=== PATIENT | male | born 1955 | race Caucasian/White ===

== ENCOUNTER → 2018-03-12 15:52 | Outpatient (CLI) | payer OTHER, SELFPAY ==
[2018-03-12 16:07] LABS: Basophils % 0.3 % (0.1-2.0); Eosinophils # 0.3 K/mm3 (0.0-0.4); Eosinophils % 3.1 % (0.1-12.0); Hematocrit 45.9 % (42.0-52.0); Hemoglobin 14.9 g/dL (14.1-18.0); Lymphocytes # 2.1 K/mm3 (0.7-4.5); Lymphocytes % 21.6 K/mm3 (10-50); Mean Corpuscular HGB Conc 32.6 g/dL (31.8-35.4); Mean Corpuscular Hemoglobin 31.1 pg (27.0-31.2); Mean Corpuscular Volume 95.5 fl (80-94); Mean Platelet Volume 7.9 fl (7.4-10.4); Monocytes # 0.5 K/mm3 (0.1-1.0); Monocytes % 5.2 % (1.7-9.3); Neutrophils # 6.6 K/mm3 (1.8-7.8); Neutrophils % 69.7 % (37.0-80.0); Platelet Count 201 K/mm3 (142-424); Red Cell Distribution Width 13.6 % (11.5-17.5); White Blood Count 9.5 K/mm3 (4.8-10.8)
[2018-03-14 19:04] LABS: Folate 5.9 ng/mL (>3.0)
== END ==
PROVIDERS: Visit Provider Psychiatry & Neurology Sleep Medicine
DX: R41.3 Other amnesia (principal)
CPT/HCPCS: 36415; 82746; 85025

== ENCOUNTER → 2018-03-20 14:07 | Outpatient (CLI) | payer OTHER, SELFPAY ==
--- NOTE | 2018-03-20 14:12 | CT_ITS ---
CT head/brain wo con COMPARISON: None HISTORY: Memory loss TECHNIQUE: Multiple axial scans obtained from base skull to the vertex and were performed without IV contrast. FINDINGS: The base of skull is normal, mastoids are clear. The ventricular system is normal. There is no ischemic infarct or bleed and there are no extra-axial fluid collections. The sylvian fissures and cortical sulci are mildly prominent. The bony calvarium appears intact. IMPRESSION: Findings of mild age-appropriate cortical atrophy, no acute intracranial pathology noted
== END ==
PROVIDERS: Family Provider Family Medicine Geriatric Medicine; PCP Family Medicine Geriatric Medicine; Visit Provider Psychiatry & Neurology Sleep Medicine
DX: R41.3 Other amnesia (principal)
CPT/HCPCS: 70450

== ENCOUNTER → 2018-03-31 14:23 | Outpatient (CLI) | payer OTHER, SELFPAY ==
[2018-03-31 14:55] LABS: Ammonia 16 umol/L (19-54)
[2018-03-31 16:15] LABS: Alanine Aminotransferase 20 U/L (12-78); Albumin Level 3.6 gm/dL (3.4-5.0); Albumin/Globulin Ratio 1.3 (1.1-1.8); Alkaline Phosphatase 93 U/L (46-116); Anion Gap 10.4 mEq/L (5-15); Aspartate Amino Transferase 17 U/L (15-37); Bilirubin,Total 0.2 mg/dL (0.2-1.0); Blood Urea Nitrogen 7 mg/dL (7-18); Carbon Dioxide 31 mmol/L (21.0-32.0); Chloride 105 mmol/L (98-107); Creatinine,Serum 0.91 mg/dL (0.70-1.30); Estimated Glomerular Filt Rate 84 ml/min (>60); GFR (African American) 102 ML/MIN (>60); Globulin 2.8 gm/dl (1.3-3.2); Glucose 95 mg/dL (74-106); Potassium 4.4 mmoL/L (3.5-5.1); Sodium 142 mmol/L (136-145); Thyroid Stimulating Hormone 1.28 uIU/ml (0.358-3.740); Total Protein,Serum 6.4 gm/dL (6.4-8.2)
[2018-04-02 08:26] LABS: Vitamin B12 352 pg/mL (232-1245)
[2018-04-02 14:48] LABS: Rapid Plasma Reagin Ab Titer Non Reactive (NonRea<1:1)
== END ==
PROVIDERS: Visit Provider Psychiatry & Neurology Sleep Medicine
DX: R41.3 Other amnesia (principal)
CPT/HCPCS: 36415; 80053; 82140; 82607; 84443; 86592

== ENCOUNTER → 2018-07-08 13:23 | Outpatient (CLI) | payer OTHER, SELFPAY ==
--- NOTE | 2018-07-08 13:26 | US_ITS ---
US scrotum HISTORY: ITS.REASON: SCROTAL PAIN ORDERING PHYSICIAN: Renetta Gutierrez PATIENT AGE: 63 years Comparison: None FINDINGS: Right testicle measures 4.8 x 2.3 x 3.8 cm. There is homogeneous echogenicity. Blood flow is present. A small septated cystic area is present in the lower pole the right testicle measuring 7 x 3 mm. The left testicle is 5 x 2.8 x 3.2 cm. There is homogeneous echogenicity. A 5 mm cystic area is present in the lower pole the left testicle. Flow is present. Left hydrocele is noted. There are several cystic areas in the left epididymal head largest at 2.4 cm consistent with spermatocele' s. IMPRESSION: 1. Bilateral cystic lesions of the testicles. The right testicular cystic area is septated and slightly larger at 7 x 3 mm. These are of questionable clinical significance. The cyst on the left has a benign simple cystic appearance. The cyst on the right however is septated and slightly larger. This could also represent a simple testicular cyst however included in the differential diagnosis would be a testicular epidermoid cyst or even a cystic testicular teratoma. Follow-up is recommended to confirm stability. 2. Left-sided spermatoceles/epididymal cysts measuring up to 2.4 cm in the epididymal head with left-sided hydrocele
== END ==
PROVIDERS: Family Provider Family Medicine Geriatric Medicine; PCP Family Medicine Geriatric Medicine; Visit Provider Urology
DX: N50.82 Scrotal pain (principal)
CPT/HCPCS: 76870

== ENCOUNTER → 2018-07-16 13:58 | Outpatient (CLI) | payer OTHER, SELFPAY ==
--- NOTE | 2018-07-16 14:03 | XR_ITS ---
EXAM: XR lumbar spine min 4V HISTORY: ITS.REASON: LBP WITH SCIATICA ORDERING PHYSICIAN: Jared Emmanuel PATIENT AGE: 63 years COMPARISON: 08/13/2016 FINDINGS: Prior fusion with interpedicular screws and disc spacer device at L4-L5. There is degenerative disc disease at L5-S1 which has progressed compared to the previous study.. There is minimal levo scoliosis of the lower lumbar spine. Mild facet arthritic changes are present at L5-S1. Incidental pars defect noted bilaterally at L3. There is minimal anterolisthesis of L4 on L5 of 3 mm. IMPRESSION: 1. Prior fusion at L4-L5. 2. Increasing degenerative disc disease at L5-S1 with facet arthritic changes at that level. 3. Pars defect at L3 unchanged
--- NOTE | 2018-07-16 14:03 | XR_ITS ---
XR chest 2V HISTORY: ITS.REASON: COPD ORDERING PHYSICIAN: Jared Emmanuel PATIENT AGE: 63 years COMPARISON: 04/25/2015 FINDINGS: The cardiomediastinal silhouette and pulmonary vascularity are within normal limits. The lungs are clear without infiltrates, suspicious nodules, or pleural effusions. Is hyperinflation with attenuation of the peripheral pulmonary vessels consistent with COPD. There are minimal fibrotic changes in the left lower lobe man No acute bony abnormalities. IMPRESSION: COPD, no change finding
== END ==
PROVIDERS: PCP Family Medicine; Visit Provider Family Medicine
DX: J44.9 Chronic obstructive pulmonary disease, unspecified (principal); M54.5 Low back pain; M54.30 Sciatica, unspecified side
CPT/HCPCS: 71046; 72110

== ENCOUNTER → 2019-01-08 10:08 | Outpatient (CLI) | payer OTHER, SELFPAY ==
[2019-01-08 10:49] LABS: Blood Urea Nitrogen 11 mg/dL (7-18); Creatinine,Serum 0.98 mg/dL (0.70-1.30); Estimated Glomerular Filt Rate 77 ml/min (>60); GFR (African American) 93 ML/MIN (>60)
--- NOTE | 2019-01-08 11:06 | CT_ITS ---
CT chest w con HISTORY: Hemoptysis, smoker ITS.REASON: HEMOPTYSIS ORDERING PHYSICIAN: Jared Emmanuel PATIENT AGE: 63 years COMPARISON: None TECHNIQUE: Axial images obtained following the administration of 75 mL of Optiray 350. Sagittal, and coronal reformatted images are also generated and reviewed. All CT scans at the facility use one or more dose reduction, viz: automated exposure control, ma/kV adjustment per patient size (including targeted exams where dose is matched to indication, i.e. head), or iterative reconstruction technique. FINDINGS: No mediastinal or hilar mass or adenopathy. There are fairly prominent coronary artery calcifications most extensive in the LAD. Normal heart size. No pericardial effusion. There are centrilobular emphysematous changes. Mild diffuse bronchial thickening is also noted. There is a calcified granuloma in the left upper lobe. No suspicious pulmonary nodules are evident. No central obstructing lesions. There is a patchy area of increased density left lung base posteriorly. This may be due to an area of scarring. Previously there was parenchymal opacity in this region which was more prominent than on today's exam. There are minimal atelectatic changes in the costophrenic sulci No effusions or other significant anomalies. Upper abdominal images demonstrates an 18 mm isodensity of the medial aspect of the spleen and may be due to a cyst measuring near water density. No acute bony findings IMPRESSION: 1. No suspicious pulmonary nodules evident. 2. Centrilobular emphysema with hyperinflation and bronchial thickening consistent with obstructive chronic bronchitis. 3. Parenchymal opacity in the left lower lobe felt to represent fibrotic change somewhat less apparent than when compared to the previous exam 4. 18 mm isodensity of the spleen. This was not readily apparent on 06/07/2018 CT abdomen exam. This appears to represent a simple cyst by CT criteria but has developed since the previous exam. Therefore, would recommend short-term follow-up. Differential diagnosis would include a congenital cyst, pseudocyst, or hydatid cyst.
== END ==
PROVIDERS: Visit Provider Family Medicine
DX: R04.2 Hemoptysis (principal)
CPT/HCPCS: 36415; 71260; 82565; 84520

== ENCOUNTER → 2019-02-25 14:10 | Outpatient (CLI) | payer OTHER, SELFPAY ==
--- NOTE | 2019-02-25 14:14 | XR_ITS ---
XR elbow RT min 3V HISTORY: ITS.REASON: Right elbow pain ORDERING PHYSICIAN: ADAM Johnson PATIENT AGE: 63 years COMPARISON: 12/05/2009 FINDINGS: There is a well-circumscribed calcific density along the lateral epicondylar region measuring 12 x 3 mm. There are mild osteoarthritic changes of the elbow joint with osteophyte formation at the humeral head and the proximal ulna as well as the distal and anterior aspect of the humerus. No acute fracture or dislocation. No lytic or blastic change. 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 Well-circumscribed calcific density has developed at the lateral epicondyle and could be due to sequela from old injury.
--- NOTE | 2019-02-25 14:14 | XR_ITS ---
XR shoulder LT min 2V HISTORY: ITS.REASON: Left shoulder pain ORDERING PHYSICIAN: ADAM Johnson PATIENT AGE: 63 years Comparison: None FINDINGS: No fracture or dislocation. No lytic or blastic change. There is normal mineralization. The joint spaces are well-preserved. No significant degenerative/arthritic changes. No erosive changes evident. IMPRESSION: Negative, no acute finding
== END ==
PROVIDERS: PCP Physician Assistant; Visit Provider Physician Assistant
DX: M25.512 Pain in left shoulder (principal); M25.521 Pain in right elbow
CPT/HCPCS: 73030; 73080

== ENCOUNTER 2019-03-17 13:41 | Outpatient (RCR) | payer OTHER, SELFPAY ==
--- NOTE | 2019-03-17 14:55 | HMH.OTOPEV ---
OT Inpatient Evaluation Rehab OT Outpatient Eval Start: 03/17/19 14:41 Freq: Status: Active Protocol: Document 03/17/19 14:41 RMARSHALL (Rec: 03/17/19 14:54 [id number] Electronically Signed By Parker Tierney OT 03/17/19 14:41 Outpatient Therapy Subjective History Subjective History Pt is a 63 year old male who reports to therapy for initial evaluation to left shoulder. Pt reports his shoulder has been painful for a few years . However, recently it has become more painful and has limited range of motion. Pt is unable to recall a specific injury that would cause complications with the left shoulder. Pt does demonstrate with decreased AROM and strength at shoulder. Pt will continue to be seen in order to address all deficits. Chief Complaint Pain Stiff Weakness Symptom Type Ache Throb Sharp Dull Stabbing Burning Shooting Symptoms Relieved By Nothing Symptoms Aggravated By Physical Activity Lifting Prior Functional Limitations None Current Functional Limitations Reaching Lifting Housework Dressing Driving Sleeping Recreation Activity Symptom Description Constant and Continuous Level of pain today (0-10) 6 Pain scale - at its best (0-10) 6 Pain scale - at its worst (0-10) 9 Shoulder/Elbow Eval Shoulder Objective Measurements Shoulder ROM Left Shoulder Abduction Active Range of 65 degrees Motion (degrees) Shoulder Flexion Active Range of Motion 70 degrees (degrees) Query Text: Shoulder External Rotation Active Range 25 degrees of Motion (degrees) Shoulder Internal Rotation Active Range 26 degrees of Motion (degrees) pain with active ROM shoulder exam left standard pain with passive ROM shoulder exam left standard
== END 2019-03-17 13:45 | disposition home or self-care (01) ==
LOC: OT 13:41
PROVIDERS: Visit Provider Physician Assistant
DX: M25.512 Pain in left shoulder (principal)
CPT/HCPCS: 97165

== ENCOUNTER → 2019-04-05 17:07 | Outpatient (CLI) | payer OTHER, SELFPAY ==
[2019-04-05 17:35] LABS: Basophils % 0.4 % (0.1-2.0); Eosinophils # 0.1 K/mm3 (0.0-0.4); Eosinophils % 1.3 % (0.1-12.0); Hematocrit 47.8 % (42.0-52.0); Hemoglobin 15.8 g/dL (14.1-18.0); Lymphocytes # 2.7 K/mm3 (0.7-4.5); Lymphocytes % 32.7 % (10-50); Mean Corpuscular Hemoglobin 30.2 pg (27.0-31.2); Mean Corpuscular Volume 91.6 fl (80-94); Monocytes # 0.6 K/mm3 (0.1-1.0); Neutrophils # 4.9 K/mm3 (1.8-7.8); Neutrophils % 58.7 % (37.0-80.0); Platelet Count 268 K/mm3 (142-424); Red Blood Count 5.22 M/mm3 (4.60-6.20); Red Cell Distribution Width 14.4 % (11.5-17.5); White Blood Count 8.3 K/mm3 (4.8-10.8)
[2019-04-05 19:55] LABS: Alanine Aminotransferase 24 U/L (12-78); Albumin Level 3.8 gm/dL (3.4-5.0); Albumin/Globulin Ratio 1.1 (1.1-1.8); Alkaline Phosphatase 95 U/L (46-116); Anion Gap 14.2 mEq/L (5-15); Aspartate Amino Transferase 13 U/L (15-37); Bilirubin,Total 0.3 mg/dL (0.2-1.0); Blood Urea Nitrogen 8 mg/dL (7-18); Calcium 8.8 mg/dL (8.5-10.1); Carbon Dioxide 27 mmol/L (21.0-32.0); Chloride 105 mmol/L (98-107); Chol/HDL Ratio 5.3 (1-3.5); Cholesterol 268 mg/dL (140-200); Creatinine,Serum 0.95 mg/dL (0.70-1.30); Estimated Glomerular Filt Rate 80 ml/min (>60); GFR (African American) 97 ML/MIN (>60); Globulin 3.4 gm/dl (1.3-3.2); Glucose 60 mg/dL (74-106); HDL Cholesterol 51 mg/dL (27-67); LDL Cholesterol 160 mg/dL (0-130); Potassium 4.2 mmoL/L (3.5-5.1); Sodium 142 mmol/L (136-145); T4 (Thyroxine) 5.5 ug/dl (4.7-13.3); Total Protein,Serum 7.2 gm/dL (6.4-8.2); Triglycerides 285 mg/dL (30-200); VLDL Cholesterol 57 mg/dL (0-40)
[2019-04-07 13:56] LABS: PSA, Free 0.52 ng/mL; Vitamin D 25 Hydroxy 31.2 ng/mL (30.0-100.0)
[2019-04-09 11:46] LABS: Testosterone, Total, LC/MS 960.8 ng/dL (264.0-916.0)
== END ==
PROVIDERS: Visit Provider Physician Assistant
DX: R53.83 Other fatigue (principal); L98.9 Disorder of the skin and subcutaneous tissue, unspecified; F32.9 Major depressive disorder, single episode, unspecified; G89.4 Chronic pain syndrome
CPT/HCPCS: 80053; 80061; 82652; 84153; 84154; 84403; 84436; 84443; 85025

== ENCOUNTER → 2019-04-07 14:22 | Outpatient (CLI) | payer OTHER, SELFPAY ==
--- NOTE | 2019-04-07 14:24 | NVE_ITS ---
Venous Exam Indications: 729.81 Swelling of limb. IMPRESSIONS No evidence of deep or superficial vein thrombosis involving the veins of the left upper extremity History: Risk factors: Current tobacco use. Left upper extremity venous duplex. Doppler flow study including spectral analysis, color and sánchez scale imaging. Location: Vascular laboratory. Patient status: Outpatient. Tables: Venous flow and imaging: + + + Location Flow properties + + + Left internal jugular Normal phasicity; spontaneous; compressible + + + Left subclavian Normal phasicity; spontaneous; normal augmentation; compressible + + + Left axillary Normal phasicity; spontaneous; normal augmentation; compressible + + + Left brachial Normal phasicity; spontaneous; normal augmentation; compressible + + + Left cephalic Normal phasicity; spontaneous; normal augmentation; compressible + + + Left basilic Normal phasicity; spontaneous ; normal augmentation; compressible + + + Left radial Compressible + + + Left ulnar Compressible + + + Right subclavian Normal phasicity; spontaneous; normal augmentation; compressible + + + (Report amended ) Electronically signed by: Tony Chaudhary [id number]
== END ==
PROVIDERS: PCP Physician Assistant; Visit Provider Physician Assistant
DX: M79.602 Pain in left arm (principal); M79.89 Other specified soft tissue disorders
CPT/HCPCS: 93971

== ENCOUNTER → 2019-10-19 12:53 | Outpatient (CLI) | payer OTHER, SELFPAY ==
--- NOTE | 2019-10-19 12:57 | XR_ITS ---
PROCEDURE: XR LUMBAR SPINE MIN 4V CLINICAL INDICATION: Lower ack Pain Low back pain COMPARISON: [id number] XR lumbar spine min 4V from 07/16/2018 FINDINGS: There is minimal thoracolumbar curvature convex right. There are postsurgical changes with posterior fusion at L4 and L5 with a disc spacer at that level. There is degenerative disc disease at L1-S1 most severe at L5-S1. There is minimal anterolisthesis of L5 5 mm. No acute fracture or dislocation. There is generalized vascular calcification. IMPRESSION: Degenerative and postsurgical changes, no acute finding Dictated by: Tony Chaudhary MD 10/19/2019 14:53 Electronically signed by Tony Chaudhary MD in [place] 10/19/2019 14:53
== END ==
PROVIDERS: PCP Physician Assistant; Visit Provider Nurse Practitioner Family
DX: M54.9 Dorsalgia, unspecified (principal)
CPT/HCPCS: 72110

== ENCOUNTER → 2020-01-10 09:41 | Outpatient (POV) | payer OTHER, SELFPAY ==
[2020-01-10 11:05] VITALS: BP 129/83; PULSE 77; RESP 18; O2SAT 98; BMI 19.4
--- NOTE | 2020-01-10 13:19 | HMH.PMCON ---
Assessment and Plan (1) Sacroiliitis Current visit: Yes Status: Chronic Category: Medical Code(s): M46.1 - Sacroiliitis, not elsewhere classified (2) Postlaminectomy syndrome Current visit: Yes Status: Chronic Category: Medical Code(s): M96.1 - Postlaminectomy syndrome, not elsewhere classified - Assessment and plan all Dx Assessment and Plan for all problems:: We will set the patient up for right SI joint injection. We will get some imaging of his right SI joint. Patient's been instructed to call the office if he has any issues prior to his next appointment. Dr. Bone has reviewed this note and agrees with this plan of care. This note was dictated using voice recognition software and may contain errors or omissions HPI - Data of Consult Consult date: 01/10/20 Requesting Physician: Indira Reyes APRN Primary Care Provider: ADAM Elise - Consult Narrative Reason for consult: Back pain, right groin pain History of present illness: Mr. Arias is a 64 year old male presents today for consultation in regards to his low right-sided back pain and radiation into his groin. Patient has a rating of 7 out of 10 for his pain today. Patient had L4-L5 fusion by Dr. Aminta corey in 2013 his pain in the right side began in 2016. Patient has a positive Aubrey test positive SI joint compression test and Jamar's test on the right side. Patient has pain radiating into his groin. Patient states all activity makes his pain worse well nothing decreases his pain he has numbness and tingling in his hands occasionally CC: Indira Reyes APRN [facility] History I have reviewed the patient's past medical history: Yes Medical History: Reports:: Anxiety, Depression, Hyperlipidemia, Lung Disease Denies:: Diabetes Mellitus Type 1, Diabetes Mellitus Type 2, Internal Pacemaker, Seizures *Have you ever received a pneumonia vaccine?: Yes *Have you received a flu vaccine this season?: Yes Laterality Cases: Bilateral: Tonsillectomy Other Surgeries: Yes: Appendectomy, Hernia Repair. No: Pacemaker Amputation: Yes (FINGER) - *Social History Smoking Status: Current every day smoker Tobacco Type: cigarettes # Packs/Day (cigarettes): 1 Alcohol Intake: never Alcohol Intake Frequency:: 3 or more drinks per day Substance Use Type: marijuana *Occupational Status:: other Housing: house Household Members: other *Travel in the last 8 weeks: None - Psychiatric History Pschychiatric History:: Reports:: Anxiety, Depression Family Hx:: Unable to obtain Review of Systems - Review of Systems ROS General: no recent weight change, no fever, no sleep disturbances Respiratory: no cough, no shortness of air, no recurring pulmonary infections Cardiovascular/Peripheral Vascular: No chest pain, No palpitations, no edema, no shortness of breath. Gastrointestinal: no new onset incontinence, normal bowel movements reported Genitourinary: no new onset incontinence Musculoskeletal: SI joint pain Psychiatric: normal mood/ affect, Neurological: [denies new onset weakness in extremities], [denies new onset balance issues] Meds Home Medications Medication Instructions Recorded Confirmed Type mirtazapine 15 mg tablet 15 mg PO QHS #30 tab 04/05/19 01/05/20 History tamsulosin 0.4 mg capsule 0.4 mg PO DAILY #30 cap 12/31/19 01/05/20 Rx escitalopram oxalate 10 mg tablet 10 mg PO DAILY #30 tab 01/05/20 01/05/20 Rx hydroxyzine HCl 25 mg tablet 25 mg PO TID PRN #90 tab 01/05/20 01/05/20 Rx ipratropium 20 mcg-albuterol 100 INHALATION 01/05/20 01/05/20 History mcg/actuation mist for inhalation Allergies Allergy/AdvReac Type Severity Reaction Status Date / Time codeine [CODEINE] Allergy Unknown I-HIVES Verified 01/05/20 14:59 Objective Vital signs: Pulse Resp BP Pulse Ox 77 18 129/83 98 01/10/20 11:05 01/10/20 11:05 01/10/20 11:05 01/10/20 11:05 Narrative: Physical Exam General: Al
== END ==
PROVIDERS: PCP Physician Assistant; Visit Provider Clinical Nurse Specialist Family Health
DX: M46.1 Sacroiliitis, not elsewhere classified (principal); M96.1 Postlaminectomy syndrome, not elsewhere classified; Z79.899 Other long term (current) drug therapy; Z88.6 Allergy status to analgesic agent
CPT/HCPCS: 99202

== ENCOUNTER → 2020-01-25 13:47 | Outpatient (CLI) | payer OTHER, SELFPAY ==
--- NOTE | 2020-01-25 13:52 | XR_ITS ---
PROCEDURE: XR SACROILIAC JOINT BI MIN 3V CLINICAL INDICATION: RT SIJ PAIN Right SI joint pain COMPARISON: [id number] LUMBAR SPINE-2 TO 3 VIEWS from 08/13/2016 FINDINGS: The SI joints have an unremarkable appearance. No evidence sclerosis/fusion or lytic change. No significant arthritic change. There are postsurgical changes at L4-5. There is generalized vascular calcification and there are sutures noted in the right lower quadrant IMPRESSION: Negative SI joints Dictated by: Tony Chaudhary MD 01/25/2020 14:46 Electronically signed by Tony Chaudhary MD in [place] 01/25/2020 14:46
== END ==
PROVIDERS: PCP Physician Assistant; Visit Provider Clinical Nurse Specialist Family Health
DX: M53.3 Sacrococcygeal disorders, not elsewhere classified (principal)
CPT/HCPCS: 72202

== ENCOUNTER → 2020-02-21 14:33 | Outpatient (POV) | payer OTHER, SELFPAY ==
[2020-02-21 14:59] VITALS: BP 146/86; PULSE 74; RESP 18; O2SAT 98; BMI 22.8
--- NOTE | 2020-02-22 11:14 | P.CONS_ITS ---
[facility] Pain Management SOAP Note Subjective:: Patient is a pleasant 64-year-old white male who presents today for follow-up after a SI joint injection. Patient got a little bit of relief but not a whole lot. Most of his pain is in his right side. He does have a positive Kemps test. His MRI shows facet arthropathy. Patient and I discussed a medial branch block on the right side we discussed its diagnostic nature and potential for neurotomy. He is interested in moving forward with this. He is not on any anticoagulation therapy. He rates his pain a 7 out of 10 today. ROS General: no recent weight change, no fever, no sleep disturbances Respiratory: no cough, no shortness of air, no recurring pulmonary infections Cardiovascular/Peripheral Vascular: No chest pain, No palpitations, no edema, no shortness of breath. Gastrointestinal: no new onset incontinence, normal bowel movements reported Genitourinary: no new onset incontinence Musculoskeletal: Back pain Psychiatric: normal mood/ affect Neurological: [denies new onset weakness in extremities], [denies new onset balance issues] Objective:: Physical Exam General: Alert and oriented x3, no acute distress, pleasant and cooperative, [on room air] Lungs: Resps E/U, Symmetrical chest expansion, Eyes: PERRL Musculoskeletal: Flexion and extension of lumbar spine somewhat guarded secondary to pain, deep tendon reflexes normal, strength in upper and lower extremities [5/5], [abnormal gait noted] Neurological: speech clear, administrative assistant office manager equal, no gross sensory deficits Assessment:: Facet arthropathy, lumbar postlaminectomy syndrome Plan:: We will set up a 3 level medial branch block on the right side. L3-L4 L4-L5 L5- S1 on the right side. Patient understands that this is diagnostic in nature we discussed this in great detail. Patient is not on any anticoagulation therapy. I will follow-up with him after his injection reassess his symptoms at that time. Patient may be a neurotomy candidate. Dr. Bone has reviewed this note and agrees with this plan of care. This note was dictated using voice recognition software and may contain errors or omissions [facility] History I have reviewed the patient's past medical history: Yes Medical History: Reports:: Anxiety, Depression, Hyperlipidemia, Lung Disease Denies:: Cancer, Diabetes Mellitus Type 1, Diabetes Mellitus Type 2, Internal Pacemaker, MRSA, Seizures *Have you ever received a pneumonia vaccine?: Yes *Have you received a flu vaccine this season?: Yes Laterality Cases: Bilateral: Tonsillectomy Other Surgeries: Yes: Appendectomy, Hernia Repair. No: Pacemaker Amputation: Yes (FINGER) Fractures: No - *Social History Smoking Status: Current every day smoker Tobacco Type: cigarettes # Packs/Day (cigarettes): 1 Alcohol Intake: never Alcohol Intake Frequency:: 3 or more drinks per day Substance Use Type: marijuana *Occupational Status:: other Housing: house Household Members: other *Travel in the last 8 weeks: None - Psychiatric History Pschychiatric History:: Reports:: Anxiety, Depression Family Hx:: Unable to obtain
== END ==
PROVIDERS: PCP Physician Assistant; Visit Provider Clinical Nurse Specialist Family Health
DX: M54.06 Panniculitis affecting regions of neck and back, lumbar region (principal); M96.1 Postlaminectomy syndrome, not elsewhere classified
CPT/HCPCS: 99212

== ENCOUNTER 2020-03-24 08:49 | Day surgery (SDC) | payer MEDICARE, OTHER, SELFPAY ==
[2020-03-24 09:18] VITALS: BP 144/79; PULSE 67; RESP 18; TEMP 37.1; O2SAT 94; BMI 22.3
[2020-03-24 09:49] VITALS: BP 132/85; PULSE 85; RESP 18; O2SAT 99
--- NOTE | 2020-03-24 09:55 | HMH.PMPROC ---
- Procedure Date: 03/24/20 Time: 09:55 Anesthesiologist:: Sawyer Bone MD Complications:: None Pre-procedure Diagnosis:: Degenerative disc disease of lumbar spine with lumbar spondylosis and facet arthropathy of lumbar spine Post-procedure Diagnosis:: Same Indications for Procedure:: This patient is a pleasant 64-year-old white male who we have been treating for low back pain with lumbar radicular symptoms and sacroiliitis. He still has significant pain on his right side. He has had previous surgery with fusion of L4-L5 and L5-S1. He has increased facet mediated pain on the right side. Increased pain with extension. He is tender over the facet joints of L4-5 and L5-S1 and L3-L4. We will do right-sided facet joint injection/medial branch blocks of L3-L4, 4 5 and L5-S1 today. He has increasing back pain which is affecting his function and activities of daily living. We will do these injections today to keep him out of the emergency room and off oral opioids. Procedure Details:: Lumbar medial branch block Informed consent was obtained and the risks and benefits of the procedure was explained to the patient. The back was prepped using ChloraPrep. The skin and subcutaneous tissues were anesthetized using lidocaine. I placed 22-gauge spinal needles into the facet joint/medial branches of L3-L4, L4-L5 and L5-S1 on the right side. Needle placement was confirmed with dye. After this we injected 3 mL bupivacaine 0.25% and Depo-Medrol 13 mg into each facet joint/medial branch of L3-L4, L4-L5 and L5-S1 the right side. We used a total of 40 mg Depo-Medrol for all 3 levels on the right side. The patient tolerated the procedure well with no complications. Plan and Disposition:: We will follow-up with him in 2 weeks. Will reevaluate his symptoms at that time. If these are successful we will plan on radiofrequency ablation to the same levels of L3-L4, L4-5 and L5-S1.
[2020-03-24 10:02] VITALS: BP 151/85; PULSE 57; RESP 20; O2SAT 94
== END 2020-03-24 10:03 | disposition home or self-care (01) ==
LOC: SC.PAINP 08:50
PROVIDERS: PCP Physician Assistant; Visit Provider Anesthesiology
DX: M51.36 Other intervertebral disc degeneration, lumbar region (principal); M47.816 Spondylosis without myelopathy or radiculopathy, lumbar region; M54.06 Panniculitis affecting regions of neck and back, lumbar region
CPT/HCPCS: 64493; 64494; 64495; J1040; Q9966

== ENCOUNTER → 2020-04-10 14:56 | Outpatient (POV) | payer MEDICARE, SELFPAY ==
[2020-04-10 15:27] VITALS: BP 155/92; PULSE 91; RESP 18; TEMP 36.6; O2SAT 98; BMI 22.3
--- NOTE | 2020-04-11 07:57 | P.CONS_ITS ---
[facility] Pain Management SOAP Note Subjective:: 65-year-old white male who presents today for follow-up after lumbar medial branch block. Patient states he had no relief from his injection. He rates his pain 8 out of 10 he states he wants no more injections. Patient has a long history of alcohol and drug abuse along with depression. Patient is currently suicidal stating that he has recently purchased a 12-gauge shotgun. His mental health provider is here at the office today and also discussing things with him. At this point I discussed the difficulty in regards to moving forward with any treatment with his mental status. I do believe an implantable device may be beneficial for him but he states that he does not want this nor does he want any other surgeries. The only thing that he states he is gotten relief from his Suboxone however he has been dismissed from the Suboxone clinic. At this point we do not have much that we can offer him. I discussed this with him. ROS General: no recent weight change, no fever, no sleep disturbances Respiratory: no cough, no shortness of air, no recurring pulmonary infections Cardiovascular/Peripheral Vascular: No chest pain, No palpitations, no edema, no shortness of breath. Gastrointestinal: no new onset incontinence, normal bowel movements reported Genitourinary: no new onset incontinence Musculoskeletal: Back pain Psychiatric: Depressed, anxious Neurological: [denies new onset weakness in extremities], [denies new onset balance issues] Objective:: Physical Exam General: Alert and oriented x3, no acute distress, pleasant and cooperative, [on room air] Lungs: Resps E/U, Symmetrical chest expansion, Eyes: PERRL Musculoskeletal: Flexion and extension of lumbar spine somewhat guarded secondary to pain, deep tendon reflexes normal, strength in upper and lower extremities [5/5], [abnormal gait noted] Neurological: speech clear, demographer equal, no gross sensory deficits Assessment:: Degenerative disc disease lumbar spine with lumbar spondylosis and postlaminectomy syndrome Plan:: At this point there is nothing else we can offer him. He is been to be escorted by his son to [facility] for psychiatric evaluation. Patient is welcome to call our office and return if he is believes any kind of injective therapy or therapies that are implantable will benefit him. Dr. Bone has reviewed this note and agrees with this plan of care. This note was dictated using voice recogniti on software and may contain errors or omissions [facility] History I have reviewed the patient's past medical history: Yes Medical History: Reports:: Anxiety, Depression, Hyperlipidemia, Lung Disease Denies:: Cancer, Diabetes Mellitus Type 1, Diabetes Mellitus Type 2, Internal Pacemaker, MRSA, Seizures *Have you ever received a pneumonia vaccine?: Yes *Have you received a flu vaccine this season?: Yes Laterality Cases: Bilateral: Tonsillectomy Other Surgeries: Yes: Appendectomy, Hernia Repair. No: Pacemaker Amputation: Yes (FINGER) Fractures: No - *Social History Smoking Status: Current every day smoker Tobacco Type: cigarettes # Packs/Day (cigarettes): 1 Alcohol Intake: never Alcohol Intake Frequency:: holidays/special occasions only Substance Use Type: denies use *Occupational Status:: other Housing: house Household Members: other *Travel in the last 8 weeks: None - Psychiatric History Pschychiatric History:: Reports:: Anxiety, Depression Family Hx:: Unable to obtain
== END ==
PROVIDERS: PCP Physician Assistant; Visit Provider Clinical Nurse Specialist Family Health
DX: M51.36 Other intervertebral disc degeneration, lumbar region (principal); M47.816 Spondylosis without myelopathy or radiculopathy, lumbar region; M96.1 Postlaminectomy syndrome, not elsewhere classified
CPT/HCPCS: 99212

== ENCOUNTER → 2020-06-22 09:30 | Outpatient (CLI) | payer MEDICARE, OTHER, SELFPAY ==
--- NOTE | 2020-06-22 09:31 | US_ITS ---
PROCEDURE: US THYROID CLINICAL INDICATION: thyroglossal dust cyst COMPARISON: No exams were available for comparison FINDINGS: Right lobe: 1.5cm x 4.3cm x 1.8cm Left lobe: 1.7cm x 4.2cm x 1.2cm Homogeneous echogenicity. No nodule or cyst apparent of the thyroid gland. IMPRESSION: Negative thyroid ultrasound. Suggest ultrasound of the neck for thyroglossal duct cyst evaluation Dictated by: Tony Chaudhary MD 06/23/2020 10:33 Electronically signed by Tony Chaudhary MD in [place] 06/23/2020 10:33
--- NOTE | 2020-06-22 09:39 | FL_ITS ---
PROCEDURE: FL BARIUM SWALLOW CLINICAL INDICATION: dysphagia COMPARISON: US THYROID from 06/22/2020 TECHNIQUE: In the upright position the patient was observed to swallow barium in both the AP and lateral view. The cervical esophagus was examined under fluoroscopy with images obtained. The patient was then placed prone in the right anterior oblique position and was observed to swallow barium with Valsalva technique . FLUOROSCOPY TIME: 37 seconds FINDINGS: There was no evidence of aspiration. There was normal peristalsis. No filling defects or mucosal abnormalities. No masses or strictures. There is a small hiatal hernia.. No evidence esophageal deviation IMPRESSION: Small hiatal hernia otherwise negative barium swallow Dictated by: Tony Chaudhary MD 06/22/2020 16:23 Electronically signed by Tony Chaudhary MD in [place] 06/22/2020 16:23
== END ==
PROVIDERS: PCP Physician Assistant; Visit Provider Otolaryngology
DX: E04.1 Nontoxic single thyroid nodule (principal); R13.10 Dysphagia, unspecified
CPT/HCPCS: 74220; 76536

== ENCOUNTER → 2020-07-17 12:54 | Outpatient (CLI) | payer MEDICARE, OTHER, SELFPAY | PROVIDERS: Visit Provider Otolaryngology | DX: E04.1 Nontoxic single thyroid nodule (principal) | CPT/HCPCS: 36415; 80053; 84439; 84443; 85007; 85014; 85018; 85048; 85049 ==

== ENCOUNTER → 2020-07-17 13:11 | Outpatient (CLI) | payer MEDICARE, OTHER, SELFPAY ==
[2020-07-17 12:56] LABS: MANUAL DIFFERENTIAL MANUAL DIFFERENTIAL (MANUAL DIFF)
--- NOTE | 2020-07-17 13:12 | CT_ITS ---
PROCEDURE: CT SOFT TISSUE NECK WO/W CON CLINICAL HISTORY: HYOIDAL LUMP COMPARISON: No exams were available for comparison TECHNIQUE: Oral Contrast: None IV Contrast: None Axial images obtained with sagittal and coronal reformats. All CT scans at the facility use one or more dose reduction, viz: automated exposure control, ma/kV adjustment per patient size (including targeted exams where dose is matched to indication, i.e. head), or iterative reconstruction technique. FINDINGS: There is a well-defined oval lesion just inferior to the hyoid bone and just to the right of midline and between the hyoid bone and thyroid cartilage. It shows a slightly hypodense center and slightly hyperdense rim measuring 1.8 x 1.9 cm on the axial image by 1.4 cm superior inferior dimension. The appearance and location is typical of a thyroglossal duct cyst. Otherwise the hyoid bone and thyroid cartilage appear normal. The thyroid gland appears grossly normal. The parotid glands and submandibular are normal and symmetrical bilaterally. There is no abnormal cervical lymphadenopathy noted. The vocal cords appear normal. There is straightening of the normal curvature cervical spine with mild degenerative changes with disc space narrowing at the C3-4, C5-6 and C6-7 levels. The prevertebral soft tissues are normal. 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 Yassine Chow MD 07/18/2020 09:53 Dr. Yassine Chow MD in [place] 07/18/2020 09:53
[2020-07-17 13:35] LABS: Basophils % 0.6 % (0.1-2.0); Eosinophils # 0.3 K/mm3 (0.0-0.4); Eosinophils % 3.6 % (0.1-12.0); Hematocrit 41.1 % (42.0-52.0); Hemoglobin 13.6 g/dL (14.1-18.0); Lymphocytes # 1.8 K/mm3 (0.7-4.5); Lymphocytes % 26.2 % (10-50); Mean Corpuscular HGB Conc 33.1 g/dL (31.8-35.4); Mean Corpuscular Hemoglobin 31.4 pg (27.0-31.2); Mean Corpuscular Volume 94.9 fl (80-94); Mean Platelet Volume 7.7 fl (7.4-10.4); Monocytes # 0.4 K/mm3 (0.1-1.0); Monocytes % 6.3 % (1.7-9.3); Neutrophils # 4.3 K/mm3 (1.8-7.8); Neutrophils % 63.2 % (37.0-80.0); Platelet Count 228 K/mm3 (142-424); Red Blood Count 4.33 M/mm3 (4.60-6.20); Red Cell Distribution Width 14.3 % (11.5-17.5); White Blood Count 6.7 K/mm3 (4.8-10.8)
[2020-07-17 13:48] LABS: Chloride 105 mmol/L (98-107); Sodium 139 mmol/L (136-145)
[2020-07-17 13:51] LABS: Alanine Aminotransferase 17 U/L (12-78); Alkaline Phosphatase 89 U/L (38-126); Aspartate Amino Transferase 21 U/L (17-59); Bilirubin,Total 0.4 mg/dl (0.2-1.3); Blood Urea Nitrogen 10 mg/dl (9-20); Estimated Glomerular Filt Rate 97 ml/min (>60); GFR (African American) 117 ML/MIN (>60)
[2020-07-17 13:52] LABS: Albumin Level 3.7 g/dl (3.5-5.0); Albumin/Globulin Ratio 1.5 (1.1-1.8); Calcium 9.2 mg/dl (8.4-10.2); Carbon Dioxide 30 mmol/L (22.0-30.0); Globulin 2.5 g/dL (1.3-3.2); Glucose 98 mg/dl (74-100); Total Protein,Serum 6.2 g/dl (6.3-8.2)
[2020-07-17 14:22] LABS: Free T4 (Free Thyroxine) 1.08 ng/dl (0.78-2.19); Thyroid Stimulating Hormone 0.61 uIU/mL (0.465-4.68)
[2020-07-17 15:19] LABS: Eosinophils % 2 % (0-3); Lymphocytes % 24 % (10-50); Monocytes % 1 % (2-9); Neutrophils % 73 % (42-76); Total Cells Counted 100
[2020-07-17 15:20] LABS: Giant Platelets 1+; Platelet Estimate Normal; RBC Morphology Normal
== END ==
PROVIDERS: PCP Physician Assistant; Visit Provider Otolaryngology
DX: R22.1 Localized swelling, mass and lump, neck (principal); E04.1 Nontoxic single thyroid nodule
CPT/HCPCS: 36415; 70492; 80053; 84439; 84443; 85007; 85014; 85018; 85048; 85049; Q9967

== ENCOUNTER 2020-07-19 16:35 | Emergency (ER) | payer MEDICARE, OTHER, SELFPAY ==
--- NOTE | 2020-07-19 16:29 | ECG_ITS ---
APPROVED REPORT Exam: Resting ECG HR:54 bpm ECG Measurements Heart Rate 54 AXES MI P -9 QRSd 74 QRS 12 QT 426 T 2 QTc 403 <Conclusion> Undetermined rhythm Otherwise normal ECG Electronically signed by : Kip Keller, 07/21/2020 07:14:29
[2020-07-19 16:35] VITALS: BP 126/76; PULSE 58; RESP 17; TEMP 36.6; O2SAT 95; BMI 23.8
--- NOTE | 2020-07-19 16:38 | XR_ITS ---
PROCEDURE: XR CHEST 2V CLINICAL HISTORY: chest pain COMPARISON: CR CXR CHEST(2 VIEWS-NOT PORTABLE) from 11/09/2013 CR CXR CHEST(2 VIEWS-NOT PORTABLE) from 04/25/2015 CR CXR2V XR chest 2V from 07/16/[address] chest w con from 01/08/2019 FINDINGS: The cardiomediastinal silhouette and pulmonary vascularity are within normal limits. The lungs are clear without infiltrates, suspicious nodules, or pleural effusions. No acute bony abnormalities. IMPRESSION: No acute findings. Dictated by: Tony Chaudhary MD 07/19/2020 17:08 Tony Chaudhary MD in [place] 07/19/2020 17:08
[2020-07-19 16:50] LABS: Basophils % 0.7 % (0.1-2.0); Eosinophils # 0.3 K/mm3 (0.0-0.4); Eosinophils % 5.2 % (0.1-12.0); Hematocrit 39.5 % (42.0-52.0); Lymphocytes # 2.1 K/mm3 (0.7-4.5); Lymphocytes % 34.3 % (10-50); Mean Corpuscular HGB Conc 32.9 g/dL (31.8-35.4); Mean Corpuscular Volume 94.1 fl (80-94); Mean Platelet Volume 8.5 fl (7.4-10.4); Monocytes # 0.4 K/mm3 (0.1-1.0); Monocytes % 7.2 % (1.7-9.3); Neutrophils # 3.2 K/mm3 (1.8-7.8); Neutrophils % 52.6 % (37.0-80.0); Platelet Count 218 K/mm3 (142-424); Red Cell Distribution Width 14.3 % (11.5-17.5); White Blood Count 6.1 K/mm3 (4.8-10.8)
[2020-07-19 16:54] LABS: Potassium 4.3 mmoL/L (3.5-5.1); Sodium 139 mmol/L (136-145)
[2020-07-19 16:55] LABS: Chloride 107 mmol/L (98-107)
[2020-07-19 16:56] LABS: Alanine Aminotransferase 18 U/L (12-78); Blood Urea Nitrogen 8 mg/dl (9-20); Creatinine Clearance Estimated 74 mL/min (50-200); Estimated Glomerular Filt Rate 97 ml/min (>60); GFR (African American) 117 ML/MIN (>60)
[2020-07-19 16:57] LABS: Albumin Level 3.5 g/dl (3.5-5.0); Albumin/Globulin Ratio 1.3 (1.1-1.8); Alkaline Phosphatase 78 U/L (38-126); Anion Gap 8.3 mEq/L (5-15); Aspartate Amino Transferase 23 U/L (17-59); Bilirubin,Total 0.3 mg/dl (0.2-1.3); Calcium 9.3 mg/dl (8.4-10.2); Carbon Dioxide 28 mmol/L (22.0-30.0); Globulin 2.8 g/dL (1.3-3.2); Glucose 94 mg/dl (74-100); Total Protein,Serum 6.3 g/dl (6.3-8.2)
--- NOTE | 2020-07-19 17:02 | ECG_ITS ---
APPROVED REPORT Exam: Resting ECG HR:51 bpm ECG Measurements Heart Rate 51 AXES DE 128 P 84 QRSd 74 QRS 10 QT 458 T -4 QTc 422 <Conclusion> Sinus bradycardia with sinus arrhythmia Otherwise normal ECG Electronically signed by : Kip Keller, 07/21/2020 07:14:09
[2020-07-19 17:17] LABS: Troponin I < 0.01 ng/ml (0.00-0.034)
--- NOTE | 2020-07-19 17:17 | HMH.EDSOB ---
ED Disposition Clinical Impression: COPD exacerbation Disposition: Home, Self-Care Condition on Discharge: Fair Instructions: DI for Chronic Obstructive Pulmonary Disease Additional Instructions: Evaluated your labs and chest x-ray and the results are as follows chest x-ray shows no acute findings CBC shows no acute findings CMP shows no acute findings 2 sets of troponin are negative. You have been given a shot of Solu-Medrol and DuoNeb. it appears that this is COPD exacerbation rather than cardiac will send you home on Medrol Dosepak Prescriptions: methylPREDNISolone [Medrol 4mg tab] 4 mg PO DIRECTED #21 tab Transmission Status: Pending to [facility] Mail Delivery Referrals: Bernadette Kimble PA [Primary Care Provider] - Time of Disposition: 19:25 - Critical Care Critical Care Time: No Attestation: On 07/19/20, the high probability of a clinically significant, sudden or life threatening deterioration of the following system(s) required my full and direct attention, intervention and personal management. The time I documented below is in addition to time spent performing reported procedures but includes the following listed in this critical care notation. Medical Decision Making - Medical Records Medical records reviewed: Yes: I reviewed the patient's medical records. MR Comment: pt presents to ed with c/o shortness of breath x 3 days and chest discomfort. He is a smoker, states he has no other medical problems. Evaluated patient's labs and chest x-ray and the results are as follows chest x-ray shows no acute findings CBC shows no acute findings CMP shows no acute findings 2 sets of troponins are negative patient has been given a shot of Solu-Medrol and DuoNeb and he is feeling better it appears that this is COPD exacerbation rather than cardiac will send him home on Medrol Dosepak - Jose Inquiry Pt receiving controlled substance: No Vital Signs: 07/19/20 16:35 07/19/20 17:26 07/19/20 18:32 Temperature 97.9 F Temperature Source Oral Pulse Rate 56 L Pulse Rate [Right Radial] 58 L 54 L Respiratory Rate 17 Blood Pressure [Right Arm] 126/76 148/87 H Blood Pressure Mean [Right Arm] 92 107 Blood Pressure Source [Right Arm] Automatic Cuff Blood Pressure Position [Right Arm] Supine 02 Sat by Pulse Oximetry 95 95 Oxygen Delivery Method Room Air Room Air - Lab Data Lab results reviewed: Yes: I reviewed the patient's lab results. Lab Results 07/19/20 16:45: WBC 6.1, RBC 4.20 L, Hgb 13.0 L, Hct 39.5 L, MCV 94.1 H, MCH 31.0, MCHC 32.9, RDW 14.3, Plt Count 218, MPV 8.5, Neut % (Auto) 52.6, Lymph % (Auto) 34.3, Benton % (Auto) 7.2, Eos % (Auto) 5.2, Baso % (Auto) 0.7, Neut # (Auto) 3.2, Lymph # (Auto) 2.1, Benton # (Auto) 0.4, Eos # (Auto) 0.3, Baso # (Auto) 0.0 07/19/20 16:45: Sodium 139, Potassium 4.3, Chloride 107, Carbon Dioxide 28, Anion Gap 8.3, BUN 8 L, Creatinine 0.80, Estimated Creat Clear 74, Estimated GFR 97, Est GFR ( Amer) 117, Glucose 94, Calcium 9.3, Total Bilirubin 0.3, AST 23, ALT 18, Alkaline Phosphatase 78, Troponin I < 0.01, Total Protein 6.3, Albumin 3.5, Globulin 2.8, Albumin/Globulin Ratio 1.3 07/19/20 16:45: NT-Pro-B Natriuret Pep 315 H Result diagrams: 07/19/20 16:45 07/19/20 16:45 Orders (Tests/Meds): ED MEDICATIONS Generic Name Dose Route Start Last Admin Trade Name Freq PRN Reason Stop Dose Admin Sodium Chloride 1,000 mls @ 999 mls/hr 07/19/20 17:15 07/19/20 17:15 Sod Chlor 0.9% 1000ml Bag IV 07/19/20 18:15 999 mls/hr .Q1H1M COLLEEN Administration Sodium Chloride 10 ml 07/19/20 17:07 Saline Flush 10ml Syringe IV 07/20/20 05:07 NEEDED PRN Maintain IV Site Discontinued Medications Generic Name Dose Route Start Last Admin Trade Name Freq PRN Reason Stop Dose Admin Albuterol/Ipratropium 3 ml 07/19/20 17:05 07/19/20 17:25 Duoneb 3ml Neb IH 07/19/20 17:06 3 ml ONCE ONE Administration Aspirin 325 mg
[2020-07-19 17:26] VITALS: PULSE 52; PULSE 56
[2020-07-19 17:26] LABS: NT Pro Brain Natriuretic Pep. 315 pg/mL (0-125)
[2020-07-19 18:32] VITALS: BP 148/87; PULSE 54; O2SAT 95
[2020-07-19 19:24] VITALS: BP 147/87; PULSE 56; RESP 20; O2SAT 97
[2020-07-19 19:25] LABS: Troponin I < 0.01 ng/ml (0.00-0.034)
[2020-07-19 20:17] VITALS: BP 163/95; PULSE 61; RESP 16; TEMP 36.6; O2SAT 94
== END 2020-07-19 20:19 | disposition home or self-care (01) ==
PROVIDERS: Emergency Provider Emergency Medicine; PCP Physician Assistant
DX: J44.1 Chronic obstructive pulmonary disease with (acute) exacerbation (principal); F41.8 Other specified anxiety disorders; E78.5 Hyperlipidemia, unspecified; Z90.09 Acquired absence of other part of head and neck; Z90.49 Acquired absence of other specified parts of digestive tract; Z79.899 Other long term (current) drug therapy
CPT/HCPCS: 71046; 80053; 83880; 84484; 85025; 93005; 96365; 99284

== ENCOUNTER 2020-08-03 08:07 | Day surgery (SDC) | payer MEDICARE, OTHER, SELFPAY ==
[2020-08-03] VITALS (9 sets, daily range): BP systolic 111–149; BP diastolic 63–88; PULSE 57–70; RESP 12–18; TEMP 36.2–36.6; O2SAT 94–100
[2020-08-03 08:36] LABS: Chloride 104 mmol/L (98-107); Sodium 140 mmol/L (136-145)
[2020-08-03 08:37] LABS: Potassium 4.1 mmoL/L (3.5-5.1)
[2020-08-03 08:39] LABS: Basophils % 0.4 % (0.1-2.0); Blood Urea Nitrogen 14 mg/dl (9-20); Creatinine Clearance Estimated 74 mL/min (50-200); Eosinophils # 0.4 K/mm3 (0.0-0.4); Estimated Glomerular Filt Rate 97 ml/min (>60); GFR (African American) 117 ML/MIN (>60); Hematocrit 48.9 % (42.0-52.0); Hemoglobin 16.1 g/dL (14.1-18.0); Lymphocytes # 3.2 K/mm3 (0.7-4.5); Lymphocytes % 32.1 % (10-50); Mean Corpuscular HGB Conc 32.9 g/dL (31.8-35.4); Mean Corpuscular Hemoglobin 30.9 pg (27.0-31.2); Mean Corpuscular Volume 93.9 fl (80-94); Monocytes # 0.6 K/mm3 (0.1-1.0); Monocytes % 5.5 % (1.7-9.3); Neutrophils # 5.8 K/mm3 (1.8-7.8); Platelet Count 300 K/mm3 (142-424); Red Blood Count 5.21 M/mm3 (4.60-6.20); Red Cell Distribution Width 14.5 % (11.5-17.5); White Blood Count 9.9 K/mm3 (4.8-10.8)
[2020-08-03 08:40] LABS: Anion Gap 12.1 mEq/L (5-15); Calcium 9.6 mg/dl (8.4-10.2); Carbon Dioxide 28 mmol/L (22.0-30.0); Glucose 98 mg/dl (74-100)
--- NOTE | 2020-08-03 08:40 | ECG_ITS ---
APPROVED REPORT Exam: Resting ECG HR:63 bpm ECG Measurements Heart Rate 63 AXES MA 126 P 28 QRSd 70 QRS 12 QT 420 T 5 QTc 429 <Conclusion> Normal sinus rhythm Nonspecific T wave abnormality Abnormal ECG Electronically signed by : Kip Keller, 08/04/2020 06:34:13
[2020-08-03 08:58] LABS: Coronavirus 19 IgG Antibody Negative (Negative); Coronavirus 19 IgM Antibody Negative (Negative)
--- NOTE | 2020-08-03 09:09 | P.PN_ITS ---
[facility] Anesthesia Checklist - Patient Identification Patient Identification: Arm Band - Structural Data Admitted From: Home Planned Operative Procedure/s: excision of thyroglossal duct cyst Consent for Planned Operative Procedure(s) Verified: Yes Verified Documents: Surgical Consent, History and Physical - NPO Status Verified Time NPO: 00:00 - Additional verifications Anesthesia Reactions: No Hx Blood Transfusions: No - Airway Assessment C-Spine Mobility Assessed: Yes (mp2) TMJ Mobility Assessed: Yes Dentition: Edentulous - Neurological Assessment Level of Consciousness: Awake, Alert - Anesthesia Plan Anesthesia Risk discussed: Yes Anesthesia Plan: Verified ASA Class: III Anesthesia Type: General [facility] History I have reviewed the patient's past medical history: Yes Medical History: Reports:: Anxiety, Chronic Obstructive Pulmonary Disease (COPD), Depression, Hyperlipidemia, Hypertension Denies:: Cancer, Diabetes Mellitus Type 1, Diabetes Mellitus Type 2, Internal Pacemaker, MRSA, Seizures *Have you ever received a pneumonia vaccine?: No *Have you received a flu vaccine this season?: No Anesthesia experience/problems:: nac Laterality Cases: Bilateral: Tonsillectomy Other Surgeries: Yes: Appendectomy, Colonoscopy, Hernia Repair, Other. No: Pacemaker Amputation: Yes (FINGER) Fractures: No - *Social History Smoking Status: Current some day smoker Tobacco Type: cigarettes # Packs/Day (cigarettes): 1 Alcohol Intake: never Alcohol Intake Frequency:: holidays/special occasions only Substance Use Type: denies use *Occupational Status:: retired Housing: house Household Members: other *Travel in the last 8 weeks: None - Psychiatric History Pschychiatric History:: Reports:: Anxiety, Depression Family Hx:: Unable to obtain
--- NOTE | 2020-08-03 11:35 | P.OP_ITS ---
Date of procedure: 08/03/20 Pre-op Diagnosis:: Thyroglossal duct cyst Post-op Diagnosis:: 1. Pre-hyoid cystic lesion 4 cm in diameter Procedure performed:: Excision of pre-hyoid cystic lesion 4 cm with simple repair Surgeon:: José Miguel Nunez MD LOGISTICAL ENGINEER:: Isaias Vallejo Anesthesia: GETA Estimated blood loss (mL): 5 Operative findings:: same as above Operative note:: With the patient under general anesthetic having been given 1 g of Ancef and 12 mg of Decadron, the neck was prepped with Betadine and draped. There was a pre-hyoid lesion which was mobilized in entirety and removed. Bleeding was stopped with bipolar cautery. Surgicel snow was placed in the defect and a simple repair was done with interrupted 3-0 nylon sutures. A dermabond was applied and the patient was sent to recovery in good general condition. Condition: stable Disposition: PACU Complications:: none
--- NOTE | 2020-08-03 11:41 | HMH.ANESI ---
[facility] Anesthesia Record Part I Intake, IV Amount: 1,000 Estimated blood loss (mL): 0 Urine output (mL): 0 Blood Pressure: 133/77 SaO2: 96 Pulse Rate: 57 Respiratory Rate: 12 Temperature: 97.4 F Patient is:: Drowsy, Oral/Nasal airway, Stable Stable to PACU at:: 11:40
--- NOTE | 2020-08-03 11:54 | PC.NURSE ---
1143-LMA removed at this time, o2 sats stable on room air, loose, non-productive cough noted
--- NOTE | 2020-08-03 12:13 | PC.NURSE ---
1207-detailed report called to TIMMY Brown 1210-pt transported to post op via stretcher w/kilo rails up and left in care of TIMMY Brown with bed locked in lowest position, vss, pt stable
--- NOTE | 2020-08-03 22:57 | P.PN_ITS ---
[facility] Anesthesia Record Part II Discharge Time: 12:10 Destination: Surgical Day Care (OP Surgery) PACU nurse assessment reviewed?: Yes Patient Condition:: Good Anesthesia Complications:: None Swallowing reflex intact?: Yes Cyanosis?: No Blood Pressure: 130/88 Pulse Rate: 62 Temperature: 97.2 F Mental Status: Alert & Oriented Pain level:: 0 Nausea and/or vomitting:: None Intake, IV Amount: 0 (Normovolemic)
== END 2020-08-03 12:40 | disposition home or self-care (01) ==
LOC: OR 08:08
PROVIDERS: PCP Physician Assistant; Visit Provider Otolaryngology
PROC: (CPT 60280; principal; 2020-08-03 09:30)
DX: E04.1 Nontoxic single thyroid nodule (principal); I10 Essential (primary) hypertension; E78.5 Hyperlipidemia, unspecified; J44.9 Chronic obstructive pulmonary disease, unspecified; F32.9 Major depressive disorder, single episode, unspecified; Z72.0 Tobacco use; F41.9 Anxiety disorder, unspecified; Z90.89 Acquired absence of other organs; Z88.6 Allergy status to analgesic agent; Z79.899 Other long term (current) drug therapy
CPT/HCPCS: 60280; 80048; 85025; 86328; 88304; 93005; 96374; 96375; J2405

== ENCOUNTER → 2020-08-24 15:45 | Outpatient (CLI) | payer MEDICARE, OTHER, SELFPAY ==
[2020-08-24 16:10] LABS: Basophils # 0.1 K/mm3 (0-0.2); Eosinophils # 0.5 K/mm3 (0.0-0.4); Eosinophils % 9.7 % (0.1-12.0); Hematocrit 44.5 % (42.0-52.0); Lymphocytes # 1.9 K/mm3 (0.7-4.5); Lymphocytes % 37.4 % (10-50); Mean Corpuscular HGB Conc 31.5 g/dL (31.8-35.4); Mean Corpuscular Hemoglobin 29.7 pg (27.0-31.2); Mean Corpuscular Volume 94.1 fl (80-94); Mean Platelet Volume 8.4 fl (7.4-10.4); Monocytes # 0.4 K/mm3 (0.1-1.0); Monocytes % 7.9 % (1.7-9.3); Neutrophils # 2.2 K/mm3 (1.8-7.8); Neutrophils % 43.9 % (37.0-80.0); Platelet Count 291 K/mm3 (142-424); Red Blood Count 4.73 M/mm3 (4.60-6.20); Red Cell Distribution Width 13.9 % (11.5-17.5); White Blood Count 5.1 K/mm3 (4.8-10.8)
[2020-08-24 16:50] LABS: Chloride 103 mmol/L (98-107); Potassium 4.4 mmoL/L (3.5-5.1); Sodium 140 mmol/L (136-145)
[2020-08-24 16:53] LABS: Alanine Aminotransferase 23 U/L (12-78); Albumin/Globulin Ratio 1.5 (1.1-1.8); Alkaline Phosphatase 100 U/L (38-126); Anion Gap 12.4 mEq/L (5-15); Aspartate Amino Transferase 25 U/L (17-59); Bilirubin,Total 0.4 mg/dl (0.2-1.3); Blood Urea Nitrogen 14 mg/dl (9-20); Calcium 9.7 mg/dl (8.4-10.2); Carbon Dioxide 29 mmol/L (22.0-30.0); Estimated Glomerular Filt Rate 85 ml/min (>60); GFR (African American) 102 ML/MIN (>60); Globulin 2.7 g/dL (1.3-3.2); Glucose 116 mg/dl (74-100); Total Protein,Serum 6.7 g/dl (6.3-8.2); Triglycerides 178 mg/dl (30-150); VLDL Cholesterol 36 mg/dL (0-40)
[2020-08-24 17:09] LABS: Direct LDL Cholesterol 120.78 mg/dL (100-129)
[2020-08-24 17:18] LABS: Thyroid Stimulating Hormone 1.32 uIU/mL (0.465-4.68)
[2020-08-24 18:03] LABS: Prostate Specific Ag Screen 1.1 ng/ml (0.0-4.0)
[2020-08-24 19:34] LABS: Cholesterol 192 mg/dl (140-200); HDL Cholesterol 48 mg/dl (40-60)
== END ==
PROVIDERS: Visit Provider Physician Assistant
DX: R07.9 Chest pain, unspecified (principal); R10.11 Right upper quadrant pain; E78.5 Hyperlipidemia, unspecified; Z12.5 Encounter for screening for malignant neoplasm of prostate
CPT/HCPCS: 80053; 80061; 84443; 85025; G0103

== ENCOUNTER → 2020-08-31 08:06 | Outpatient (CLI) | payer MEDICARE, OTHER, SELFPAY ==
--- NOTE | 2020-08-31 08:06 | US_ITS ---
PROCEDURE: US ABDOMEN COMPLETE Referring Doctor: Bernadette Kimble Patient Age:65Y CLINICAL INDICATION: RUQ pain Trace sludge COMPARISON: CT ABDPELWO CT abdomen pelvis wo con from 06/07/2018 FINDINGS: PANCREAS: U only fair visualization of the pancreas. Body pancreas best visualized. Images reveal no obvious mass or abnormal fluid collection. No ductal dilatation LIVER: No focal liver lesions demonstrated. Homogeneous echogenicity. No intrahepatic biliary ductal dilatation evident Cortex well maintained at kidneys bilaterally. RIGHT KIDNEY: Unremarkable. Normal size and echogenicity. No hydronephrosis . Right kidney 9.5 cm, length x 4.7cm x 5.7 cm LEFT KIDNEY: Unremarkable. Normal size and echogenicity. No hydronephrosis Left kidney 10.3 cm x5.1 cm x 7.3 cm GALLBLADDER: Trace sludge. No gallstones, gallbladder wall thickening, pericholecystic fluid, or biliary dilatation. AORTA: No aneurysmal dilatation.. Aorta measures up to 2.3 cm AP maximally. Echogenic atherosclerotic calcification about wall aorta most evident anteriorly SPLEEN: Unremarkable. Normal size and echogenicity No ASCITES.. IMPRESSION: Trace sludge gallbladder otherwise unremarkable complete ultrasound abdomen Dictated by: Telly Li MD 08/31/2020 16:06 Telly Li MD in [place] 08/31/2020 16:06
== END ==
PROVIDERS: PCP Physician Assistant; Visit Provider Physician Assistant
DX: R10.11 Right upper quadrant pain (principal)
CPT/HCPCS: 76700

== ENCOUNTER → 2020-09-13 08:24 | Outpatient (CLI) | payer MEDICARE, OTHER, SELFPAY ==
--- NOTE | 2020-09-13 08:29 | CT_ITS ---
PROCEDURE: CT CHEST WO CON CLINICAL INDICATION: right sided anterior chest pain COMPARISON: CT CHESTW CT chest w con from 01/08/2019 TECHNIQUE: Axial images obtained with sagittal and coronal reformats. All CT scans at the facility use one or more dose reduction, viz: automated exposure control, ma/kV adjustment per patient size (including targeted exams where dose is matched to indication, i.e. head), or iterative reconstruction technique. FINDINGS: HEART AND MEDIASTINAL STRUCTURES: There are coronary artery calcifications. No dominant adenopathy apparent. No mediastinal or hilar mass. There is mild nonspecific thickening of the distal esophagus. LUNGS AND PLEURAL SPACES: COPD with centrilobular emphysema and scattered areas of scarring parenchymal opacity is present in the right lung base posterior medially consistent with an area of atelectasis or infiltrate. There is mild diffuse bronchial thickening. No central obstructing lesion is evident. There is a calcified granuloma in the left upper lobe. There is prominent transverse dimension of the trachea measuring 3 cm. Transverse dimension of the right mainstem bronchus is 2.1 cm and of the left mainstem bronchus 1.9 cm. BONY STRUCTURES: No acute bony abnormalities apparent. UPPER ABDOMEN: Previously noted low-density lesion of the spleen is not demonstrated on today's study there is a 9 mm hypodensity in the left hepatic lobe near the falciform ligament and may represent a small hepatic cyst ADDITIONAL FINDINGS: No other significant abnormalities. IMPRESSION: 1. Centrilobular emphysema with COPD. Hyperinflation and bronchial thickening. 2. Transverse dilatation of the trachea and bronchi suggesting tracheal bronchomalacia 3. Parenchymal opacity in the right lung base medially which may be due to an area of atelectasis or infiltrate. 4. Other nonacute findings as described above Dictated by: Tony Chaudhary MD 09/14/2020 10:15 Tony Chaudhary MD in [place] 09/14/2020 10:15
== END ==
PROVIDERS: PCP Physician Assistant; Visit Provider Physician Assistant
DX: R07.9 Chest pain, unspecified (principal)
CPT/HCPCS: 71250

== ENCOUNTER 2020-12-05 05:14 | Emergency (ER) | payer MEDICARE, OTHER, SELFPAY ==
[2020-12-05] VITALS (8 sets, daily range): BP systolic 107–146; BP diastolic 60–90; PULSE 59–73; RESP 15–21; TEMP 36.8; O2SAT 92–98; BMI 26.6
--- NOTE | 2020-12-05 05:06 | ECG_ITS ---
APPROVED REPORT Exam: Resting ECG HR:65 bpm ECG Measurements Heart Rate 65 AXES ME 130 P 19 QRSd 76 QRS 7 QT 436 T -8 QTc 453 Conclusion Normal sinus rhythm Nonspecific ST abnormality Abnormal ECG Electronically signed by : Kip Keller, 12/05/2020 19:57:30
--- NOTE | 2020-12-05 05:15 | XR_ITS ---
PROCEDURE: XR CHEST PORTABLE CLINICAL HISTORY: soa Shortness of air COMPARISON: CR CXR CHEST(2 VIEWS-NOT PORTABLE) from 04/25/2015 CR CXR2V XR chest 2V from 07/16/2018 CR XR CHEST 2V from 07/19/[address] CHEST WO CON from 09/13/2020 FINDINGS: The cardiomediastinal silhouette and pulmonary vascularity are within normal limits. COPD changes with coarsening of the bronchovascular markings. No lobar consolidation or collapse. No acute bony abnormalities. IMPRESSION: COPD. No acute finding. Dictated by: Tony Chaudhary MD 12/05/2020 05:28 Tony Chaudhary MD in [place] 12/05/2020 05:28
--- NOTE | 2020-12-05 05:38 | HMH.EDGENADL ---
ED Disposition Clinical Impression: Acute exacerbation of chronic obstructive airways disease Disposition: Still a Patient Condition on Discharge: Good Referrals: PCP,No [Primary Care Provider] - - Critical Care Critical Care Time: No Attestation: On 12/05/20, the high probability of a clinically significant, sudden or life threatening deterioration of the following system(s) required my full and direct attention, intervention and personal management. The time I documented below is in addition to time spent performing reported procedures but includes the following listed in this critical care notation. Medical Decision Making - Medical Records Medical records reviewed: Yes: I reviewed the patient's medical records. - Jose Inquiry Pt receiving controlled substance: No Vital Signs: 12/05/20 05:08 12/05/20 05:31 12/05/20 06:05 Temperature 98.2 F 98.2 F Temperature Source Oral Oral Pulse Rate [Right Brachial] 66 73 67 Respiratory Rate 21 15 17 Blood Pressure [Right Arm] 146/90 H 121/74 126/82 Blood Pressure Mean [Right Arm] 108 89 96 Blood Pressure Source [Right Arm] Automatic Cuff Automatic Cuff Automatic Cuff Blood Pressure Position [Right Arm] Sitting Sitting Sitting 02 Sat by Pulse Oximetry 92 L 98 93 L Oxygen Delivery Method Nasal Cannula Nasal Cannula Nasal Cannula Oxygen Flow Rate (LPM) 2 2 2 12/05/20 06:19 Temperature Temperature Source Pulse Rate [Right Brachial] 65 Respiratory Rate 17 Blood Pressure [Right Arm] 123/82 Blood Pressure Mean [Right Arm] 95 Blood Pressure Source [Right Arm] Automatic Cuff Blood Pressure Position [Right Arm] Sitting 02 Sat by Pulse Oximetry 98 Oxygen Delivery Method Oxygen Flow Rate (LPM) - Lab Data Lab Results 12/05/20 05:28: Sodium 141, Potassium 4.0, Chloride 104, Carbon Dioxide 30, Anion Gap 11.0, BUN 13, Creatinine 0.80, Estimated Creat Clear 83, Estimated GFR 97, Est GFR ( Amer) 117, Glucose 112 H, Calcium 9.5, Troponin I < 0.01, NT-Pro-B Natriuret Pep 54.3 12/05/20 05:28: Lactate 0.9 Result diagrams: 12/05/20 05:28 Orders (Tests/Meds): ED MEDICATIONS Discontinued Medications Generic Name Dose Route Start Last Admin Trade Name Freq PRN Reason Stop Dose Admin Albuterol/Ipratropium 2 puff 12/05/20 05:15 12/05/20 05:30 Combivent 20mcg/100mcg Respimat Inhaler IH 12/05/20 05:16 2 puff ONCE ONE Administration Methylprednisolone Sodium Succinate 125 mg 12/05/20 05:15 12/05/20 05:38 Methylprednisolone Sod Succ 125mg Vial IV 12/05/20 05:16 125 mg ONCE ONE Administration Miscellaneous 1 unit 12/05/20 05:15 12/05/20 05:30 Aerochamber/Optihaler MC 12/05/20 05:16 1 unit ONCE ONE Administration ORDERS Category Date Time Status Complete Blood Count Auto Diff Stat Lab 12/05/20 05:28 Received Covid-19 IgG/IgM ([facility]) Stat Lab 12/05/20 05:28 Received Troponin I Q3H Lab 12/05/20 08:30 Ordered Troponin I Q3H Lab 12/05/20 11:30 Ordered Blood Culture Stat Micro 12/05/20 05:28 Received Medical Decision Narrative: The patient is a 65 year old male who presents to the ED with shortness of breath. On arrival he is awake, alert, stable. In no distress. No chest pain. He is satting 94% on 4L NC. He does not wear oxygen at home. Lungs with prolonged expiratory phase and very mild end expiratory wheezes bilaterally. Labs including CBC, BMP, troponin were obtained as well as CXR. He was given 125 mg solumedrol IV and combivent inhaler. Initial troponin was negative and labs were unremarkable. Patient was able to be weaned down to 2L NC. Patient care assumed by Dr. Thrasher at 0700 pending delta trop and clinical improvement. General Adult HPI - General Chief complaint: Shortness of Breath/Dyspnea Stated complaint: shortness of breath Time Seen by Provider: 12/05/20 05:20 Mode of Arrival: EMS Limitations: No Limitations Description of Symptoms (Recalled from ER Triage Doc. by RN): patient presents afte
[2020-12-05 06:03] LABS: Basophils # 0.1 K/mm3 (0-0.2); Basophils % 0.7 % (0.1-2.0); Eosinophils # 0.4 K/mm3 (0.0-0.4); Eosinophils % 5.1 % (0.1-12.0); Hematocrit 42.7 % (42.0-52.0); Hemoglobin 14.2 g/dL (14.1-18.0); Lymphocytes # 2.5 K/mm3 (0.7-4.5); Lymphocytes % 37.3 % (10-50); Mean Corpuscular HGB Conc 33.4 g/dL (31.8-35.4); Mean Corpuscular Hemoglobin 29.2 pg (27.0-31.2); Mean Corpuscular Volume 87.5 fl (80-94); Mean Platelet Volume 7.8 fl (7.4-10.4); Monocytes # 0.6 K/mm3 (0.1-1.0); Monocytes % 8.2 % (1.7-9.3); Neutrophils # 3.3 K/mm3 (1.8-7.8); Neutrophils % 48.7 % (37.0-80.0); Platelet Count 225 K/mm3 (142-424); Red Blood Count 4.88 M/mm3 (4.60-6.20); White Blood Count 6.8 K/mm3 (4.8-10.8)
[2020-12-05 06:08] LABS: Blood Urea Nitrogen 13 mg/dl (9-20); Calcium 9.5 mg/dl (8.4-10.2); Carbon Dioxide 30 mmol/L (22.0-30.0); Chloride 104 mmol/L (98-107); Creatinine Clearance Estimated 83 mL/min (50-200); Estimated Glomerular Filt Rate 97 ml/min (>60); GFR (African American) 117 ML/MIN (>60); Glucose 112 mg/dl (74-100); Lactic Acid 0.9 mmol/L (0.7-2.1); Sodium 141 mmol/L (136-145)
[2020-12-05 06:21] LABS: NT Pro Brain Natriuretic Pep. 54.3 pg/mL (0-125)
[2020-12-05 06:29] LABS: Troponin I < 0.01 ng/ml (0.00-0.034)
[2020-12-05 06:38] LABS: Coronavirus 19 IgG Antibody Negative (Negative); Coronavirus 19 IgM Antibody Negative (Negative)
--- NOTE | 2020-12-05 06:42 | ECG_ITS ---
APPROVED REPORT Exam: Resting ECG HR:67 bpm ECG Measurements Heart Rate 67 AXES TN 144 P 11 QRSd 82 QRS 27 QT 414 T -38 QTc 437 Conclusion Normal sinus rhythm Nonspecific T wave abnormality Abnormal ECG Electronically signed by : Kip Keller, 12/05/2020 19:57:21
--- NOTE | 2020-12-05 08:08 | PC.NURSE ---
Pt resting on room air. Tolerating well, denies any issues at this time
--- NOTE | 2020-12-05 08:08 | PC.NURSE ---
second troponin yuan and sent to lab
--- NOTE | 2020-12-05 08:20 | HMH.EDGENADL ---
ED Disposition Clinical Impression: Acute exacerbation of chronic obstructive airways disease Disposition: Home, Self-Care Condition on Discharge: Fair Instructions: DI for Chronic Obstructive Pulmonary Disease Additional Instructions: You have been evaluated for shortness of breath, diagnosed with a COPD exacerbation. Please take steroids as prescribed. Use your home inhalers. Follow-up with your primary care physician in 1 to 2 days for symptom recheck. Return to the emergency department for any new or worsening symptoms. Prescriptions: predniSONE [Prednisone 20mg Tab] 40 mg PO DAILY #10 tab Transmission Status: Received by [facility] #[id number] Referrals: PCP,No [Primary Care Provider] - Time of Disposition: 08:22 - Critical Care Critical Care Time: No Attestation: On 12/05/20, the high probability of a clinically significant, sudden or life threatening deterioration of the following system(s) required my full and direct attention, intervention and personal management. The time I documented below is in addition to time spent performing reported procedures but includes the following listed in this critical care notation. Medical Decision Making - Medical Records Medical records reviewed: Yes: I reviewed the patient's medical records. - Jose Inquiry Pt receiving controlled substance: No Vital Signs: 12/05/20 05:08 12/05/20 05:31 12/05/20 06:05 Temperature 98.2 F 98.2 F Temperature Source Oral Oral Pulse Rate Pulse Rate [Right Brachial] 66 73 67 Respiratory Rate 21 15 17 Blood Pressure Blood Pressure [Right Arm] 146/90 H 121/74 126/82 Blood Pressure Mean [Right Arm] 108 89 96 Blood Pressure Source Blood Pressure Source [Right Arm] Automatic Cuff Automatic Cuff Automatic Cuff Blood Pressure Position Blood Pressure Position [Right Arm] Sitting Sitting Sitting 02 Sat by Pulse Oximetry 92 L 98 93 L Oxygen Delivery Method Nasal Cannula Nasal Cannula Nasal Cannula Oxygen Flow Rate (LPM) 2 2 2 12/05/20 06:19 12/05/20 07:50 12/05/20 08:34 Temperature Temperature Source Pulse Rate Pulse Rate [Right Brachial] 65 63 59 L Respiratory Rate 17 Blood Pressure Blood Pressure [Right Arm] 123/82 121/72 116/70 Blood Pressure Mean [Right Arm] 95 88 85 Blood Pressure Source Blood Pressure Source [Right Arm] Automatic Cuff Automatic Cuff Automatic Cuff Blood Pressure Position Blood Pressure Position [Right Arm] Sitting Sitting Sitting 02 Sat by Pulse Oximetry 98 93 L 93 L Oxygen Delivery Method Room Air Room Air Oxygen Flow Rate (LPM) 12/05/20 09:04 12/05/20 09:40 Temperature 98.2 F Temperature Source Oral Pulse Rate 66 Pulse Rate [Right Brachial] 59 L Respiratory Rate 19 Blood Pressure 107/60 L Blood Pressure [Right Arm] 107/60 L Blood Pressure Mean [Right Arm] 75 Blood Pressure Source Automatic Cuff Blood Pressure Source [Right Arm] Automatic Cuff Blood Pressure Position Sitting Blood Pressure Position [Right Arm] Sitting 02 Sat by Pulse Oximetry 94 L Oxygen Delivery Method Room Air Room Air Oxygen Flow Rate (LPM) - Lab Data Lab Results 12/05/20 05:28: WBC 6.8, RBC 4.88, Hgb 14.2, Hct 42.7, MCV 87.5, MCH 29.2, MCHC 33.4, RDW 15.0, Plt Count 225, MPV 7.8, Neut % (Auto) 48.7, Lymph % (Auto) 37.3, [place] % (Auto) 8.2, Eos % (Auto) 5.1, Baso % (Auto) 0.7, Neut # (Auto) 3.3, Lymph # (Auto) 2.5, [place] # (Auto) 0.6, Eos # (Auto) 0.4, Baso # (Auto) 0.1 12/05/20 05:28: Sodium 141, Potassium 4.0, Chloride 104, Carbon Dioxide 30, Anion Gap 11.0, BUN 13, Creatinine 0.80, Estimated Creat Clear 83, Estimated GFR 97, Est GFR ( Amer) 117, Glucose 112 H, Calcium 9.5, Troponin I < 0.01, NT-Pro-B Natriuret Pep 54.3 12/05/20 05:28: SARS-CoV-2 IgG Ab (Rapid) Negative, SARS-CoV-2 IgM Ab (Rapid) Negative 12/05/20 05:28: Lactate 0.9 12/05/20 08:00: Troponin I < 0.01 Result diagrams: 12/05/20 05:28 12/05/20 05:28 Orders (Tests/Meds): ED MEDICA
[2020-12-05 08:31] LABS: Troponin I < 0.01 ng/ml (0.00-0.034)
--- NOTE | 2020-12-05 09:13 | PC.NURSE ---
Pt's son will be to get pt in approx 20 mins.
--- NOTE | 2020-12-05 09:13 | PC.NURSE ---
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
== END 2020-12-05 09:42 | disposition home or self-care (01) ==
PROVIDERS: Emergency Provider Emergency Medicine
DX: J44.1 Chronic obstructive pulmonary disease with (acute) exacerbation (principal); Z01.84 Encounter for antibody response examination; F41.8 Other specified anxiety disorders; I10 Essential (primary) hypertension; E78.5 Hyperlipidemia, unspecified; F17.210 Nicotine dependence, cigarettes, uncomplicated; Z79.899 Other long term (current) drug therapy
CPT/HCPCS: 71045; 80048; 83605; 83880; 84484; 85025; 86328; 87040; 93005; 96374; 99284

== ENCOUNTER 2021-02-19 13:37 | Observation (INO) | payer MEDICARE, OTHER, SELFPAY ==
[2021-02-19] VITALS (9 sets, daily range): BP systolic 127–157; BP diastolic 79–100; PULSE 60–102; RESP 19–30; TEMP 36.4–36.9; O2SAT 91–99; BMI 24.3; BMI 23.3
--- NOTE | 2021-02-19 13:28 | ECG_ITS ---
APPROVED REPORT Exam: Resting ECG HR:77 bpm ECG Measurements Heart Rate 77 AXES ND 90 P 63 QRSd 78 QRS 49 QT 398 T -51 QTc 450 Conclusion Sinus rhythm with short ND Septal infarct, age undetermined Abnormal ECG Electronically signed by : Kip Keller, 02/19/2021 17:20:04
--- NOTE | 2021-02-19 13:41 | XR_ITS ---
PROCEDURE: XR CHEST PORTABLE CLINICAL HISTORY: cough Smoker, cough, chest pain COMPARISON: CR CXR2V XR chest 2V from 07/16/2018 CR XR CHEST 2V from 07/19/[address] CHEST WO CON from 09/13/2020 CR XR CHEST PORTABLE from 12/05/2020 FINDINGS: The cardiomediastinal silhouette and pulmonary vascularity are within normal limits. COPD. No lobar consolidation or collapse. No acute bony abnormalities. IMPRESSION: No acute findings. Dictated by: Tony Chaudhary MD 02/19/2021 14:18 Tony Chaudhary MD in [place] 02/19/2021 14:18
--- NOTE | 2021-02-19 14:00 | PC.NURSE ---
FAMILY AT BEDSIDE, PT UPDATED ON PLAN OF CARE
[2021-02-19 14:10] LABS: ABG Base Excess 4.1 mmol/L (-2.4-2.3); ABG HCO3 28.8 mmhg (22.0-26.0); ABG Oxygen Saturation 97 % (90-100); ABG PH 7.41 mmol/L (7.35-7.45); ABG PO2 86.1 mmhg (80-100); ABG TCO2 30.2 mmhg (23-27)
[2021-02-19 14:11] LABS: Allen's Test Acceptable; Oxygen 2 LPM %; Source Right Radial
[2021-02-19 14:40] LABS: Chloride 105 mmol/L (98-107); Potassium 3.9 mmoL/L (3.5-5.1); Sodium 142 mmol/L (136-145)
[2021-02-19 14:43] LABS: Alanine Aminotransferase 21 U/L (12-78); Albumin Level 4.3 g/dl (3.5-5.0); Albumin/Globulin Ratio 1.3 (1.1-1.8); Alkaline Phosphatase 116 U/L (38-126); Anion Gap 11.9 mEq/L (5-15); Aspartate Amino Transferase 29 U/L (17-59); Bilirubin,Total 1.1 mg/dl (0.2-1.3); Blood Urea Nitrogen 15 mg/dl (9-20); Calcium 9.6 mg/dl (8.4-10.2); Carbon Dioxide 29 mmol/L (22.0-30.0); Creatinine Clearance Estimated 76 mL/min (50-200); Estimated Glomerular Filt Rate 135 ml/min (>60); GFR (African American) 164 ML/MIN (>60); Globulin 3.2 g/dL (1.3-3.2); Glucose 119 mg/dl (74-100); Total Protein,Serum 7.5 g/dl (6.3-8.2)
[2021-02-19 14:46] LABS: Adenovirus,PCR Not Detected (NotDetected); Bordetella Pertussis Not Detected (NotDetected); Chlamydophila Pneumoniae, PCR Not Detected (NotDetected); Coronavirus 19, PCR Not Detected (NotDetected); Coronavirus 229E Not Detected (NotDetected); Coronavirus NL63 Not Detected (NotDetected); Coronavirus OC43 Not Detected (NotDetected); Coronovirus HKU1,PCR Not Detected (NotDetected); Human Metapneumovirus Not Detected (NotDetected); Influenza A, PCR Not Detected (NotDetected); Influenza AH1, 2009 Not Detected (NotDetected); Influenza AH1, PCR Not Detected (NotDetected); Influenza AH3,PCR Not Detected (NotDetected); Influenza B, PCR Not Detected (NotDetected); Mycoplasma Pneumoniae, PCR Not Detected (NotDetected); Parainfluenza 1, PCR Not Detected (NotDetected); Parainfluenza 2, PCR Not Detected (NotDetected); Parainfluenza 3, PCR Not Detected (NotDetected); Parainfluenza 4, PCR Not Detected (NotDetected); Respiratory Syncytial Virus Not Detected (NotDetected); Rhinovirus/Enterovirus Not Detected (NotDetected)
[2021-02-19 14:46] LABS: Basophils % 0.4 % (0.1-2.0); Eosinophils % 0.3 % (0.1-12.0); Hematocrit 41.3 % (42.0-52.0); Hemoglobin 13.4 g/dL (14.1-18.0); Lymphocytes % 22.4 % (10-50); Mean Corpuscular HGB Conc 32.5 g/dL (31.8-35.4); Mean Corpuscular Hemoglobin 29.2 pg (27.0-31.2); Mean Corpuscular Volume 90.1 fl (80-94); Mean Platelet Volume 7.6 fl (7.4-10.4); Monocytes # 1.2 K/mm3 (0.1-1.0); Monocytes % 13.1 % (1.7-9.3); Neutrophils # 5.7 K/mm3 (1.8-7.8); Neutrophils % 63.8 % (37.0-80.0); Platelet Count 258 K/mm3 (142-424); Red Blood Count 4.58 M/mm3 (4.60-6.20); Red Cell Distribution Width 14.2 % (11.5-17.5); White Blood Count 8.9 K/mm3 (4.8-10.8)
[2021-02-19 14:52] LABS: NT Pro Brain Natriuretic Pep. 717 pg/mL (0-125)
--- NOTE | 2021-02-19 15:07 | HMH.EDGENADL ---
ED Disposition Clinical Impression: Acute exacerbation of chronic obstructive airways disease, Acute and chronic respiratory failure with hypercapnia Disposition: Admitted As Inpatient Condition on Discharge: Fair - Critical Care Critical Care Time: No Attestation: On 02/19/21, the high probability of a clinically significant, sudden or life threatening deterioration of the following system(s) required my full and direct attention, intervention and personal management. The time I documented below is in addition to time spent performing reported procedures but includes the following listed in this critical care notation. Medical Decision Making - Medical Records Medical records reviewed: Yes: I reviewed the patient's medical records. - Jose Inquiry Pt receiving controlled substance: No Vital Signs: 02/19/21 13:42 02/19/21 14:30 02/19/21 15:00 Temperature 98.4 F Temperature Source Oral Pulse Rate 75 74 Pulse Rate [Radial] 79 Respiratory Rate 30 H 24 25 H Blood Pressure 127/92 H 145/92 H Blood Pressure [Right Arm] 136/92 H Blood Pressure Mean 106 Blood Pressure Mean [Right Arm] 106 Blood Pressure Position [Right Arm] Sitting 02 Sat by Pulse Oximetry 91 L 94 L 94 L Oxygen Delivery Method Room Air Nasal Cannula Nasal Cannula Oxygen Flow Rate (LPM) 2 2 - Lab Data Lab Results 02/19/21 13:42: Specimen Source Right radial, O2 % 2 lpm, ABG pH 7.41, ABG pCO2 47.0 H, ABG pO2 86.1, ABG HCO3 28.8 H, ABG Total CO2 30.2 H, ABG O2 Saturation 97, ABG Base Excess 4.1 H, Tony Test Acceptable 02/19/21 14:23: WBC 8.9, RBC 4.58 L, Hgb 13.4 L, Hct 41.3 L, MCV 90.1, MCH 29.2, MCHC 32.5, RDW 14.2, Plt Count 258, MPV 7.6, Neut % (Auto) 63.8, Lymph % (Auto) 22.4, [place] % (Auto) 13.1 H, Eos % (Auto) 0.3, Baso % (Auto) 0.4, Neut # (Auto) 5.7, Lymph # (Auto) 2.0, [place] # (Auto) 1.2 H, Eos # (Auto) 0.0, Baso # (Auto) 0.0 02/19/21 14:23: PT 12.2, INR 1.04, APTT 29.0 02/19/21 14:23: Sodium 142, Potassium 3.9, Chloride 105, Carbon Dioxide 29, Anion Gap 11.9, BUN 15, Creatinine 0.60 L, Estimated Creat Clear 76, Estimated GFR 135, Est GFR ( Amer) 164, Glucose 119 H, Calcium 9.6, Total Bilirubin 1.1, AST 29, ALT 21, Alkaline Phosphatase 116, Troponin I 0.04 H, NT-Pro-B Natriuret Pep 717 H, Total Protein 7.5, Albumin 4.3, Globulin 3.2, Albumin/Globulin Ratio 1.3 Result diagrams: 02/19/21 14:23 02/19/21 14:23 Orders (Tests/Meds): ED MEDICATIONS Generic Name Dose Route Start Last Admin Trade Name Freq PRN Reason Stop Dose Admin Doxycycline Hyclate 100 mg/ 250 mls @ 166.667 mls/hr 02/19/21 15:15 02/19/21 15:32 Sodium Chloride IV 03/05/21 15:14 166.667 mls/hr Q12H COLLEEN Administration Protocol Discontinued Medications Generic Name Dose Route Start Last Admin Trade Name Freq PRN Reason Stop Dose Admin Albuterol/Ipratropium 3 ml 02/19/21 13:42 02/19/21 14:08 Albuterol/Ipratropium 3 Ml Neb 02/19/21 13:43 Not Given ONCE ONE Albuterol/Ipratropium 2 puff 02/19/21 14:06 02/19/21 14:07 Combivent 20mcg/100mcg Respimat Inhaler 02/19/21 14:07 1 puff ONCE ONE Administration Albuterol/Ipratropium 3 ml 02/19/21 14:47 Albuterol/Ipratropium 3 Ml Neb 02/19/21 14:48 ONCE ONE Dexamethasone Sodium Phosphate 8 mg 02/19/21 13:42 02/19/21 14:08 Dexamethasone 4mg/Ml 1ml Vial IV 02/19/21 13:43 Not Given ONCE ONE Methylprednisolone Sodium Succinate 125 mg 02/19/21 14:05 02/19/21 14:07 Methylprednisolone Sod Succ 125mg Vial IV 02/19/21 14:06 125 mg ONCE ONE Administration Miscellaneous 1 unit 02/19/21 14:06 02/19/21 14:07 Aerochamber/Optihaler MC 02/19/21 14:07 1 unit ONCE ONE Administration ORDERS Category Date Time Status Full Resp Panel w/COVID ([facility]) Routine Lab 02/19/21 14:30 Received Troponin I Q3H Lab 02/19/21 16:45 Ordered Troponin I Q3H Lab 02/19/21 19:45 Ordered - ECG Data Tracing #1 Normal ventricular rate
[2021-02-19 15:08] LABS: INR 1.04 (0.9-1.1); Prothrombin Time 12.2 seconds (10.1-12.5)
--- NOTE | 2021-02-19 15:30 | PC.NURSE ---
PT AND FAMILY UPDATED ON PLAN OF CARE
[2021-02-19 15:39] LABS: Troponin I 0.04 ng/ml (0.00-0.034)
--- NOTE | 2021-02-19 16:29 | PC.NURSE ---
REPORT CALLED TO FLOOR
[2021-02-19 17:06] LABS: Troponin I 0.03 ng/ml (0.00-0.034)
--- NOTE | 2021-02-19 18:05 | PC.ADMIT ---
Admission Note: Pt admitted to floor from ED for SOA/weakness x3 days. No known covid exposure. Pt is a current 2 PPD smoker and does admit to smoking marijuana daily. Upon assessment pt is neurologically intact. Currently on 2 L O2 per nasal cannula, pt does not have home O2. Lungs noted to have scattered exp wheezes. Productive cough, sputum is thick and yellow. Specimen sent to lab for culture this shift. Resp rate ranging 24-28/min. HR regular. No edema present. Skin intact. Abdomen soft, non-tender,w/ active BS in all quads. Voiding w/o difficulty. Pt does state a hx of prostate problems. He reports living at home alone, performs ADL's independently. Pt ambulates well w/ no safety concerns, is able to turn and reposition himself in the bed w/o issue. Wishes to be a full code. Son is to bring his home meds to hospital. Is currently sitting up in bed eating supper. No complaints voiced @ this time. Call aracely w/in reach. Was given written information regarding hospital policies, unit procedures and contact persons. Vital Signs - 8 hr 02/19/21 13:42 02/19/21 14:30 02/19/21 15:00 Temperature 98.4 F Pulse Rate 75 74 Pulse Rate [Radial] 79 Respiratory Rate 30 H 24 25 H Blood Pressure 127/92 H 145/92 H Blood Pressure [Right Arm] 136/92 H 02 Sat by Pulse Oximetry 91 L 94 L 94 L 02/19/21 16:39 02/19/21 16:48 02/19/21 17:20 Temperature 98 F 98.4 F Pulse Rate 102 H Pulse Rate [Radial] 64 Respiratory Rate 26 H 20 28 H Blood Pressure 152/100 H Blood Pressure [Right Arm] 139/79 02 Sat by Pulse Oximetry 99
--- NOTE | 2021-02-19 18:20 | HMH.HP ---
*Admission Date: 02/19/21 *Chief complaint: copd *History of present illness: Patient is a 65-year-old white male, followed by our office presented to the emergency room earlier with a course of worsening dyspnea over the last week or so. He has been using his inhalers with greater frequency, and has had a cough productive of Sputum. He does report a longstanding history of COPD, has had several hospitalizations, has been mechanically ventilated in the past. He is a heavy smoker. Patient also relays some episodic chest pain. This is substernal. There is no active chest pain at the time of exam, no radiation to the jaw, no nausea diaphoresis or emesis. His lungs are diffusely congested, diminished air movement, expiratory wheezes and scattered rhonchi. He is awake, lucid, clear. [facility] History Medical History: Reports:: Anxiety, Chronic Obstructive Pulmonary Disease (COPD), Depression, Hyperlipidemia, Hypertension, Lung Disease Denies:: Cancer, Diabetes Mellitus Type 1, Diabetes Mellitus Type 2, Internal Pacemaker, MRSA, Seizures *Have you ever received a pneumonia vaccine?: No *Have you received a flu vaccine this season?: No Laterality Cases: Bilateral: Cataract, Tonsillectomy Other Surgeries: Yes: Appendectomy, Colonoscopy, Hernia Repair, Other. No: Pacemaker Amputation: Yes (r index finger) Fractures: No - *Social History Last grade of school completed: 9th or 10th Smoking Status: Current every day smoker Tobacco Type: cigarettes # Packs/Day (cigarettes): 2 Alcohol Intake: former Alcohol Intake Frequency:: holidays/special occasions only Substance Use Type: marijuana Last Used Substance: hours (ago), days (ago) *Occupational Status:: disabled Housing: house Household Members: other *Travel in the last 8 weeks: None - Psychiatric History Pschychiatric History:: Reports:: Anxiety, Depression Family Hx:: Unable to obtain Review of Systems - Constitutional Reports fatigue, Reports lack of energy - Eyes Denies change in vision - ENT Reports nasal congestion, Denies abnormal hearing - *Cardiovascular Reports chest pain, Reports chest pain at rest, Reports shortness of breath, Reports shortness of breath with activity, Reports shortness of breath when lying down, Reports shortness of breath causing sudden awakening, Denies radiating jaw, neck or arm pain - *Respiratory Reports change in phlegm color, Reports chest congestion, Reports cough, Reports shortness of breath, Reports excessive phlegm production, Reports wheezing - *Gastrointestinal Denies abdominal pain, Denies coffee ground vomit - *Genitourinary Denies difficulty urinating - *Musculoskeletal Reports muscle weakness - Integumentary/Breasts Denies yellowing of the skin - *Neurologic Reports weakness, Denies abnormal hearing, Denies abnormal speech, Denies headache(s) - Psychiatric Denies lack of enjoyment, Denies confusion - Endocrine Denies cold intolerance, Denies rapid, pounding, or irregular heartbeat - Hematologic/Lymphatic Denies easy bleeding - Allergic/Immunologic Denies hives Meds Home Medications Medication Instructions Recorded Confirmed Type cyproheptadine 4 mg tablet 4 mg PO DAILY 05/02/20 02/19/21 History diclofenac sodium 75 mg 75 mg PO DAILY 05/02/20 02/19/21 History tablet,delayed release pantoprazole 40 mg tablet,delayed 40 mg PO DAILY 05/02/20 02/19/21 History release albuterol sulfate 90 mcg/actuation 2 puff INHALATION Q4-6H PRN #8.5 g 11/03/20 02/19/21 Rx aerosol inhaler escitalopram oxalate 20 mg tablet 20 mg PO DAILY #90 tab 02/02/21 02/19/21 Rx Quetiapine Fumarate 100 mg PO QHS 02/19/21 02/19/21 History Tamsulosin HCl See Rx Instructions .ROUTE .COMPLEX 02/19/21 02/19/21 History Venlafaxine HCl [Effexor XR 150mg] 150 mg PO DAILY 02/19/21 02/19/21 History Allergies Allergy/AdvReac Type Severity Reaction Status Date / Time codeine [CODEINE] Allergy Unknown I-HIVES Verified 11/03/20 13:32
--- NOTE | 2021-02-19 19:37 | PC.NURSE ---
RA STATS 94% RETURNED ON 2L
[2021-02-19 20:20] LABS: Troponin I 0.02 ng/ml (0.00-0.034)
[2021-02-20] VITALS (23 sets, daily range): BP systolic 126–171; BP diastolic 45–98; PULSE 54–94; RESP 16–22; TEMP 36.4–36.7; O2SAT 92–100; BMI 23.2
--- NOTE | 2021-02-20 | IR_ITS ---
APPROVED REPORT Patient Location: Inpatient [place]: LATRICIA Ray RT (R) PROCEDURES Left heart catheterization Left ventriculogram Selective coronary angiogram Drug-eluting stent deployment to the ostial proximal LAD Intravascular ultrasound to the LAD INDICATION Elevated troponin with acute coronary syndrome, Coronary artery disease Informed consent was obtained prior to the procedure. COMPLICATIONS None Estimated Blood Loss: Less than 10 mls TECHNIQUE One percent lidocaine used to anesthetize the right anterior aspect of the wrist. The right radial artery was accessed via the Seldinger technique. A 6 [place] sheath was placed in the right radial artery. 2.5 mg of verapamil, 800 mcg of nitroglycerin, 1mg Lidocaine and 5000 U Heparin were given through the arterial sheath. The trap catheter was also used to perform left heart catheterization, left ventriculogram and selective coronary angiogram. At the end of the diagnostic angiogram therapeutic heparin was administered giving a therapeutic ACT. And I Deborah left guide catheter was used to intubate the left main artery and a Choice PT extra-support wire was placed distally. A 3.5 x 12 mm resolute [place] stent was placed in the proximal LAD and deployed at 20 delmy. The stent was under deployed in the proximal segment due to extensive calcification. A 3.5 x 8 mm noncompliant balloon was then deployed at 24 delmy in the proximal portion of the LAD to post dilate. This still had unsatisfactory results therefore 3.75 x 8 mm noncompliant balloon was also deployed at 24 delmy. A 4 mm x 8 mm balloon was deployed at 24 delmy also with unsatisfactory results. A 4.5 x 8 mm noncompliant balloon was then deployed at 20 delmy in the proximal segment. Intravascular ultrasound probe was then advanced and interrogated. The stent strut in the proximal segment appeared to have a crack therefore felt as though an additional stent was required. A 4 mm x 8 mm resolute [place] stent was then deployed in the proximal LAD at 24 delmy further reducing the stenosis. Angiographic results were excellent. RAMON-3 flow was present before and after the procedure. At the end of the procedure the apparatus was removed the sheath was removed good hemostasis was achieved using TR banding patient was transferred to the postop holding area in stable condition ANGIOGRAPHIC RESULTS The left main artery Normal The left anterior descending artery Has a proximal complex calcified 80% stenosis with remaining vessel normal The circumflex artery Nondominant yet still large and normal The right coronary artery Dominant vessel with proximal 30 to 40% hazy stenosis The RAYA ventriculogram reveals Normal 65% The left ventricular end-diastolic pressure 15 mmHg IMPRESSION Severe proximal LAD disease as described above Successful stent to the proximal LAD severe disease reduced to 10% with 2 drug-eluting stents as described above Normal ejection fraction Mildly elevated LVEDP Moderate disease in the proximal dominant right coronary PLAN 1. Brilinta 90 twice daily plus aspirin 81 mg daily 2. LDL less than 55 to be achieved with high intensity statin 3. Cardiac rehabilitation 4. Avoidance of tobacco products 5. Risk factor modification Electronically signed by : Clinton Esquivel, 02/20/2021 13:33:28
--- NOTE | 2021-02-20 05:16 | PC.NURSE ---
Patient O2 sats maintained at 94-96% throughout shift on 2L NC. C/O SOA x 1 - relieved after breathing treatment given. Denies pain and show no s/s of acute distress noted at this time. Call light within reach; bed at lowest level for safety. Will continue to monitor.
--- NOTE | 2021-02-20 06:00 | XR_ITS ---
PROCEDURE: XR CHEST 2V CLINICAL HISTORY: copd COMPARISON: CR XR CHEST 2V from 07/19/[address] CHEST WO CON from 09/13/2020 CR XR CHEST PORTABLE from 12/05/2020 CR XR CHEST PORTABLE from 02/19/2021 FINDINGS: The cardiomediastinal silhouette and pulmonary vascularity are within normal limits. COPD changes. There is coarsening the bronchovascular markings consistent with smoking related lung disease. Increased markings are present in the right lower lobe and may be related to an area of infiltrate. No acute bony abnormalities. IMPRESSION: COPD with possible infiltrate in the right middle lobe Dictated by: Tony Chaudhary MD 02/20/2021 06:30 Tony Chaudhary MD in [facility] 02/20/2021 06:30
[2021-02-20 07:24] LABS: Basophils % 0.1 % (0.1-2.0); Hematocrit 40.9 % (42.0-52.0); Lymphocytes # 0.7 K/mm3 (0.7-4.5); Lymphocytes % 11.1 % (10-50); Mean Corpuscular HGB Conc 31.8 g/dL (31.8-35.4); Mean Corpuscular Hemoglobin 29.3 pg (27.0-31.2); Mean Corpuscular Volume 92.1 fl (80-94); Mean Platelet Volume 7.9 fl (7.4-10.4); Monocytes # 0.3 K/mm3 (0.1-1.0); Monocytes % 4.5 % (1.7-9.3); Neutrophils # 5.2 K/mm3 (1.8-7.8); Neutrophils % 84.2 % (37.0-80.0); Platelet Count 272 K/mm3 (142-424); Red Blood Count 4.44 M/mm3 (4.60-6.20); Red Cell Distribution Width 14.3 % (11.5-17.5); White Blood Count 6.1 K/mm3 (4.8-10.8)
[2021-02-20 07:32] LABS: Alanine Aminotransferase 28 U/L (12-78); Albumin Level 4.1 g/dl (3.5-5.0); Albumin/Globulin Ratio 1.3 (1.1-1.8); Alkaline Phosphatase 107 U/L (38-126); Anion Gap 14.8 mEq/L (5-15); Aspartate Amino Transferase 27 U/L (17-59); Bilirubin,Total 0.6 mg/dl (0.2-1.3); Blood Urea Nitrogen 16 mg/dl (9-20); Calcium 9.6 mg/dl (8.4-10.2); Carbon Dioxide 27 mmol/L (22.0-30.0); Chloride 105 mmol/L (98-107); Creatinine Clearance Estimated 72 mL/min (50-200); Estimated Glomerular Filt Rate 135 ml/min (>60); GFR (African American) 164 ML/MIN (>60); Globulin 3.2 g/dL (1.3-3.2); Glucose 173 mg/dl (74-100); Potassium 3.8 mmoL/L (3.5-5.1); Sodium 143 mmol/L (136-145); Total Protein,Serum 7.3 g/dl (6.3-8.2)
--- NOTE | 2021-02-20 07:58 | CA_ITS ---
APPROVED REPORT EXAM: Comprehensive 2D, Doppler, and color-flow Echocardiogram Physicist Astrophysics: Krista Bello RVT Ht: 5 ft 8 in Wt: 158lbs BSA: 1.85 BP: 139/79 mmHg Indications: COPD,DYSPENA,CP.ELEVATED TROP,SMOKER TDS-COPD 2D Dimensions LVOT 2.32 cm (M/F) 1.5-2.5 LA Volume 26.70 mL LA Volume Index 14.43 mL/m2 (M/F) 16-34 M-Mode Dimensions RVDd 3.32 cm (0.9-2.6) LA Diam 2.87 cm (1.9-4.0) LVDd 4.59 cm (3.5-5.7) Ao Diam 3.67 cm (2.0-3.7) LVDs 3.23 cm (3.5-5.7) IVSd 0.68 cm (0.6-1.1) PWd 0.68 cm (0.6-1.1) EF (Teich) 56.70% FS 29.60% EDV (Teich) 96.80 mL ESV (Teich) 41.90 mL LV Diastology E Decel Time 153.00 (160-240 msec) E/A Ratio 2.3 MED E' 11.30 (< 7 cm/sec) E'/MED E' Ratio 6.34 (>14) LAT E' 12.50 (<10 cm/sec) E/LAT E' Ratio 5.73 (>14) Mitral Valve MV E Max Los. 72.00 (40-130 cm/s) MV A Velocity 31.00 (40-130 cm/s) E/A Ratio 2.34 MV Decel. Time 153.00 (160-240 ms) MV PHT 45.00 ms Pulmonary Valve PV Peak Velocity 76.00 (50-150 cm/s) Left Ventricle Technically difficult study because of the patient fact in poor acoustic windows, repeat study with Definity contrast is recommended. Left atrium is mildly enlarged, left ventricle is normal size, mild concentric left ventricular hypertrophy, visually estimated ejection fraction 50% with no obvious regional wall motion abnormality, endocardial surfaces are very poorly visualized, diastolic parameters are inconclusive. Right Ventricle Right atrium and right ventricle are mildly enlarged with normal contractility. Aortic Valve Aortic valve is minimally thickened and fibrosed, there is no aortic stenosis or aortic insufficiency. Mitral Valve Mitral valve is grossly normal, there is mild mitral regurgitation. Tricuspid Valve Tricuspid valve grossly normal, there is mild tricuspid regurgitation, tricuspid regurgitation jet velocity is inadequate for calculation of the right ventricular systolic pressure. Pulmonic Valve Pulmonic valve is poorly visualized. Great Vessels Aortic root is normal size. Pericardium No significant pericardial effusion noted. Conclusion 1. Technically difficult study because of the patient's factors and poor acoustic windows, a repeat study with Definity contrast is recommended. Mild biatrial enlargement, normal left ventricular size, mild concentric left ventricular hypertrophy, visually estimated ejection fraction 50% with no regional wall motion abnormality, diastolic parameters are inconclusive. 2. Mildly enlarged right ventricle with normal contractility. 3. Mild mitral and tricuspid regurgitation. 4. No significant pericardial effusion noted. Electronically signed by : Ravi Lozoya, 02/20/2021 20:17:40
--- NOTE | 2021-02-20 08:04 | HMH.CNCARD ---
History of Present Illness Consult date: 02/20/21 Requesting physician: Pratik Xiao Consult reason: chest pain, shortness of breath Chief complaint: Shortness of beath and chest pain History of present illness: 65-year-old male presented to [facility] with worsening shortness of breath. Pt admitted to [facility] with acute exacerbation of COPD. Patient stated worsening shortness of breath for the past few weeks. Patient stated he developed a productive cough in the past few days producing yellow sputum. Patient denies fever. Patient stated for the last few months he has been having some midsternal chest pain nonradiating. Patient is very vague on his description of chest pain. Patient states mostly chest pain appears when he becomes short of breath. Patient states after taking his inhaler the chest pain usually will go away. Patient stated he has had no cardiac work-up in the past. Patient denied chest pain, tightness or pressure during this assessment. Patient does complain of shortness of breath. Patient is requiring 2 L of oxygen via nasal cannula. Pulse ox 93%. Patient has in the past been on mechanical ventilator. No swelling of the lower extremities. Patient denies dizziness or palpitations. Patient does have history of chronic obstructive pulmonary disease. Patient has no known coronary artery disease. Patient does have history of hypertension and hyperlipidemia. Patient stated that the only medications he takes at home is for his breathing (COPD). Chest x-ray revealed COPD with possible infiltrate of the right lower lobe. Patient was started on antibiotics and steroids by PCP. Serial troponins were performed which revealed 0.04 (slightly elevated). arborist reveals sinus bradycardia with a heart rate of 55 bpm. Blood pressure is stable. Patient states he is a tobacco user. States he has been a heavy smoker (2-3ppd) for the past 30 years. Discussed plan of care with Dr. Esquivel and PCP. Recommended left heart catheterization today due to atypical chest pain, heavy tobacco use and dypnea. Patient is noncompliant with medications and treatment therapies. Offered stress testing to patient. Patient declined due to not wanting to stop his caffeine. Obtain echocardiogram to assess LV function and valve status. Pending on the results of the echocardiogram and heart catheterization, changes in medications and treatment therapies may be recommended. Discussed the risk and benefits of undergoing a left heart catheterization with right wrist access with patient. Patient verbalized understanding and is agreeable to procedure. Thank you for allowing cardiology to participate in the care of this patient. [facility] History I have reviewed the patient's past medical history: Yes Medical History: Reports:: Anxiety, Chronic Obstructive Pulmonary Disease (COPD), Depression, Hyperlipidemia, Hypertension, Lung Disease Denies:: Cancer, Diabetes Mellitus Type 1, Diabetes Mellitus Type 2, Internal Pacemaker, MRSA, Seizures *Have you ever received a pneumonia vaccine?: No *Have you received a flu vaccine this season?: No Laterality Cases: Bilateral: Cataract, Tonsillectomy Other Surgeries: Yes: Appendectomy, Colonoscopy, Hernia Repair, Other. No: Pacemaker Amputation: Yes (r index finger) Fractures: No - *Social History Last grade of school completed: 9th or 10th Smoking Status: Current every day smoker Tobacco Type: cigarettes # Packs/Day (cigarettes): 2 Alcohol Intake: former Alcohol Intake Frequency:: holidays/special occasions only Substance Use Type: marijuana Last Used Substance: hours (ago), days (ago) *Occupational Status:: disabled Housing: house Household Members: other *Travel in the last 8 weeks: None - Psychiatric History Pschychiatric History:: Reports:: Anxiety, Depression Family Hx:: Unable to obtain Meds Home Medications Medication Instructions Recorded Confirmed Type cyproheptadine 4 mg ta
--- NOTE | 2021-02-20 08:14 | HMH.PHAVTE ---
[facility] Pharmacy VTE Monitoring - Patient Demographics Admission date: 02/19/21 Report Date: 02/20/21 Time: 08:14 Allergies/Adverse Reactions: Patient Allergies codeine [CODEINE] Allergy (Unknown, Verified 11/03/20 13:32) IELIF Height: 1.73 m Weight: 69.57 kg Patient Problems: Current Active Problems COPD exacerbation (Acute) Acute exacerbation of chronic obstructive airways disease (Acute) Acute and chronic respiratory failure with hypercapnia (Acute) Chest pain (Chronic) Anxiety and depression (Chronic) Depression (Chronic) - VTE Risk Labs: VTE Related Lab Results Hgb 13.0 g/dL (14.1-18.0) L 02/20/21 06:35 Hct 40.9 % (42.0-52.0) L 02/20/21 06:35 Plt Count 272 K/mm3 (142-424) 02/20/21 06:35 PT 12.2 seconds (10.1-12.5) 02/19/21 14:23 INR 1.04 (0.9-1.1) 02/19/21 14:23 APTT 29.0 seconds (22.8-30.6) 02/19/21 14:23 BUN 16 mg/dl (9-20) 02/20/21 06:35 Creatinine 0.60 mg/dl (0.66-1.25) L 02/20/21 06:35 Estimated Creat Clear 72 mL/min (50-200) 02/20/21 06:35 Was VTE Risk Assessment Performed: Yes VTE Score: 4 VTE Risk Level: Low Risk - Prophylaxis VTE Prophylaxis Ordered?: Yes Types of VTE Prophylaxis: TEDS Knee High, Pharmacological Location of Applied Device: Bilateral Lower Extremeties Pharmacologic Type: Enoxaparin
--- NOTE | 2021-02-20 09:10 | HMH.ACPN2 ---
Internal Medicine - PN: Subj *Date: 02/20/21 *Time: 12:04 Interval history: 65 YOM sitting up in bed, he denies during night and still SOA. Oxygenatin 92 % on 2L per N/C. Discussed importance of smoking cessation and Card Cath today. Exam Vital signs and Labs for Last 24 Hours: Temp Pulse Resp BP Pulse Ox 97.9 F 63 19 134/70 93 L 02/20/21 07:30 02/20/21 07:30 02/20/21 07:30 02/20/21 07:30 02/20/21 07:30 Laboratory Results - last 24 hr 02/19/21 13:42: Specimen Source Right radial, O2 % 2 lpm, ABG pH 7.41, ABG pCO2 47.0 H, ABG pO2 86.1, ABG HCO3 28.8 H, ABG Total CO2 30.2 H, ABG O2 Saturation 97, ABG Base Excess 4.1 H, Tony Test Acceptable 02/19/21 14:23: WBC 8.9, RBC 4.58 L, Hgb 13.4 L, Hct 41.3 L, MCV 90.1, MCH 29.2, MCHC 32.5, RDW 14.2, Plt Count 258, MPV 7.6, Neut % (Auto) 63.8, Lymph % (Auto) 22.4, [place] % (Auto) 13.1 H, Eos % (Auto) 0.3, Baso % (Auto) 0.4, Neut # (Auto) 5.7, Lymph # (Auto) 2.0, [place] # (Auto) 1.2 H, Eos # (Auto) 0.0, Baso # (Auto) 0.0 02/19/21 14:23: PT 12.2, INR 1.04, APTT 29.0 02/19/21 14:23: Sodium 142, Potassium 3.9, Chloride 105, Carbon Dioxide 29, Anion Gap 11.9, BUN 15, Creatinine 0.60 L, Estimated Creat Clear 76, Estimated GFR 135, Est GFR ( Amer) 164, Glucose 119 H, Calcium 9.6, Total Bilirubin 1.1, AST 29, ALT 21, Alkaline Phosphatase 116, Troponin I 0.04 H, NT-Pro-B Natriuret Pep 717 H, Total Protein 7.5, Albumin 4.3, Globulin 3.2, Albumin/Globulin Ratio 1.3 02/19/21 14:30: Chlamy pneumoniae PCR Not detected, Adenovirus (PCR) Not detected, B. pertussis DNA (PCR) Not detected, Coronavirus OC43 (PCR) Not detected, Coronavirus HKU1 (PCR) Not detected, Coronavirus 229E (PCR) Not detected, SARS-CoV-2 (PCR) Not detected, Coronavirus NL63 (PCR) Not detected, Human Metapneumovir PCR Not detected, Influenza A (H1) PCR Not detected, Influ A (H1N1/09) PCR Not detected, Influenza A (H3) PCR Not detected, Influenza Type A (PCR) Not detected, Influenza Type B (PCR) Not detected, M. pneumoniae (PCR) Not detected, Parainfluenza 1 (PCR) Not detected, Parainfluenza 2 (PCR) Not detected, Parainfluenza 3 (PCR) Not detected, Parainfluenza 4 (PCR) Not detected, RSV (PCR) Not detected, Entero/Rhino (PCR) Not detected 02/19/21 16:35: Troponin I 0.03 02/19/21 19:48: Troponin I 0.02 02/20/21 06:35: WBC 6.1 D, RBC 4.44 L, Hgb 13.0 L, Hct 40.9 L, MCV 92.1, MCH 29.3, MCHC 31.8, RDW 14.3, Plt Count 272, MPV 7.9, Neut % (Auto) 84.2 H, Lymph % (Auto) 11.1, [place] % (Auto) 4.5, Eos % (Auto) 0.0 L, Baso % (Auto) 0.1, Neut # (Auto) 5.2, Lymph # (Auto) 0.7, [place] # (Auto) 0.3, Eos # (Auto) 0.0, Baso # (Auto) 0.0 02/20/21 06:35: Sodium 143, Potassium 3.8, Chloride 105, Carbon Dioxide 27, Anion Gap 14.8, BUN 16, Creatinine 0.60 L, Estimated Creat Clear 72, Estimated GFR 135, Est GFR ( Amer) 164, Glucose 173 H D, Calcium 9.6, Total Bilirubin 0.6, AST 27, ALT 28 D, Alkaline Phosphatase 107, Total Protein 7.3, Albumin 4.1, Globulin 3.2, Albumin/Globulin Ratio 1.3 I & O for Last 24 hours: Intake & Output 02/17/21 02/18/21 02/19/21 02/20/21 23:59 23:59 23:59 23:59 Intake Total 668 / 668 Output Total 200 / 200 Balance 468 / 468 Weight 153 lb 6 oz 153 lb 6.009 oz Microbiology Reports for the Last 24 Hours: Microbiology 02/19/21 17:30 Sputum - Expectorated Sputum Gram Stain - Final - Constitutional no acute distress - *Routine HEENT Exam Head: Present: normocephalic Eye: Present: EOMI ENT: Present: mucous membranes moist - *Routine Neck Exam Present: supple, trachea midline. Absent: tracheal deviation - *Routine Respiratory Exam Present: rhonchi, wheezes. Absent: accessory muscle use - *Routine Cardiovascular Exam Present: RRR - *Routine Abdominal Exam Present: soft, normoactive bowel sounds. Absent: tenderness, guarding - *Routine Extremities Exam Present: full ROM, pulses intact. Absent: cyanosis, edema, calf tenderness - *Routine Skin Exam Present: intact, dry, warm.
--- NOTE | 2021-02-20 10:04 | HMH.PULMCON ---
*Admission Date: 02/19/21 *Reason for consult:: COPD exacerbation *History of present illness: Mr. Arias is 65-year-old male significant smoking history smoking 2 to 3 packs a day since he was 15 years old, recently decreased to 1 pack a day presented to hospital complaining of worsening respiratory failure along with cough and productive phlegm which is yellowish in color. Patient denies any pleuritic chest pain or hemoptysis. Denies any fever chills or weight loss or loss of appetite. [facility] History Medical History: Reports:: Anxiety, Chronic Obstructive Pulmonary Disease (COPD), Depression, Hyperlipidemia, Hypertension, Lung Disease Denies:: Cancer, Diabetes Mellitus Type 1, Diabetes Mellitus Type 2, Internal Pacemaker, MRSA, Seizures *Have you ever received a pneumonia vaccine?: No *Have you received a flu vaccine this season?: No Laterality Cases: Bilateral: Cataract, Tonsillectomy Other Surgeries: Yes: Appendectomy, Colonoscopy, Hernia Repair, Other. No: Pacemaker Amputation: Yes (r index finger) Fractures: No - *Social History Last grade of school completed: 9th or 10th Smoking Status: Current every day smoker Tobacco Type: cigarettes # Packs/Day (cigarettes): 2 Alcohol Intake: former Alcohol Intake Frequency:: holidays/special occasions only Substance Use Type: marijuana Last Used Substance: hours (ago), days (ago) *Occupational Status:: disabled Housing: house Household Members: other *Travel in the last 8 weeks: None - Psychiatric History Pschychiatric History:: Reports:: Anxiety, Depression Family Hx:: Unable to obtain ROS - Cons Denies body ache(s), Denies chills - Card Reports shortness of breath with activity - Resp Respiratory: Reports chest congestion, Reports cough, Reports dyspnea on exertion, Reports excessive phlegm production, Reports cough with sputum production, Denies pain with breathing, Denies wheezing - GI Gastrointestingal: Reports: system reviewed and no additional complaints, except as docu Meds Home Medications Medication Instructions Recorded Confirmed Type cyproheptadine 4 mg tablet 4 mg PO DAILY 05/02/20 02/19/21 History diclofenac sodium 75 mg 75 mg PO DAILY 05/02/20 02/19/21 History tablet,delayed release pantoprazole 40 mg tablet,delayed 40 mg PO DAILY 05/02/20 02/19/21 History release albuterol sulfate 90 mcg/actuation 2 puff INHALATION Q4-6H PRN #8.5 g 11/03/20 02/19/21 Rx aerosol inhaler Quetiapine Fumarate 100 mg PO HS 02/19/21 02/20/21 History Tamsulosin HCl 0.4 mg PO HS 02/19/21 02/20/21 History Venlafaxine HCl [Effexor XR 150mg] 150 mg PO DAILY 02/19/21 02/19/21 History Atorvastatin Calcium [Lipitor 10mg 10 mg PO HS 02/20/21 02/20/21 History Tab] Escitalopram Oxalate 20 mg PO DAILY 02/20/21 02/19/21 History Fluticasone/Vilanterol [Breo 1 puff IH DAILY 02/20/21 02/20/21 History Ellipta 100-25 Mcg INH] Allergies Allergy/AdvReac Type Severity Reaction Status Date / Time codeine [CODEINE] Allergy Unknown I-HIVES Verified 11/03/20 13:32 Exam - Constitutional Constitutional:: Present: no acute distress - HENMT Exam HENMT: Present: normocephalic, atraumatic - Eye Exam Eyes:: Present: eyelids normal - Neck Exam Neck:: Present: thyroid normal - Respiratory Exam Respiratory:: Present: able to speak in complete sentences, no respiratory distress, decreased breath sounds, wheezing - Cardiovascular Exam Cardiac:: Present: S1, S2 - GI Exam GI:: Present: soft - Skin Exam Skin: Present: warm, no rash - Neurological Exam Neurological: Present: alert, awake, normal cognition - Extremities Exam Extremities: Present: no cyanosis, no clubbing, no edema Internal Medicine - CN: Reslt - Labs CBC & Chem 7: 02/20/21 06:35 02/20/21 06:35 Labs: Short CBC 02/19/21 02/20/21 Range/Units 14:23 06:35 WBC 8.9 6.1 D (4.8-10.8) K/mm3 Hgb 13.4 L 13.0 L (14.1-18.0) g/dL Hct 41.3 L 40.9 L (42.0-52.0) % Plt Count
--- NOTE | 2021-02-20 10:28 | PC.NURSE ---
off floor for procedure
--- NOTE | 2021-02-20 10:58 | HMH.PHAINT ---
HOME MEDICATION LIST VERIFIED USING LIST FROM HOME PHARMACY, DR GARSIA'S OFFICE AND PT INTERVIEW.
[2021-02-20 14:12] LABS: CATHL Activated Clotting Time 300 SEC (74-125)
[2021-02-20 14:13] LABS: CATHL Activated Clotting Time 257 SEC (74-125)
--- NOTE | 2021-02-20 15:26 | HMH.PHAINT ---
CLARIFIED HOME MED LIST WITH OUTPATIENT PHARMACY AND PATIENT INTERVIEW
--- NOTE | 2021-02-20 20:03 | PC.NURSE ---
PATIENT IS A&O X4 , LUNGS ARE DIMINISHED, PULSES EQUAL. PATIENT ARRIVED ON FLOOR FROM [facility]. THIS RN PERFOMED AN ASSESSMENT. DURING ASSESSMENT PATIENT HAD MILD AMNESIA, CONTINUED TO ASK THIS RN WHAT WAS GOING ON, WHERE WAS HE AND WHAT WAS THIS THING ON HIS ARM. THIS RN CONTINUED TO RE ORIENT PATIENT. AT 1445 THIS RN REMOVED 2ML OF AIR. 1505 ELAYNE WILBURN RN INFORMED THIS RN THAT PATIENT SITE HAD BEGAN BLEEDING AND AIR WAS INSERTED. AT 1825, THIS RN REMOVED 2ML OF AIR. AT 1925 DURING SHIFT CHANGE THIS RN REMOVED 2ML OF AIR, NO DRAINAGE NOTED.
--- NOTE | 2021-02-20 22:42 | PC.NURSE ---
Pt c/o of excessive coughing, SpO2 taken = 97%, JR 78. Patient observed to have laborious breathing. Patient coughing up thick sputum, light brown. Lung sounds Anterior Bilateral audible expiratory wheezes and Right Lower Lobe audible rales.Called MD (Dr. Xiao) and relayed this information and he stated to change breathing treatment to every 4 hours and PRN Q 2. Will continue to monitor for any acute changes.
[2021-02-21] VITALS (14 sets, daily range): BP systolic 115–146; BP diastolic 73–92; PULSE 60–85; RESP 16–20; TEMP 36.5–36.9; O2SAT 91–98; BMI 23.2
--- NOTE | 2021-02-21 04:46 | PC.NURSE ---
Pt alert and oriented. Patient had change in condition of lungs sounds, MD notified (see previous note). Patient IV infiltrated and was removed, another placed (20 Left Wrist) which patient removed in error. Another IV inserted 22 in Left Hand, patent. TR Band removed at 0443 without incidence or bleeding, no hematoma noted. Covered with 2-2X2 and Large Tegaderm. Will continue to monitor for any acute changes.
[2021-02-21 06:51] LABS: Basophils % 0.2 % (0.1-2.0); Hemoglobin 12.4 g/dL (14.1-18.0); Lymphocytes # 1.4 K/mm3 (0.7-4.5); Lymphocytes % 14.6 % (10-50); Mean Corpuscular HGB Conc 33.4 g/dL (31.8-35.4); Mean Corpuscular Hemoglobin 29.4 pg (27.0-31.2); Mean Corpuscular Volume 88.1 fl (80-94); Mean Platelet Volume 8.3 fl (7.4-10.4); Monocytes # 0.9 K/mm3 (0.1-1.0); Monocytes % 9.4 % (1.7-9.3); Neutrophils # 7.2 K/mm3 (1.8-7.8); Neutrophils % 75.7 % (37.0-80.0); Platelet Count 291 K/mm3 (142-424); Red Cell Distribution Width 14.3 % (11.5-17.5); White Blood Count 9.5 K/mm3 (4.8-10.8)
[2021-02-21 07:01] LABS: Anion Gap 11.2 mEq/L (5-15); Blood Urea Nitrogen 20 mg/dl (9-20); Calcium 9.2 mg/dl (8.4-10.2); Carbon Dioxide 31 mmol/L (22.0-30.0); Chloride 103 mmol/L (98-107); Creatinine Clearance Estimated 72 mL/min (50-200); Estimated Glomerular Filt Rate 97 ml/min (>60); GFR (African American) 117 ML/MIN (>60); Glucose 121 mg/dl (74-100); Potassium 3.2 mmoL/L (3.5-5.1); Sodium 142 mmol/L (136-145)
--- NOTE | 2021-02-21 08:50 | HMH.ACPN2 ---
Internal Medicine - PN: Subj *Date: 02/21/21 *Time: 12:17 Interval history: 65-year-old male patient sitting up in bed, he reports he still has a little chest pain and has had shortness of breath off and on throughout the night. Currently oxygen saturations 92% on 2 L per nasal cannula. Patient did receive 2 stents to his LAD yesterday, pulmonary is following and levofloxacin IV ordered. Exam Vital signs and Labs for Last 24 Hours: Temp Pulse Resp BP Pulse Ox 98.1 F 62 20 135/73 95 02/21/21 04:00 02/21/21 06:07 02/21/21 04:00 02/21/21 04:00 02/21/21 06:07 Laboratory Results - last 24 hr 02/20/21 13:05: Activated Clotting Time 257 H* 02/20/21 13:20: Activated Clotting Time 300 H* 02/21/21 06:13: WBC 9.5 D, RBC 4.20 L, Hgb 12.4 L, Hct 37.0 L, MCV 88.1, MCH 29.4, MCHC 33.4, RDW 14.3, Plt Count 291, MPV 8.3, Neut % (Auto) 75.7, Lymph % (Auto) 14.6, [place] % (Auto) 9.4 H, Eos % (Auto) 0.0 L, Baso % (Auto) 0.2, Neut # (Auto) 7.2, Lymph # (Auto) 1.4, [place] # (Auto) 0.9, Eos # (Auto) 0.0, Baso # (Auto) 0.0 02/21/21 06:13: Sodium 142, Potassium 3.2 L, Chloride 103, Carbon Dioxide 31 H, Anion Gap 11.2, BUN 20, Creatinine 0.80 D, Estimated Creat Clear 72, Estimated GFR 97, Est GFR ( Amer) 117 D, Glucose 121 H D, Calcium 9.2 I & O for Last 24 hours: Intake & Output 02/18/21 02/19/21 02/20/21 02/21/21 23:59 23:59 23:59 23:59 Intake Total 1628 / 2100 472 / 472 Output Total 200 / 650 450 / 450 Balance 1428 / 1450 Weight 153 lb 6 oz 153 lb 6.009 oz 153 lb 4 oz Microbiology Reports for the Last 24 Hours: Microbiology 02/19/21 17:30 Sputum - Expectorated Sputum Gram Stain - Final 02/19/21 17:30 Sputum - Expectorated Sputum Sputum Culture - Preliminary - Constitutional no acute distress - *Routine HEENT Exam Head: Present: normocephalic Eye: Present: EOMI ENT: Present: mucous membranes moist - *Routine Neck Exam Present: trachea midline. Absent: tracheal deviation - *Routine Respiratory Exam Present: wheezes. Absent: accessory muscle use - *Routine Cardiovascular Exam Present: RRR - *Routine Abdominal Exam Present: soft, normoactive bowel sounds. Absent: tenderness, rigid - *Routine Extremities Exam Present: full ROM, pulses intact. Absent: cyanosis, clubbing, calf tenderness - *Routine Skin Exam Present: intact, dry, warm. Absent: cyanosis, erythema - *Routine Neurological Exam Present: alert, oriented X3. Absent: motor deficit, pronator drift - Routine Psychiatric Exam Present: normal affect, normal thought process. Absent: auditory hallucinations, visual hallucinations Assessment and Plan (1) Chest pain Status: Chronic Category: Medical Code(s): R07.9 - Chest pain, unspecified (2) Acute exacerbation of chronic obstructive airways disease Status: Acute Category: Medical Code(s): J44.1 - Chronic obstructive pulmonary disease with (acute) exacerbation (3) COPD exacerbation Status: Acute Category: Medical Code(s): J44.1 - Chronic obstructive pulmonary disease with (acute) exacerbation (4) Anxiety and depression Status: Chronic Category: Medical Code(s): F41.9 - Anxiety disorder, unspecified; F32.9 - Major depressive disorder, single episode, unspecified (5) Depression Status: Chronic Qualifiers: Depression Type: major depressive disorder Major depression recurrence: single episode Active/Remission status: currently active Major depression episode severity: moderate Qualified Code(s): F32.1 - Major depressive disorder, single episode, moderate Category: Medical Code(s): F32.9 - Major depressive disorder, single episode, unspecified - Assessment and plan all Dx Assessment and Plan for all problems:: Rounded with Dr. Canchola, all orders per Dr. Canchola: 1. Awaiting pulmonary recommendations 2. Stressed importance of tobacco cessation 3. Awaiting sputum culture
--- NOTE | 2021-02-21 09:46 | HMH.PULMPN ---
Internal Medicine - PN: Subj *Date: 02/21/21 *Time: 09:46 Interval history: Patient has an acute episode of desaturation overnight with worsening hypoxia to 83% bilateral wheeze improved with oxygenation and nebulizer treatment Exam - Constitutional Constitutional:: Present: no acute distress, comfortable - HENMT Exam HENMT: Present: atraumatic - Eye Exam Eyes:: Present: eyelids normal - Neck Exam Neck:: Present: thyroid normal - Respiratory Exam Respiratory:: Present: able to speak in complete sentences, no respiratory distress, wheezing - Cardiovascular Exam Cardiac:: Present: S1, S2 - GI Exam GI:: Present: soft - Skin Exam Skin: Present: warm, no rash - Neurological Exam Neurological: Present: alert, awake, normal cognition - Extremities Exam Extremities: Present: no cyanosis, no clubbing, no edema Assessment and Plan (1) Chest pain Status: Chronic Category: Medical Code(s): R07.9 - Chest pain, unspecified (2) Acute exacerbation of chronic obstructive airways disease Status: Acute Category: Medical Code(s): J44.1 - Chronic obstructive pulmonary disease with (acute) exacerbation (3) COPD exacerbation Status: Acute Category: Medical Code(s): J44.1 - Chronic obstructive pulmonary disease with (acute) exacerbation (4) Anxiety and depression Status: Chronic Category: Medical Code(s): F41.9 - Anxiety disorder, unspecified; F32.9 - Major depressive disorder, single episode, unspecified (5) Depression Status: Chronic Qualifiers: Depression Type: major depressive disorder Major depression recurrence: single episode Active/Remission status: currently active Major depression episode severity: moderate Qualified Code(s): F32.1 - Major depressive disorder, single episode, moderate Category: Medical Code(s): F32.9 - Major depressive disorder, single episode, unspecified - Assessment and plan all Dx Assessment and Plan for all problems:: #COPD exacerbation: 65-year-old significant smoking smoking 2 to 3 packs a day since he was 15 years old recently placed 1 pack a day presents with worsening respiratory failure with increasing productive phlegm which is yellowish in color, not associated with any fevers, chills, pleuritic chest pain and hemoptysis. Patient in an outpatient basis on an albuterol inhaler however ran out of it and not using it for the last 2 months. Denies any prior exacerbations. No evidence of leukocytosis. Afebrile. Chest x-ray showed questionable right middle lobe pulmonary infiltrate along with evidence of vascular congestion. BNP elevated at 717, troponin elevated on admission 0.04, patient scheduled for left heart cath today. Respiratory viral PCR negative. Sputum for sample however showing gram-positive diplococci Patient on admission also found to be having diffuse bilateral wheezing, needing 2 L nasal cannula oxygen supplementation. Auscultation significantly improved today. We will continue to wean his oxygen saturations. (Patient oxygen requirements improved to room air however he had an episode overnight with hypoxia and wheezing during which he was placed back on 2 L nasal cannula, saturations improved promptly and this morning was saturating 94 to 95% on 2 L -wean him to room air as tolerated) Plan: - Wean oxygen requirements to room air as tolerated with O2 saturation goal of 88% to 92% - Continue levofloxacin to complete total of 5-day course - Prednisone 40 mg for total of 5 days - DuoNebs every 6 hours scheduled, consider discharging the patient on LABA LAMA combination therapy along with albuterol every 6 as needed #Thank you for involving pulmonary in this patient care. We will follow the patient in pulmonary clinic in 4 weeks with full PFTs and 6-minute walk testing.
--- NOTE | 2021-02-21 10:44 | HMH.PNCARD ---
Subjective Date: 02/21/21 Time: 10:00 Principal diagnosis: Chest pain Interval history: 65-year-old male admitted to [facility] due to worsening shortness of breath and chest heaviness. Patient underwent left heart catheterization yesterday. Successful proximal LAD stenting with 2 drug-eluting stents were noted. Normal EF noted. Patient does continue to have moderate disease of the proximal dominant right coronary artery. Patient was started on Brilinta 90 mg twice daily +81 mg of aspirin daily due to ischemic coronary artery disease. Patient does continue to have worsening shortness of breath, this may be due to his COPD. This is being managed by PCP and pulmonology. Patient denies chest pain, tightness or pressure. No swelling noted of the lower extremity noted. Lung sounds are noted as wheezing throughout. Due to the wheezing we are unable to start a beta-ivana at this time. Will start lisinopril 40 mg for better BP control and ischemic coronary artery disease. Patient is currently on a statin for his LDL goal of 55. Recommend cardiac rehabilitation due to increase stamina. Advised tobacco cessation. Right wrist cath site noted with no swelling or drainage. If patient's shortness of breath becomes worse we may need to switch Brilinta to Plavix 75 mg daily. LHC:ANGIOGRAPHIC RESULTS The left main artery Normal The left anterior descending artery Has a proximal complex calcified 80% stenosis with remaining vessel normal The circumflex artery Nondominant yet still large and normal The right coronary artery Dominant vessel with proximal 30 to 40% hazy stenosis The RAYA ventriculogram reveals Normal 65% The left ventricular end-diastolic pressure 15 mmHg IMPRESSION Severe proximal LAD disease as described above Successful stent to the proximal LAD severe disease reduced to 10% with 2 drug-eluting stents as described above Normal ejection fraction Mildly elevated LVEDP Moderate disease in the proximal dominant right coronary PLAN 1. Brilinta 90 twice daily plus aspirin 81 mg daily 2. LDL less than 55 to be achieved with high intensity statin 3. Cardiac rehabilitation 4. Avoidance of tobacco products 5. Risk factor modification Echo:Conclusion 1. Technically difficult study because of the patient's factors and poor acoustic windows, a repeat study with Definity contrast is recommended. Mild biatrial enlargement, normal left ventricular size, mild concentric left ventricular hypertrophy, visually estimated ejection fraction 50% with no regional wall motion abnormality, diastolic parameters are inconclusive. 2. Mildly enlarged right ventricle with normal contractility. 3. Mild mitral and tricuspid regurgitation. 4. No significant pericardial effusion noted. Thank you for allowing cardiology to participate in the care of this patient. Exam Vital signs and Labs for Last 24 Hours: Temp Pulse Resp BP Pulse Ox 98.2 F 69 18 135/80 93 L 02/21/21 08:00 02/21/21 10:39 02/21/21 08:00 02/21/21 08:00 02/21/21 10:39 Laboratory Results - last 24 hr 02/20/21 13:05: Activated Clotting Time 257 H* 02/20/21 13:20: Activated Clotting Time 300 H* 02/21/21 06:13: WBC 9.5 D, RBC 4.20 L, Hgb 12.4 L, Hct 37.0 L, MCV 88.1, MCH 29.4, MCHC 33.4, RDW 14.3, Plt Count 291, MPV 8.3, Neut % (Auto) 75.7, Lymph % (Auto) 14.6, [place] % (Auto) 9.4 H, Eos % (Auto) 0.0 L, Baso % (Auto) 0.2, Neut # (Auto) 7.2, Lymph # (Auto) 1.4, [place] # (Auto) 0.9, Eos # (Auto) 0.0, Baso # (Auto) 0.0 02/21/21 06:13: Sodium 142, Potassium 3.2 L, Chloride 103, Carbon Dioxide 31 H, Anion Gap 11.2, BUN 20, Creatinine 0.80 D, Estimated Creat Clear 72, Estimated GFR 97, Est GFR ( Amer) 117 D, Glucose 121 H D, Calcium 9.2 I & O for Last 24 hours: Intake & Output 02/18/21 02/19/21 02/20/21 02/21/21 23:59 23:59 23:59 23:59 Intake Total 1628 / 2100 712 / 712 Output Total 200 / 650 450 / 450 Balance 1428 / 1450 262 / 262 Weight
--- NOTE | 2021-02-21 12:38 | PC.NURSE ---
Pt is alert and oriented x4. Lungs with expiratory wheezes. He is currently on 1L NC w/O2 sat at 92%. I will continue to wean O2 as appropriate. Pt is noticeably more lethargic today. He has been resting with his eyes closed all shift thus far. He will awaken to verbal or tactile stimuli easily but he falls back to sleep quickly. He says he is tired and that he doesn't feel good. Some chest pain and sob reported. Right radial dressing is clean, dry and intact. No hematoma noted. Will continue to monitor.
--- NOTE | 2021-02-21 18:42 | PC.NURSE ---
RA SATS 93%
[2021-02-22] VITALS: PULSE 70
[2021-02-22 03:28] VITALS: BP 162/81; PULSE 57; RESP 18; TEMP 36.9; O2SAT 93
[2021-02-22 04:00] VITALS: PULSE 60
--- NOTE | 2021-02-22 04:25 | PC.NURSE ---
Pt cough and SOA improved this shift. Patient compliant with medication administration and resting comfortably in bed. Will continue to monitor for any acute changes.
[2021-02-22 05:00] VITALS: BMI 23.2
[2021-02-22 06:44] VITALS: PULSE 72; O2SAT 91
[2021-02-22 08:00] VITALS: BP 159/98; PULSE 60; PULSE 80; RESP 20; TEMP 36.8; O2SAT 94
[2021-02-22 09:07] LABS: Chloride 108 mmol/L (98-107)
[2021-02-22 09:08] LABS: Potassium 3.9 mmoL/L (3.5-5.1); Sodium 142 mmol/L (136-145)
[2021-02-22 09:10] LABS: Blood Urea Nitrogen 16 mg/dl (9-20); Creatinine Clearance Estimated 72 mL/min (50-200); Estimated Glomerular Filt Rate 113 ml/min (>60); GFR (African American) 137 ML/MIN (>60)
[2021-02-22 09:11] LABS: Anion Gap 9.9 mEq/L (5-15); Calcium 9.2 mg/dl (8.4-10.2); Carbon Dioxide 28 mmol/L (22.0-30.0); Glucose 107 mg/dl (74-100)
[2021-02-22 09:16] LABS: Basophils % 0.3 % (0.1-2.0); Eosinophils % 0.3 % (0.1-12.0); Hematocrit 41.2 % (42.0-52.0); Hemoglobin 13.2 g/dL (14.1-18.0); Lymphocytes # 2.2 K/mm3 (0.7-4.5); Lymphocytes % 22.8 % (10-50); Mean Corpuscular HGB Conc 31.9 g/dL (31.8-35.4); Mean Corpuscular Hemoglobin 28.4 pg (27.0-31.2); Mean Corpuscular Volume 88.9 fl (80-94); Monocytes # 0.8 K/mm3 (0.1-1.0); Monocytes % 7.9 % (1.7-9.3); Neutrophils # 6.7 K/mm3 (1.8-7.8); Neutrophils % 68.8 % (37.0-80.0); Platelet Count 307 K/mm3 (142-424); Red Blood Count 4.64 M/mm3 (4.60-6.20); Red Cell Distribution Width 14.1 % (11.5-17.5); White Blood Count 9.7 K/mm3 (4.8-10.8)
--- NOTE | 2021-02-22 09:46 | HMH.PULMPN ---
Internal Medicine - PN: Subj *Date: 02/22/21 *Time: 09:46 Interval history: No acute respiratory events overnight, patient respiratory status continued to improve, this morning on room air Exam - Constitutional Constitutional:: Present: no acute distress - HENMT Exam HENMT: Present: normocephalic, atraumatic - Eye Exam Eyes:: Present: eyelids normal - Neck Exam Neck:: Present: thyroid normal - Respiratory Exam Respiratory:: Present: able to speak in complete sentences, lungs clear, normal breath sounds, no respiratory distress - Cardiovascular Exam Cardiac:: Present: S1, S2 - GI Exam GI:: Present: soft - Skin Exam Skin: Present: warm, no rash, dry - Neurological Exam Neurological: Present: alert, awake, normal cognition - Extremities Exam Extremities: Present: no cyanosis, no clubbing, no edema Assessment and Plan (1) Chest pain Status: Chronic Category: Medical Code(s): R07.9 - Chest pain, unspecified (2) Acute exacerbation of chronic obstructive airways disease Status: Acute Category: Medical Code(s): J44.1 - Chronic obstructive pulmonary disease with (acute) exacerbation (3) COPD exacerbation Status: Acute Category: Medical Code(s): J44.1 - Chronic obstructive pulmonary disease with (acute) exacerbation (4) Anxiety and depression Status: Chronic Category: Medical Code(s): F41.9 - Anxiety disorder, unspecified; F32.9 - Major depressive disorder, single episode, unspecified (5) Depression Status: Chronic Qualifiers: Depression Type: major depressive disorder Major depression recurrence: single episode Active/Remission status: currently active Major depression episode severity: moderate Qualified Code(s): F32.1 - Major depressive disorder, single episode, moderate Category: Medical Code(s): F32.9 - Major depressive disorder, single episode, unspecified - Assessment and plan all Dx Assessment and Plan for all problems:: #COPD exacerbation: 65-year-old significant smoking smoking 2 to 3 packs a day since he was 15 years old recently placed 1 pack a day presents with worsening respiratory failure with increasing productive phlegm which is yellowish in color, not associated with any fevers, chills, pleuritic chest pain and hemoptysis. Patient in an outpatient basis on an albuterol inhaler however ran out of it and not using it for the last 2 months. Denies any prior exacerbations. No evidence of leukocytosis. Afebrile. Chest x-ray showed questionable right middle lobe pulmonary infiltrate along with evidence of vascular congestion. BNP elevated at 717, troponin elevated on admission 0.04, patient scheduled for left heart cath today. Respiratory viral PCR negative. Sputum for sample however showing gram-positive diplococci Patient respiratory status continued to recover this morning on room air. Auscultation reveals clear breath sounds with significant improvement in his prior wheezing. Patient appears comfortable. Plan: - Continue levofloxacin to complete total of 5-day course - Prednisone 40 mg for total of 5 days - DuoNebs every 6 hours scheduled, consider discharging the patient on LABA LAMA combination therapy along with albuterol every 6 as needed #Thank you for involving pulmonary in this patient care. We will follow the patient in pulmonary clinic in 4 weeks with full PFTs and 6-minute walk testing.
--- NOTE | 2021-02-22 10:34 | HMH.PNCARD ---
Subjective Date: 02/22/21 Time: 10:30 Principal diagnosis: Chest pain Interval history: This is a 65-year-old white gentleman who was admitted to the hospital with chest heaviness and shortness of breath. He underwent left cardiac catheterization and had 2 stents placed to the LAD. He has persistent moderate disease to the dominant right coronary artery. He is tolerating his Brilinta and aspirin well. He denies any chest pain pressure, shortness of breath or edema. He denies any fever, chills, nausea, vomiting, diarrhea, PND orthopnea. The patient states that he is very eager to get home today. Exam Vital signs and Labs for Last 24 Hours: Temp Pulse Resp BP Pulse Ox 98.3 F 80 20 159/98 H 94 L 02/22/21 08:00 02/22/21 08:00 02/22/21 08:00 02/22/21 08:00 02/22/21 08:00 Laboratory Results - last 24 hr 02/22/21 08:51: WBC 9.7, RBC 4.64, Hgb 13.2 L, Hct 41.2 L, MCV 88.9, MCH 28.4, MCHC 31.9, RDW 14.1, Plt Count 307, MPV 8.0, Neut % (Auto) 68.8, Lymph % (Auto) 22.8, [place] % (Auto) 7.9, Eos % (Auto) 0.3, Baso % (Auto) 0.3, Neut # (Auto) 6.7, Lymph # (Auto) 2.2, [place] # (Auto) 0.8, Eos # (Auto) 0.0, Baso # (Auto) 0.0 02/22/21 08:51: Sodium 142, Potassium 3.9 D, Chloride 108 H, Carbon Dioxide 28, Anion Gap 9.9, BUN 16, Creatinine 0.70, Estimated Creat Clear 72, Estimated GFR 113, Est GFR ( Amer) 137, Glucose 107 H, Calcium 9.2 I & O for Last 24 hours: Intake & Output 02/19/21 02/20/21 02/21/21 02/22/21 23:59 23:59 23:59 23:59 Intake Total 1628 / 2100 1589 / 1589 1640 / 1640 Output Total 200 / 650 1100 / 1100 Balance 1428 / 1450 489 / 489 1640 / 1640 Weight 153 lb 6 oz 153 lb 6.009 oz 153 lb 4 oz 153 lb 4 oz Microbiology Reports for the Last 24 Hours: Microbiology 02/19/21 17:30 Sputum - Expectorated Sputum Gram Stain - Final 02/19/21 17:30 Sputum - Expectorated Sputum Sputum Culture - Preliminary - Constitutional no acute distress, average body habitus - *Routine HEENT Exam Head: Present: normocephalic, atraumatic Eye: Present: EOMI, PERRL ENT: Present: mucous membranes moist - *Routine Neck Exam Present: supple, full ROM, normal carotid upstroke. Absent: JVD, carotid bruit, lymphadenopathy - *Routine Respiratory Exam Present: CTA bilaterally - *Routine Cardiovascular Exam Present: RRR, Normal S1, Normal S2. Absent: murmur - *Routine Abdominal Exam Present: soft, normoactive bowel sounds. Absent: tenderness, distended - *Routine Extremities Exam Present: full ROM, pulses intact, normal capillary refill. Absent: cyanosis, clubbing, edema - *Routine Skin Exam Present: intact, warm. Absent: erythema, rash - *Routine Neurological Exam Present: alert, oriented X3, CN II-XII intact. Absent: sensory deficit, motor deficit Progress Note: A&P (1) CAD (coronary artery disease) Status: Chronic (2) Acute exacerbation of chronic obstructive airways disease Status: Acute (3) COPD exacerbation Status: Acute (4) Anxiety and depression Status: Chronic (5) Depression Status: Chronic (6) Stented coronary artery Status: Chronic (7) HTN (hypertension) Status: Chronic (8) HLD (hyperlipidemia) Status: Chronic Assessment and Plan for All Diagnoses:: plan: 1. The patient was admitted to the hospital and underwent left cardiac catheterization. He had 2 stents placed to his LAD. He will remain on Brilinta and aspirin for dual antiplatelet therapy. He is tolerating these well and no bleeding. 2. Coronary artery disease is stable. 3. Blood pressure is slightly elevated this morning but has been under pretty good control. 4. His LDL goal is less than 55. On a statin. 5. Tobacco cessation is highly advised and counseled. The patient states that he will not be smoking anymore after what just happened to him and needing stents. 6. COPD is present. This is being managed by his primary care provider. 7. The patient is stable for discharge home to
--- NOTE | 2021-02-22 10:49 | SW/DCPLANNER ---
SPOKE WITH PATIENT THIS MORNING AND ATTEMPTING TO GET HIM READY FOR DISCHARGE: PATIENT REQUESTED A [facility] HOME HEALTH WAS ORDERED BY DR GIANG FOR PHYSICAL THERAPY... PATIENT CHOSE [facility].. HE IS DISCHARGING HOME TODAY AND WILL BE SEEN IN THE AM... FAMILY WILL COME AND GET PATIENT...
[2021-02-22 11:22] LABS: Chol/HDL Ratio 4.8 (1-3.5); Cholesterol 158 mg/dl (140-200); HDL Cholesterol 33 mg/dl (40-60); Triglycerides 163 mg/dl (30-150); VLDL Cholesterol 33 mg/dL (0-40)
[2021-02-22 11:33] LABS: Direct LDL Cholesterol 94.74 mg/dL (100-129)
--- NOTE | 2021-02-22 13:30 | HMH.DCSUM ---
General - General Admission date:: 02/19/21 Discharge date: 02/22/21 HPI HPI: Patient is a 65-year-old white male, followed by our office presented to the emergency room earlier with a course of worsening dyspnea over the last week or so. He has been using his inhalers with greater frequency, and has had a cough productive of Sputum. He does report a longstanding history of COPD, has had several hospitalizations, has been mechanically ventilated in the past. He is a heavy smoker. Patient also relays some episodic chest pain. This is substernal. There is no active chest pain at the time of exam, no radiation to the jaw, no nausea diaphoresis or emesis. His lungs are diffusely congested, diminished air movement, expiratory wheezes and scattered rhonchi. He is awake, lucid, clear. Hospital Course Hospital Course: Laboratory Tests 02/19/21 02/19/21 02/19/21 13:42 14:23 14:23 WBC 8.9 RBC 4.58 L Hgb 13.4 L Hct 41.3 L MCV 90.1 MCH 29.2 MCHC 32.5 RDW 14.2 Plt Count 258 MPV 7.6 Neut % (Auto) 63.8 Lymph % (Auto) 22.4 [place] % (Auto) 13.1 H Eos % (Auto) 0.3 Baso % (Auto) 0.4 Neut # (Auto) 5.7 Lymph # (Auto) 2.0 [place] # (Auto) 1.2 H Eos # (Auto) 0.0 Baso # (Auto) 0.0 PT 12.2 INR 1.04 APTT 29.0 Activated Clotting Time Specimen Source Right radial O2 % 2 lpm ABG pH 7.41 ABG pCO2 47.0 H ABG pO2 86.1 ABG HCO3 28.8 H ABG Total CO2 30.2 H ABG O2 Saturation 97 ABG Base Excess 4.1 H Tony Test Acceptable Sodium Potassium Chloride Carbon Dioxide Anion Gap BUN Creatinine Estimated Creat Clear Estimated GFR Est GFR ( Amer) Glucose Calcium Total Bilirubin AST ALT Alkaline Phosphatase Troponin I NT-Pro-B Natriuret Pep Total Protein Albumin Globulin Albumin/Globulin Ratio Triglycerides Cholesterol LDL Cholesterol Direct VLDL Cholesterol HDL Cholesterol Cholesterol/HDL Ratio Chlamy pneumoniae PCR Adenovirus (PCR) B. pertussis DNA (PCR) Coronavirus OC43 (PCR) Coronavirus HKU1 (PCR) Coronavirus 229E (PCR) SARS-CoV-2 (PCR) Coronavirus NL63 (PCR) Human Metapneumovir PCR Influenza A (H1) PCR Influ A (H1N1/09) PCR Influenza A (H3) PCR Influenza Type A (PCR) Influenza Type B (PCR) M. pneumoniae (PCR) Parainfluenza 1 (PCR) Parainfluenza 2 (PCR) Parainfluenza 3 (PCR) Parainfluenza 4 (PCR) RSV (PCR) Entero/Rhino (PCR) 02/19/21 02/19/21 02/19/21 14:23 14:30 16:35 WBC RBC Hgb Hct MCV MCH MCHC RDW Plt Count MPV Neut % (Auto) Lymph % (Auto) [place] % (Auto) Eos % (Auto) Baso % (Auto) Neut # (Auto) Lymph # (Auto) [place] # (Auto) Eos # (Auto) Baso # (Auto) PT INR APTT Activated Clotting Time Specimen Source O2 % ABG pH ABG pCO2 ABG pO2 ABG HCO3 ABG Total CO2 ABG O2 Saturation ABG Base Excess Tony Test Sodium 142 Potassium 3.9 Chloride 105 Carbon Dioxide 29 Anion Gap 11.9 BUN 15 Creatinine 0.60 L Estimated Creat Clear 76 Estimated GFR 135 Est GFR ( Amer) 164 Glucose 119 H Calcium 9.6 Total Bilirubin 1.1 AST 29 ALT 21 Alkaline Phosphatase 116 Troponin I 0.04 H 0.03 NT-Pro-B Natriuret Pep 717 H Total Protein 7.5 Albumin 4.3 Globulin 3.2 Albumin/Globulin Ratio 1.3 Triglycerides Cholesterol LDL Cholesterol Direct VLDL Cholesterol HDL Cholesterol Cholesterol/HDL Ratio Chlamy pneumoniae PCR Not detected Adenovirus (PCR) Not detected B. pertussis DNA (PCR) Not detected Coronavirus OC43 (PCR) Not detected Coronavirus HKU1 (PCR) Not detected Coronavirus 229E (PCR) Not detected SARS-CoV-2 (PCR) Not detected Sue
--- NOTE | 2021-02-22 15:25 | HMH.PHACLD ---
Shalom Arias has received discharge medication counseling on the following medications: BRILINTA, ASPIRIN, LISINOPRIL, LIPITOR (DOSE INCREASE). PER CARDIOLOGY NOTE ON 02/21, HOLDING BETA JUVE DUE TO WHEEZING. ALL NEW PRESCRIPTIONS WERE SENT TO [facility]. PATIENT VERBALIZED UNDERSTANDING AND HAD NO QUESTIONS AT THIS TIME. -STEPHANIA DAMIAN, TAMD
--- NOTE | 2021-02-22 15:59 | PC.NURSE ---
PT HAS BEEN AMBULATING IN THE ROOM. PT IS VERY ANXIOUS TO GO HOME SO HE CAN SEE HIS DOGS. PT'S RIDE ARRIVED AT NOON. NOTIFIED NELDA BENITEZ. PT WILL HAVE A FOLLOW UP WITH PCP, CARDIOLOGY AND PULMONOLOGY. PT HAS ALSO BEEN SCHEDULED FOR A PULMONARY FUNCTION TEST. ALL DISCHARGE INSTRUCTIONS WERE WENT OVER AND PT STATED HE UNDERSTOOD. PT ALSO RECEIVED PHARMACY EDUCATION ON HOME MEDICATIONS.
== END 2021-02-22 15:50 | disposition home or self-care (01) ==
LOC: ER 13:45 → 2ND 15:48
PROVIDERS: Internal Medicine; Nurse Practitioner Family; Admitting Provider Emergency Medicine; Emergency Provider Emergency Medicine; Visit Provider Emergency Medicine
DX: J44.1 Chronic obstructive pulmonary disease with (acute) exacerbation (principal); I25.10 Atherosclerotic heart disease of native coronary artery without angina pectoris; I10 Essential (primary) hypertension; E78.5 Hyperlipidemia, unspecified; Z79.51 Long term (current) use of inhaled steroids; Z79.899 Other long term (current) drug therapy; R06.9 Unspecified abnormalities of breathing; R06.02 Shortness of breath
CPT/HCPCS: 36415; 71045; 71046; 80048; 80053; 80061; 82803; 83880; 84484; 85025; 85347; 85610; 85730; 87070; 87205; 87581; 87633; 87798; 92928; 92978; 93005; 93306; 93458; 94640; 94760; 94761; 96365; 99152; 99153; 99284; C1725; C1769; C1876; C9600; G0378; J1644; J1956; Q9967

== ENCOUNTER → 2021-04-11 07:18 | Outpatient (CLI) | payer MEDICARE, OTHER, SELFPAY ==
--- NOTE | 2021-04-11 | CA_ITS ---
APPROVED REPORT EXAM: Comprehensive 2D, Doppler, and color-flow Echocardiogram [employer] Sales Representative: Zuly Merritt RT(R) Ht: 5 ft 8 in Wt: 149lbs BSA: 1.80 BP: 104/54 mmHg Indications: COPD, smoker, JONES, SOA, repeat echo (01/2021) with definity contrast. Echo Enhancing Agent Indication: Endocardial border delineation Agent(s) / Amount(s) Used: Definity 2 cc Conclusion 1. Limited study with Definity contrast was performed, visually estimated ejection fraction 50% with no obvious regional wall motion abnormality, there is no left ventricular thrombus seen. 2. No significant pericardial effusion noted. Electronically signed by : Ravi Lozoya, 04/12/2021 14:53:58
--- NOTE | 2021-04-11 07:19 | CT_ITS ---
PROCEDURE: CT LUNG SCREENING CLINICAL INDICATION: lung cancer screening COMPARISON: CT CT CHEST WO CON from 09/13/2020 TECHNIQUE: The exam was performed on a GE Light Speed [address] scanner using 2.90 mGy CTDI. A low dose helical CT CHEST was performed on a multi-detector scanner. All CT scans at the facility use one or more dose reduction, viz: automated exposure control, ma/kV adjustment per patient size (including targeted exams where dose is matched to indication, i.e. head), or iterative reconstruction technique. The LDCT was performed in a facility that meets the criteria for the screening program. Data regarding this exam was submitted to ACR which is an approved registry. The order for this exam indicates that it came as a result of a lung cancer screening counseling shard decision-making visit that included all the elements required of such a visit including smoking cessation. The radiologist interpreting this exam meets the CMS criteria for the LDCT lung cancer screening program. The exam is reported using the Lung-RADS classification scale and reported to the ACR registry. NOTE: This study was performed for the specific purposes of lung cancer screening and is not an alternative to diagnostic chest CT. RADIATION DOSE: CTDI vol(CT dose Index-volume) = 2.90mG DLP (Dose Length Product) = mGcm FINDINGS: Nodule in the left upper lobe measuring 4 millimeters. Nodule in the right upper lobe measuring 4 millimeters. Calcified granuloma in the left upper lobe. Minor tree-in-bud appearance noted in the left lower lobe. No other suspicious lung nodules. No focal consolidation, pleural effusions or pneumothorax. Centrilobular emphysematous changes are noted bilaterally. Central tracheobronchial tree is patent. Minor peribronchial thickening of the bilateral lower lobe bronchials, may represent [id number] airway disease. The heart size is normal. No pericardial effusions. Atherosclerotic vascular calcification of the thoracic aorta and the coronary arteries. Few calcified mediastinal and hilar lymph nodes are noted. No significant mediastinal or hilar adenopathy. Small hiatus hernia is noted. The thyroid gland is normal. Visualized upper abdominal solid organs are unremarkable. The thoracic spine is within normal limits. IMPRESSION: Lung-RADS Category 2 Benign Appearance or Behavior Follow-up: Continued screening in 12 months is recommended. Minor tree-in-bud appearance in the left lower lobe, may represent minor infection/inflammation. Dictated by: Yolanda Donnelly 04/11/2021 08:20 Yolanda Donnelly in 04/11/2021 08:20
== END ==
PROVIDERS: PCP Physician Assistant; Visit Provider Physician Assistant
DX: Z87.891 Personal history of nicotine dependence (principal); Z12.2 Encounter for screening for malignant neoplasm of respiratory organs; R06.02 Shortness of breath
CPT/HCPCS: 71271; 93308; Q9957

== ENCOUNTER 2021-04-12 13:21 | Observation (INO) | payer MEDICARE, OTHER, SELFPAY ==
[2021-04-12] VITALS (18 sets, daily range): BP systolic 100–156; BP diastolic 46–87; PULSE 69–90; RESP 18–20; TEMP 36.6–37.6; O2SAT 93–98; BMI 22.3; BMI 22.5
--- NOTE | 2021-04-12 13:52 | HMH.EDGENADL ---
ED Disposition Clinical Impression: Perianal abscess Disposition: Admitted as Observation Condition on Discharge: Fair Instructions: DI for Skin Abscess Referrals: Bernadette Kimble PA [Primary Care Provider] - - Critical Care Critical Care Time: No Attestation: On 04/12/21, the high probability of a clinically significant, sudden or life threatening deterioration of the following system(s) required my full and direct attention, intervention and personal management. The time I documented below is in addition to time spent performing reported procedures but includes the following listed in this critical care notation. Medical Decision Making - Medical Records Medical records reviewed: Yes: I reviewed the patient's medical records. MR Comment: Cardiac stent placed on 02/20/[address] Alvin Garcia Inquiry Pt receiving controlled substance: Yes Jose was queried for this patient: Yes Risks and benefits of using a controlled substance: were not discussed with pt by me Vital Signs: 04/12/21 13:23 04/12/21 14:24 Temperature 97.9 F Temperature Source Oral Pulse Rate 82 Pulse Rate [Left Radial] 90 Respiratory Rate 18 20 Blood Pressure 102/64 L Blood Pressure [Right Arm] 123/76 Blood Pressure Mean 73 Blood Pressure Mean [Right Arm] 91 Blood Pressure Source [Right Arm] Automatic Cuff Blood Pressure Position [Right Arm] Sitting 02 Sat by Pulse Oximetry 98 98 Oxygen Delivery Method Room Air - Lab Data Lab Results 04/12/21 11:58: Urine Color Dk yellow, Urine Appearance Sl cloudy, Urine pH 5.5, Ur Specific Portal 1.025, Urine Protein Negative, Urine Glucose (UA) Negative, Urine Ketones Negative, Urine Blood Negative, Urine Nitrate Negative, Urine Bilirubin Negative, Urine Urobilinogen 0.2, Ur Leukocyte Esterase Negative, Urine WBC 3-5, Ur Squamous Epith Cells Occasional, Urine Bacteria Trace, Urine Mucus 3+ 04/12/21 14:11: Lactate 0.9 04/12/21 14:11: WBC 11.7 H, RBC 4.36 L, Hgb 12.7 L, Hct 38.8 L, MCV 89.1, MCH 29.1, MCHC 32.7, RDW 14.7, Plt Count 241, MPV 7.7, Neut % (Auto) 77.3, Lymph % (Auto) 15.7, [place] % (Auto) 5.5, Eos % (Auto) 1.3, Baso % (Auto) 0.3, Neut # (Auto) 9.0 H, Lymph # (Auto) 1.8, [place] # (Auto) 0.6, Eos # (Auto) 0.2, Baso # (Auto) 0.0 04/12/21 14:11: Sodium 136, Potassium 4.1, Chloride 103, Carbon Dioxide 27, Anion Gap 10.1, BUN 11, Creatinine 0.80, Estimated Creat Clear 69, Estimated GFR 97, Est GFR ( Amer) 117, Glucose 109 H, Calcium 9.3 Result diagrams: 04/12/21 14:11 04/12/21 14:11 Orders (Tests/Meds): ED MEDICATIONS Generic Name Dose Route Start Last Admin Trade Name Freq PRN Reason Stop Dose Admin Sodium Chloride 1,000 mls @ 100 mls/hr 04/12/21 16:15 Sod Chlor 0.9% 1000ml Bag IV 05/12/21 16:14 .Q10H COLLEEN Piperacillin Sod/Tazobactam 100 mls @ 200 mls/hr 04/12/21 16:15 04/12/21 16:19 Sod 4.5 gm/ Sodium Chloride IV 04/26/21 16:14 200 mls/hr Q8H COLLEEN Administration Protocol Discontinued Medications Generic Name Dose Route Start Last Admin Trade Name Freq PRN Reason Stop Dose Admin Iopamidol 75 ml 04/12/21 15:14 04/12/21 15:15 Iopamidol-370 (76%);100ml Bottle IV 04/12/21 15:15 75 ml ONCE ONE Administration Morphine Sulfate 4 mg 04/12/21 14:05 04/12/21 14:20 Morphine 4mg/Ml Syringe IV 04/12/21 14:06 4 mg ONCE ONE Administration Ondansetron HCl 4 mg 04/12/21 14:05 04/12/21 14:20 Ondansetron 4mg/2ml Vial IV 04/12/21 14:06 4 mg ONCE ONE Administration Sodium Chloride 10 ml 04/12/21 15:14 04/12/21 15:15 Sodium Chloride 0.9% 10ml Syr (Rad Only) IV 04/12/21 15:15 10 ml ONCE ONE Administration ORDERS Category Date Time Status Full Resp Panel w/COVID ([facility]) Routine Lab 04/12/21 16:51 Ordered Blood Culture Stat Micro 04/12/21 14:11 Received - Physician Consults Physician Consulted: Dr. Singh Time: 16:13 Reason -: Surgical Eval/Care Comment/Response: Zosyn. Chapa patient n.p.o.
--- NOTE | 2021-04-12 14:04 | CT_ITS ---
PROCEDURE: CT PELVIS W CON CLINICAL INDICATION: perineal swelling and pain COMPARISON: No exams were available for comparison TECHNIQUE: Axial images obtained with sagittal and coronal reformats. All CT scans at the facility use one or more dose reduction, viz: automated exposure control, ma/kV adjustment per patient size (including targeted exams where dose is matched to indication, i.e. head), or iterative reconstruction technique. FINDINGS: Bony pelvis: Unremarkable. No acute fracture or dislocation. Focal sclerotic density is noted in the left iliac bone, likely represents a bone island. Postsurgical changes of the lumbar spine is partially visualized with posterior spinal fixation rods and interpedicular screws. Hips:Minor degenerative changes of the bilateral hips joints with subchondral cystic changes. No acute fractures or dislocations Sacrum/coccyx: Unremarkable. Soft tissues:There is a focal rim enhancing collection noted in the soft tissue of the perineum adjacent to the anal canal measuring approximately 3.6 x 5.2 x 2.2 centimeters, extends into the posterior gluteal fold. No significant soft tissue stranding is noted in the adjacent ischiorectal fossa. Few foci of air noted within the collection. The soft tissue stranding extends up to the base of the scrotum with minor skin thickening. Small left-sided hydrocele is noted. IMPRESSION: Findings are consistent with perianal abscess measuring 3.6 x 5.2 cm. Soft tissue edema and skin thickening extends into the base of the scrotum. Dictated by: Yolanda Donnelly 04/12/2021 15:52 Yolanda Donnelly in OV 04/12/2021 15:52
[2021-04-12 14:38] LABS: Basophils % 0.3 % (0.1-2.0); Eosinophils # 0.2 K/mm3 (0.0-0.4); Eosinophils % 1.3 % (0.1-12.0); Hematocrit 38.8 % (42.0-52.0); Hemoglobin 12.7 g/dL (14.1-18.0); Lymphocytes # 1.8 K/mm3 (0.7-4.5); Lymphocytes % 15.7 % (10-50); Mean Corpuscular HGB Conc 32.7 g/dL (31.8-35.4); Mean Corpuscular Hemoglobin 29.1 pg (27.0-31.2); Mean Corpuscular Volume 89.1 fl (80-94); Mean Platelet Volume 7.7 fl (7.4-10.4); Monocytes # 0.6 K/mm3 (0.1-1.0); Monocytes % 5.5 % (1.7-9.3); Neutrophils % 77.3 % (37.0-80.0); Platelet Count 241 K/mm3 (142-424); Red Blood Count 4.36 M/mm3 (4.60-6.20); Red Cell Distribution Width 14.7 % (11.5-17.5); White Blood Count 11.7 K/mm3 (4.8-10.8)
[2021-04-12 14:39] LABS: Chloride 103 mmol/L (98-107); Potassium 4.1 mmoL/L (3.5-5.1); Sodium 136 mmol/L (136-145)
[2021-04-12 14:42] LABS: Anion Gap 10.1 mEq/L (5-15); Blood Urea Nitrogen 11 mg/dl (9-20); Calcium 9.3 mg/dl (8.4-10.2); Carbon Dioxide 27 mmol/L (22.0-30.0); Creatinine Clearance Estimated 69 mL/min (50-200); Estimated Glomerular Filt Rate 97 ml/min (>60); GFR (African American) 117 ML/MIN (>60); Glucose 109 mg/dl (74-100); Lactic Acid 0.9 mmol/L (0.7-2.1)
--- NOTE | 2021-04-12 14:58 | PC.NURSE ---
Pt to radiology
--- NOTE | 2021-04-12 16:05 | PC.NURSE ---
Dr Wiley is speaking to Dr Singh
[2021-04-12 16:07] LABS: Microscopic, Urine URINE MICROSCOPIC (MICROSCOPIC)
[2021-04-12 16:09] LABS: Appearance,Urine SL CLOUDY (Clear); Bilirubin,Urine Negative (Negative); Blood, Urine Negative (Negative); Color,Urine DK YELLOW (Yellow); Glucose,Urine (UA) Negative (Negative); Ketones,Urine Negative (Negative); Leukocyte Esterase,Urine Negative (Negative); Nitrate,Urine Negative (Negative); PH,Urine 5.5 (5.0-8.5); Protein,Urine Negative (Negative); Specific Gravity, Urine 1.025 (1.005-1.030); Urobilinogen,Urine 0.2 EU/dl (0.2)
[2021-04-12 16:21] LABS: Bacteria,Urine Trace /lpf; Mucus,Urine 3+ /lpf; Squamous Epithelial Cell,Urine Occasional #/hpf (0-5)
--- NOTE | 2021-04-12 16:21 | PC.NURSE ---
PATIENT STATED, ALL MY MEDICATIONS ARE THE SAME FROM THE LAST TIME I WAS ADMITTED. I WAS ADMITTED IN THE LAST 30 DAYS.
--- NOTE | 2021-04-12 16:49 | PC.NURSE ---
Dr Wiley speaking with Dr Xiao.
--- NOTE | 2021-04-12 16:57 | PC.NURSE ---
Dr Wiley speaking with Dr Esquivel.
[2021-04-12 17:01] LABS: Adenovirus,PCR Not Detected (NotDetected); Bordetella Pertussis Not Detected (NotDetected); Chlamydophila Pneumoniae, PCR Not Detected (NotDetected); Coronavirus 19, PCR Not Detected (NotDetected); Coronavirus 229E Not Detected (NotDetected); Coronavirus NL63 Not Detected (NotDetected); Coronavirus OC43 Not Detected (NotDetected); Coronovirus HKU1,PCR Not Detected (NotDetected); Human Metapneumovirus Not Detected (NotDetected); Influenza A, PCR Not Detected (NotDetected); Influenza AH1, 2009 Not Detected (NotDetected); Influenza AH1, PCR Not Detected (NotDetected); Influenza AH3,PCR Not Detected (NotDetected); Influenza B, PCR Not Detected (NotDetected); Mycoplasma Pneumoniae, PCR Not Detected (NotDetected); Parainfluenza 1, PCR Not Detected (NotDetected); Parainfluenza 2, PCR Not Detected (NotDetected); Parainfluenza 3, PCR Not Detected (NotDetected); Parainfluenza 4, PCR Not Detected (NotDetected); Respiratory Syncytial Virus Not Detected (NotDetected); Rhinovirus/Enterovirus Not Detected (NotDetected)
--- NOTE | 2021-04-12 20:18 | PC.NURSE ---
Dr Singh called and wants pt NPO after Midnight and he will see him first in AM for Surgery
--- NOTE | 2021-04-12 22:11 | PC.NURSE ---
REPORT CALLED TO MARIE WARNER ON 2ND FLOOR
--- NOTE | 2021-04-12 22:25 | PC.NURSE ---
pt arrived via stretcher
[2021-04-13] VITALS (22 sets, daily range): BP systolic 87–126; BP diastolic 46–76; PULSE 61–90; RESP 16–32; TEMP 36.2–37.7; O2SAT 91–95; BMI 22.7
--- NOTE | 2021-04-13 02:11 | PC.WOUNDNOTE ---
Julia anal abcess swelling and redness and warmth scrotal area and below.
--- NOTE | 2021-04-13 03:03 | PC.NURSE ---
Patient oriented times 4. Pt admitted to the floor with a Perianal abcess visible under scrotum, pictures in chart. Patient administered 1 Abx Linizolid per order. Fluids running at 100 ml/hr. Patient has Cardiology (Alvin) and General Sx (Francisco) Consultation, patient has been NPO since 2025. Pt received 1 dose of Pain Rx which was effective AEB patient resting comfortably with eyes closed. Will continue to monitor for any acute changes.
--- NOTE | 2021-04-13 03:17 | PC.NURSE ---
Correction to previous note: Zosyn 4.5 GRMS administered, not Linizolid.
--- NOTE | 2021-04-13 06:21 | HMH.GSCON ---
*Admission Date: 04/12/21 *Reason for consult:: Perianal/perineal abscess *History of present illness: This is a 66-year-old gentleman who presented yesterday evening to the emergency department with increasing pain/swelling in the perianal region. Evaluation revealed an abscess on the surgical service was consulted. Please see HPI from emergency department evaluation forwarded below. Forwarded from emergency department evaluation: General Adult HPI - General Chief complaint: Skin/Abscess/Foreign Body Stated complaint: pain in groin Time Seen by Provider: 04/12/21 13:52 Mode of Arrival: Ambulatory Limitations: No Limitations Description of Symptoms (Recalled from ER Triage Doc. by RN): c/o a spot on his gential area that is painful and having drainage for a few days - History of Present Illness HPI narrative: Complains of swelling the size been a larger grapefruit with drainage in his perineum for 3 to 4 days. Denies fever. He says his urine is dark and has a strong smell, but no difficulty with urinary stream. Says that he has a urologist in [place], [place], Dr. Mclean. Review of Systems - Constitutional Denies chills - Eyes Denies change in vision - ENT Denies difficulty swallowing - *Cardiovascular Denies chest pain - *Respiratory Denies cough - *Gastrointestinal Denies abdominal pain - *Genitourinary Denies blood in urine - *Musculoskeletal Denies numbness - Integumentary/Breasts Reports new lesions - *Neurologic Denies confusion - Psychiatric Denies anxiety - Endocrine Denies cold intolerance - Hematologic/Lymphatic Denies enlarged lymph nodes - Allergic/Immunologic Denies GI upset with certain foods [facility] History Medical History: Reports:: Anxiety, Chronic Obstructive Pulmonary Disease (COPD), Depression, Hyperlipidemia, Hypertension, Lung Disease Denies:: Cancer, Diabetes Mellitus Type 1, Diabetes Mellitus Type 2, Internal Pacemaker, MRSA, Seizures *Have you ever received a pneumonia vaccine?: No *Have you received a flu vaccine this season?: No Laterality Cases: Bilateral: Tonsillectomy Other Surgeries: Yes: Appendectomy, Colonoscopy, Hernia Repair, Other. No: Pacemaker Amputation: Yes (r index finger) Fractures: No - *Social History Smoking Status: Current every day smoker Tobacco Type: cigarettes # Packs/Day (cigarettes): 1 Alcohol Intake: never Alcohol Intake Frequency:: holidays/special occasions only Substance Use Type: marijuana *Occupational Status:: retired Housing: house Household Members: other *Travel in the last 8 weeks: None - Psychiatric History Pschychiatric History:: Reports:: Anxiety, Depression Family Hx:: No significant family history Meds Home Medications Medication Instructions Recorded Confirmed Type Quetiapine Fumarate 100 mg PO HS 02/19/21 04/12/21 History Nicotine [Nicoderm 21mg/24hr 21 mg TD DAILYP PRN 30 Days #30 02/22/21 04/12/21 Rx patch] patch.[id number] escitalopram oxalate 20 mg tablet 20 mg PO DAILY #30 tab 03/06/21 04/12/21 Rx albuterol sulfate 90 mcg/actuation 2 puff INHALATION Q4-6H PRN #8.5 g 03/29/21 04/12/21 Rx aerosol inhaler ipratropium 0.5 mg-albuterol 3 mg 3 ml INHALATION Q6H PRN #180 ml 03/29/21 04/12/21 Rx (2.5 mg base)/3 mL nebulization soln ARIPiprazole [Aripiprazole] 5 mg PO HS 04/12/21 04/12/21 History Albuterol Sulfate [Albuterol 2.5 mg INHALATION Q6H 04/12/21 04/12/21 History 0.083% 2.5mg/3mL neb] Aspirin [Aspirin 81mg EC Tab] 81 mg PO DAILY 04/12/21 04/12/21 History Atorvastatin Calcium [Lipitor 40mg 40 mg PO HS 04/12/21 04/12/21 History Tab] Tamsulosin HCl 0.4 mg PO DAILY 04/12/21 04/12/21 History Ticagrelor [Brilinta 90mg 90 mg PO BID 04/12/21 04/12/21 History Tablet] Venlafaxine HCl [Effexor Xr] 75 mg PO DAILY 04/12/21 04/12/21 History guaiFENesin [Mucinex] 1,200 mg PO BID 04/12/21 04/12/21 History lisinopriL [Zestril 20mg tab] 40 mg PO DAILY 04/12/21 04/12/21 Hist
--- NOTE | 2021-04-13 06:40 | PC.NURSE ---
Pt left for Sx at 0625 with Robert WARNER. Patient in No acute distress
--- NOTE | 2021-04-13 06:47 | HMH.ANESCL ---
[facility] Anesthesia Checklist - Structural Data Admitted From: Inpatient Planned Operative Procedure/s: perirectal abcess Consent for Planned Operative Procedure(s) Verified: Yes - Additional verifications Anesthesia Reactions: No Hx Blood Transfusions: No - Airway Assessment C-Spine Mobility Assessed: Yes TMJ Mobility Assessed: Yes Dentition: Edentulous - Neurological Assessment Level of Consciousness: Awake, Alert, Appropriate - Anesthesia Plan Anesthesia Risk discussed: Yes Anesthesia Plan: Verified ASA Class: III Anesthesia Type: General [facility] History I have reviewed the patient's past medical history: Yes Medical History: Reports:: Anxiety, Chronic Obstructive Pulmonary Disease (COPD), Depression, Hyperlipidemia, Hypertension, Lung Disease Denies:: Cancer, Diabetes Mellitus Type 1, Diabetes Mellitus Type 2, Internal Pacemaker, MRSA, Seizures *Have you ever received a pneumonia vaccine?: No *Have you received a flu vaccine this season?: No Anesthesia experience/problems:: none Laterality Cases: Bilateral: Tonsillectomy Other Surgeries: Yes: Appendectomy, Colonoscopy, Hernia Repair, Other. No: Pacemaker Amputation: Yes (r index finger) Fractures: No - *Social History Smoking Status: Current every day smoker Tobacco Type: cigarettes # Packs/Day (cigarettes): 1 Alcohol Intake: never Alcohol Intake Frequency:: holidays/special occasions only Substance Use Type: marijuana *Occupational Status:: retired Housing: house Household Members: other *Travel in the last 8 weeks: None - Psychiatric History Pschychiatric History:: Reports:: Anxiety, Depression Family Hx:: No significant family history
--- NOTE | 2021-04-13 07:23 | HMH.OPNOTE ---
Date of procedure: 04/13/21 Pre-op Diagnosis:: Perianal/perineal abscess Post-op Diagnosis:: Same Procedure performed:: Incision and drainage of perianal/perineal abscess Surgeon:: Ulises Singh MD Anesthesia: LMA Estimated blood loss (mL): 5 Operative findings:: Perianal/perineal abscess with surrounding induration projecting along the scrotal margin Operative note:: After informed consent was obtained the patient was taken to the operating room and placed in the supine position. General anesthesia with laryngeal mask airway was achieved. His perianal/perineal region was prepped and draped. The central area of fluctuance along the perineum was opened with electrocautery. A pocket of purulence was encountered. Fluid was obtained for Gram stain/culture. The abscess pocket was thoroughly evacuated. Evaluation revealed soft tissue thickening along the scrotal margin. The wound was packed with moistened Kerlix. The entire region was infiltrated with 1% lidocaine. Dressings were applied and the patient was transferred to recovery in stable condition after removal of his laryngeal mask airway. Condition: stable Disposition: PACU Specimens:: Fluid for Gram stain/culture Complications:: No immediate
--- NOTE | 2021-04-13 07:27 | P.CONPHA_ITS ---
[facility] Pharmacy VTE Monitoring - Patient Demographics Admission date: 04/12/21 Report Date: 04/13/21 Time: 07:27 Allergies/Adverse Reactions: Patient Allergies codeine [CODEINE] Allergy (Unknown, Verified 03/29/21 10:28) I-HIVES Height: 1.73 m Weight: 68.039 kg Patient Problems: Current Active Problems Perianal abscess (Acute) - VTE Risk Labs: VTE Related Lab Results Hgb 12.7 g/dL (14.1-18.0) L 04/12/21 14:11 Hct 38.8 % (42.0-52.0) L 04/12/21 14:11 Plt Count 241 K/mm3 (142-424) 04/12/21 14:11 BUN 11 mg/dl (9-20) 04/12/21 14:11 Creatinine 0.80 mg/dl (0.66-1.25) 04/12/21 14:11 Estimated Creat Clear 69 mL/min (50-200) 04/12/21 14:11 Was VTE Risk Assessment Performed: Yes VTE Score: 2 VTE Risk Level: Very Low Risk - Prophylaxis VTE Prophylaxis Ordered?: Yes Types of VTE Prophylaxis: TEDS Knee High Location of Applied Device: Bilateral Lower Extremeties
--- NOTE | 2021-04-13 07:30 | HMH.ANESI ---
[facility] Anesthesia Record Part I Intake, IV Amount: 500 Estimated blood loss (mL): 0 Urine output (mL): 0 Blood Pressure: 87/46 SaO2: 95 Pulse Rate: 73 Respiratory Rate: 32 Temperature: 97.2 F Patient is:: Drowsy Stable to PACU at:: 07:28
--- NOTE | 2021-04-13 07:54 | HMH.PHAINT ---
MEDICATION RECONCILIATION COMPLETED ON PATIENT USING EXTERNAL FILL HISTORY FROM PHARMACY AND LIST FROM PULMONOLOGY OFFICE. -TAM JACKD
--- NOTE | 2021-04-13 09:47 | P.PN_ITS ---
[facility] Anesthesia Record Part II Discharge Time: 08:09 Destination: Medical Surgical Department PACU nurse assessment reviewed?: Yes Patient Condition:: Good Anesthesia Complications:: None Swallowing reflex intact?: Yes Cyanosis?: No Blood Pressure: 105/65 Pulse Rate: 80 Temperature: 99.7 F Mental Status: Alert & Oriented Pain level:: 0 Nausea and/or vomitting:: None Intake, IV Amount: 0
--- NOTE | 2021-04-13 12:47 | HMH.CNCARD ---
History of Present Illness Consult date: 04/13/21 Requesting physician: Pratik Xiao Chief complaint: perioperative anticoagulation Additional Medical History:: 1. HTN A. Echo, 01/2021, 1. Technically difficult study because of the patient's factors and poor acoustic windows, a repeat study with Definity contrast is recommended. Mild biatrial enlargement, normal left ventricular size, mild concentric left ventricular hypertrophy, visually estimated ejection fraction 50% with no regional wall motion abnormality, diastolic parameters are inconclusive. 2. Mildly enlarged right ventricle with normal contractility. 3. Mild mitral and tricuspid regurgitation. 4. No significant pericardial effusion noted. Electronically signed by : Ravi Lozoya, 02/20/2021 20:17:40 2. CAD A. [facility], 01/2021 ANGIOGRAPHIC RESULTS The left main artery Normal The left anterior descending artery Has a proximal complex calcified 80% stenosis with remaining vessel normal The circumflex artery Nondominant yet still large and normal The right coronary artery Dominant vessel with proximal 30 to 40% hazy stenosis The RAYA ventriculogram reveals Normal 65% The left ventricular end-diastolic pressure 15 mmHg IMPRESSION Severe proximal LAD disease as described above Successful stent to the proximal LAD severe disease reduced to 10% with 2 drug-eluting stents as described above Normal ejection fraction Mildly elevated LVEDP Moderate disease in the proximal dominant right coronary PLAN 1. Brilinta 90 twice daily plus aspirin 81 mg daily 2. LDL less than 55 to be achieved with high intensity statin 3. Cardiac rehabilitation 4. Avoidance of tobacco products 5. Risk factor modification Electronically signed by : Clinton Esquivel, 02/20/2021 13:33:28 3. Tobacco use A. COPD History of present illness: 66-year-old white male admitted through the ER for perineal drainage for which she has already undergone surgical treatment. Due to recent coronary stenting cardiology was consulted to comment on patient's perioperative anticoagulation. Dr. Esquivel did advise that the patient could stop his Brilinta but continue aspirin therapy perioperatively. [facility] History Medical History: Reports:: Anxiety, Chronic Obstructive Pulmonary Disease (COPD), Depression, Hyperlipidemia, Hypertension, Lung Disease Denies:: Cancer, Diabetes Mellitus Type 1, Diabetes Mellitus Type 2, Internal Pacemaker, MRSA, Seizures *Have you ever received a pneumonia vaccine?: No *Have you received a flu vaccine this season?: No Anesthesia experience/problems:: none Laterality Cases: Bilateral: Tonsillectomy Other Surgeries: Yes: Appendectomy, Colonoscopy, Hernia Repair, Other. No: Pacemaker Amputation: Yes (r index finger) Fractures: No - *Social History Smoking Status: Current every day smoker Tobacco Type: cigarettes # Packs/Day (cigarettes): 1 Alcohol Intake: never Alcohol Intake Frequency:: holidays/special occasions only Substance Use Type: marijuana *Occupational Status:: retired Housing: house Household Members: other *Travel in the last 8 weeks: None - Psychiatric History Pschychiatric History:: Reports:: Anxiety, Depression Family Hx:: No significant family history Meds Home Medications Medication Instructions Recorded Confirmed Type Quetiapine Fumarate 100 mg PO HS 02/19/21 04/12/21 History Nicotine [Nicoderm 21mg/24hr 21 mg TD DAILYP PRN 30 Days #30 02/22/21 04/12/21 Rx patch] patch.[id number] escitalopram oxalate 20 mg tablet 20 mg PO DAILY #30 tab 03/06/21 04/12/21 Rx albuterol sulfate 90 mcg/actuation 2 puff INHALATION Q4-6H PRN #8.5 g 03/29/21 04/12/21 Rx aerosol inhaler ipratropium 0.5 mg-albuterol 3 mg 3 ml INHALATION Q6H PRN #180 ml 03/29/21 04/12/21 Rx (2.5 mg base)/3 mL nebulization soln ARIPiprazole [Aripiprazole] 5 mg PO HS 04/12/21 04/12/21 History Aspirin [Aspirin 81mg EC Tab] 81 mg PO DAILY 04/12/21 04/12/21
--- NOTE | 2021-04-13 13:11 | SW/DCPLANNER ---
This patient will require daily dressing changes at time of discharge. I have spoke with this patient regarding dressing changes and ways to receive care: home with home health and assistance from family vs returning to [facility] daily for outpatient dressing changes. Patient stated that he would be more comfortable returning to [facility] daily for dressing changes. Patient did confirm that he would have transportation. Dr Singh has stated that patient will need wet to dry gauze dressing changes daily . I have informed patients nurse (Janeth Rodríguez) and ask that she write the order for dressing changes per Dr Singh. I will follow up with this patient for any needs/new orders.
--- NOTE | 2021-04-13 16:37 | HMH.HP ---
*Admission Date: 04/12/21 *Chief complaint: abscess *History of present illness: 66 yr old male presented to ed with c/o of a abscess in perineum for 3-4 days and becoming worse. Denies fever. He says his urine is dark and has a strong smell, but no difficulty with urinary stream. Says that he has a urologist in [place], [place], Dr. Mclean. surgery was consulted and surgery this am. Pt admitted for surgery eval and treatment. [facility] History I have reviewed the patient's past medical history: Yes Medical History: Reports:: Anxiety, Chronic Obstructive Pulmonary Disease (COPD), Depression, Hyperlipidemia, Hypertension, Lung Disease Denies:: Cancer, Diabetes Mellitus Type 1, Diabetes Mellitus Type 2, Internal Pacemaker, MRSA, Seizures *Have you ever received a pneumonia vaccine?: No *Have you received a flu vaccine this season?: No Anesthesia experience/problems:: none Laterality Cases: Bilateral: Tonsillectomy Other Surgeries: Yes: Appendectomy, Colonoscopy, Hernia Repair, Other. No: Pacemaker Amputation: Yes (r index finger) Fractures: No - *Social History Smoking Status: Current every day smoker Tobacco Type: cigarettes # Packs/Day (cigarettes): 1 Alcohol Intake: never Alcohol Intake Frequency:: holidays/special occasions only Substance Use Type: marijuana *Occupational Status:: retired Housing: house Household Members: other *Travel in the last 8 weeks: None - Psychiatric History Pschychiatric History:: Reports:: Anxiety, Depression Family Hx:: No significant family history Review of Systems - Review of Systems Review of systems:: pertinent systems reviewed and negative unless documented below - Constitutional Denies body ache(s), Denies fatigue, Denies fever(s) - Eyes Denies change in vision - ENT Denies change in voice - *Cardiovascular Denies chest pain with activity - *Respiratory Denies cough - *Gastrointestinal Denies nausea, Denies vomiting - *Genitourinary Reports painful urination, Denies urinary frequency - *Musculoskeletal Denies joint pain - Integumentary/Breasts Denies rash - *Neurologic Denies confusion, Denies numbness - Psychiatric Denies anxiety - Endocrine Denies flushing - Hematologic/Lymphatic Denies enlarged lymph nodes - Allergic/Immunologic Denies lip swelling Meds Home Medications Medication Instructions Recorded Confirmed Type Quetiapine Fumarate 100 mg PO HS 02/19/21 04/12/21 History Nicotine [Nicoderm 21mg/24hr 21 mg TD DAILYP PRN 30 Days #30 02/22/21 04/12/21 Rx patch] patch.td24 escitalopram oxalate 20 mg tablet 20 mg PO DAILY #30 tab 03/06/21 04/12/21 Rx albuterol sulfate 90 mcg/actuation 2 puff INHALATION Q4-6H PRN #8.5 g 03/29/21 04/12/21 Rx aerosol inhaler ipratropium 0.5 mg-albuterol 3 mg 3 ml INHALATION Q6H PRN #180 ml 03/29/21 04/12/21 Rx (2.5 mg base)/3 mL nebulization soln ARIPiprazole [Aripiprazole] 5 mg PO HS 04/12/21 04/12/21 History Aspirin [Aspirin 81mg EC Tab] 81 mg PO DAILY 04/12/21 04/12/21 History Atorvastatin Calcium [Lipitor 40mg 40 mg PO HS 04/12/21 04/12/21 History Tab] Tamsulosin HCl 0.4 mg PO DAILY 04/12/21 04/12/21 History Ticagrelor [Brilinta 90mg 90 mg PO BID 04/12/21 04/12/21 History Tablet] Venlafaxine HCl [Effexor Xr] 75 mg PO DAILY 04/12/21 04/12/21 History guaiFENesin [Mucinex] 1,200 mg PO BID 04/12/21 04/12/21 History lisinopriL [Zestril 20mg tab] 40 mg PO DAILY 04/12/21 04/12/21 History Tiotropium Br/Olodaterol HCl 2 puffs IH DAILY 04/13/21 04/13/21 History [Stiolto Respimat Inhal [place]] Allergies Allergy/AdvReac Type Severity Reaction Status Date / Time codeine [CODEINE] Allergy Unknown I-HIVES Verified 03/29/21 10:28 Exam Vital signs and Labs for Last 24 Hours: Temp Pulse Resp BP Pulse Ox 97.9 F 61 16 92/60 L 95 04/13/21 15:27 04/13/21 15:27 04/13/21 15:27 04/13/21 15:27 04/13/21 15:27 Laboratory Results - last 24 hr 04/12/21 16:52:
--- NOTE | 2021-04-13 17:34 | PC.NURSE ---
Pt has been pleasant and cooperative this shift. Pt is post-operative from an I&D. A&O X4. Pt has complained of pain X2 thus far and has received [place] + Morphine per MAR with favorable results. Pt is on room air with sats. >90%. Lungs CTA. No edema noted. Scrotal surgical dressing is C/D/I. Pt ambulates with stand-by assistance to/from the bathroom and uses the toilet to void clear, yellow urine without issue. 1 large soft, brown BM noted today. 20 G peripheral IV in the LT forearm is patent and infusing NS @ 100 ML/HR. 20 G peripheral IV in the RT AC is patent and SL. B/P has been slightly low this shift. Other VSS. Call light within reach. Will continue to monitor.
--- NOTE | 2021-04-14 00:52 | PC.NURSE ---
Pts IV in Left FA infiltrated. Removed and elevated arm. Right A/C still available and patent. Will continue to monitor.
[2021-04-14 03:46] VITALS: BP 108/57; PULSE 68; RESP 18; TEMP 36.8; O2SAT 93
--- NOTE | 2021-04-14 04:18 | PC.NURSE ---
Patient s/p Perianal Sx I/D 1 24 hours. Patient c/o of pain throughout the shift and was administered Hydrocodone 5/325 X 2. Reassessment of pain both instances patient was asleep. However, when patient was awake he c/o of pain in the scrotal/rectal area. Will continue to monitor for any acute changes.
[2021-04-14 04:54] VITALS: BMI 22.6
[2021-04-14 07:21] LABS: Anion Gap 5.8 mEq/L (5-15); Blood Urea Nitrogen 7 mg/dl (9-20); Calcium 8.7 mg/dl (8.4-10.2); Carbon Dioxide 28 mmol/L (22.0-30.0); Chloride 110 mmol/L (98-107); Creatinine Clearance Estimated 69 mL/min (50-200); Estimated Glomerular Filt Rate 113 ml/min (>60); GFR (African American) 137 ML/MIN (>60); Glucose 79 mg/dl (74-100); Potassium 3.8 mmoL/L (3.5-5.1); Sodium 140 mmol/L (136-145)
[2021-04-14 07:26] LABS: Basophils % 0.5 % (0.1-2.0); Eosinophils # 0.3 K/mm3 (0.0-0.4); Eosinophils % 4.2 % (0.1-12.0); Hemoglobin 11.3 g/dL (14.1-18.0); Lymphocytes # 1.9 K/mm3 (0.7-4.5); Lymphocytes % 24.8 % (10-50); Mean Corpuscular HGB Conc 30.6 g/dL (31.8-35.4); Mean Corpuscular Hemoglobin 28.6 pg (27.0-31.2); Mean Corpuscular Volume 93.6 fl (80-94); Mean Platelet Volume 7.4 fl (7.4-10.4); Monocytes # 0.6 K/mm3 (0.1-1.0); Monocytes % 7.6 % (1.7-9.3); Neutrophils # 4.9 K/mm3 (1.8-7.8); Neutrophils % 62.9 % (37.0-80.0); Platelet Count 249 K/mm3 (142-424); Red Blood Count 3.95 M/mm3 (4.60-6.20); Red Cell Distribution Width 14.4 % (11.5-17.5); White Blood Count 7.7 K/mm3 (4.8-10.8)
[2021-04-14 07:30] VITALS: BP 120/64; PULSE 59; RESP 18; TEMP 36.9; O2SAT 92
[2021-04-14 08:00] VITALS: PULSE 59; RESP 18; O2SAT 92
--- NOTE | 2021-04-14 09:14 | HMH.ACPN2 ---
Internal Medicine - PN: Subj *Date: 04/15/21 *Time: 06:40 Interval history: doing better with no fever Exam Vital signs and Labs for Last 24 Hours: Temp Pulse Resp BP Pulse Ox 98.5 F 59 L 18 120/64 92 L 04/14/21 07:30 04/14/21 07:30 04/14/21 07:30 04/14/21 07:30 04/14/21 07:30 Laboratory Results - last 24 hr 04/14/21 06:40: WBC 7.7 D, RBC 3.95 L, Hgb 11.3 L, Hct 37.0 L, MCV 93.6, MCH 28.6, MCHC 30.6 L, RDW 14.4, Plt Count 249, MPV 7.4, Neut % (Auto) 62.9, Lymph % (Auto) 24.8, [place] % (Auto) 7.6, Eos % (Auto) 4.2, Baso % (Auto) 0.5, Neut # (Auto) 4.9, Lymph # (Auto) 1.9, [place] # (Auto) 0.6, Eos # (Auto) 0.3, Baso # (Auto) 0.0 04/14/21 06:40: Sodium 140, Potassium 3.8, Chloride 110 H, Carbon Dioxide 28, Anion Gap 5.8, BUN 7 L D, Creatinine 0.70, Estimated Creat Clear 69, Estimated GFR 113, Est GFR ( Amer) 137, Glucose 79, Calcium 8.7 I & O for Last 24 hours: Intake & Output 04/11/21 04/12/21 04/13/21 04/14/21 11:59 11:59 11:59 11:59 Intake Total 2016 3525 / 3525 Output Total 625 / 625 Balance 2016 2900 / 2900 Weight 150 lb 149 lb - Constitutional no acute distress, thin - *Routine HEENT Exam Head: Present: normocephalic Eye: Present: EOMI, PERRL ENT: Present: mucous membranes dry - *Routine Neck Exam Present: supple. Absent: JVD - *Routine Respiratory Exam Present: CTA bilaterally - *Routine Cardiovascular Exam Present: RRR, murmur - *Routine Abdominal Exam Present: soft - *Routine Extremities Exam Absent: calf tenderness - *Routine Skin Exam Present: intact - *Routine Neurological Exam Present: alert, CN II-XII intact - Routine Psychiatric Exam Present: normal affect Assessment and Plan (1) Perianal abscess Status: Acute Category: Medical Code(s): K61.0 - Anal abscess (2) CAD (coronary artery disease) Status: Chronic Category: Medical Code(s): I25.10 - Atherosclerotic heart disease of [place] coronary artery without angina pectoris (3) COPD (chronic obstructive pulmonary disease) Status: Chronic Qualifiers: COPD type: emphysema Emphysema type: centrilobular Qualified Code(s): J43.2 - Centrilobular emphysema Category: Medical Code(s): J44.9 - Chronic obstructive pulmonary disease, unspecified (4) Tobacco use Status: Acute Category: Social Hx Code(s): Z72.0 - Tobacco use (5) Elevated left ventricular end-diastolic pressure (LVEDP) Status: Acute Category: Medical Code(s): R94.30 - Abnormal result of cardiovascular function study, unspecified
--- NOTE | 2021-04-14 10:30 | P.PN_ITS ---
Subjective Patient reports: no new complaints, feels better Progress Note: A&P (1) Perianal abscess Status: Acute (2) CAD (coronary artery disease) Status: Chronic (3) COPD (chronic obstructive pulmonary disease) Status: Chronic (4) Perineal abscess Status: Acute Assessment and plan: Overall, doing well status post incision and drainage of perianal/perineal abscess with projection to the scrotum. Dressing changes Antibiotics as per primary service Exam Vital signs and Labs for Last 24 Hours: Temp Pulse Resp BP Pulse Ox 98.5 F 59 L 18 120/64 92 L 04/14/21 07:30 04/14/21 07:30 04/14/21 07:30 04/14/21 07:30 04/14/21 07:30 Laboratory Results - last 24 hr 04/14/21 06:40: WBC 7.7 D, RBC 3.95 L, Hgb 11.3 L, Hct 37.0 L, MCV 93.6, MCH 28.6, MCHC 30.6 L, RDW 14.4, Plt Count 249, MPV 7.4, Neut % (Auto) 62.9, Lymph % (Auto) 24.8, [place] % (Auto) 7.6, Eos % (Auto) 4.2, Baso % (Auto) 0.5, Neut # (Auto) 4.9, Lymph # (Auto) 1.9, [place] # (Auto) 0.6, Eos # (Auto) 0.3, Baso # (Auto) 0.0 04/14/21 06:40: Sodium 140, Potassium 3.8, Chloride 110 H, Carbon Dioxide 28, Anion Gap 5.8, BUN 7 L D, Creatinine 0.70, Estimated Creat Clear 69, Estimated GFR 113, Est GFR ( Amer) 137, Glucose 79, Calcium 8.7 I & O for Last 24 hours: Intake & Output 04/11/21 04/12/21 04/13/21 04/14/21 11:59 11:59 11:59 11:59 Intake Total 2016 3525 / 3525 Output Total 625 / 625 Balance 2016 2900 / 2900 Weight 150 lb 149 lb - Constitutional no acute distress - *Routine Respiratory Exam Absent: respiratory distress - *Routine Cardiovascular Exam Present: RRR - *Routine Skin Exam Comments: Perineal wound margin clean. No spreading cellulitis. Overall, the induration and erythematous changes projecting to the scrotum have improved.
[2021-04-14 11:23] VITALS: BP 127/77; PULSE 59; RESP 18; TEMP 36.7; O2SAT 100
[2021-04-14 14:58] VITALS: BP 153/73; PULSE 54; RESP 18; TEMP 36.8; O2SAT 96
--- NOTE | 2021-04-14 17:21 | PC.NURSE ---
Pt has been pleasant and cooperative this shift. A&O X4. Pt has complained of pain X2 thus far and has received [place] + Morphine per MAR with favorable results. Pt is on room air with sats. >90%. Lungs CTA. No edema noted. Scrotal dressing changed this AM. Packed with saline-soaked 4X4's and covered with a dry 4X4 + perforated tape. Pt ambulates with stand-by assistance to/from the bathroom and uses the toilet to void clear, yellow urine without issue. 1 large soft, brown BM noted today. 20 G peripheral IV in the RT upper arm is patent and infusing NS @ 100 ML/HR. VSS. Call light within reach. Will continue to monitor.
[2021-04-14 20:00] VITALS: BP 143/80; PULSE 78; RESP 16; TEMP 36.8; O2SAT 95
[2021-04-15] VITALS (7 sets, daily range): BP systolic 126–169; BP diastolic 69–85; PULSE 53–85; RESP 16–24; TEMP 36.7–37.4; O2SAT 95–98; BMI 22.0
--- NOTE | 2021-04-15 03:22 | PC.NURSE ---
Pt has not slept well this shift. He has c/o pain to perianal area. DSG changed due to soiling. Pt has been up to bathroom multiple times this shift. Has had frequent stools. VSS. Lungs noted to have wheezing t/o. BS x4. No other concerns. Will continue to monitor.
--- NOTE | 2021-04-15 09:24 | P.PN_ITS ---
Internal Medicine - PN: Subj *Date: 04/16/21 *Time: 07:27 Interval history: doing better today - less pain Exam Vital signs and Labs for Last 24 Hours: Temp Pulse Resp BP Pulse Ox 98.2 F 53 L 24 138/83 95 04/15/21 07:31 04/15/21 08:00 04/15/21 08:00 04/15/21 07:31 04/15/21 08:00 I & O for Last 24 hours: Intake & Output 04/12/21 04/13/21 04/14/21 04/15/21 11:59 11:59 11:59 11:59 Intake Total 2016 3525 / 3525 1454 / 1454 Output Total 625 / 625 Balance 2016 2900 / 2900 1454 / 1454 Weight 150 lb 149 lb 145 lb 4 oz Microbiology Reports for the Last 24 Hours: Microbiology 04/12/21 14:25 Blood Blood Culture - Preliminary NO GROWTH AFTER 48 HOURS 04/12/21 14:11 Blood Blood Culture - Preliminary NO GROWTH AFTER 48 HOURS - Constitutional no acute distress - *Routine HEENT Exam Head: Present: normocephalic Eye: Present: EOMI, PERRL ENT: Present: mucous membranes dry - *Routine Neck Exam Present: supple - *Routine Respiratory Exam Present: decreased breath sounds - *Routine Cardiovascular Exam Present: RRR - *Routine Abdominal Exam Present: soft - *Routine Extremities Exam Absent: calf tenderness - *Routine Skin Exam Present: intact - *Routine Neurological Exam Present: alert, CN II-XII intact - Routine Psychiatric Exam Present: normal affect Assessment and Plan (1) Perianal abscess Status: Acute Category: Medical Code(s): K61.0 - Anal abscess (2) CAD (coronary artery disease) Status: Chronic Category: Medical Code(s): I25.10 - Atherosclerotic heart disease of [place] coronary artery without angina pectoris (3) COPD (chronic obstructive pulmonary disease) Status: Chronic Qualifiers: COPD type: emphysema Emphysema type: centrilobular Qualified Code(s): J43.2 - Centrilobular emphysema Category: Medical Code(s): J44.9 - Chronic obstructive pulmonary disease, unspecified (4) Tobacco use Status: Acute Category: Social Hx Code(s): Z72.0 - Tobacco use (5) Elevated left ventricular end-diastolic pressure (LVEDP) Status: Acute Category: Medical Code(s): R94.30 - Abnormal result of cardiovascular function study, unspecified
--- NOTE | 2021-04-15 10:02 | HMH.GSPN ---
Subjective Patient reports: no new complaints Progress Note: A&P (1) Perianal abscess Status: Acute (2) CAD (coronary artery disease) Status: Chronic (3) COPD (chronic obstructive pulmonary disease) Status: Chronic (4) Tobacco use Status: Acute (5) Elevated left ventricular end-diastolic pressure (LVEDP) Status: Acute (6) Perineal abscess Status: Acute Assessment and plan: Overall, doing well status post incision and drainage. Follow-up pending cultures Continue antibiotics Continue dressing changes (dry dressing changes) Exam Vital signs and Labs for Last 24 Hours: Temp Pulse Resp BP Pulse Ox 98.2 F 53 L 24 138/83 95 04/15/21 07:31 04/15/21 08:00 04/15/21 08:00 04/15/21 07:31 04/15/21 08:00 I & O for Last 24 hours: Intake & Output 04/12/21 04/13/21 04/14/21 04/15/21 11:59 11:59 11:59 11:59 Intake Total 2016 3525 / 3525 1454 / 1454 Output Total 625 / 625 Balance 2016 2900 / 2900 1454 / 1454 Weight 150 lb 149 lb 145 lb 4 oz Microbiology Reports for the Last 24 Hours: Microbiology 04/12/21 14:25 Blood Blood Culture - Preliminary NO GROWTH AFTER 48 HOURS 04/12/21 14:11 Blood Blood Culture - Preliminary NO GROWTH AFTER 48 HOURS - Constitutional no acute distress - *Routine Respiratory Exam Absent: respiratory distress - *Routine Cardiovascular Exam Present: bradycardia - *Routine Skin Exam Comments: Wound margin clean. Packing in place. No spreading cellulitis.
--- NOTE | 2021-04-15 17:58 | PC.NURSE ---
Pt has been pleasant and cooperative this shift. A&O X3. Pt has complained of pain X4 thus far and has received [place] + Morphine per MAR with favorable results. Pt is on room air with sats. >90%. Lungs CTA. No edema noted. Scrotal dressing changed this AM. Packed with dry 4X4's and covered with a dry 4X4 + perforated tape. Pt ambulates with stand-by assistance to/from the bathroom and uses the toilet to void clear, yellow urine without issue. Pt also sat up in the recliner for several hours. 1 large soft, brown BM noted today. 20 G peripheral IV in the RT upper arm is patent and infusing NS @ 100 ML/HR. VSS. Call light within reach. Will continue to monitor.
[2021-04-16 03:38] VITALS: BP 141/75; PULSE 60; RESP 15; TEMP 37.2; O2SAT 94
[2021-04-16 05:00] VITALS: BMI 21.9
--- NOTE | 2021-04-16 06:18 | PC.NURSE ---
No acute changes. Pt has slept at intervals this shift. Has c/o discomfort to perianal area at times this shift. Medicated per jan. VSS. Pt remains on RA. C/O soa x1 this shift. Requested breathing TX. Lungs diminished t/o. Scattered wheezing noted. BS active. Pt has had 2 soft stools. No other concerns. Call light within reach. No other concerns. Will continue to monitor.
--- NOTE | 2021-04-16 06:31 | HMH.GSPN ---
Subjective Narrative: The patient is currently resting. Per nursing staff his dressing changes have been going fine . He continues to have fairly significant drainage. Progress Note: A&P (1) Perianal abscess Status: Acute (2) CAD (coronary artery disease) Status: Chronic (3) COPD (chronic obstructive pulmonary disease) Status: Chronic (4) Tobacco use Status: Acute (5) Elevated left ventricular end-diastolic pressure (LVEDP) Status: Acute (6) Perineal abscess Status: Acute Assessment and plan: Overall, doing well status post incision and drainage. Hopefully discharge soon on PO antibiotics Follow-up pending operative cultures Continue dressing changes Exam Vital signs and Labs for Last 24 Hours: Temp Pulse Resp BP Pulse Ox 99.0 F 60 15 141/75 H 94 L 04/16/21 03:38 04/16/21 03:38 04/16/21 03:38 04/16/21 03:38 04/16/21 03:38 I & O for Last 24 hours: Intake & Output 04/13/21 04/14/21 04/15/21 04/16/21 11:59 11:59 11:59 11:59 Intake Total 2016 3525 / 3525 1454 / 1454 1680 / 1680 Output Total 625 / 625 Balance 2016 2900 / 2900 1454 / 1454 1680 / 1680 Weight 150 lb 149 lb 145 lb 4 oz 145 lb - Constitutional no acute distress - *Routine Respiratory Exam Absent: respiratory distress - *Routine Cardiovascular Exam Present: RRR - *Routine Skin Exam Comments: Deferred this morning secondary to the patient resting. Will reevaluate later today.
[2021-04-16 08:00] VITALS: BP 149/64; PULSE 50; RESP 17; TEMP 36.8; O2SAT 92; O2SAT 97
--- NOTE | 2021-04-16 10:59 | P.PN_ITS ---
Internal Medicine - PN: Subj *Date: 04/16/21 *Time: 10:59 Exam Vital signs and Labs for Last 24 Hours: Temp Pulse Resp BP Pulse Ox 98.3 F 50 L 17 149/64 H 97 04/16/21 08:00 04/16/21 08:00 04/16/21 08:00 04/16/21 08:00 04/16/21 08:00 I & O for Last 24 hours: Intake & Output 04/13/21 04/14/21 04/15/21 04/16/21 23:59 23:59 23:59 23:59 Intake Total 3722 / 3722 3274 / 3274 1680 / 1680 240 / 240 Output Total 625 / 625 460 / 460 Balance 3722 / 3722 2649 / 2649 1680 / 1680 -220 / -220 Weight 68.039 kg 67.585 kg 65.884 kg 65.771 kg Assessment and Plan (1) Perianal abscess Status: Acute Category: Medical Code(s): K61.0 - Anal abscess (2) CAD (coronary artery disease) Status: Chronic Category: Medical Code(s): I25.10 - Atherosclerotic heart disease of [place] coronary artery without angina pectoris (3) COPD (chronic obstructive pulmonary disease) Status: Chronic Qualifiers: COPD type: emphysema Emphysema type: centrilobular Qualified Code(s): J43.2 - Centrilobular emphysema Category: Medical Code(s): J44.9 - Chronic obstructive pulmonary disease, unspecified (4) Tobacco use Status: Acute Category: Social Hx Code(s): Z72.0 - Tobacco use (5) Elevated left ventricular end-diastolic pressure (LVEDP) Status: Acute Category: Medical Code(s): R94.30 - Abnormal result of cardiovascular function study, unspecified The patient's infection will respond to the chosen ABx?: Yes Is the patient receiving the right drug, dose, and route?: Yes Could a more targeted ABx be ordered?: No (CONTINUE UNTIL DISCHARGE, THEN TRANSITION TO PO ABX)
--- NOTE | 2021-04-16 13:07 | P.PN_ITS ---
Internal Medicine - PN: Subj *Date: 04/17/21 *Time: 06:38 Interval history: doing better - surg note reviewed Exam Vital signs and Labs for Last 24 Hours: Temp Pulse Resp BP Pulse Ox 98.3 F 50 L 17 149/64 H 97 04/16/21 08:00 04/16/21 08:00 04/16/21 08:00 04/16/21 08:00 04/16/21 08:00 I & O for Last 24 hours: Intake & Output 04/14/21 04/15/21 04/16/21 04/17/21 11:59 11:59 11:59 11:59 Intake Total 3525 / 3525 1454 / 1454 1920 / 1920 Output Total 625 / 625 460 / 460 Balance 2900 / 2900 1454 / 1454 1460 / 1460 Weight 149 lb 145 lb 4 oz 145 lb - Constitutional no acute distress - *Routine HEENT Exam Head: Present: normocephalic Eye: Present: EOMI, PERRL ENT: Present: mucous membranes dry - *Routine Neck Exam Present: supple - *Routine Respiratory Exam Present: CTA bilaterally - *Routine Cardiovascular Exam Present: RRR - *Routine Abdominal Exam Present: soft - *Routine Extremities Exam Absent: calf tenderness - *Routine Skin Exam Present: intact - *Routine Neurological Exam Present: alert, CN II-XII intact - Routine Psychiatric Exam Present: normal affect Assessment and Plan (1) Perianal abscess Status: Acute Category: Medical Code(s): K61.0 - Anal abscess (2) CAD (coronary artery disease) Status: Chronic Category: Medical Code(s): I25.10 - Atherosclerotic heart disease of [place] coronary artery without angina pectoris (3) COPD (chronic obstructive pulmonary disease) Status: Chronic Qualifiers: COPD type: emphysema Emphysema type: centrilobular Qualified Code(s): J43.2 - Centrilobular emphysema Category: Medical Code(s): J44.9 - Chronic obstructive pulmonary disease, unspecified (4) Tobacco use Status: Acute Category: Social Hx Code(s): Z72.0 - Tobacco use (5) Elevated left ventricular end-diastolic pressure (LVEDP) Status: Acute Category: Medical Code(s): R94.30 - Abnormal result of cardiovascular function study, unspecified
[2021-04-16 15:21] VITALS: BP 149/77; PULSE 62; RESP 17; TEMP 36.6; O2SAT 96
--- NOTE | 2021-04-16 18:51 | PC.NURSE ---
Pt alert and oriented and able to make needs known. Meds given per mar. Remains on RA. VSS. Packed perianal sbscess scrotum this shift x 2. CB in reach. Pt has been ambulating in room and up to chair.
[2021-04-16 20:00] VITALS: BP 153/93; PULSE 64; RESP 16; TEMP 36.9; O2SAT 95
--- NOTE | 2021-04-17 03:14 | PC.NURSE ---
No acute changes overnight. pt has slept well this shift. Pt c/o pain x1, norco given per mar with desired results. Pt independently with ambulation. Lungs CTA, on room air. Bowel sounds x4, abd soft and nontender. Perineum drsg CDI. IV patent, NS @ 100. VSS, call light in reach, no concerns at this time.
[2021-04-17 03:39] VITALS: BP 171/87; PULSE 51; RESP 16; TEMP 37.1; O2SAT 94
[2021-04-17 05:00] VITALS: BMI 21.9
[2021-04-17 08:00] VITALS: BP 149/74; PULSE 56; RESP 20; TEMP 37
--- NOTE | 2021-04-17 11:36 | HMH.GSPN ---
Subjective Patient reports: no new complaints Progress Note: A&P (1) Perianal abscess Status: Acute (2) CAD (coronary artery disease) Status: Chronic (3) COPD (chronic obstructive pulmonary disease) Status: Chronic (4) Tobacco use Status: Acute (5) Elevated left ventricular end-diastolic pressure (LVEDP) Status: Acute Assessment and Plan for All Diagnoses:: Cultures pending. Possible discharge on oral antibiotics. Exam Vital signs and Labs for Last 24 Hours: Temp Pulse Resp BP Pulse Ox 98.6 F 56 L 20 149/74 H 94 L 04/17/21 08:00 04/17/21 08:00 04/17/21 08:00 04/17/21 08:00 04/17/21 03:39 I & O for Last 24 hours: Intake & Output 04/14/21 04/15/21 04/16/21 04/17/21 11:59 11:59 11:59 11:59 Intake Total 3525 / 3525 1454 / 1454 1920 / 1920 1580 / 1580 Output Total 625 / 625 460 / 460 200 / 200 Balance 2900 / 2900 1454 / 1454 1460 / 1460 1380 / 1380 Weight 149 lb 145 lb 4 oz 145 lb 145 lb 0.004 oz - *Routine Skin Exam Comments: Wound clean with mild induration
--- NOTE | 2021-04-17 14:30 | SW/DCPLANNER ---
PATIENT MAY DISCHARGE LATER TODAY, HE STATED HE WILL BE COMING BACK TO [facility] FOR HIS DSG CHANGES..
--- NOTE | 2021-04-17 14:50 | HMH.DCSUM ---
General - General Admission date:: 04/12/21 Discharge date: 04/17/21 HPI HPI: 66 yr old male presented to ed with c/o of a abscess in perineum for 3-4 days and becoming worse. Denies fever. He says his urine is dark and has a strong smell, but no difficulty with urinary stream. Says that he has a urologist in [place], [place], Dr. Mclean. surgery was consulted and surgery this am. Pt admitted for surgery eval and treatment. Hospital Course Hospital Course: 66 YOM in for abscess in perineum for 3-4 days and becoming worse. 04/12/[address]: FINDINGS: Bony pelvis: Unremarkable. No acute fracture or dislocation. Focal sclerotic density is noted in the left iliac bone, likely represents a bone island. Postsurgical changes of the lumbar spine is partially visualized with posterior spinal fixation rods and interpedicular screws. Hips:Minor degenerative changes of the bilateral hips joints with subchondral cystic changes. No acute fractures or dislocations Sacrum/coccyx: Unremarkable. Soft tissues:There is a focal rim enhancing collection noted in the soft tissue of the perineum adjacent to the anal canal measuring approximately 3.6 x 5.2 x 2.2 centimeters, extends into the posterior gluteal fold. No significant soft tissue stranding is noted in the adjacent ischiorectal fossa. Few foci of air noted within the collection. The soft tissue stranding extends up to the base of the scrotum with minor skin thickening. Small left-sided hydrocele is noted. IMPRESSION: Findings are consistent with perianal abscess measuring 3.6 x 5.2 cm. Soft tissue edema and skin thickening extends into the base of the scrotum. Dictated by: Yolanda Donnelly Gen Surg has seen and performed: Incision and drainage of perianal/perineal abscess Perianal/perineal abscess with surrounding induration projecting along the scrotal margin After informed consent was obtained the patient was taken to the operating room and placed in the supine position. General anesthesia with laryngeal mask airway was achieved. His perianal/perineal region was prepped and draped. The central area of fluctuance along the perineum was opened with electrocautery. A pocket of purulence was encountered. Fluid was obtained for Gram stain/culture. The abscess pocket was thoroughly evacuated. Evaluation revealed soft tissue thickening along the scrotal margin. The wound was packed with moistened Kerlix. The entire region was infiltrated with 1% lidocaine. Dressings were applied and the patient was transferred to recovery in stable condition after removal of his laryngeal mask airway. Cardiology is seen and recommends: 1. Perineum abscess status post surgical drainage per surgery 2. Coronary disease status post recent coronary artery stenting. Recommend that the patient resume dual antiplatelet therapy when okay per surgery. 3. Continued tobacco use with COPD. Cessation of tobacco recommended which patient states he is working on. Cardiology will be available if needed. Chemistries unremarkable White blood cell count 7.7, H/H 11.3/37 Awaiting final wound culture results, blood cultures no growth at 5 days. He has been receiving Zosyn IV during his stay in hospital 66-year-old patient sitting up in bed resting quietly he reports he is feeling better today denies any chest pain, shortness of breath, or wound pain. He states he will come back to the hospital daily for dressing changes, discussed discharge home patient is agreeable to this. PLAN: 1. We will discharge home today 2. Bactrim DS 1 pill twice daily x4 days 3. Will come to hospital to have wound change daily 4. Follow-up in primary care in 1 week 5. Follow-up with general surgery in 1 week Objective Vital signs: Temp Pulse Resp BP Pulse Ox 98.6 F 56 L 20 149/74 H 94 L 04/17/21 08:00 04/17/21 08:00 04/17/21 08:00 04/17/21 08:00 04/17
--- NOTE | 2021-04-17 17:05 | PC.NURSE ---
Sent pt with outpatient for daily packing and dsg changes.
== END 2021-04-17 15:49 | disposition home or self-care (01) ==
LOC: ER 16:13 → 2ND 18:23
PROVIDERS: Nurse Practitioner Family; Surgery; Admitting Provider Family Medicine; Emergency Provider Emergency Medicine; PCP Physician Assistant; Visit Provider Family Medicine
DX: K61.0 Anal abscess (principal); L02.215 Cutaneous abscess of perineum; I10 Essential (primary) hypertension; E78.5 Hyperlipidemia, unspecified; F41.9 Anxiety disorder, unspecified; F32.9 Major depressive disorder, single episode, unspecified; F17.210 Nicotine dependence, cigarettes, uncomplicated; Z20.822 Contact with and (suspected) exposure to COVID-19; Z71.6 Tobacco abuse counseling; I25.10 Atherosclerotic heart disease of native coronary artery without angina pectoris; J43.2 Centrilobular emphysema
CPT/HCPCS: 10060; 46050; 72193; 80048; 81001; 83605; 85025; 87040; 87075; 87205; 87581; 87633; 87798; 94640; 96365; 96366; 96375; 99284; G0378; J2405; J2543; Q9967

== ENCOUNTER 2021-04-18 16:06 | Outpatient (CLI) | payer MEDICARE, OTHER, SELFPAY | END 2021-04-18 16:20 | disposition home or self-care (01) | LOC: INF 16:10 | PROVIDERS: PCP Physician Assistant; Visit Provider Family Medicine | DX: L02.215 Cutaneous abscess of perineum (principal); K61.0 Anal abscess; Z48.01 Encounter for change or removal of surgical wound dressing | CPT/HCPCS: G0463 ==

== ENCOUNTER 2021-04-19 15:30 | Outpatient (CLI) | payer MEDICARE, OTHER, SELFPAY | END 2021-04-19 15:45 | disposition home or self-care (01) | LOC: INF 15:30 | PROVIDERS: Visit Provider Family Medicine | DX: K61.0 Anal abscess (principal); L02.215 Cutaneous abscess of perineum; Z48.01 Encounter for change or removal of surgical wound dressing | CPT/HCPCS: G0463 ==

== ENCOUNTER → 2021-04-20 15:41 | Outpatient (CLI) | payer MEDICARE, OTHER, SELFPAY | END | disposition home or self-care (01) | LOC: INF 15:41 | PROVIDERS: Visit Provider Emergency Medicine | DX: K61.0 Anal abscess (principal); Z48.01 Encounter for change or removal of surgical wound dressing | CPT/HCPCS: G0463 ==

== ENCOUNTER → 2021-04-21 15:42 | Outpatient (CLI) | payer MEDICARE, OTHER, SELFPAY ==
[2021-04-21 16:19] VITALS: BP 110/68; PULSE 65; RESP 16; TEMP 36.5; O2SAT 97
== END ==
PROVIDERS: PCP Physician Assistant; Visit Provider Family Medicine
DX: K61.0 Anal abscess (principal); L02.215 Cutaneous abscess of perineum; Z48.01 Encounter for change or removal of surgical wound dressing
CPT/HCPCS: G0463

== ENCOUNTER → 2021-04-22 15:33 | Outpatient (CLI) | payer MEDICARE, OTHER, SELFPAY ==
[2021-04-22 15:35] VITALS: BP 112/65; PULSE 100; RESP 20; TEMP 36.8; O2SAT 96
[2021-04-22 15:48] VITALS: BP 112/65; PULSE 100; RESP 20; TEMP 36.8; O2SAT 96
== END ==
PROVIDERS: PCP Family Medicine; Visit Provider Family Medicine
DX: K61.0 Anal abscess (principal); L02.215 Cutaneous abscess of perineum; Z48.01 Encounter for change or removal of surgical wound dressing
CPT/HCPCS: G0463

== ENCOUNTER → 2021-04-23 15:25 | Outpatient (CLI) | payer MEDICARE, OTHER, SELFPAY | END | disposition home or self-care (01) | LOC: INF 15:25 | PROVIDERS: Visit Provider Family Medicine | DX: K61.0 Anal abscess (principal); Z48.01 Encounter for change or removal of surgical wound dressing | CPT/HCPCS: G0463 ==

== ENCOUNTER 2021-04-25 18:46 | Outpatient (CLI) | payer MEDICARE, OTHER, SELFPAY ==
--- NOTE | 2021-04-25 19:52 | PC.NURSE ---
DRESSING CHANGE PER Terri BLANCHARD RN OLD DSG WAS ALREADY REMOVED PRIOR TO ARRIVAL PER PATIENT. WOUND IRRIGATED WITH NS. STERILE GAUZE MOISTENED AND PACKED IN WOUND. APPLIED DRY GAUZE AND TAPE. NO DRAINAGE NOTED. PATIENT TOLERATED DRESSING CHANGE WELL.
== END 2021-04-25 19:10 | disposition home or self-care (01) ==
LOC: INF 18:49
PROVIDERS: PCP Physician Assistant; Visit Provider Emergency Medicine
DX: K61.0 Anal abscess (principal); Z48.01 Encounter for change or removal of surgical wound dressing
CPT/HCPCS: G0463

== ENCOUNTER 2021-04-26 15:30 | Outpatient (CLI) | payer MEDICARE, OTHER, SELFPAY | END 2021-04-26 15:45 | disposition home or self-care (01) | LOC: INF 15:31 | PROVIDERS: Visit Provider Family Medicine | DX: K61.0 Anal abscess (principal); L02.215 Cutaneous abscess of perineum; Z48.01 Encounter for change or removal of surgical wound dressing | CPT/HCPCS: G0463 ==

== ENCOUNTER 2021-04-27 16:45 | Outpatient (CLI) | payer MEDICARE, OTHER, SELFPAY | END 2021-04-27 16:54 | disposition home or self-care (01) | LOC: INF 16:47 | PROVIDERS: Visit Provider Family Medicine | DX: L02.215 Cutaneous abscess of perineum (principal); K61.0 Anal abscess; Z48.01 Encounter for change or removal of surgical wound dressing | CPT/HCPCS: G0463 ==

== ENCOUNTER 2021-04-28 16:35 | Outpatient (CLI) | payer MEDICARE, OTHER, SELFPAY ==
[2021-04-28 16:47] VITALS: BP 119/68; PULSE 87; RESP 20; O2SAT 96
== END 2021-04-28 16:55 | disposition home or self-care (01) ==
LOC: INF 16:37
PROVIDERS: PCP Physician Assistant; Visit Provider Family Medicine
DX: K61.0 Anal abscess (principal); Z48.01 Encounter for change or removal of surgical wound dressing
CPT/HCPCS: G0463

== ENCOUNTER 2021-04-29 15:40 | Outpatient (CLI) | payer MEDICARE, OTHER, SELFPAY | END 2021-04-29 16:00 | disposition home or self-care (01) | LOC: INF 15:41 | PROVIDERS: PCP Physician Assistant; Visit Provider Family Medicine | DX: K61.0 Anal abscess (principal); Z48.01 Encounter for change or removal of surgical wound dressing | CPT/HCPCS: G0463 ==

== ENCOUNTER 2021-04-30 15:22 | Outpatient (CLI) | payer MEDICARE, OTHER, SELFPAY ==
--- NOTE | 2021-04-30 18:10 | PC.NURSE ---
1545: PT ARRIVED WITH OLD DRESSING REMOVED. CLEANSED SITE WITH NS. PACKED WOUND WITH SALINE SOAKED STERILE GAUZE. COVERED WITH 4X4 AND MEDIPORE TAPE. WOUND BED RED AND BEEFY, EDGES ARE APPROXIMATED. PATIENT TOLERATED DRESSING CHANGE WELL. DENIES ANY PAIN.
== END 2021-04-30 15:45 | disposition home or self-care (01) ==
LOC: INF 15:24
PROVIDERS: PCP Family Medicine; Visit Provider Family Medicine
DX: K61.0 Anal abscess (principal); L02.215 Cutaneous abscess of perineum; Z48.01 Encounter for change or removal of surgical wound dressing
CPT/HCPCS: G0463

== ENCOUNTER 2021-05-01 15:43 | Outpatient (CLI) | payer MEDICARE, OTHER, SELFPAY | END 2021-05-01 15:58 | disposition home or self-care (01) | LOC: INF 15:58 | PROVIDERS: Visit Provider Family Medicine | DX: K61.0 Anal abscess (principal); L02.215 Cutaneous abscess of perineum | CPT/HCPCS: G0463 ==

== ENCOUNTER 2021-05-02 15:06 | Outpatient (CLI) | payer MEDICARE, OTHER, SELFPAY | END 2021-05-02 15:29 | disposition home or self-care (01) | LOC: INF 15:06 | PROVIDERS: Visit Provider Family Medicine | DX: L02.215 Cutaneous abscess of perineum (principal); K61.0 Anal abscess; Z48.01 Encounter for change or removal of surgical wound dressing | CPT/HCPCS: G0463 ==

== ENCOUNTER 2021-05-03 16:41 | Outpatient (CLI) | payer MEDICARE, OTHER, SELFPAY ==
[2021-05-03 16:56] VITALS: BP 147/82; PULSE 69; RESP 17; O2SAT 96
== END 2021-05-03 17:02 | disposition home or self-care (01) ==
LOC: INF 16:41
PROVIDERS: PCP Family Medicine; Visit Provider Emergency Medicine
DX: L02.215 Cutaneous abscess of perineum (principal); K61.0 Anal abscess; Z48.00 Encounter for change or removal of nonsurgical wound dressing
CPT/HCPCS: G0463

== ENCOUNTER 2021-05-04 15:35 | Outpatient (CLI) | payer MEDICARE, OTHER, SELFPAY | END 2021-05-04 15:50 | disposition home or self-care (01) | LOC: INF 15:40 | PROVIDERS: Visit Provider Surgery | DX: L02.215 Cutaneous abscess of perineum (principal); K61.0 Anal abscess; Z48.00 Encounter for change or removal of nonsurgical wound dressing | CPT/HCPCS: G0463 ==

== ENCOUNTER 2021-05-06 14:31 | Outpatient (CLI) | payer MEDICARE, OTHER, SELFPAY ==
[2021-05-06 20:06] VITALS: BP 128/87; PULSE 81; RESP 18; TEMP 36.9; O2SAT 100
--- NOTE | 2021-05-07 09:02 | PC.NURSE ---
pt was present for dressing change at approx 1530
== END 2021-05-06 16:00 | disposition home or self-care (01) ==
PROVIDERS: PCP Family Medicine; Visit Provider Surgery
DX: L02.215 Cutaneous abscess of perineum (principal); K61.0 Anal abscess; Z48.01 Encounter for change or removal of surgical wound dressing
CPT/HCPCS: G0463

== ENCOUNTER 2021-05-07 15:09 | Outpatient (CLI) | payer MEDICARE, OTHER, SELFPAY | END 2021-05-07 15:20 | disposition home or self-care (01) | LOC: INF 15:09 | PROVIDERS: Visit Provider Surgery | DX: L02.215 Cutaneous abscess of perineum (principal); K61.0 Anal abscess; Z48.01 Encounter for change or removal of surgical wound dressing | CPT/HCPCS: G0463 ==

== ENCOUNTER → 2021-05-23 08:16 | Outpatient (CLI) | payer MEDICARE, OTHER, SELFPAY | PROVIDERS: PCP Physician Assistant; Visit Provider Internal Medicine Pulmonary Disease | DX: J44.1 Chronic obstructive pulmonary disease with (acute) exacerbation (principal); K61.0 Anal abscess; L02.215 Cutaneous abscess of perineum; Z48.01 Encounter for change or removal of surgical wound dressing | CPT/HCPCS: 94060; 94618; 94726; 94729 ==

== ENCOUNTER → 2021-10-24 17:47 | Outpatient (CLI) | payer MEDICARE, OTHER, SELFPAY | PROVIDERS: Visit Provider Nurse Practitioner Family | DX: G89.29 Other chronic pain (principal); M54.9 Dorsalgia, unspecified | CPT/HCPCS: 87086 ==

== ENCOUNTER → 2021-12-12 09:57 | Outpatient (CLI) | payer MEDICARE, OTHER, SELFPAY | PROVIDERS: PCP Physician Assistant; Visit Provider Internal Medicine Pulmonary Disease | DX: R06.00 Dyspnea, unspecified (principal) | CPT/HCPCS: 94060; 94618; 94726; 94729 ==

== ENCOUNTER → 2022-04-30 14:29 | Outpatient (CLI) | payer MEDICARE, OTHER, SELFPAY ==
--- NOTE | 2022-04-30 14:33 | CT_ITS ---
FINAL REPORT CLINICAL HISTORY: lung cancer screening smoker, 1ppd x 50 years copd COMPARISON: January 08, 2019; April 11, 2021 FINDINGS: Low-Dose Chest CT CTDI vol (mGy): 2.90 DLP (mGy-cm): 111.77 Axial images were obtained from the lung apex to the mid abdomen by computed tomography. Low-dose protocol was utilized. FINDINGS: CHEST: There is no axillary adenopathy. There is no hilar or mediastinal adenopathy. The heart is proper size. There is no pericardial or pleural effusion. Limited images of the upper abdomen demonstrate a stable, less than 1 cm, cyst in the lateral left hepatic lobe. Lung window images demonstrate mild changes of emphysema with mild scarring. There is a calcified granuloma in the left upper lobe. A cluster of small nodules in the left lower lobe measure up to 6 mm, stable from prior. There is improvement in the small right upper lobe nodule. A stable 4 mm nodule seen in the left upper lobe on image 19. There is a stable 2 mm lateral left upper lobe nodule on image 25. IMPRESSION: Lung RADS category 1. Recommend 12 month follow-up low-dose chest CT. Reviewed, Interpreted and Dictated by Gerardo Loaiza III, MD Transcribed by Jerome Garza Authenticated by Gerardo Loaiza III, MD on 04/30/2022 04:01:02 PM [facility]
== END ==
PROVIDERS: PCP Physician Assistant; Visit Provider Internal Medicine Pulmonary Disease
DX: Z87.891 Personal history of nicotine dependence (principal); Z12.2 Encounter for screening for malignant neoplasm of respiratory organs
CPT/HCPCS: 71271

== ENCOUNTER 2022-12-16 16:33 | Emergency (ER) | payer MEDICARE, MEDICAID, SELFPAY ==
--- NOTE | 2022-12-16 16:31 | ECG_ITS ---
APPROVED REPORT Exam: Resting ECG HR:96 bpm ECG Measurements Heart Rate 96 AXES TX 122 P 77 QRSd 83 QRS 69 QT 330 T 51 QTc 384 Conclusion SINUS RHYTHM WITH SINUS ARRHYTHMIA NONSPECIFIC ST & T-WAVE ABNORMALITY BORDERLINE ECG UNCONFIRMED REPORT Electronically signed by : Kip Keller MD 12/16/2022 21:37:58
[2022-12-16 16:33] VITALS: BP 139/86; PULSE 98; RESP 16; TEMP 37.2; O2SAT 93; BMI 22.5
[2022-12-16 16:37] VITALS: BMI 22.3
--- NOTE | 2022-12-16 16:38 | XR_ITS ---
PROCEDURE INFORMATION: Exam: XR Chest Exam date and time: 12/16/2022 5:01 PM Age: 67 years old Clinical indication: Pain; Angina pectoris; Additional info: Chest pain TECHNIQUE: Imaging protocol: Radiologic exam of the chest. Views: 1 view. COMPARISON: CT LUNG SCREENING 04/30/2022 2:35 PM FINDINGS: Lungs: Right lower lobe pneumonia. Pleural spaces: Unremarkable. No pleural effusion. No pneumothorax. Heart/Mediastinum: Unremarkable. No cardiomegaly. Bones/joints: Unremarkable. IMPRESSION: Right lower lobe pneumonia.
--- NOTE | 2022-12-16 16:49 | PC.NURSE ---
portable xray at bedside
[2022-12-16 16:52] VITALS: PULSE 98
[2022-12-16 16:59] LABS: Basophils # 0.1 K/mm3 (0-0.2); Basophils % 0.7 % (0.1-2.0); Eosinophils % 0.3 % (0.1-12.0); Hematocrit 43.4 % (42.0-52.0); Hemoglobin 14.7 g/dL (14.1-18.0); Lymphocytes % 7.8 % (10-50); Mean Corpuscular HGB Conc 33.8 g/dL (31.8-35.4); Mean Corpuscular Hemoglobin 29.7 pg (27.0-31.2); Mean Corpuscular Volume 87.8 fl (80-94); Monocytes # 0.7 K/mm3 (0.1-1.0); Monocytes % 5.6 % (1.7-9.3); Neutrophils # 11.1 K/mm3 (1.8-7.8); Neutrophils % 85.7 % (37.0-80.0); Platelet Count 303 K/mm3 (142-424); Red Blood Count 4.94 M/mm3 (4.60-6.20); Red Cell Distribution Width 14.3 % (11.5-17.5)
[2022-12-16 17:00] VITALS: BP 138/86; PULSE 91; RESP 16; O2SAT 92
[2022-12-16 17:01] LABS: MANUAL DIFFERENTIAL MANUAL DIFFERENTIAL (MANUAL DIFF)
[2022-12-16 17:08] LABS: Chloride 100 mmol/L (98-107); Sodium 137 mmol/L (136-145)
[2022-12-16 17:12] LABS: Blood Urea Nitrogen 14 mg/dl (9-20); Calcium 8.9 mg/dl (8.4-10.2); Carbon Dioxide 28 mmol/L (22.0-30.0); Creatinine Clearance Estimated 68 mL/min (50-200); Estimated Glomerular Filt Rate 84 ml/min (>60); GFR (African American) 102 ML/MIN (>60); Glucose 139 mg/dl (74-100)
[2022-12-16 17:25] LABS: Troponin I < 0.01 ng/ml (0.00-0.034)
[2022-12-16 17:30] VITALS: BP 126/82; PULSE 90; RESP 21; O2SAT 92
[2022-12-16 17:30] LABS: Lactic Acid 1.4 mmol/L (0.7-2.1)
[2022-12-16 17:33] LABS: Lymphocytes % 13 % (10-50); Monocytes % 7 % (2-9); Neutrophils % 80 % (42-76); Platelet Estimate Normal; RBC Morphology Normal; Total Cells Counted 100
[2022-12-16 18:00] VITALS: BP 135/86; PULSE 79; RESP 16; O2SAT 93
[2022-12-16 18:08] LABS: Coronavirus 19, PCR Not Detected (NotDetected); Influenza A, PCR Not Detected (NotDetected); Influenza B, PCR Not Detected (NotDetected)
--- NOTE | 2022-12-16 18:19 | HMH.EDCP ---
Discharge Plan Disposition Patient Disposition: Home, Self-Care Condition: Good Prescriptions Prescriptions: New benzonatate 100 mg Capsule 100 mg PO Q8H Qty: 20 0RF prednisone [prednisone] 20 mg tablet 20 mg PO BID Qty: 10 0RF levofloxacin 500 mg tablet 500 mg PO DAILY Qty: 7 0RF No Action Kali Aerosphere 160-9-4.8 mcg/actuation HFA aerosol inhaler 2 inh INHALATION BID 90 Days Qty: 10.7 3RF ipratropium-albuterol 0.5 mg-3 mg(2.5 mg base)/3 mL solution for nebulization 3 ml INHALATION Q6H PRN (Reason: shortness of breath or wheezing) Qty: 180 6RF oxazepam 10 mg capsule 10 mg PO .COMPLEX PRN (Reason: anxiety) Qty: 120 0RF Rx Instructions: 10 mg orally take in the am; around 2pm; and 2 capsules at bedtime PRN; aripiprazole [Abilify] 10 mg tablet 10 mg PO QHS Qty: 90 0RF doxepin 25 mg capsule 25 mg PO .COMPLEX Qty: 60 1RF Rx Instructions: take 1-2 capsules at bedtime venlafaxine [Effexor XR] 75 mg capsule,extended release 24hr 75 mg PO DAILY Qty: 30 1RF tamsulosin 0.4 mg capsule See Rx Instructions .ROUTE .COMPLEX Qty: 90 3RF Dose Instruction: TAKE ONE CAPSULE BY MOUTH DAILY FOR PROSTATE Rx Instructions: TAKE ONE CAPSULE BY MOUTH DAILY FOR PROSTATE Combivent Respimat 20-100 mcg/actuation mist 1 puff IH Q6H PRN (Reason: SOB and Wheezing) 90 Days Qty: 4 3RF atorvastatin 40 MG tablet 40 mg PO HS lisinopril 20 MG tablet 40 mg PO DAILY aspirin 81 MG tablet,delayed release (DR/EC) 81 mg PO DAILY guaifenesin 1,200 MG tablet extended release 12hr 1,200 mg PO BID ticagrelor 90 MG tablet 90 mg PO BID Referrals Follow up/Referrals: Tony Canchola MD [Primary Care Provider] - See instructions Clinical Impressions Clinical Impression: Pneumonia, COPD (chronic obstructive pulmonary disease), Tobacco use Instructions Patient Instructions: Pneumonia-Adult Discharge ED Provider: Tony Canchola Chest Pain HPI General Chief Complaint: Chest Pain Stated Complaint: CHEST PAIN Time Seen by Provider: 12/16/22 18:19 Mode of Arrival: Ambulatory Source of Information: Patient and Medical Record Limitations: No Limitations Description of Symptoms (Recalled from ER Triage Doc. by RN): pt reports chest pain that started last night, states it is in the center of his chest and he has been having spasms, explains it as a sharp pain, also reports shortness of breath for a week with a productive cough History of Present Illness HPI narrative: has not felt well over the last week - has hx copd and tob use - has prod cough - MD complaint: chest pain Onset (ago): day(s) Duration: intermittent Pain location: right chest Severity: moderate Quality: sharp Risk Factors for CAD: Hypertension, Family Hx of CAD and Smoking Treatments prior to or on arrival for Cardiac Chest Pain: none LOCO Score for Non-Stemi Age of Patient: 60-69 years old Heart Rate: 70-89 bpm Systolic Blood Pressure: 120-139 mmhg Serum Creatinine: 0.40-0.79 mg/dl CHF Killip Class: I-No CHF Other Risk Factors: None Non-Stemi Risk Score: 105 Risk Stratification: 1-108 = Low Risk Related Data Prior Cardiac Testing/Procedures: Cardiac Angiogram Home Medications Medication Instructions Recorded Confirmed aspirin 81 mg tablet,delayed 81 mg PO DAILY HEART HEALTH 04/12/21 12/05/22 release atorvastatin 40 mg tablet 40 mg PO HS Cholesterol 04/12/21 12/05/22 guaifenesin 1,200 mg tablet, 1,200 mg PO BID EXPECTORANT 04/12/21 12/05/22 extended release 12 hr lisinopril 20 mg tablet 40 mg PO DAILY Hypertension 04/12/21 12/05/22 ticagrelor 90 mg tablet 90 mg PO BID PLATELET INHIBITOR 04/12/21 12/05/22 Previous Rx's Medication Instructions Recorded tamsulosin 0.4 mg capsule See Rx Instructions .Route 06/05/21 .COMPLEX #90 caps budesonide 160 mcg-glycopyr 9 2 inh inhalation BID 90 days #10.7 06/21/22 mcg-formot 4.8 mcg/actuation HFA grams
[2022-12-16 18:28] VITALS: BP 134/81; PULSE 82; RESP 18; TEMP 37.1; O2SAT 92
== END 2022-12-16 18:31 | disposition home or self-care (01) ==
PROVIDERS: Emergency Provider Emergency Medicine; PCP Emergency Medicine
DX: J18.9 Pneumonia, unspecified organism (principal); J44.9 Chronic obstructive pulmonary disease, unspecified; F17.210 Nicotine dependence, cigarettes, uncomplicated; R07.89 Other chest pain; G89.29 Other chronic pain; F41.9 Anxiety disorder, unspecified; M54.16 Radiculopathy, lumbar region
CPT/HCPCS: 71045; 80048; 83605; 84484; 85007; 85025; 87040; 93005; 96374; 96375; 99285; C9803; J0696; U0003; U0005

== ENCOUNTER → 2023-04-30 14:21 | Outpatient (CLI) | payer MEDICARE, MEDICAID, SELFPAY ==
--- NOTE | 2023-04-30 14:21 | CT_ITS ---
FINAL REPORT TECHNIQUE: Axial CT images of the chest were obtained without contrast. Low-dose protocol was utilized. This study was performed with techniques to keep radiation doses as low as reasonably achievable (ALARA). Individualized dose reduction techniques using automated exposure control or adjustment of mA and/or kV according to the patient's size were employed. CLINICAL HISTORY: smoker 2 ppd x 50 years copd COMPARISON: 04/30/2022 FINDINGS: CT CHEST WITHOUT, LOW DOSE SCREENING CT Di Vol: 2.90 mGy DLP: 108.38 mGy*cm There is no axillary, mediastinal, or hilar adenopathy. The heart size is normal. There are dense coronary artery calcifications. There is no pleural or pericardial effusion. The lung windows show a stable cluster of small nodules in the left lower lobe well seen on image 57 of series 4. There is a stable small nodule in the left upper lobe measuring 4 mm seen on image 16 of series 4. There is a stable 2 mm nodule in the periphery of the left upper lobe best seen on image 26 of series 4. There are no new nodules identified. There are advanced changes of centrilobular emphysema. There is a calcified granuloma in the left upper lobe. Limited images of the upper abdomen demonstrate . IMPRESSION: Stable left lung nodules as above. LR Category 1: 12 month follow-up low-dose chest CT is recommended. Reviewed, Interpreted and Dictated by José Ashley MD Transcribed by Lorna Yoder Authenticated and [facility]
== END ==
PROVIDERS: PCP Nurse Practitioner Family; Visit Provider Internal Medicine Pulmonary Disease
DX: Z87.891 Personal history of nicotine dependence (principal); Z12.2 Encounter for screening for malignant neoplasm of respiratory organs
CPT/HCPCS: 71271

== ENCOUNTER → 2023-07-09 16:47 | Outpatient (CLI) | payer MEDICARE, MEDICAID, SELFPAY ==
[2023-07-09 18:25] LABS: Amphetamine/Metha Screen,Urine Negative ng/ml (<1000); Barbiturates Screen,Urine Negative ng/ml (<200); Benzodiazepines Screen,Urine Positive ng/ml (<200); Cannabinoid Screen,Urine Positive ng/ml (<50); Cocaine Screen,Urine Positive ng/ml (<300); Opiate Screen,Urine Negative ng/ml (<300); Phencyclidine Screen,Urine Negative ng/ml (<25)
[2023-07-09 18:29] LABS: Methadone Screen,Urine Negative ng/ml (<300)
== END ==
PROVIDERS: Visit Provider Nurse Practitioner Psychiatric/Mental Health
DX: Z51.81 Encounter for therapeutic drug level monitoring (principal)
CPT/HCPCS: 80305

== ENCOUNTER → 2023-08-11 14:08 | Outpatient (CLI) | payer MEDICARE, MEDICAID, SELFPAY ==
[2023-08-11 14:30] VITALS: PULSE 79; PULSE 82
== END ==
PROVIDERS: PCP Emergency Medicine; Visit Provider Internal Medicine Pulmonary Disease
DX: R06.02 Shortness of breath (principal)
CPT/HCPCS: 94060; 94640

== ENCOUNTER → 2023-09-17 14:59 | Outpatient (CLI) | payer MEDICARE, MEDICAID, SELFPAY ==
[2023-09-17 15:41] LABS: Basophils % 0.5 % (0.1-2.0); Eosinophils # 0.1 K/mm3 (0.0-0.4); Eosinophils % 1.9 % (0.1-12.0); Hemoglobin 15.9 g/dL (14.1-18.0); Lymphocytes # 2.2 K/mm3 (0.7-4.5); Mean Corpuscular HGB Conc 33.8 g/dL (31.8-35.4); Mean Corpuscular Hemoglobin 30.4 pg (27.0-31.2); Mean Corpuscular Volume 89.9 fl (80-94); Mean Platelet Volume 8.3 fl (7.4-10.4); Monocytes # 0.4 K/mm3 (0.1-1.0); Monocytes % 6.1 % (1.7-9.3); Neutrophils # 4.2 K/mm3 (1.8-7.8); Neutrophils % 60.5 % (37.0-80.0); Platelet Count 195 K/mm3 (142-424); Red Blood Count 5.23 M/mm3 (4.60-6.20); Red Cell Distribution Width 14.6 % (11.5-17.5); White Blood Count 6.9 K/mm3 (4.8-10.8)
[2023-09-17 18:12] LABS: Alanine Aminotransferase 21 U/L (12-78); Albumin Level 4.2 g/dl (3.5-5.0); Alkaline Phosphatase 93 U/L (38-126); Anion Gap 16.6 mEq/L (5-15); Aspartate Amino Transferase 29 U/L (17-59); Bilirubin,Direct 0.2 mg/dl (0.0-0.4); Bilirubin,Indirect 0.2 mg/dL (0.0-0.9); Bilirubin,Total 0.4 mg/dl (0.2-1.3); Bilirubin,Unconjugated 0.2 mg/dL (0.0-1.1); Blood Urea Nitrogen 14 mg/dl (9-20); Calcium 9.4 mg/dl (8.4-10.2); Carbon Dioxide 24 mmol/L (22.0-30.0); Chloride 104 mmol/L (98-107); Chol/HDL Ratio 6.3 (1-3.5); Cholesterol 269 mg/dl (140-200); Estimated Glomerular Filt Rate 74 ml/min (>60); GFR (African American) 90 ML/MIN (>60); Glucose 84 mg/dl (74-100); HDL Cholesterol 43 mg/dl (40-60); Potassium 4.6 mmoL/L (3.5-5.1); Sodium 140 mmol/L (136-145); Total Protein,Serum 7.1 g/dl (6.3-8.2); Triglycerides 144 mg/dl (30-150); VLDL Cholesterol 29 mg/dL (0-40)
[2023-09-17 18:23] LABS: Direct LDL Cholesterol 181.79 mg/dL (100-129)
== END ==
PROVIDERS: PCP Emergency Medicine; Visit Provider Nurse Practitioner
DX: E78.5 Hyperlipidemia, unspecified (principal); I10 Essential (primary) hypertension; I25.10 Atherosclerotic heart disease of native coronary artery without angina pectoris; N45.1 Epididymitis; R07.9 Chest pain, unspecified; Z72.0 Tobacco use
CPT/HCPCS: 36415; 80048; 80061; 80076; 85025

== ENCOUNTER → 2023-09-22 11:57 | Outpatient (CLI) | payer MEDICARE, MEDICAID, SELFPAY ==
--- NOTE | 2023-09-22 | CA_ITS ---
APPROVED REPORT Exam: Pharmacologic Technologist: Radha Benavidez, Ht: 5 ft 8 in Wt: 146 lbs BSA: 1.79 m2 HR: 62 bpm BP: 126/74 mmHg Rhythm: NSR Medical History Medications: Diazepam,,,,, Combivent,,,,, TAMSULOSIN,,,,, DOxepin,,,,, Nhutcspzva-[id number],,,,, Ipratropium-ALBUTEROL,,,,, Venlafaxine eR,,,,, Stress Test Details Test: LEXISCAN Reason for pharmacologic stress test: physical limitation. HR Resting HR: 62 bpm Max Heart Rate (APMHR): 152 bpm Max HR Achieved: 93 bpm Target HR (85% APMHR): 129 bpm % of APMHR: 61 Recovery HR: 69 bpm BP Resting BP: 126.0/74.0 mmHg Max BP: 136.0/79.0 mmHg Recovery BP: 121.0/80.0 mmHg ECG Resting ECG: Normal sinus rhythm, ST changes in inferior and lateral leads Stress ECG: No significant ST changes Arrhythmia: None Clinical Exercise duration: 04:00 min Highest Stage Achieved: Stress ECG Conclusion Symptoms: Dyspnea Arrhythmias/Ectopy: None ST-T Changes: No significant ST changes Conclusion: Nondiagnostic Lexiscan stress test due to baseline abnormalities. Myoview images are reported separately. Test Summary REST . . . . . . . Resting REST 00:50 . . 62 . 126/ 74 . . Stage 1 . . . . . . . Myoview Injected Stage 1 01:00 . . 81 . . . . Stage 2 01:00 . . 84 . 114/ 65 . . Stage 3 01:00 . . 75 . 128/ 75 . . Stage 4 01:00 . . 71 . 133/ 76 . Stop exercise at 04:00 RECOVERY 01:00 . . 68 . 136/ 79 . . RECOVERY 02:00 . . 70 . 136/ 77 . . RECOVERY 02:56 . . 76 . 121/ 80 . . Electronically signed by : Rhonda Moran MD 09/23/2023 10:52:53
--- NOTE | 2023-09-22 11:57 | NM_ITS ---
APPROVED REPORT Exam: Nuclear Stress Test Indication: TOB USE, FM HX, C.P., SOB, PALPITATIONS, FATIGUE Patient Location: Outpatient Stress Tech: Radha Granger MS Tech:Breann Dudley, ARRT RT (R)(N)(M) Ht: 5 ft 8 in Wt: 142 lbs HR: 62 bpm BP: 126/74 mmHg BSA: 1.77 m2 TID: 1.11 BMI: 21.5 History: TOB USE, FM HX, C.P., SOB, PALPITATIONS, FATIGUE Procedure: Patient received 0.4 mg of intravenous Lexiscan, resting heart rate 62 bpm, resting blood pressure 126/74 mmHg, with Lexiscan maximum heart rate achieved was 82 bpm which is % of the maximum predicted heart rate and blood pressure was 114/65 mmHg. With Lexiscan, patient denied any complaint of chest pain. Cardiac Stress and Resting SPECT Images: Cardiac Stress and Resting SPECT images were obtained using technetium 99m Myoview 31.8 mCi stress and 10.06 mCi at rest. Resting and stress imaging in supine and prone positions demonstrate a large sized, moderate, predominantly fixed perfusion defect in the inferior and inferoseptal LV tate. There is minimal regions of reversibility towards the distal inferior wall. Gated imaging demonstrates mild reduction in global LV systolic function. There is moderate hypokinesis of the basal to mid inferior LV wall. LVEF is calculated at 42%. Conclusion: arge sized, moderate, predominantly fixed perfusion defect in the inferior and inferoseptal LV tate. There is minimal regions of reversibility towards the distal inferior wall. Gated imaging demonstrates mild reduction in global LV systolic function. There is moderate hypokinesis of the basal to mid inferior LV wall. LVEF is calculated at 42%. Electronically signed by : Rhonda Moran MD 09/23/2023 10:55:35
== END ==
PROVIDERS: PCP Emergency Medicine; Visit Provider Nurse Practitioner
DX: R07.9 Chest pain, unspecified (principal)
CPT/HCPCS: 78452; 93017; A9502; J2785

== ENCOUNTER → 2023-10-02 10:21 | Outpatient (CLI) | payer MEDICARE, MEDICAID, SELFPAY ==
--- NOTE | 2023-10-02 10:21 | CA_ITS ---
APPROVED REPORT EXAM: Comprehensive 2D, Doppler, and color-flow Echocardiogram Engagement Lead: Kadi Dorsey CRT Ht: 5 ft 8 in Wt: 146lbs BSA: 1.79 BP: 132/76 mmHg Indications: Chest Pain, COPD, Shortness of Breath, Fatigue, Hyperlipidemia, Hypertension/HDD, CAD, STENTS 2D Dimensions Aortic Root 2.01 cm LA Volume 27.30 mL LA Volume Index 15.144908 mL/m2 (M/F) 16-34 M-Mode Dimensions RVDd 3.00 cm (0.9-2.6) LA Diam 2.69 cm (1.9-4.0) LVDd 5.00 cm (3.5-5.7) Ao Diam 3.49 cm (2.0-3.7) LVDs 3.32 cm (3.5-5.7) IVSd 0.93 cm (0.6-1.1) PWd 0.96 cm (0.6-1.1) EF (Teich) 62.10% FS 33.60% EDV (Teich) 118.20 mL TAPSE 2.40 (<1.7) ESV (Teich) 44.80 mL LV Diastology E Decel Time 213.00 (160-240 msec) E/A Ratio 0.78 MED E' 7.30 (< 7 cm/sec) MED A' 13.20 cm/s E'/MED E' Ratio 6.21 (>14) LAT E' 6.80 (<10 cm/sec) LAT A' 15.00 cm/s E/LAT E' Ratio 6.66 (>14) Aortic Valve AO Peak GR. 5.30 mmHg Mitral Valve MV E Max Los. 45.00 (40-130 cm/s) MV A Velocity 58.00 (40-130 cm/s) E/A Ratio 0.78 MV Decel. Time 213.00 (160-240 ms) MV PHT 62.00 ms Pulmonary Valve PV Peak Velocity 129.00 (50-150 cm/s) Tricuspid Valve TR P. Velocity 129.00 cm/s RAP Estimate 10.00 mmHg RVSP 16.70 mmHg Left Ventricle The left ventricle is normal size. The left ventricular systolic function is normal. The left ventricular ejection fraction is within the normal range. There is normal left ventricular wall thickness. There is normal LV segmental wall motion. The left ventricular diastolic function is normal. LVEF is 50-55%. Right Ventricle The right ventricle is mildly dilated. The right ventricular systolic function is normal. Atria The left atrium size is normal. The right atrium size is normal. There is no Doppler evidence of interatrial shunt. Aortic Valve The aortic valve is mildly thickened. There is no aortic valvular stenosis. No aortic regurgitation is present. Mitral Valve The mitral valve leaflets are mildly thickened. No evidence of mitral valve stenosis. Mild mitral regurgitation. Tricuspid Valve The tricuspid valve leaflets are thin and pliable. Trace tricuspid regurgitation. There is insufficient TR jet to estimate RVSP. Pulmonic Valve The pulmonary valve is normal in structure. Mild pulmonic regurgitation. Great Vessels The aortic root is normal in size. The ascending aorta is not well visualized. IVC is normal in size and collapses >50% with inspiration. Pericardium There is no pericardial effusion. Other Information Study Quality: Fair Conclusion Normal biventricular systolic function. Mild MR Electronically signed by : Rhonda Moran MD 10/04/2023 21:58:05
== END ==
PROVIDERS: PCP Emergency Medicine; Visit Provider Nurse Practitioner
DX: R06.09 Other forms of dyspnea (principal)
CPT/HCPCS: 93306

== ENCOUNTER 2023-11-06 08:03 | Day surgery (SDC) | payer MEDICARE, MEDICAID, SELFPAY ==
[2023-11-06] VITALS (14 sets, daily range): BP systolic 100–161; BP diastolic 74–90; PULSE 54–69; RESP 15–18; TEMP 36.9; O2SAT 89–100; BMI 22.3
--- NOTE | 2023-11-06 07:16 | IR_ITS ---
APPROVED REPORT Patient Location: Outpatient PROCEDURES Selective coronary angiogram Drug-eluting stent deployment to the proximal and mid dominant right coronary INDICATION Coronary artery disease, Inferior wall ischemia on abnormal Myoview, Informed consent was obtained prior to the procedure. COMPLICATIONS None Estimated Blood Loss: Less than 10 mls TECHNIQUE One percent lidocaine used to anesthetize the right anterior aspect of the wrist. The right radial artery was accessed via the Seldinger technique. A 6 Green[place]ic sheath was placed in the right radial artery. 2.5 mg of Verapamil, 800 mcg of nitroglycerin, 1mg Lidocaine and 5000 U Heparin were given through the arterial sheath. The papa catheter was also used to perform left heart catheterization, left ventriculogram and selective coronary angiogram. At the end of the procedure the sheath was removed good hemostasis was achieved using Traclet band, patient was transferred to the postop holding area in stable condition. ANGIOGRAPHIC RESULTS The left main artery Normal The left anterior descending artery Has proximal and mid vessel 30% calcified stenoses. A large first diagonal artery also has proximal 30% stenoses The circumflex artery Nondominant with mild 10% luminal irregularities The right coronary artery Large and dominant with proximal 20% stenosis followed by an additional proximal 50% stenosis The RAYA ventriculogram reveals Not performed The left ventricular end-diastolic pressure Not measured IMPRESSION Angiographically moderate disease in the proximal dominant right coronary artery associated with inferior ischemia on Myoview Successful stenting of the proximal right coronary artery hemodynamically severe disease reduced to 0% with 1 drug-eluting stent Mild to moderate proximal and mid vessel LAD disease as described above PLAN 1. Effient 10 mg daily plus aspirin 81 mg daily 2. LDL less than 55 to be achieved with high intensity statin 3. Avoidance of tobacco products 4. Risk factor modification 5. Cardiac rehabilitation Electronically signed by : Clinton Esquivel MD 11/06/2023 12:59:26
[2023-11-06 08:49] LABS: Basophils % 0.5 % (0.1-2.0); Eosinophils # 0.2 K/mm3 (0.0-0.4); Hematocrit 48.2 % (42.0-52.0); Lymphocytes # 1.8 K/mm3 (0.7-4.5); Lymphocytes % 30.1 % (10-50); Mean Corpuscular HGB Conc 33.2 g/dL (31.8-35.4); Mean Corpuscular Hemoglobin 29.9 pg (27.0-31.2); Mean Platelet Volume 7.3 fl (7.4-10.4); Monocytes # 0.4 K/mm3 (0.1-1.0); Monocytes % 7.2 % (1.7-9.3); Neutrophils # 3.4 K/mm3 (1.8-7.8); Neutrophils % 58.3 % (37.0-80.0); Platelet Count 213 K/mm3 (142-424); Red Blood Count 5.35 M/mm3 (4.60-6.20); Red Cell Distribution Width 14.6 % (11.5-17.5); White Blood Count 5.9 K/mm3 (4.8-10.8)
[2023-11-06 08:54] LABS: Chloride 104 mmol/L (98-107); Sodium 139 mmol/L (136-145)
[2023-11-06 08:55] LABS: Potassium 3.9 mmoL/L (3.5-5.1)
[2023-11-06 08:58] LABS: Anion Gap 9.9 mEq/L (5-15); Blood Urea Nitrogen 13 mg/dl (9-20); Calcium 8.7 mg/dl (8.4-10.2); Carbon Dioxide 29 mmol/L (22.0-30.0); Creatinine Clearance Estimated 61 mL/min (50-200); Estimated Glomerular Filt Rate 67 ml/min (>60); GFR (African American) 81 ML/MIN (>60); Glucose 51 mg/dl (74-100)
[2023-11-06 13:48] LABS: CATHL Activated Clotting Time 347 SEC (74-125)
== END 2023-11-06 15:34 | disposition home or self-care (01) ==
PROVIDERS: PCP Emergency Medicine; Visit Provider Internal Medicine
DX: E78.5 Hyperlipidemia, unspecified (principal); I10 Essential (primary) hypertension; I25.118 Atherosclerotic heart disease of native coronary artery with other forms of angina pectoris; R06.09 Other forms of dyspnea; R07.9 Chest pain, unspecified; R94.39 Abnormal result of other cardiovascular function study; F17.210 Nicotine dependence, cigarettes, uncomplicated; Z79.899 Other long term (current) drug therapy; J44.9 Chronic obstructive pulmonary disease, unspecified
CPT/HCPCS: 80048; 85025; 85347; 92928; 93454; 99152; C1725; C1769; C1876; C9600; J1644; Q9967

== ENCOUNTER 2024-01-02 10:03 | Outpatient (CLI) | payer MEDICARE, MEDICAID, SELFPAY ==
--- NOTE | 2024-01-02 10:03 | US_ITS ---
FINAL REPORT CLINICAL HISTORY: upper abdominal pain- aneurysm screening COMPARISON: None FINDINGS: ULTRASOUND ABDOMINAL AORTA Findings: Sagittal and transverse images with Doppler exam was performed of the aorta. There is no evidence of abdominal aortic aneurysm. Aorta measures up to 2.4 cm. Mild plaque disease is noted. Proximal iliac vessels are normal in caliber. Aorta is patent by Doppler exam without gross stenosis. IMPRESSION: No evidence of aortic aneurysm Reviewed, Interpreted and Dictated by Aliza Melo MD Transcribed by Marivel Garcia Authenticated and . [facility]
--- NOTE | 2024-01-02 10:03 | US_ITS ---
FINAL REPORT TECHNIQUE: Multiple transverse and longitudinal images CLINICAL HISTORY: Upper abdominal pain COMPARISON: None FINDINGS: The gallbladder shows no wall thickening, distention or stone disease. No biliary ductal dilatation is appreciated. No fluid collections are seen. There is a septated cyst in the left lobe of the liver, measuring up to 10 mm in size. Limited portions of the right kidney are unremarkable. IMPRESSION: No evidence of cholelithiasis or biliary obstruction. Septated cyst left lobe of the liver measuring up to 10 mm in size. Reviewed, Interpreted and Dictated by Aliza Melo MD Transcribed by Marivel Garcia Authenticated and [facility]
== END 2024-01-02 23:59 ==
LOC: RAD 10:03
PROVIDERS: PCP Nurse Practitioner Family; Visit Provider Physician Assistant
DX: R10.10 Upper abdominal pain, unspecified (principal); Z13.6 Encounter for screening for cardiovascular disorders
CPT/HCPCS: 76705

== ENCOUNTER 2024-04-26 12:37 | Emergency (ER) | payer MEDICARE, MEDICAID, SELFPAY ==
[2024-04-26 12:38] VITALS: BP 126/79; PULSE 65; RESP 16; TEMP 36.8; O2SAT 98; BMI 21.2
[2024-04-26 13:00] VITALS: BP 132/83; PULSE 51; RESP 20; O2SAT 96
[2024-04-26 13:30] VITALS: BP 137/87; PULSE 53; O2SAT 96
[2024-04-26 14:00] VITALS: BP 138/83; PULSE 75; O2SAT 98
--- NOTE | 2024-04-26 14:08 | HMH.EDGENADL ---
Discharge Plan Disposition Patient Disposition: Home, Self-Care Condition: Good Prescriptions Prescriptions: New cephalexin 500 mg capsule 500 mg PO BID 7 Days Qty: 14 0RF No Action tamsulosin 0.4 mg capsule See Rx Instructions .ROUTE .COMPLEX Qty: 90 3RF Dose Instruction: TAKE ONE CAPSULE BY MOUTH DAILY FOR PROSTATE Rx Instructions: TAKE ONE CAPSULE BY MOUTH DAILY FOR PROSTATE rosuvastatin 40 mg tablet PO Patient Comments: TAKE 1 TABLET BY MOUTH DAILY Breztri Aerosphere 160-9-4.8 mcg/actuation HFA aerosol inhaler 2 inh INHALATION BID 90 Days Qty: 10.7 3RF ipratropium-albuterol 0.5 mg-3 mg(2.5 mg base)/3 mL solution for nebulization 3 ml INHALATION Q6H PRN (Reason: shortness of breath or wheezing) Qty: 180 6RF Combivent Respimat 20-100 mcg/actuation mist 1 puff IH Q6H PRN (Reason: SOB and Wheezing) 90 Days Qty: 4 3RF metoprolol succinate 25 mg tablet extended release 24 hr 25 mg PO DAILY Qty: 90 3RF aspirin [Adult Low Dose Aspirin] 81 mg tablet,delayed release (DR/EC) 81 mg PO DAILY Qty: 90 3RF diazepam [Valium] 5 mg tablet 5 mg PO TID PRN (Reason: anxiety) Qty: 90 1RF doxepin 75 mg capsule 75 mg PO QHS Qty: 30 1RF venlafaxine [Effexor XR] 75 mg capsule,extended release 24hr 75 mg PO DAILY Qty: 30 1RF prasugrel [Effient] 10 mg tablet 10 mg PO DAILY 90 Days Qty: 90 3RF nitroglycerin 0.4 mg tablet, sublingual See Rx Instructions .ROUTE .COMPLEX Qty: 25 0RF Dose Instruction: PLACE 1 TABLET UNDER THE TONGUE EVERY 5 TO 15 MINUTES NEEDED FOR CHEST PAIN. DO NOT EXCEED 3 DOSES PER EPISODE Rx Instructions: PLACE 1 TABLET UNDER THE TONGUE EVERY 5 TO 15 MINUTES NEEDED FOR CHEST PAIN. DO NOT EXCEED 3 DOSES PER EPISODE Referrals Follow up/Referrals: Robert Suárez DO [Primary Care Provider] - See instructions Activity Restrictions/Add. Instructions Additional Instructions/Restrictions: Please take all medication until its gone. Follow-up with your PCP for any worsening signs or symptoms or return to the ER as needed Clinical Impressions Clinical Impression: Superficial bacterial infection of skin Instructions Patient Instructions: DI for Skin Abscess Discharge ED Provider: Mary Gomez General Adult HPI General Chief complaint: Skin/Abscess/Foreign Body Stated complaint: spider bite left leg Time Seen by Provider: 04/26/24 14:08 Mode of Arrival: Ambulatory Source of Information: Patient Limitations: No Limitations Description of Symptoms (Recalled from ER Triage Doc. by RN): Patient reports a possible spider bite to his left lateral knee. States it has been there for over a week. History of Present Illness HPI narrative: Patient presents for evaluation of a superficial skin infection. Patient reports that he is had a spider bite for over a week. Says it makes his knee hurt but has no fever chills hemoptysis hematochezia melena nausea vomit diarrhea Related Data Home Medications Medication Instructions Recorded Confirmed rosuvastatin 40 mg tablet mg PO 04/08/24 04/08/24 Previous Rx's Medication Instructions Recorded budesonide 160 mcg-glycopyr 9 2 inh inhalation BID 90 days #10.7 01/10/23 mcg-formot 4.8 mcg/actuation HFA grams inhaler (Breztri Aerosphere) ipratropium 0.5 mg-albuterol 3 mg 3 ml inhalation Q6H PRN shortness 01/10/23 (2.5 mg base)/3 mL nebulization of breath or wheezing #180 mL soln ipratropium 20 mcg-albuterol 100 1 puff inhalation Q6H PRN SOB and 01/10/23 mcg/actuation mist for inhalation Wheezing 90 days #4 grams (Combivent Respimat) tamsulosin 0.4 mg capsule See Rx Instructions .Route 02/14/23 .COMPLEX #90 caps aspirin 81 mg tablet,delayed 81 mg PO DAILY #90 tabs 10/21/23 release (Adult Low Dose Aspirin) metoprolol succinate 25 mg 25 mg PO DAILY #90 tabs 10/21/23 tablet,extended release 24 hr prasugrel 10 mg tablet (Effient) 10 mg PO DAILY 90 days #90 tabs 11/07/23 diazepam 5 mg tablet (Valium) 5 mg PO TID PRN anxiety #90 tabs 01/29/24 doxepin 75 mg capsule 75 mg PO QHS #30 caps 01/29/24 venlafaxine 75 mg capsule,extended 75 mg PO DAILY #30 caps 01/29/24 release 24 hr (Effexor XR) nitroglycerin 0.4 mg sublingual See Rx Instructions .Route 03/08/24 tablet .COMPLEX #25 tabs cephalexin 500 mg capsule 500 mg PO BID 7 days #14 caps 04/26/24 Allergies Allergy/AdvReac Type Severity Reaction Status Date / Time codeine [CODEINE] Allergy Unknown I-HIVES Verified 03/23/24 14:23 [facility] Disclaimer: The information contained in this section may have been updated after the patient was seen, as this information can be updated by other users. Medical History (Updated 04/26/24 @ 14:22 by ADAM Mack) Screening for abdominal aortic aneurysm Diarrhea Bloating Upper abdominal pain Abnormal cardiovascular stress test Angina pectoris Abnormal stress test CAD (coronary artery disease) Screening for lung cancer COPD (chronic obstructive pulmonary disease) Tobacco abuse counseling Tobacco abuse Tracheobronchomalacia Smoking greater than 30 pack years COPD mixed type Dyspnea on exertion Insomnia Generalized anxiety disorder Perianal abscess COPD (chronic obstructive pulmonary disease) Lumbar radiculopathy, chronic Lumbar disc herniation with radiculopathy Chronic pain Anxiety and depression Depression Surgical History History of back surgery History of heart artery stent Family History Other COPD (chronic obstructive pulmonary disease) Hypertension Social History Smoking Status: Current every day smoker tobacco type: cigarettes packs per day: 1 second hand exposure: Yes alcohol intake: never substance use type: marijuana current occupational status: retired Travel in the last 8 weeks: None household members: other housing: house number of children: 3 current occupational exposures/hazards: No caffeine: No ROS Obtained: Yes Systems reviewed as appropriate & no additional complaints except as documented Physical Exam General General appearance: alert Respiratory Respiratory exam: Present normal lung sounds bilaterally Cardiovascular Cardiovascular exam: Present regular rate and normal rhythm Extremities Exam Extremities exam: Present normal inspection and full ROM Neurological Exam Neurological exam: Present alert and oriented X3 Skin Skin exam: Present warm, dry and other (Patient has a quarter sized area left lateral knee that is erythematous with a central area of scab. There is no fluctuance noted. Borders have been marked by myself with an ink pen. There is no erythema distally.) Medical Decision Making Jose Inquiry Pt receiving controlled substance: No Vital Signs: 04/26/24 12:38 04/26/24 13:00 04/26/24 13:30 Temperature 98.2 F Temperature Source Oral Pulse Rate 51 L 53 L Pulse Rate [Radial] 65 Respiratory Rate 16 20 Blood Pressure 132/83 137/87 Blood Pressure [Right Arm] 126/79 Blood Pressure Mean 94 Blood Pressure Mean [Right Arm] 94 Blood Pressure Source [Right Arm] Automatic Cuff Blood Pressure Position [Right Arm] Sitting 02 Sat by Pulse Oximetry 98 96 96 Oxygen Delivery Method Room Air Room Air Room Air Orders (Tests/Meds): ED MEDICATIONS Discontinued Medications Generic Name Dose Route Start Last Admin Trade Name Freq PRN Reason Stop Dose Admin Cephalexin HCl 500 mg 04/26/24 14:19 Cephalexin 500mg Capsule PO 04/26/24 14:20 ONCE ONE Medical Decision Narrative: In summary patient is a 69-year-old male who presents to the emergency department for evaluation of a superficial skin infection. Patient is hemodynamically stable upon arrival, afebrile. Physical exam is remarkable for a quarter sized area at the left lateral knee joint that shows a very small central area of scab some sloughing of the superficial skin but no evidence of cellulitis erythema distally or fluctuance. Differential diagnosis includes superficial skin infection versus excoriation and irritation. Given the patient is afebrile and there is no evidence of deeper infection initial workup of laboratory or incision and drainage is not indicated currently. Given this patient is appropriate for discharge with a prescription for Keflex with first dose given here. Critical Care Critical Care Time Critical Care Time: No
--- NOTE | 2024-04-26 14:11 | PC.NURSE ---
rounded on pt, pt stated no needs other than a warm blanket.
[2024-04-26] MEDS: cephALEXin 500MG CAPSULE 500 MG PO (14:29)
[2024-04-26 14:30] VITALS: BP 117/85; PULSE 98; O2SAT 98
[2024-04-26 14:31] VITALS: BP 146/78; PULSE 80; RESP 18; TEMP 36.6; O2SAT 97
== END 2024-04-26 14:33 | disposition home or self-care (01) ==
PROVIDERS: Emergency Provider Nurse Practitioner; PCP Internal Medicine
DX: L08.9 Local infection of the skin and subcutaneous tissue, unspecified (principal)
CPT/HCPCS: 99283

== ENCOUNTER 2024-05-13 08:19 | Outpatient (CLI) | payer MEDICARE, MEDICAID, SELFPAY ==
--- NOTE | 2024-05-13 | CA_ITS ---
APPROVED REPORT Exam: Pharmacologic Technologist: Barbra Carrington, Ht: 5 ft 8 in Wt: 135 lbs BSA: 1.73 m2 HR: 64 bpm BP: 110/67 mmHg Rhythm: NSR, PVCs, lateral T wave abns Medical History Medications: Aspirin,,,,, Metoprolol Succinate,,,,, Combivent,,,,, Cephalaxin,,,,, TAMSULOSIN,,,,, DOxepin,,,,, Valium,,,,, Prasugrel,,,,, NitrogGLYCERIN,,,,, BREztri,,,,, Effexor ER,,,,, Cardiac Risk Factors: Smoking Stress Test Details Test: LEXISCAN HR Resting HR: 65 bpm Max Heart Rate (APMHR): 151 bpm Max HR Achieved: 86 bpm Target HR (85% APMHR): 128 bpm % of APMHR: 57 Recovery HR: 70 bpm BP Resting BP: 110/67 mmHg Max BP: 111/69 mmHg Recovery BP: 97.0/70.0 mmHg ECG Resting ECG: NSR, PVCs, lateral T wave abn Stress ECG: No significant ST changes Arrhythmia: PVCs Clinical Exercise duration: 04:00 min Highest Stage Achieved: Stress ECG Conclusion During lexiscan pt experinced SOA, no CP noted. Occasional unifcoal isolated PVCs. No significant ST changes. Conclusion: Unremarkable lexiscan stress. Myoview images reported separately Test Summary REST . . . . . . . Sitting REST . . . . . . . Sitting REST 03:39 . . 65 . 110/ 67 . . Stage 1 01:00 . . 78 . . . . Stage 2 01:00 . . 71 . 111/ 69 . . Stage 3 01:00 . . 73 . 107/ 70 . . Stage 4 01:00 . . 68 . 100/ 70 . Stop exercise at 04:00 RECOVERY 01:00 . . 73 . . . . RECOVERY 02:00 . . 65 . . . . RECOVERY 03:00 . . 70 . . . . RECOVERY 04:00 . . 69 . 97/ 70 . . RECOVERY 04:35 . . 66 . 106/ 70 . . Electronically signed by : Rhonda Moran MD 05/17/2024 11:47:10
--- NOTE | 2024-05-13 08:24 | NM_ITS ---
APPROVED REPORT Exam: Nuclear Stress Test Indication: chest pain..soa Patient Location: Outpatient Stress Tech: Barbra NICOLE Tech:LATRICIA Longoria RT(R)(N) Ht: 5 ft 8 in Wt: 137 lbs HR: 65 bpm BP: 110/67 mmHg BSA: 1.74 m2 Rhythm: NSR TID: 1.41 BMI: 20.8 History: chest pain..soa Procedure: Patient received 0.4 mg of intravenous Lexiscan, resting heart rate 65 bpm, resting blood pressure 110/67 mmHg, with Lexiscan maximum heart rate achieved was 86 bpm which is 85 % of the maximum predicted heart rate and blood pressure was 111/69 mmHg. With Lexiscan, patient denied any complaint of chest pain. Cardiac Stress and Resting SPECT Images: Cardiac Stress and Resting SPECT images were obtained using technetium 99m Myoview 32.9 mCi stress and 9.94 mCi at rest. Resting and stress imaging in supine and prone positions demonstrate a large sized, moderate, predominantly reversible perfusion defect in the inferior LV wall. There is also increase in transient ischemic dilatation ratio (TID 1.41), suggestive of possible multivessel disease or balanced ischemia. Gated imaging demonstrates moderate to severe reduction in global LV systolic function. There is severe hypokinesis of the inferior LV wall. LVEF is calculated at 30%. Conclusion: Large sized, moderate, predominantly reversible perfusion defect in the inferior LV wall. Findings are suggestive of reversible ischemia. There is also increase in transient ischemic dilatation ratio (TID 1.41), suggestive of possible multivessel disease or balanced ischemia. Gated imaging demonstrates moderate to severe reduction in global LV systolic function. There is severe hypokinesis of the inferior LV wall. LVEF is calculated at 30%. Electronically signed by : Rhonda Moran MD 05/17/2024 11:56:38
[2024-05-13] MEDS: REGADENOSON 0.4MG/5ML SYRINGE 0.4 MG IV (10:59)
[2024-05-13] MEDS: ISOTOPE MYOVIEW (PER STUDY) 1 DOSE IV (10:59)
[2024-05-13] MEDS: SODIUM CHLORIDE 0.9% 10ML SYR (RAD ONLY) 10 ML IV ×2 (10:59)
== END 2024-05-13 23:59 | disposition home or self-care (01) ==
LOC: RAD 08:20
PROVIDERS: PCP Nurse Practitioner Family; Visit Provider Physician Assistant
DX: I25.118 Atherosclerotic heart disease of native coronary artery with other forms of angina pectoris (principal); R06.09 Other forms of dyspnea; F17.210 Nicotine dependence, cigarettes, uncomplicated
CPT/HCPCS: 78452; 93017; 93018; A9502; J2785

== ENCOUNTER 2024-06-08 08:33 | Day surgery (SDC) | payer MEDICARE, MEDICAID, SELFPAY ==
--- NOTE | 2024-06-07 13:25 | SUR.PREOP ---
called and spoke with patient regarding procedure scheduled for tomorrow. 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 pt instructed to arrive at 0800.
[2024-06-08] VITALS (13 sets, daily range): BP systolic 95–143; BP diastolic 60–89; PULSE 55–85; RESP 18–19; TEMP 36.9; O2SAT 94–99; BMI 20.2
--- NOTE | 2024-06-08 07:20 | IR_ITS ---
APPROVED REPORT Patient Location: Outpatient PROCEDURES Left heart catheterization Left ventriculogram Selective coronary angiogram INDICATION Abnormal Myoview, Known coronary artery disease, Angina pectoris Informed consent was obtained prior to the procedure. COMPLICATIONS NONE Estimated Blood Loss: LESS THAN 10 ML TECHNIQUE One percent lidocaine used to anesthetize the right anterior aspect of the wrist. The right radial artery was accessed via the Seldinger technique. A 6 [place] sheath was placed in the right radial artery. 2.5 mg of Verapamil, 800 mcg of nitroglycerin, 1mg Lidocaine and 5000 U Heparin were given through the arterial sheath. The papa catheter was also used to perform left heart catheterization, left ventriculogram and selective coronary angiogram. At the end of the procedure the sheath was removed good hemostasis was achieved using Traclet band, patient was transferred to the postop holding area in stable condition. ANGIOGRAPHIC RESULTS The left main artery Normal The left anterior descending artery Has a stent in the ostial proximal segment which is widely patent free of in-stent restenosis with excellent distal transitioning. The remaining vessel is widely patent with minimal 10% luminal irregularities The circumflex artery Nondominant with an ostial 40 to 50% stenosis The right coronary artery Large dominant with a stent in the proximal segment is widely patent free of in-stent restenosis with excellent proximal distal transitioning The RAYA ventriculogram reveals Mild left ventricular dilatation ejection fraction 45 to 50% The left ventricular end-diastolic pressure 10 to 15 mmHg IMPRESSION Widely patent coronary arteries as described above Some degree of left ventricular dysfunction however does not appear to be 30% based on echocardiogram. Clinical correlation is advised PLAN 1. Continue medical management with risk factor modification Electronically signed by : Clinton Esquivel MD 06/08/2024 14:41:57
[2024-06-08 09:00] LABS: Basophils # 0.1 K/mm3 (0-0.2); Eosinophils # 0.2 K/mm3 (0.0-0.4); Eosinophils % 3.5 % (0.1-12.0); Hematocrit 44.5 % (42.0-52.0); Hemoglobin 14.3 g/dL (14.1-18.0); Lymphocytes # 2.6 K/mm3 (0.7-4.5); Lymphocytes % 46.1 % (10-50); Mean Corpuscular HGB Conc 32.2 g/dL (31.8-35.4); Mean Corpuscular Hemoglobin 30.6 pg (27.0-31.2); Monocytes # 0.4 K/mm3 (0.1-1.0); Monocytes % 6.8 % (1.7-9.3); Neutrophils # 2.4 K/mm3 (1.8-7.8); Neutrophils % 42.6 % (37.0-80.0); Platelet Count 190 K/mm3 (142-424); Red Blood Count 4.68 M/mm3 (4.60-6.20); Red Cell Distribution Width 14.6 % (11.5-17.5); White Blood Count 5.5 K/mm3 (4.8-10.8)
[2024-06-08 09:05] LABS: Chloride 111 mmol/L (98-107); Sodium 143 mmol/L (136-145)
[2024-06-08 09:06] LABS: Potassium 3.7 mmoL/L (3.5-5.1)
[2024-06-08 09:09] LABS: Anion Gap 4.7 mEq/L (5-15); Blood Urea Nitrogen 12 mg/dl (9-20); Calcium 8.9 mg/dl (8.4-10.2); Carbon Dioxide 31 mmol/L (22.0-30.0); Creatinine Clearance Estimated 59 mL/min (50-200); Estimated Glomerular Filt Rate 84 ml/min (>60); GFR (African American) 101 ML/MIN (>60); Glucose 93 mg/dl (74-100)
[2024-06-08] MEDS: 0.9 % SODIUM CHLORIDE 500 ML 25 ML IV (10:56)
[2024-06-08] MEDS: HEPARIN 1,000 UNITS/500ML NS (CATH LAB) 3000 UNIT IV (10:56)
[2024-06-08] MEDS: diphenhydrAMINE 50MG/ML VIAL 50 MG IV (10:57)
[2024-06-08] MEDS: VERAPAMIL 2.5MG/ML 2ML VIAL 2.5 MG IV (10:57)
[2024-06-08] MEDS: LIDOCAINE 1% 10ML MDV 20 ML IJ (10:57)
[2024-06-08] MEDS: NITROGLYCERIN 800MCG/8ML SYR (CATH LAB) 800 MCG IA (10:57)
[2024-06-08] MEDS: FENTANYL 100MCG/2ML VIAL 50 MCG IV (11:06)
[2024-06-08] MEDS: MIDAZOLAM HCL 1MG/1ML 5ML VIAL 1 MG IV (11:06)
[2024-06-08] MEDS: IOPAMIDOL-370 (76%);100ML BOTTLE 50 ML IV (14:43)
== END 2024-06-08 14:29 | disposition home or self-care (01) ==
PROVIDERS: Visit Provider Internal Medicine
DX: I25.118 Atherosclerotic heart disease of native coronary artery with other forms of angina pectoris (principal); R94.39 Abnormal result of other cardiovascular function study; Z79.899 Other long term (current) drug therapy; F17.210 Nicotine dependence, cigarettes, uncomplicated; J44.9 Chronic obstructive pulmonary disease, unspecified
CPT/HCPCS: 80048; 85025; 93458; 99152; C1725; C1769; J1644; J2250; J3010; Q9967

== ENCOUNTER 2024-06-23 08:45 | Outpatient (CLI) | payer MEDICARE, MEDICAID, SELFPAY ==
--- NOTE | 2024-06-23 08:46 | XR_ITS ---
FINAL REPORT TECHNIQUE: Bone densitometry calculations of the lumbar spine and left hip were obtained. CLINICAL HISTORY: osteoporosis COMPARISON: None FINDINGS: Using the right forearm, the bone mineral density of the right forearm is 0.363 g/cm2, corresponding to T-score of -8.6. Using the left hip, the bone mineral density of the femoral neck is 0.614 g/cm2, corresponding to a T-score of -2.8. NOTE: T-score: Standard deviation compared with peak bone mass of young adult mean. *Following the recommendations of the International Society of Bone densitometry, classification of hip BMD is based on the lower of two T-scores; total hip or femoral neck. IMPRESSION: Diminished bone mineral density of the right forearm and left hip consistent with osteoporosis. Reviewed, Interpreted and Dictated by Aliza Melo MD Transcribed by Marivel Garcia Authenticated and [facility]
== END 2024-06-23 23:59 | disposition home or self-care (01) ==
LOC: RAD 08:46
PROVIDERS: PCP Nurse Practitioner Family; Visit Provider Nurse Practitioner Family
DX: M81.0 Age-related osteoporosis without current pathological fracture (principal)
CPT/HCPCS: 77080

== ENCOUNTER 2024-07-06 08:34 | Outpatient (CLI) | payer MEDICARE, MEDICAID, SELFPAY ==
--- NOTE | 2024-07-06 08:37 | CT_ITS ---
FINAL REPORT TECHNIQUE: Thin section axial images were obtained from the lung apices to the upper abdomen by computed tomography. Reformatted images were obtained and reviewed. This study was performed with techniques to keep radiation doses al low as reasonably achievable (ALARA). Individualized dose reduction techniques using automated exposure control or adjustment of mA and/or kV according to the patient's size were employed. CLINICAL HISTORY: lung cancer screening 02/01 ppd x 58 years COMPARISON: 04/30/2023 FINDINGS: CHEST CT LOW DOSE 69-year-old male, current smoker, 43.5-pack-year history. CTDI vol (mGy): 2.9 DLP (mGy-cm): 105.77 There is no axillary adenopathy. There is no mediastinal or hilar mass or adenopathy. The heart is normal in size. There is no pericardial or pleural effusion. There are severe changes of emphysema and mild pulmonary scarring. A calcified granuloma is present in the lingula. Lung window images demonstrate multiple small bilateral lower lobe nodules, all less than 5 mm in size, stable since the prior LDCT of 2021. Limited images of the upper abdomen are unremarkable. IMPRESSION: Lung-RADS category 1. Recommend 12 month follow up low dose chest CT. Reviewed, Interpreted and Dictated by Gerardo Loaiza III, MD Transcribed by Marivel Garcia Authenticated and [facility]
== END 2024-07-06 23:59 | disposition home or self-care (01) ==
PROVIDERS: PCP Nurse Practitioner Family; Visit Provider Internal Medicine Pulmonary Disease
DX: F17.210 Nicotine dependence, cigarettes, uncomplicated (principal); Z12.2 Encounter for screening for malignant neoplasm of respiratory organs
CPT/HCPCS: 71271

== ENCOUNTER 2024-09-10 09:40 | Outpatient (CLI) | payer MEDICARE, MEDICAID, SELFPAY ==
--- NOTE | 2024-09-10 09:47 | MR_ITS ---
FINAL REPORT CLINICAL HISTORY: Low Back Pain. history lumbar surgery. left leg pain, numbness and tingling COMPARISON: None FINDINGS: Multiplanar MR imaging of the lumbar spine was performed without contrast. On the sagittal T2-weighted images, disc degeneration is seen throughout. There is mild retrolisthesis of L2 on L3. Moderate endplate changes are noted at L2-3. There are postoperative changes from fusion of L4-5. There is no evidence of fracture. No bony mass is identified. The conus has an unremarkable appearance. T12-L1: There is no significant canal stenosis or neuroforaminal narrowing. L1-2: An annular bulge is present. Posterior midline annular tear. There is no significant canal stenosis or neural foraminal narrowing. L2-3: Annular disc bulge, facet arthropathy, and osteophytes. Left foraminal inferiorly extruded disc. Left L3 nerve root impingement. Mild right and severe left neuroforaminal narrowing. L3-4: Annular disc bulge, facet arthropathy, and osteophytes. Severe right and moderate left neuroforaminal narrowing L4-5: Fusion. Moderate bilateral neuroforaminal narrowing L5-S1: Annular disc bulge, facet arthropathy, and osteophytes. Small central disc protrusion. Severe bilateral neuroforaminal narrowing IMPRESSION: Multilevel degenerative disc disease and spondylosis as described. L2-3 extruded disc with nerve root impingement. Small central disc protrusion at L5-S1 with severe bilateral neuroforaminal narrowing. Reviewed, Interpreted and Dictated by Gerardo Loaiza III, MD Transcribed by Lorna Yoder Authenticated and [facility]
== END 2024-09-10 23:59 | disposition home or self-care (01) ==
LOC: RAD 09:41
PROVIDERS: PCP Nurse Practitioner Family; Visit Provider Nurse Practitioner Family
DX: M54.50 Low back pain, unspecified (principal); M54.9 Dorsalgia, unspecified; Z98.890 Other specified postprocedural states
CPT/HCPCS: 72148

== ENCOUNTER 2024-11-30 13:00 | Outpatient (RCR) | payer MEDICARE, MEDICAID, SELFPAY | END 2024-11-30 23:59 | disposition home or self-care (01) | LOC: PT 13:00 | PROVIDERS: PCP Nurse Practitioner Family; Visit Provider Neurological Surgery | DX: M54.16 Radiculopathy, lumbar region (principal) | CPT/HCPCS: 97110; 97163; 97530 ==

== ENCOUNTER 2024-12-07 14:04 | Outpatient (RCR) | payer MEDICARE, MEDICAID, SELFPAY | END 2024-12-07 23:59 | disposition home or self-care (01) | LOC: PT 14:04 | PROVIDERS: PCP Nurse Practitioner Family; Visit Provider Neurological Surgery | DX: M54.16 Radiculopathy, lumbar region (principal) | CPT/HCPCS: 97110 ==

== ENCOUNTER 2025-03-31 10:01 | Outpatient (CLI) | payer MEDICARE, MEDICAID, SELFPAY ==
--- NOTE | 2025-03-31 10:00 | US_ITS ---
FINAL REPORT TECHNIQUE: Ultrasound images of the testicles were obtained bilaterally. Color Doppler images were obtained. CLINICAL HISTORY: .bpf--lt test larger COMPARISON: None FINDINGS: On the right, there is a cluster of small cystic structures in the inferior testicle. In aggregate, this cystic structure measures up to 9 mm in greatest dimension. The testicle is otherwise unremarkable. Flow is seen. The epididymis is unremarkable. On the left, there is a cluster of cystic structures measuring up to 1.5 cm in diameter. In addition, there are multiple cystic structures in the inferior left testicle measuring up to 0.9 x 0.7 cm. Flow was seen. There is a large left hydrocele. IMPRESSION: Cluster of small cysts in both testicles. 1.5 cm left epididymal cyst probably due to spermatocele. Large left varicocele. Proper flow to both testes. Reviewed, Interpreted and Dictated by José Ashley MD Transcribed by Margarita Wilcox Authenticated and [facility]
[2025-03-31 10:13] LABS: Microscopic, Urine URINE MICROSCOPIC (MICROSCOPIC)
--- NOTE | 2025-03-31 10:30 | US_ITS ---
FINAL REPORT TECHNIQUE: Ultrasound images of the kidneys were obtained. CLINICAL HISTORY: BPH COMPARISON: None FINDINGS: RENAL ULTRASOUND The right kidney measures 9.9 cm in length. It is normal echogenicity. There is no hydronephrosis. The left kidney measures 9.8 cm in length. It is normal echogenicity. There is no hydronephrosis. There is a 1.1 cm anechoic focus in the spleen consistent with a splenic cyst. IMPRESSION: Normal renal ultrasound. Splenic cyst measuring 1.1 cm. Reviewed, Interpreted and Dictated by José Ashley MD Transcribed by Margarita Wilcox Authenticated and [facility]
[2025-03-31 10:43] LABS: Appearance,Urine CLEAR (Clear); Bilirubin,Urine Negative (Negative); Blood, Urine Negative (Negative); Color,Urine YELLOW (Yellow); Glucose,Urine (UA) Negative (Negative); Ketones,Urine Negative (Negative); Leukocyte Esterase,Urine Negative (Negative); Nitrate,Urine Negative (Negative); PH,Urine 6.5 (5.0-8.5); Protein,Urine Negative (Negative); Specific Gravity, Urine 1.025 (1.005-1.030); Urobilinogen,Urine >=8.0 EU/dl (0.2)
[2025-03-31 10:52] LABS: Bacteria,Urine Trace /lpf; Squamous Epithelial Cell,Urine Occasional #/hpf (0-5); WBC,Urine Occasional #/hpf (0-3)
--- NOTE | 2025-03-31 11:00 | US_ITS ---
FINAL REPORT CLINICAL HISTORY: BPH, slow urination COMPARISON: None FINDINGS: ULTRASOUND BLADDER WITH POST VOID RESIDUAL Bladder volumes were estimated based on 3 dimensional measurements, pre- and postvoid. Prevoid bladder volume: 189 mls Postvoid bladder volume: 97 mls Bilateral jets are visualized. IMPRESSION: Estimated bladder volumes as above with moderate postvoid residual . Reviewed, Interpreted and Dictated by José Ashley MD Transcribed by Lorna Yoder Authenticated and [facility]
[2025-03-31 11:03] LABS: Blood Urea Nitrogen 14 mg/dl (9-20); Estimated Glomerular Filt Rate 74 ml/min (>60); GFR (African American) 89 ML/MIN (>60)
[2025-04-01 12:12] LABS: PSA, Free 0.51 ng/mL; Prostate Specific Ag 3.3 ng/mL (0.0-4.0)
== END 2025-03-31 23:59 | disposition home or self-care (01) ==
PROVIDERS: PCP Nurse Practitioner Family; Visit Provider Urology
DX: Z12.5 Encounter for screening for malignant neoplasm of prostate (principal); N40.1 Benign prostatic hyperplasia with lower urinary tract symptoms; N43.3 Hydrocele, unspecified
CPT/HCPCS: 36415; 76770; 76857; 76870; 81001; 82565; 84153; 84154; 84520

== ENCOUNTER → 2025-05-20 08:25 | Day surgery (SDC) | payer MEDICARE, MEDICAID, SELFPAY ==
[2025-05-18 09:38] VITALS: BMI 17.0
[2025-05-20 08:31] VITALS: BP 116/61; PULSE 79; RESP 18; TEMP 36.2; O2SAT 95
--- NOTE | 2025-05-20 08:50 | HMH.PROCNOTE ---
[facility] Procedure Note Date: 05/20/25 Time: 08:51 Procedure Note:: Chart review: The patient comes for cystoscopy. He has been having significant urinary hesitation even though he is on Flomax and Proscar. He is here to evaluate for possible need of prostate surgery. His PSA is 3.3 on 04/24. His renal ultrasound was negative on 02/22. His scrotal ultrasound shows a left varicocele and a spermatocele. He has a cystic area and I am going to follow that with a follow-up scrotal ultrasound on 08/25. His postvoid residual on 04/24 was 97 cc. The patient says over the past week however he has been voiding better on prescribed medications. Pre-Op diagnosis: Bladder outlet obstruction Postop diagnosis: Bladder outlet obstruction Operative note: Patient was brought to the cystoscopy suite he was prepped and draped in the usual fashion. He underwent anesthesia with 2% Xylocaine jelly. The anterior urethra is unremarkable. From the level of the verumontanum patient has by lobar grade 2 prostate obstruction. His posterior urethra is short about a centimeter to a centimeter and a half. The bladder itself is fairly smooth throughout. There is no evidence of bladder stone tumor hemorrhage or infection. The ureteral orifice ease are normal bilaterally with clear E flux of urine. If the patient's voiding dysfunction continues to be refractory to oral medication he would be a candidate for UroLift or laser prostate surgery.
[2025-05-20] MEDS: 0.9 % SODIUM CHLORIDE 500 ML 25 ML IV (08:55)
[2025-05-20] MEDS: LIDOCAINE 2% UROJET 10ML 10 ML (08:55)
[2025-05-20 09:05] VITALS: BP 112/69; PULSE 70; RESP 16; TEMP 36.5; O2SAT 94
== END | disposition home or self-care (01) ==
PROVIDERS: PCP Nurse Practitioner Family; Visit Provider Urology
PROC: 0TJB8ZZ Inspection of Bladder, Via Natural or Artificial Opening Endoscopic (ICD-10-PCS; CPT 52000; principal; 2025-05-20 09:00)
DX: N32.0 Bladder-neck obstruction (principal); I25.119 Atherosclerotic heart disease of native coronary artery with unspecified angina pectoris; J44.9 Chronic obstructive pulmonary disease, unspecified; R91.8 Other nonspecific abnormal finding of lung field; Z95.5 Presence of coronary angioplasty implant and graft; F17.210 Nicotine dependence, cigarettes, uncomplicated; Z88.5 Allergy status to narcotic agent; Z79.82 Long term (current) use of aspirin; Z79.51 Long term (current) use of inhaled steroids; Z79.899 Other long term (current) drug therapy
CPT/HCPCS: 52000; J7040

== ENCOUNTER 2025-06-20 08:22 | Emergency (ER) | payer MEDICARE, MEDICAID, SELFPAY ==
[2025-06-20] VITALS (7 sets, daily range): BP systolic 119–153; BP diastolic 66–83; PULSE 62–82; RESP 16–26; TEMP 36.5–36.7; O2SAT 92–98; BMI 17.0
--- NOTE | 2025-06-20 08:24 | XR_ITS ---
FINAL REPORT TECHNIQUE: Single view chest CLINICAL HISTORY: SOB COMPARISON: 07/19/2020 FINDINGS: A single view of the chest was obtained. The heart and mediastinum are within normal limits. The lungs are clear. There is no pneumothorax. IMPRESSION: No acute cardiopulmonary process. Reviewed, Interpreted and Dictated by Aliza Melo MD Transcribed by Mela Tavares Authenticated and . [facility]
--- NOTE | 2025-06-20 08:25 | HMH.EDGENADL ---
Discharge Plan Disposition Patient Disposition: Home, Self-Care Prescriptions Prescriptions: New azithromycin 250 mg tablet 250 mg PO DAILY 4 Days Qty: 4 0RF Rx Instructions: start on day 2 of therapy No Action rosuvastatin 40 mg tablet 40 mg PO DAILY Patient Comments: TAKE 1 TABLET BY MOUTH DAILY doxepin 150 mg capsule 150 mg PO HS Qty: 30 1RF Vraylar 1.5 mg capsule 1.5 mg PO DAILY Qty: 30 1RF tamsulosin [Flomax] 0.4 mg capsule 0.4 mg PO DAILY 90 Days Qty: 90 1RF Rx Instructions: Take 1/2-hour after same meal daily finasteride [Proscar] 5 mg tablet 5 mg PO DAILY 90 Days Qty: 90 1RF ipratropium-albuterol 0.5 mg-3 mg(2.5 mg base)/3 mL solution for nebulization 3 ml INHALATION Q6H PRN (Reason: shortness of breath or wheezing) Qty: 180 6RF Breztri Aerosphere 160-9-4.8 mcg/actuation HFA aerosol inhaler 2 inh INHALATION BID 90 Days Qty: 10.7 3RF prednisone 20 mg tablet 20 mg PO BID 5 Days Qty: 10 0RF naproxen 500 mg tablet 500 mg PO BID Qty: 30 0RF Combivent Respimat 20-100 mcg/actuation mist 1 puff IH Q6H PRN (Reason: SOB and Wheezing) 90 Days Qty: 4 3RF Referrals Follow up/Referrals: Provider,Referral, MD [Referring, Medical] - See instructions Activity Restrictions/Add. Instructions Additional Instructions/Restrictions: Use your inhaler at home if you feel that your breathing is worsening. Return to the emergency department if you get concerned for your health for any reason. You are being prescribed a course of antibiotics, azithromycin for your COPD exacerbation. Take this for 4 days as prescribed. Follow-up with your primary care physician this week for follow-up. Clinical Impressions Clinical Impression: COPD exacerbation Print Language Print Language: Finnish Discharge ED Provider: Chava Torres Adult HPI General Chief complaint: Shortness of Breath/Dyspnea Stated complaint: SOA Time Seen by Provider: 06/20/25 08:22 Mode of Arrival: EMS Source of Information: Patient and EMS Limitations: No Limitations History of Present Illness HPI narrative: Shalom Arias is a 70M with a history of COPD, coronary artery disease, tobacco use who presents to the emergency department via EMS for shortness of breath with concern for COPD exacerbation. Patient states that he woke up this morning significantly short of breath with a productive cough of yellow sputum. When EMS arrived, they state that he was having difficulty breathing with oxygen saturation at 93% SpO2. He was put on nonrebreather at 8 L/min and given 2 DuoNeb treatments and 125 mg of IV Solu-Medrol and route. Patient reports some improvement but does feel that he is having difficulty breathing still. He denies any chest pain. He does report a productive cough of yellow sputum since this morning. Patient states that he is continue to use tobacco. He denies any recent illnesses or fevers. Related Data Home Medications ?Medication ?Instructions ?Recorded ?Confirmed rosuvastatin 40 mg tablet 40 mg PO DAILY 04/28/24 05/20/25 Previous Rx's ?Medication ?Instructions ?Recorded ipratropium 0.5 mg-albuterol 3 mg 3 ml inhalation Q6H PRN shortness 01/10/23 (2.5 mg base)/3 mL nebulization of breath or wheezing #180 mL soln budesonide 160 mcg-glycopyr 9 2 inh inhalation BID 90 days #10.7 05/06/24 mcg-formot 4.8 mcg/actuation HFA grams inhaler (Breztri Aerosphere) cariprazine 1.5 mg capsule 1.5 mg PO DAILY #30 caps 01/12/25 (Vraylar) doxepin 150 mg capsule 150 mg PO HS #30 caps 01/12/25 finasteride 5 mg tablet (Proscar) 5 mg PO DAILY 90 days #90 tabs 04/18/25 tamsulosin 0.4 mg capsule (Flomax) 0.4 mg PO DAILY 90 days #90 caps 04/18/25 ipratropium 20 mcg-albuterol 100 1 puff inhalation Q6H PRN SOB and 05/09/25 mcg/actuation mist for inhalation Wheezing 90 days #4 grams (Combivent Respimat) naproxen 500 mg tablet 500 mg PO BID #30 tabs 05/10/25 prednisone 20 mg tablet 20 mg PO BID 5 days #10 tabs 05/10/25 azithromycin 250 mg tablet 250 mg PO DAILY 4 days #4 tabs 06/20/25 Allergies Allergy/AdvReac Type Severity Reaction Status Date / Time codeine (CODEINE) Allergy Unknown I-HIVES Verified 06/20/25 08:50 [facility] Disclaimer: The information contained in this section may have been updated after the patient was seen, as this information can be updated by other users. Medical History Screening for abdominal aortic aneurysm Diarrhea Bloating Upper abdominal pain Abnormal cardiovascular stress test Angina pectoris Abnormal stress test CAD (coronary artery disease) Screening for lung cancer COPD (chronic obstructive pulmonary disease) Tobacco abuse counseling Tobacco abuse Tracheobronchomalacia Smoking greater than 30 pack years COPD mixed type Dyspnea on exertion Insomnia Generalized anxiety disorder Perianal abscess COPD (chronic obstructive pulmonary disease) Lumbar radiculopathy, chronic Lumbar disc herniation with radiculopathy Chronic pain Anxiety and depression Depression Surgical History History of back surgery History of heart artery stent Family History Other COPD (chronic obstructive pulmonary disease) Hypertension Social History (Updated 05/20/25 @ 08:42 by Radha Kothari RN) Smoking Status: Current every day smoker tobacco type: cigarettes packs per day: 1 second hand exposure: Yes alcohol intake: never substance use type: marijuana current occupational status: retired Travel in the last 8 weeks?: None household members: other housing: house number of children: 3 current occupational exposures/hazards: No caffeine: Yes Have you lived/traveled outside [place] in past 30 days?: No Contact w/someone who lives/traveled outside US past 30 days?: No Exposure to someone with infectious disease in past 14 days?: No Do you have a fever (greater than 100.4 F or 38 C)?: No Have you tested positive for COVID-19?: No Exposed to someone with COVID-19 in past 14 days?: No Do you have a sore throat?: No Do you have a cough?: No Do you have any weakness?: No Do you have any diarrhea?: No Are you experiencing any unusual bleeding?: No Do you have any muscle aches/pain?: No Do you have any abdominal pain?: No Are you experiencing loss of taste or smell?: No Other Medical History Have you received the Flu Vaccine for this season: No Have you received the Pneumonia Vaccine: No ROS Obtained: Yes Systems reviewed as appropriate & no additional complaints except as documented Physical Exam General General appearance: alert Comment: Appears to be in respiratory distress with increased work of breathing Head Head exam: atraumatic Eye Eye exam: Present normal appearance ENT ENT exam: Present normal external ear exam Neck Neck exam: Present full ROM Chest Chest inspection: Present symmetric chest wall rise Respiratory Respiratory exam: Present normal lung sounds bilaterally, respiratory distress, wheezes and other (Rhonchi present bilaterally) Cardiovascular Cardiovascular exam: Present regular rate and normal rhythm Abdominal Exam Abdominal exam: Present soft; Absent tenderness or guarding exam: Present deferred Extremities Exam Extremities exam: Present normal inspection Back Exam Back exam: Present normal inspection Neurological Exam Neurological exam: Present alert and oriented X3 Psychiatric Psychiatric exam: Present normal affect Skin Skin exam: Present warm and dry Medical Decision Making Medical Records Screening: Per USPSTF and CDC recommendations, given the prevalence of disease in our region, it is our hospital?s policy to screen for HIV and viral Hepatitis for all patients aged 18 and over and those with ongoing risk factors. Jose Inquiry Pt receiving controlled substance: No Vital Signs: 06/20/25 08:24 06/20/25 08:30 06/20/25 09:03 Temperature 97.7 F Temperature Source Oral Pulse Rate 62 77 Pulse Rate [Right] 70 Respiratory Rate 26 H Blood Pressure 148/82 H 153/83 H Blood Pressure [Right Arm] 148/79 H Blood Pressure Mean Blood Pressure Mean [Right Arm] 102 02 Sat by Pulse Oximetry 97 94 L 97 Oxygen Delivery Method Room Air 06/20/25 09:31 06/20/25 10:00 06/20/25 10:30 Temperature Temperature Source Pulse Rate 82 81 80 Pulse Rate [Right] Respiratory Rate 18 18 18 Blood Pressure 130/66 129/78 119/67 Blood Pressure [Right Arm] Blood Pressure Mean 87 95 84 Blood Pressure Mean [Right Arm] 02 Sat by Pulse Oximetry 98 96 95 Oxygen Delivery Method Lab Data Lab Results 06/20/25 08:23: WBC 6.8, RBC 4.82, Hgb 13.8 L, Hct 42.8, MCV 88.8, MCH 28.6, MCHC 32.2, RDW 14.6, Plt Count 245, MPV 10.1, Neut % (Auto) 45.1, Lymph % (Auto) 36.6, [place] % (Auto) 11.0 H, Eos % (Auto) 6.5, Baso % (Auto) 0.7, Neut # (Auto) 3.0, Lymph # (Auto) 2.5, [place] # (Auto) 0.7, Eos # (Auto) 0.4, Baso # (Auto) 0.1, Sodium 138, Potassium 4.0, Chloride 105, Carbon Dioxide 28, Anion Gap 9.0, BUN 14, Creatinine 0.90, Estimated Creat Clear 49, Estimated GFR 83, Est GFR ( Amer) 101, Glucose 114 H, Calcium 9.4, Total Bilirubin 0.6, AST 27, ALT 18, Alkaline Phosphatase 83, Troponin I < 0.01, NT-Pro-B Natriuret Pep 20.2, Total Protein 6.6, Albumin 4.1, Globulin 2.5, Albumin/Globulin Ratio 1.6 06/20/25 08:29: VBG pH 7.36, VBG pCO2 43.6, VBG pO2 61.1 H, VBG HCO3 24.2, VBG Total CO2 25.5, VBG O2 Saturation 91.0 H, VBG Base Excess -1.2, VBG Lactic Acid 1.1 06/20/25 10:17: Troponin I < 0.01 06/20/25 08:23 06/20/25 08:23 Orders (Tests/Meds): ED MEDICATIONS Generic Name Dose Route Start Last Admin Trade Name Freq PRN Reason Stop Dose Admin Azithromycin 500 mg/ Sodium 250 mls @ 250 mls/hr 06/20/25 08:30 06/20/25 08:58 Chloride IV 06/30/25 08:29 250 mls/hr Q24H COLLEEN Administration Discontinued Medications Generic Name Dose Route Start Last Admin Trade Name Freq PRN Reason Stop Dose Admin Albuterol/Ipratropium 9 ml 06/20/25 08:22 06/20/25 08:39 Ipratropium/Albuterol 3 Ml Neb IH 06/20/25 08:23 9 ml ONCE ONE Administration Magnesium Sulfate 2 gm in 50 mls @ 50 mls/hr 06/20/25 08:22 06/20/25 08:39 Magnesium Sulfate 2gm/50ml Premix IV 06/20/25 09:21 50 mls/hr ONCE ONE Administration ORDERS Category Date Time Status CXR --portable [XR chest portable] Stat Exams 06/20/25 08:24 Completed BNP [NT Pro Brain Natriuretic Pep.] Stat Lab 06/20/25 08:23 Completed CBC w/Auto Diff [Complete Blood Count Auto Diff] Stat Lab 06/20/25 08:23 Completed CMP [Comprehensive Metabolic Panel] Stat Lab 06/20/25 08:23 Completed HIV Combo Stat Lab 06/20/25 08:23 Received Hepatitis C Ab Qual. W/ RFX Stat Lab 06/20/25 08:23 Received Troponin I Q3H Lab 06/20/25 10:17 Completed Troponin I Q3H Lab 06/20/25 14:30 Ordered Troponin I Stat Lab 06/20/25 08:23 Completed VBG [Venous Blood Gas] Stat RT 06/20/25 08:29 Completed ECG Data Tracing #1: I reviewed this ECG and interpreted as documented below: Normal sinus rhythm with ventricular rate of [address] elevation or depression. No inverted T waves. QTc normal at 419 Medical Decision Narrative: Shalom Arias is a 70M with a history of COPD, coronary artery disease, tobacco use who presents to the emergency department via EMS for shortness of breath with concern for COPD exacerbation. Patient states that he woke up this morning significantly short of breath with a productive cough of yellow sputum. When EMS arrived, they state that he was having difficulty breathing with oxygen saturation at 93% SpO2. He was put on nonrebreather at 8 L/min and given 2 DuoNeb treatments and 125 mg of IV Solu-Medrol and route. Patient reports some improvement but does feel that he is having difficulty breathing still. He denies any chest pain. He does report a productive cough of yellow sputum since this morning. Patient states that he is continue to use tobacco. He denies any recent illnesses or fevers. On arrival, patient is at 96% SpO2 on nonrebreather with DuoNeb treatment finishing. Heart rate 63 bpm. Initial blood pressure 148/79. Afebrile. Physical exam, as stated above, revealed an ill appearing male in respiratory distress. He is speaking in shortened sentences. He has wheezing and rhonchi present bilaterally. He does not appear to have any significant peripheral edema. The remainder of his physical exam is grossly unremarkable. Differential diagnosis includes, but is not limited to: COPD exacerbation, pneumonia, CHF, ACS, pneumothorax, pericarditis, among others. The most morbid conditions were considered and workup was based on these. Workup in the emergency department included: Continuous DuoNeb treatment, 2 g IV magnesium sulfate, patient already received 125 mg of IV Solu-Medrol prior to arrival. CBC, CMP, VBG with lactate, troponin, BNP, EKG, chest x-ray Chest x-ray interpreted by me personally. No focal consolidations, no widening of the mediastinum, no appreciable pleural effusions, grossly unremarkable chest x-ray. There is evidence of hyperexpanded lungs. Workup showed unremarkable VBG, no leukocytosis, hemoglobin is stable, CMP unremarkable nonactionable, troponin negative at 0.01 x 2, BNP normal at 20.2. On reassessment, patient was sleeping comfortably and reports significant improvement in his breathing. He is no longer in respiratory distress. He is no longer wheezing. Given his negative workup today, is felt that he had a COPD exacerbation and is appropriate for discharge at this time given symptomatic improvement and he is having appropriate oxygen saturations on room air. Will discharge him on a course of azithromycin for his increased productive cough in the setting of a COPD exacerbation. Encouraged him to follow with his primary care physicians. Return precautions were provided. He demonstrated understanding and was in agreement this plan. He was then discharged from the emergency department in stable condition Critical Care Critical Care Time Critical Care Time: Yes Attestation: On 06/20/25, the high probability of a clinically significant, sudden or life threatening deterioration of the following system(s) required my full and direct attention, intervention and personal management. The time I documented below is in addition to time spent performing reported procedures but includes the following listed in this critical care notation. Total Time Total Critical Care Time: 35
[2025-06-20 08:29] LABS: Lactate Venous 1.1 mmol/L (0.4-2.0); VBG HCO3 24.2 mmol/L (23-30); VBG PCO2 43.6 mmol/L (35-51); VBG PH 7.36 mmol/L (7.31-7.41); VBG PO2 61.1 mmol/L (28-40)
--- NOTE | 2025-06-20 08:31 | ECG_ITS ---
APPROVED REPORT Exam: Resting ECG HR:62 bpm ECG Measurements Heart Rate 62 AXES LA 118 P 57 QRSd 81 QRS 61 QT 413 T 88 QTc 419 Conclusion SINUS RHYTHM WITH SHORT LA INTERVAL NONSPECIFIC T-WAVE ABNORMALITY BORDERLINE ECG UNCONFIRMED REPORT Normal sinus rhythm. No ST elevation or depression. Electronically signed by : FRANKIE CRUZ, 06/21/2025 07:31:52
[2025-06-20 08:35] LABS: Hematocrit 42.8 % (42.0-52.0); Hemoglobin 13.8 g/dL (14.1-18.0); Mean Corpuscular HGB Conc 32.2 g/dL (31.8-35.4); Mean Corpuscular Hemoglobin 28.6 pg (27.0-31.2); Mean Corpuscular Volume 88.8 fl (80-94); Red Blood Count 4.82 M/mm3 (4.60-6.20); Red Cell Distribution Width-SD 47.8 fL; White Blood Count 6.8 K/mm3 (4.8-10.8)
[2025-06-20 08:36] LABS: Immature Granulocytes % 0.1 %; Nucleated Red Blood Cells % 0 %; Platelet Count 245 K/mm3 (142-424)
[2025-06-20] MEDS: IPRATROPIUM/ALBUTEROL 3 ML NEB 9 ML IH (08:39)
[2025-06-20] MEDS: MAGNESIUM SULFATE IN WATER 2 GM/50 ML PIGGYBACK IV (08:39)
--- NOTE | 2025-06-20 08:44 | PC.NURSE ---
XR AT BEDSIDE
--- NOTE | 2025-06-20 08:45 | PC.NURSE ---
DR CRUZ AT BEDSIDE
[2025-06-20] MEDS: AZITHROMYCIN 500 MG in 0.9 % SODIUM CHLORIDE 250 ML 250 MG IV (08:58)
--- OUTSIDE RECORDS SUMMARY | 2025-06-20 09:07 | XMS_ITS | Clinical Summary ---
Author Organization [facility] Address [address] [place] [address] Care Team Providers Care Shoemaker Custom Name Role Phone Jr Alexander Monroy APRN Primary Care Prov ider Allergies Active Allergy Reactions Criticality Noted Date Comments Codeine Itching,Hives 04/21/2013 Medications COMBIVENT RESPIMAT 20-100 MCG/ACT inhaler 8 Active doxepin (SINEquan) 75 MG capsule Take 1 capsule by mouth every night at bedtime. 4 Active naproxen (NAPROSYN) 500 MG tablet Take 1 tablet by mouth 2 (Two) Times a Day With Meals. 4 Active tamsulosin (FLOMAX) 0.4 MG capsule 24 hr capsule 4 Active gabapentin (NEURONTIN) 300 MG capsuleIndication s:Lumbar radiculopathy Take 1 capsule by mouth 3 (Three) Times a Day. 1 nightly for 3 days, 1 twice a day for 3 days, 1 three times a day thereafter 90 capsule 2 4 Active Active Problems Problem Noted Date Diagnosed Date Memory loss 03/06/2018 Family History Medical History Relation Name Comments Diabetes Father Alzheimer's disease Mother Dementia Mother Heart disease Mother Relation Name Status Comments Father Mother Social History Tobacco Use Types Packs/Day Years Used Date Smoking Tobacco: Every Day Cigarettes Tobacco Cessation:Ready to Q uit: Not Asked; Counseling Given: Not Answered Alcohol Use Standard Drinks/Week Comments No 0 (1 standard drink = 0.6 oz pur e alcohol) Sex and Gender Information Value Date Recorded Sex Assigned at Not on file Legal Sex Male 10:23 AM EDT Gender Identity Not on file Sexual Orientation Not on file Last Filed Vital Signs Vital Sign Reading Time Taken Comments Blood Pressure 115/76 03/06/2018 2:57 PM EDT Pulse - - Temperature 36.4 C (97.5 F) 11/12/2024 2:49 PM EST Respiratory Rate - - Oxygen Saturation - - Inhaled Oxygen Concentration - - Weight 56.5 kg (124 lb 8 oz) 11/12/2024 2:49 PM EST Height 170.2 cm (5' 7 ) 11/12/2024 2:49 PM EST Body Mass Index 19.5 11/12/2024 2:49 PM EST Plan of Treatment Health Maintenance Due Date Last Done Comments COLOGUARD 2000 COLON CANCER SCREENING 5 YEA R SIGMOIDOSCOPY 2000 COLONOSCOPY 2000 COL[address] CANCER SCREENING 2000 CT COLONOGRAPHY 2000 FECAL OCCULT BLOOD TEST 2000 FIT Testing (1 year) 2000 ZOSTER VACCINE (1 of 2) 2005 ANNUAL WELLNESS VISIT 03/06/2018 HEPATITIS C SCREENING 03/06/2018 AAA SCREEN ONCE 2020 COVID-19 Vaccine ( season) 08/01/202408/2021, 05/02/2021 INFLUENZA VACCINE 08/31/2025 08/02/2017, , 09/02/2011 TDAP/TD VACCINES (2 - Td or Tdap) 08/02/2027 017 Pneumococcal Vaccine 50+ Completed 03/13/2022 Insurance [employer] MEDICARE ADVANTAGE MEDICAID [place] Care Teams Shoemaker Custom Relationship Specialty Start Date End Date Jr Alexander Monroy APRN [address] [place] [id number] PCP - General Nurse Practitioner 10/25/24
[2025-06-20 09:44] LABS: Alanine Aminotransferase 18 U/L (12-78); Albumin Level 4.1 g/dl (3.5-5.0); Albumin/Globulin Ratio 1.6 (1.1-1.8); Alkaline Phosphatase 83 U/L (38-126); Anion Gap 9.0 mEq/L (5-15); Aspartate Amino Transferase 27 U/L (17-59); Bilirubin,Total 0.6 mg/dl (0.2-1.3); Blood Urea Nitrogen 14 mg/dl (9-20); Calcium 9.4 mg/dl (8.4-10.2); Carbon Dioxide 28 mmol/L (22.0-30.0); Chloride 105 mmol/L (98-107); Creatinine Clearance Estimated 49 mL/min (50-200); Creatinine,Serum 0.90 mg/dl (0.66-1.25); Estimated Glomerular Filt Rate 83 ml/min (>60); GFR (African American) 101 ML/MIN (>60); Globulin 2.5 g/dL (1.3-3.2); Glucose 114 mg/dl (74-100); NT Pro Brain Natriuretic Pep. 20.2 pg/mL (0-125); Potassium 4.0 mmoL/L (3.5-5.1); Sodium 138 mmol/L (136-145); Total Protein,Serum 6.6 g/dl (6.3-8.2)
[2025-06-20 09:46] LABS: Troponin I < 0.01 ng/ml (0.00-0.034)
--- NOTE | 2025-06-20 10:19 | PC.NURSE ---
notified lab of [address] [place] [address] sent
[2025-06-20 10:45] LABS: Troponin I < 0.01 ng/ml (0.00-0.034)
[2025-06-20 11:10] LABS: Hepatitis C Ab Qual. W/ RFX NEGATIVE (Negative)
== END 2025-06-20 11:34 | disposition home or self-care (01) ==
PROVIDERS: Emergency Provider Student in an Organized Health Care Education/Training Program; PCP Nurse Practitioner Family
DX: J44.1 Chronic obstructive pulmonary disease with (acute) exacerbation (principal); I25.10 Atherosclerotic heart disease of native coronary artery without angina pectoris; G47.00 Insomnia, unspecified; F41.1 Generalized anxiety disorder; E78.5 Hyperlipidemia, unspecified
CPT/HCPCS: 71045; 80053; 82803; 83880; 84484; 85025; 86803; 87389; 93005; 96374; 96375; 99291; J0456; J3475; J7050

== ENCOUNTER 2025-06-27 11:13 | Observation (INO) | payer MEDICARE, MEDICAID, SELFPAY ==
[2025-06-27] VITALS (15 sets, daily range): BP systolic 128–159; BP diastolic 76–99; PULSE 72–100; RESP 15–35; TEMP 36.4–36.7; O2SAT 87–100; BMI 18.2
--- NOTE | 2025-06-27 11:15 | PC.NURSE ---
DR STANFORD AT BEDSIDE
--- NOTE | 2025-06-27 11:17 | ECG_ITS ---
APPROVED REPORT Exam: Resting ECG HR:93 bpm ECG Measurements Heart Rate 93 AXES TX 117 P 77 QRSd 85 QRS 67 QT 369 T 73 QTc 420 Conclusion SINUS RHYTHM WITH SINUS ARRHYTHMIA WITH SHORT TX INTERVAL NONSPECIFIC ST & T-WAVE ABNORMALITY Electronically signed by : CAITLIN STANFORD, 06/27/2025 14:39:09
--- NOTE | 2025-06-27 11:19 | XR_ITS ---
FINAL REPORT CLINICAL HISTORY: SOA, resp failure COMPARISON: 06/20/2025 FINDINGS: A single PA view of the chest was obtained. There is no prior exam for comparison. The cardiac and mediastinal silhouettes are within normal limits. Changes of emphysema are present. There is no effusion or pneumothorax. IMPRESSION: No radiographic evidence of acute cardiac or pulmonary disease on this single view of the chest. Changes of emphysema are present. Reviewed, Interpreted and Dictated by Marianne Garcia MD Transcribed by Marivel Garcia Authenticated and [facility]
--- NOTE | 2025-06-27 11:24 | PC.NURSE ---
XR AT BEDSIDE
[2025-06-27 11:30] LABS: Hematocrit 43.0 % (42.0-52.0); Hemoglobin 14.0 g/dL (14.1-18.0); Immature Granulocytes % 0.2 %; Mean Corpuscular HGB Conc 32.6 g/dL (31.8-35.4); Mean Corpuscular Hemoglobin 29.0 pg (27.0-31.2); Mean Corpuscular Volume 89.2 fl (80-94); Nucleated Red Blood Cells % 0 %; Platelet Count 261 K/mm3 (142-424); Red Blood Count 4.82 M/mm3 (4.60-6.20); Red Cell Distribution Width-SD 45.8 fL; White Blood Count 8.4 K/mm3 (4.8-10.8)
[2025-06-27 11:31] LABS: VBG HCO3 24.0 mmol/L (23-30); VBG PCO2 48.0 mmol/L (35-51); VBG PH 7.32 mmol/L (7.31-7.41); VBG PO2 41.1 mmol/L (28-40)
[2025-06-27] MEDS: IPRATROPIUM/ALBUTEROL 3 ML NEB 9 ML IH (11:31)
[2025-06-27 11:32] LABS: Lactate Venous 0.8 mmol/L (0.4-2.0)
--- OUTSIDE RECORDS SUMMARY | 2025-06-27 11:34 | XMS_ITS | Clinical Summary ---
Author Organization [facility] Address [address] [place] [address] Care Team Providers Care Auto Claims Adjuster Name Role Phone Jr Alexander Mnoroy APRN Primary Care Prov ider Allergies Active [...] Completed 03/13/2022 Insurance [employer] MEDICARE ADVANTAGE MEDICAID [place] Care Teams Auto Claims Adjuster Relationship Specialty Start Date End Date Jr Alexander Monroy APRN [address] [place] [id number] PCP - General Nurse Practitioner 10/25/24
--- OUTSIDE RECORDS SUMMARY | 2025-06-27 11:34 | XMS_ITS ---
Author Organization Unknown TREATMENT PLAN Planned [facility] Start Date Provider Encounter for Check-up [phone] [facility]
[2025-06-27 11:39] LABS: Alanine Aminotransferase 25 U/L (12-78); Albumin Level 4.1 g/dl (3.5-5.0); Albumin/Globulin Ratio 1.8 (1.1-1.8); Alkaline Phosphatase 81 U/L (38-126); Anion Gap 10.0 mEq/L (5-15); Aspartate Amino Transferase 40 U/L (17-59); Bilirubin,Total 0.4 mg/dl (0.2-1.3); Blood Urea Nitrogen 20 mg/dl (9-20); Calcium 9.0 mg/dl (8.4-10.2); Carbon Dioxide 29 mmol/L (22.0-30.0); Chloride 103 mmol/L (98-107); Creatinine,Serum 0.90 mg/dl (0.66-1.25); Estimated Glomerular Filt Rate 83 ml/min (>60); GFR (African American) 101 ML/MIN (>60); Globulin 2.3 g/dL (1.3-3.2); Glucose 125 mg/dl (74-100); Magnesium 1.9 mg/dl (1.6-2.3); Potassium 4.0 mmoL/L (3.5-5.1); Sodium 138 mmol/L (136-145); Total Protein,Serum 6.4 g/dl (6.3-8.2)
[2025-06-27 11:43] LABS: Activated Partial Thrombo Time 23.2 seconds (22.8-30.6); INR 0.96 (0.9-1.1); Prothrombin Time 10.7 seconds (10.1-12.5)
[2025-06-27 11:44] LABS: Coronavirus 19, PCR Not Detected (NotDetected); Influenza A, PCR Not Detected (NotDetected); Influenza B, PCR Not Detected (NotDetected)
[2025-06-27 11:45] LABS: C-Reactive Protein 1.3 mg/L (0-4)
[2025-06-27 11:52] LABS: NT Pro Brain Natriuretic Pep. 21.8 pg/mL (0-125)
[2025-06-27 11:54] LABS: D-Dimer 0.77 ug/mL (0.0-0.5)
[2025-06-27] MEDS: METHYLPREDNISOLONE SOD SUCC 125MG VIAL 125 MG IV (11:56)
[2025-06-27] MEDS: LACTATED RINGERS 1000ML 1,000 ML 999 ML IV ×2 (11:56→14:29)
[2025-06-27] MEDS: MAGNESIUM SULFATE IN WATER 2 GM/50 ML PIGGYBACK IV (11:56)
[2025-06-27 11:58] LABS: Troponin I < 0.01 ng/ml (0.00-0.034)
[2025-06-27 11:59] LABS: Procalcitonin 0.036 ng/mL (0.0-2.0)
[2025-06-27 12:00] LABS: T4 (Thyroxine) 8.3 ug/dl (5.53-11.0)
--- NOTE | 2025-06-27 12:13 | CT_ITS ---
FINAL REPORT TECHNIQUE: Axial imaging of the chest is obtained after the administration of contrast. 3-D MIP reformatted images were also obtained and reviewed per PE protocol. This study was performed with techniques to keep radiation doses as low as reasonably achievable (ALARA). Individualized dose reduction techniques using automated exposure control or adjustment of mA and/or kV according to the patient's size were employed. CLINICAL HISTORY: SOA, resp failure, elevated dimer COMPARISON: None FINDINGS: The pulmonary arteries are well filled. There is no evidence of pulmonary embolus. There is no aortic dissection. Heart size is normal. There is no mediastinal, hilar, or axillary lymphadenopathy. Changes of emphysema are present. There is bronchial wall thickening in the lower lobes bilaterally, as well as a subtle reticulonodular opacity in the right lower lobe that may represent bronchitis, and possibly bronchopneumonia as well. There is no pleural or pericardial effusion. The trachea is enlarged, measuring 3 cm in the axial plane, the measurement obtained 2 cm above the aortic arch. The appearance is consistent with tracheomegaly. Limited evaluation of the upper abdomen is without acute abnormality. No acute osseous abnormality. IMPRESSION: No evidence of pulmonary embolism or aortic dissection. Bronchial wall thickening is present in the lower lobes bilaterally, with a subtle reticulonodular opacity in the right lower lobe that may represent bronchitis, and possible associated bronchopneumonia. Changes of tracheomegaly as described above. Reviewed, Interpreted and Dictated by Marianne Garcia MD Transcribed by Marivel Garcia Authenticated and [facility]
[2025-06-27 12:14] LABS: Thyroid Stimulating Hormone 1.93 uIU/mL (0.465-4.68)
--- NOTE | 2025-06-27 12:20 | PC.NURSE ---
PT PLACED ON 15L/ NRB MASK FOR TRANSPORT TO CT
[2025-06-27] MEDS: VANCOMYCIN HCL 1,000 MG in 0.9 % SODIUM CHLORIDE 250 ML 125 MG IV (12:24)
[2025-06-27] MEDS: SODIUM CHLORIDE 0.9% 10ML SYR (RAD ONLY) 10 ML IV (12:32)
[2025-06-27] MEDS: IOPAMIDOL-370 (76%);100ML BOTTLE 80 ML IV (12:32)
[2025-06-27] MEDS: 0.9 % SODIUM CHLORIDE 50 ML VIAL IV (12:32)
--- NOTE | 2025-06-27 12:34 | ED_ITS ---
Discharge Plan Disposition Patient Disposition: Admitted Condition: Fair Clinical Impressions Clinical Impression: Acute exacerbation of chronic obstructive airways disease, Acute hypoxic respiratory failure Discharge ED Provider: Syeda Dunne HPI General Chief Complaint: Shortness of Breath/Dyspnea Stated Complaint: SOA Time Seen by Provider: 06/27/25 11:18 Mode of Arrival: EMS Source of Information: Patient and EMS Description of Symptoms (Recalled from ER Triage Doc. by RN): EMS states the pt was extrememly SOA on their arrival. They placed him on a CPAP at a PEEP 5. On arrival here the pt is 83% on the CPAP, abdominally breathing, retracting and SOA. pt denies CP or any other symptoms. pt has been feeling bad over the last week but woke up feeling worse this AM. pt is on RA at baseline. History of Present Illness HPI narrative: This patient is a 70-year-old male with a history of COPD not on home oxygen, CAD, tobacco use presenting to the emergency department for evaluation with concern for shortness of breath. Patient arrives in extremis and does not contribute to further history. EMS states that they were unable to get a history either, as there was a woman in the home but they are not sure who it was. They note that the patient was initially hypoxic on room air with an O2 saturation in the 80s. Given significant increase in work of breathing, they gave a DuoNeb and placed the patient on CPAP. No other history obtainable currently Related Data Home Medications ?Medication ?Instructions ?Recorded ?Confirmed rosuvastatin 40 mg tablet 40 mg PO DAILY 04/28/2405/02 Previous Rx's ?Medication ?Instructions ?Recorded ipratropium 0.5 mg-albuterol 3 mg 3 ml inhalation Q6H PRN shortness 01/10/23 (2.5 mg base)/3 mL nebulization of breath or wheezing #180 mL soln budesonide 160 mcg-glycopyr 9 2 inh inhalation BID 90 days #10.7 05/06/24 mcg-formot 4.8 mcg/actuation HFA grams inhaler (Breztri Aerosphere) cariprazine 1.5 mg capsule 1.5 mg PO DAILY #30 caps (Vraylar) doxepin 150 mg capsule 150 mg PO HS #30 caps finasteride 5 mg tablet (Proscar) 5 mg PO DAILY 90 day s #90 tabs 04/18/25 tamsulosin 0.4 mg capsule (Flomax) 0.4 mg PO DAILY 90 days #90 caps 04/18/25 ipratropium 20 mcg-albuterol 100 1 puff inhalation Q6H PRN SOB and 05/09/25 mcg/actuation mist for inhalation Wheezing 90 days #4 grams (Combivent Respimat) naproxen 500 mg tablet 500 mg PO BID #30 tabs 05/10 prednisone 20 mg tablet 20 mg PO BID 5 days #10 tabs 05/10/25 azithromycin 250 mg tablet 250 mg PO DAILY 4 days #4 t abs 06/20/25 Allergies Allergy/AdvReac Type Severity Reaction Status Date / Time codeine (CODEINE) Allergy Unknown I-HIVES Verified 06/27/25 11:43 [facility] Disclaimer: The information contained in this section may have been updated after the patient was seen, as this information can be updated by other users. Medical History Screening for abdominal aortic aneurysm Diarrhea Bloating Upper abdominal pain Abnormal cardiovascular stress test Angina pectoris Abnormal stress test CAD (coronary artery disease) Screening for lung cancer COPD (chronic obstructive pulmonary disease) Tobacco abuse counseling Tobacco abuse Tracheobronchomalacia Smoking greater than 30 pack years COPD mixed type Dyspnea on exertion Insomnia Generalized anxiety disorder Perianal abscess COPD (chronic obstructive pulmonary disease) Lumbar radiculopathy, chronic Lumbar disc herniation with radiculopathy Chronic pain Anxiety and depression Depression Surgical History History of back surgery History of heart artery stent Family History Other COPD (chronic obstructive pulmonary disease) Hypertension Social History Smoking Status: Current every day smoker tobacco type: cigarettes packs per day: 1 second hand exposure: Yes alcohol intake: never substance use type: marijuana current occupational status: retired Travel in the last 8 weeks?: None household members: other housing: house number of children: 3 current occupational exposures/hazards: No caffeine: Yes Have you lived/traveled outside [place] in past 30 days?: No Contact w/someone who lives/traveled outside [place] past 30 days?: No Exposure to someone with infectious disease in past 14 days?: No Do you have a fever (greater than 100.4 F or 38 C)?: No Have you tested positive for COVID-19?: No Exposed to someone with COVID-19 in past 14 days?: No Do you have a sore throat?: No Do you have a cough?: No Do you have any weakness?: No Do you have any diarrhea?: No Are you experiencing any unusual bleeding?: No Do you have any muscle aches/pain?: No Do you have any abdominal pain?: No Are you experiencing loss of taste or smell?: No Other Medical History Have you received the Flu Vaccine for this season: No Have you received the Pneumonia Vaccine: No ROS Obtained: Yes All systems reviewed & no additional complaints except as documented Physical Exam General General appearance: alert and in distress Head Head exam: atraumatic and normocephalic Eye Eye exam: Present normal appearance, PERRL and EOMI ENT ENT exam: Present mucous membranes dry and normal external ear exam Neck Neck exam: Present normal inspection, full ROM and trachea midline; Absent tenderness Chest Chest inspection: Present normal inspection and symmetric chest wall rise; Absent tenderness Respiratory Respiratory exam: Present respiratory distress, wheezes, accessory muscle use and prolonged expiratory phase; Absent stridor Cardiovascular Cardiovascular exam: Present normal rhythm and tachycardia Abdominal Exam Abdominal exam: Present soft; Absent distention, tenderness or guarding Extremities Exam Extremities exam: Present normal inspection, full ROM and normal capillary refill; Absent tenderness or edema Back Exam Back exam: Present normal inspection and full ROM; Absent tenderness Neurological Exam Neurological exam: Present alert and other (Generally weak without any focal deficit, following commands) Psychiatric Psychiatric exam: Present anxious Skin Skin exam: Present warm and dry HEART Score HEART Score HEART Score assessment performed?: Yes History (anamnesis): Slightly suspicious ECG: Normal Age: >65 years Risk factors: Atherosclerosis history Troponin: </= normal limit HEART Score: 4 Critical Care Critical Care Time Critical Care Time: Yes Attestation: On 06/27/25, the high probability of a clinically significant, sudden or life threatening deterioration of the following system(s) required my full and direct attention, intervention and personal management. The time I documented below is in addition to time spent performing reported procedures but includes the following listed in this critical care notation. Total Time Total Critical Care Time: 45 Medical Decision Making Jose Inquiry Pt receiving controlled substance: No Vital Signs Vital Signs: 06/27/25 11:13 06/27/25 11:22 06/27/25 11:30 Temperature 97.5 F L Temperature Source Temporal Artery Scan Pulse Rate 73 93 H Pulse Rate [Left] 100 H Respiratory Rate 35 H 26 H 23 Blood Pressure 140/89 129/99 H Blood Pressure [Right Arm] 140/89 Blood Pressure Mean [Right Arm] 106 Blood Pressure Source [Right Arm] Automatic Cuff Blood Pressure Position [Right Arm] Sitting 02 Sat by Pulse Oximetry 87 L 93 L 99 Oxygen Delivery Method CPAP Oxygen Flow Rate (LPM) 10 Fraction of Inspired Oxygen 06/27/25 11:43 06/27/25 12:00 06/27/25 13:00 Temperature Temperature Source Pulse Rate 89 72 Pulse Rate [Left] Respiratory Rate 19 16 Blood Pressure 128/91 H 148/81 H Blood Pressure [Right Arm] Blood Pressure Mean [Right Arm] Blood Pressure Source [Right Arm] Blood Pressure Position [Right Arm] 02 Sat by Pulse Oximetry 100 98 Oxygen Delivery Method Oxygen Flow Rate (LPM) Fraction of Inspired Oxygen 30 06/27/25 13:30 Temperature Temperature Source Pulse Rate 77 Pulse Rate [Left] Respiratory Rate 16 Blood Pressure 143/85 H Blood Pressure [Right Arm] Blood Pressure Mean [Right Arm] Blood Pressure Source [Right Arm] Blood Pressure Position [Right Arm] 02 Sat by Pulse Oximetry 96 Oxygen Delivery Method Oxygen Flow Rate (LPM) Fraction of Inspired Oxygen Lab Data Labs: Lab Results 06/27/25 11:18: VBG pH 7.32, VBG pCO2 48.0, VBG pO2 41.1 H, VBG HCO3 24.0, VBG Total CO2 25.4, VBG O2 Saturation 65.8, VBG Base Excess -2.6 L, VBG Lactic Acid 0.8 06/27/25 11:21: WBC 8.4, RBC 4.82, Hgb 14.0 L, Hct 43.0, MCV 89.2, MCH 29.0, MCHC 32.6, RDW 14.1, Plt Count 261, MPV 9.6, Neut % (Auto) 59.9, Lymph % (Auto) 26.5, [place] % (Auto) 8.5, Eos % (Auto) 4.3, Baso % (Auto) 0.6, Neut # (Auto) 5.0, Lymph # (Auto) 2.2, [place] # (Auto) 0.7, Eos # (Auto) 0.4, Baso # (Auto) 0.1, PT 10.7, INR 0.96, APTT 23.2, D-Dimer 0.77 H, Sodium 138, Potassium 4.0, Chloride 103, Carbon Dioxide 29, Anion Gap 10.0, BUN 20, Creatinine 0.90, Estimated GFR 83, Est GFR ( Amer) 101, Glucose 125 H, Calcium 9.0, Magnesium 1.9, Total Bilirubin 0.4, AST 40, ALT 25, Alkaline Phosphatase 81, Troponin I < 0.01, C- Reactive Protein 1.3, NT-Pro-B Natriuret Pep 21.8, Total Protein 6.4, Albumin 4.1, Globulin 2.3, Albumin/Globulin Ratio 1.8, Procalcitonin 0.036, TSH 1.93, Thyroxine (T4) 8.3 06/27/25 11:39: SARS-CoV-2 (PCR) Not detected, Influenza A Untype (PCR) Not detected, Influenza Type B (PCR) Not detected 06/27/25 11:21 06/27/25 11:21 Response Orders (Tests/Meds): ED MEDICATIONS Generic Name Dose Route Start Last Admin Trade Name Freq PRN Reason Stop Dose Admin Azithromycin 500 mg/ Sodium 250 mls @ 250 mls/hr 06/27/25 11:30 06/27/25 12:52 Chloride IV 07/07/25 11:29 250 mls/hr Q24H COLLEEN Administration Sodium Chloride 10 ml 06/27/25 13:56 Sodium Chloride 0.9% 10ml Flush Syringe IV 07/27/25 13:55 NEEDED PRN Maintain IV Site Discontinued Medications Generic Name Dose Route Start Last Admin Trade Name Freq PRN Reason Stop Dose Admin Albuterol Sulfate 20 mg 06/27/25 11:20 Albuterol 0.083% 2.5 Mg/3 Ml [facility] 06/27/25 11:21 ONCE ONE Albuterol/Ipratropium 9 ml 06/27/25 11:18 06/27/25 11:31 Ipratropium/Albuterol 3 Ml [facility] 06/27/25 11:19 9 ml ONCE ONE Administration Magnesium Sulfate 2 gm in 50 mls @ 50 mls/hr 06/27/25 11:18 06/27/25 11:56 Magnesium Sulfate 2gm/50ml Premix IV 06/27/25 12:17 50 mls/hr ONCE ONE Administration Lactated Ringer's 1,000 mls @ 999 mls/hr 06/27/25 11:20 06/27/25 11:56 Lactated Ringer's 1000 Ml Bag IV 06/27/25 12:20 999 mls/hr .Q1H1M ONE Administration Cefepime HCl 2 gm/ Sodium 100 mls @ 200 mls/hr 06/27/25 11:30 Chloride IV 06/27/25 11:59 ONCE ONE Vancomycin HCl 1,000 mg/ 250 mls @ 125 mls/hr 06/27/25 12:00 06/27/25 12:24 Sodium Chloride IV 06/27/25 13:59 125 mls/hr ONCE ONE Administration Lactated Ringer's 1,000 mls @ 999 mls/hr 06/27/25 12:36 Lactated Ringer's 1000 Ml Bag IV 06/27/25 13:36 .Q1H1M ONE Iopamidol 80 ml 06/27/25 12:27 06/27/25 12:32 Iopamidol-370 (76%);100ml Bottle IV 06/27/25 12:28 80 ml ONCE ONE Administration Methylprednisolone Sodium Succinate 125 mg 06/27/25 11:20 06/27/25 11:56 Methylprednisolone Sod Succ 125mg Vial IV 06/27/25 11:21 125 mg ONCE ONE Administration Miscellaneous 1 each 06/27/25 11:30 Vancomycin Consult Request NOTAPPLIC 07/27/25 11:29 CONSULT PHARMACY [facility] Sodium Chloride 50 ml 06/27/25 12:27 06/27/25 12:32 0.9 % Sodium Chloride 50 Ml Vial IV 06/27/25 12:28 50 ml ONCE ONE Administration Sodium Chloride 10 ml 06/27/25 12:27 06/27/25 12:32 Sodium Chloride 0.9% 10ml Syr (Rad Only) IV 06/27/25 12:28 10 ml ONCE ONE Administration ORDERS Category Date Time Status CTA Chest [CT angio chest PE protocol] Stat Cat Scan 06/27/25 12:13 Completed CXR --portable [XR chest portable] Stat Exams 06/27/25 11:19 Completed Activated Partial Thrombo Time Stat Lab 06/27/25 11:21 Completed BNP [NT Pro Brain Natriuretic Pep.] Stat Lab 06/27/25 11:21 Completed CRP [C-Reactive Protein] Stat Lab 06/27/25 11:21 Completed Complete Blood Count Auto Diff Stat Lab 06/27/25 11:21 Completed Comprehensive Metabolic Panel Stat Lab 06/27/25 11:21 Completed D-Dimer Stat Lab 06/27/25 11:21 Completed MAG [Magnesium] Stat Lab 06/27/25 11:21 Completed Procalcitonin Stat Lab 06/27/25 11:21 Completed Prothrombin Time INR Stat Lab 06/27/25 11:21 Completed Rapid PCR Covid and Flu A/B Stat Lab 06/27/25 11:39 Completed T4 (Thyroxine) Stat Lab 06/27/25 11:21 Completed TSH [Thyroid Stimulating Hormone] Stat Lab 06/27/25 11:21 Completed Trop I [Troponin I] Stat Lab 06/27/25 11:21 Completed Troponin I Q3H Lab 06/27/25 14:30 Ordered Troponin I Q3H Lab 06/27/25 17:30 Ordered Blood Culture Stat Micro 06/27/25 11:31 Received VBG [Venous Blood Gas] Stat RT 06/27/25 11:18 Completed ECG Data Tracing #1: Attestation: I reviewed this ECG and interpreted as documented below: ECG Narrative: Sinus rhythm with sinus arrhythmia with a ventricular rate of [address] changes concerning for STEMI. Normal intervals ECG initial impression date: 06/27/25 ECG initial impression time: 11:18 MDM Narrative Medical Decision Narrative: In summary, this patient is a 70-year-old male presenting to the Emergency Department for evaluation of respiratory distress. Differential diagnoses considered include but are not limited to ACS, dysrhythmia, PE, COPD exacerbation, pneumonia, respiratory failure. Ruling out the most morbid conditions drove assessment. It should be noted patient's history includes COPD, CAD, tobacco dependence, hypertension, hyperlipidemia which likely are not at goal therapy. This complicates all aspects of care by increasing patient's risk for morbidity. I reviewed patient's past medical records and noted evaluation here 06/20/2025 for COPD exacerbation with discharge home after reassuring exam and improvement in symptoms. Patient arrives in extremis with significant increased work of breathing, unable to verbally respond, only nodding to answer questions. He has wheezing all throughout his lungs. He arrived on CPAP and was transitioned to BiPAP upon arrival for his work of breathing. Immediately given DuoNebs x 3 as well as IV methylprednisolone, magnesium, and then continuous albuterol neb. Workup included lab evaluation to evaluate for infectious, metabolic, cardiac derangements as well as chest x-ray. I obtained a D-dimer given the acute respiratory failure, which was elevated. I added on a CTA PE protocol to workup. I independently interpreted chest x-ray prior to the radiologist read and noted consolidation concerning for pneumonia, no pneumothorax. Please see their read for final interpretation. Labs obtained are actually surprisingly reassuring with normal CBC, reassuring chemistry, reassuring blood gas with no significant decompensation of respiratory acidosis. Patient was able to be weaned from BiPAP to 4 L nasal cannula. Abdomen abundance of precaution, patient was given sepsis bolus of IV fluids as well as IV vancomycin, cefepime, and azithromycin for suspected infectious cause of COPD flareup. He had been on azithromycin at home, so that is why I elected to escalate. I independently interpreted CTA prior to radiology read and noted no pulmonary embolus. They noted concern for possible bronchopneumonia. Please radiology read for final interpretation. Ultimately, he still requires 4 L nasal cannula so I feel he would benefit from admission for respiratory failure. I had an interactive discussion with the hospitalist who admitted the patient
[2025-06-27] MEDS: AZITHROMYCIN 500 MG in 0.9 % SODIUM CHLORIDE 250 ML 250 MG IV (12:52)
--- NOTE | 2025-06-27 13:11 | PC.NURSE ---
DR STANFORD SPEAKING WITH HOSPITALIST FOR ADMISSION
--- NOTE | 2025-06-27 13:33 | PC.NURSE ---
WRINGER MACHINE OPERATOR NOTIFIED OF ADMISSION
[2025-06-27] MEDS: ALBUTEROL 0.083% 2.5 MG/3 ML NEB 20 MG IH (14:20)
--- NOTE | 2025-06-27 14:20 | PC.NURSE ---
REPORT CALLED TO TIMMY YOUNG
[2025-06-27] MEDS: CEFEPIME HCL 2 GM in 0.9 % SODIUM CHLORIDE 100 ML IV (14:29)
--- NOTE | 2025-06-27 14:33 | HMH.PHAINT1 ---
Pharmacy Intervention Comments: MEDICATION RECONCILIATION COMPLETED ON PATIENT USING EXTERNAL FILL HISTORY FROM PHARMACY. -STEPHANAI DAMIAN, TAMD
[2025-06-27 14:43] LABS: Troponin I 0.03 ng/ml (0.00-0.034)
--- NOTE | 2025-06-27 14:49 | PC.NURSE ---
arrived by stretcher from ED
[2025-06-27] MEDS: IPRATROPIUM/ALBUTEROL 3 ML NEB IH ×2 (17:00→22:49)
--- NOTE | 2025-06-27 17:29 | P.HP_ITS ---
<Statement entered by Maury Johnson MD - 06/27/25 18:08> Rounded on patient after nurse practitioner. Personally examined and interviewed patient. Agree with exam findings and care plan as documented. History of Present Illness *Admission Date: 06/27/25 *Reason for visit:: COPD exacerbation, acute hypoxic respiratory failure *History of present illness: Mr. Arias is a 70-year-old male who presented to the emergency department via EMS today with increasing shortness of breath, hypoxia, and O2 saturation of 80%. Patient was recently seen in the emergency department for a COPD exacerbation and discharged on medication therapy. He states that over the past week he feels like he has gotten significantly worse and has had increased shortness of breath. Patient was treated in the ED with DuoNebs x 3, IV methylprednisolone, IV magnesium, and continuous albuterol nebs. Patient was placed on CPAP in ambulance and route to the hospital, and transition to BiPAP in the ED. Patient began to feel much better, and transitioned easily to 4 L nasal cannula maintaining O2 saturation greater than 90%. He also received vancomycin, cefepime, azithromycin due to infectious workup for cause of COPD flareup. Patient is on azithromycin at home for previous COPD exacerbation. CTA was obtained, not notable for PE. It did show possible bronchopneumonia. Patient continues to require O2 and therefore was admitted to the medical surgical floor for supplemental oxygen and further monitoring. [facility] Disclaimer: The information contained in this section may have been updated after the patient was seen, as this information can be updated by other users. Medical History Screening for abdominal aortic aneurysm Diarrhea Bloating Upper abdominal pain Abnormal cardiovascular stress test Angina pectoris Abnormal stress test CAD (coronary artery disease) Screening for lung cancer COPD (chronic obstructive pulmonary disease) Tobacco abuse counseling Tobacco abuse Tracheobronchomalacia Smoking greater than 30 pack years COPD mixed type Dyspnea on exertion Insomnia Generalized anxiety disorder Perianal abscess COPD (chronic obstructive pulmonary disease) Lumbar radiculopathy, chronic Lumbar disc herniation with radiculopathy Chronic pain Anxiety and depression Depression Surgical History History of back surgery History of heart artery stent Family History Other COPD (chronic obstructive pulmonary disease) Hypertension Social History Smoking Status: Current every day smoker tobacco type: cigarettes packs per day: 1 second hand exposure: Yes alcohol intake: never substance use type: marijuana current occupational status: retired Travel in the last 8 weeks?: None household members: other housing: house number of children: 3 current occupational exposures/hazards: No caffeine: Yes Have you lived/traveled outside [place] in past 30 days?: No Contact w/someone who lives/traveled outside [place] past 30 days?: No Exposure to someone with infectious disease in past 14 days?: No Do you have a fever (greater than 100.4 F or 38 C)?: No Have you tested positive for COVID-19?: No Exposed to someone with COVID-19 in past 14 days?: No Do you have a sore throat?: No Do you have a cough?: No Do you have any weakness?: No Do you have any diarrhea?: No Are you experiencing any unusual bleeding?: No Do you have any muscle aches/pain?: No Do you have any abdominal pain?: No Are you experiencing loss of taste or smell?: No Other Medical History Have you received the Flu Vaccine for this season: Yes Have you received the Pneumonia Vaccine: Yes Review of Systems Review of Systems Review of systems:: pertinent systems reviewed and negative unless documented below Constitutional Constitutional: Denies chills, Denies fever(s), Reports poor appetite and Reports weakness ENT Ears, Nose, Mouth, and Throat: Denies post nasal drip *Cardiovascular Cardiovascular: Denies chest pain, Reports dyspnea and Reports dyspnea on exertion *Respiratory Respiratory: Reports cough, Reports dyspnea, Reports dyspnea on exertion and Denies hemoptysis *Gastrointestinal Gastrointestinal: Denies abdominal pain and Denies change in bowel habits *Neurologic Neurologic: Reports weakness Meds Home Medications and Allergies Home Medications ?Medication ?Instructions ?Recorded ?Confirmed ?Type finasteride 5 mg tablet (Proscar) 5 mg PO DAILY 90 day s #90 tabs 04/18/25 06/27/25 Rx tamsulosin 0.4 mg capsule (Flomax) 0.4 mg PO DAILY 90 days #90 caps 04/18/25 06/27/25 Rx ipratropium 20 mcg-albuterol 100 1 puff inhalation Q6H P PRN 07/28/25 07/28/25 History mcg/actuation mist for inhalation Shortness Of Breath (Combivent Respimat) tadalafil 5 mg tablet 5 mg PO DAILY 06/27/2506/27 History New Prescriptions to Start Prescriptions: Allergies Allergy/AdvReac Type Severity Reaction Status Date / Time codeine (CODEINE) Allergy Unknown I-HIVES Verified 06/27/25 11:43 Exam Data for Last 24 hours Vital signs and Labs for Last 24 Hours: Temp Pulse Resp BP Pulse Ox O2 Del Method O2 Flow Rate 97.8 F 88 20 149/85 H 95 Room Air 4 06/27/25 16:00 06/27/25 16:00 06/27/25 16:00 06/27/25 16:00 06/27/25 16:00 06/27/25 16:00 06/27/25 14:35 FiO2 30 06/27/25 11:43 Laboratory Results - last 24 hr 06/27/25 11:18: VBG pH 7.32, VBG pCO2 48.0, VBG pO2 41.1 H, VBG HCO3 24.0, VBG Total CO2 25.4, VBG O2 Saturation 65.8, VBG Base Excess -2.6 L, VBG Lactic Acid 0.8 06/27/25 11:21: WBC 8.4, RBC 4.82, Hgb 14.0 L, Hct 43.0, MCV 89.2, MCH 29.0, MCHC 32.6, RDW 14.1, Plt Count 261, MPV 9.6, Neut % (Auto) 59.9, Lymph % (Auto) 26.5, [place] % (Auto) 8.5, Eos % (Auto) 4.3, Baso % (Auto) 0.6, Neut # (Auto) 5.0, Lymph # (Auto) 2.2, [place] # (Auto) 0.7, Eos # (Auto) 0.4, Baso # (Auto) 0.1, PT 10.7, INR 0.96, APTT 23.2, D-Dimer 0.77 H, Sodium 138, Potassium 4.0, Chloride 103, Carbon Dioxide 29, Anion Gap 10.0, BUN 20, Creatinine 0.90, Estimated GFR 83, Est GFR ( Amer) 101, Glucose 125 H, Calcium 9.0, Magnesium 1.9, Total Bilirubin 0.4, AST 40, ALT 25, Alkaline Phosphatase 81, Troponin I < 0.01, C- Reactive Protein 1.3, NT-Pro-B Natriuret Pep 21.8, Total Protein 6.4, Albumin 4.1, Globulin 2.3, Albumin/Globulin Ratio 1.8, Procalcitonin 0.036, TSH 1.93, Thyroxine (T4) 8.3 06/27/25 11:39: SARS-CoV-2 (PCR) Not detected, Influenza A Untype (PCR) Not detected, Influenza Type B (PCR) Not detected 06/27/25 14:14: Troponin I 0.03 I & O for Last 24 hours: Intake & Output 06/24/25 06/25/25 06/26/25 06/27/25 23:59 23:59 23:59 23:59 Output Total 0 / 0 Balance 0 / 0 Weight 54.431 kg Constitutional Constitutional: mild distress, thin, chronically ill appearing and cooperative *Routine HEENT Exam Head: Present normocephalic Eye: Present EOMI ENT: Present mucous membranes moist *Routine Neck Exam Neck: Present full ROM; Absent JVD *Routine Respiratory Exam Respiratory: Present accessory muscle use, decreased breath sounds, stridor, wheezes (Inspiratory and expiratory), diminished air movement and symmetric chest movement *Routine Cardiovascular Exam Cardiovascular: Present RRR, Normal S1 and Normal S2 *Routine Abdominal Exam Abdominal: Present soft and normoactive bowel sounds; Absent tenderness or distended *Routine Rectal Exam Rectal:: deferred *Routine Genitalia Exam Genitalia:: deferred *Routine Extremities Exam Extremities: Present full ROM and pulses intact; Absent edema *Routine Skin Exam Skin: Present intact and dry *Routine Neurological Exam Neurological: Present alert and oriented X3 Assessment and Plan *Assessment and plan (1) Acute hypoxic respiratory failure: Status: Acute Category: Medical Code(s): J96.01 - Acute respiratory failure with hypoxia (2) COPD exacerbation: Status: Acute Category: Medical Code(s): J44.1 - Chronic obstructive pulmonary disease with (acute) exacerbation (3) Emphysema, unspecified: Status: Acute Category: Medical Code(s): J43.9 - Emphysema, unspecified (4) BPH (benign prostatic hyperplasia): Status: Acute Category: Medical Code(s): N40.0 - Benign prostatic hyperplasia without lower urinary tract symptoms (5) Tobacco abuse: Status: Chronic Category: Medical Code(s): Z72.0 - Tobacco use Plan Mr. Arias is a 70-year-old male who presented today with acute respiratory distress, hypoxia. He has a significant medical history of COPD, tobacco use disorder, hyperlipidemia, anxiety and depression, hypertension, CAD with stents, chronic back pain, BPH, osteoporosis. He arrives to the emergency department today via EMS after calling due to extreme shortness of breath and hypoxia. EMS placed patient on CPAP machine after O2 saturation was 80%. Patient arrived to the ED and was then placed on BiPAP. In the ED he was given a sepsis bolus, IV vancomycin, cefepime, azithromycin. He was also given magnesium, IV methylpred nisolone, and DuoNebs. CTA was performed and was negative for PE but did show potential bronchopneumonia. He was weaned down to 4 L nasal cannula in the ED and hospital medicine was consulted for further admission and management of his COPD exacerbation and acute hypoxia with new oxygen requirement. I agreed to accept the patient, plan of care as follows: #Acute hypoxic respiratory failure #COPD exacerbation #Emphysema ? Patient admitted to the medical surgical floor, assessment reveals increased work of breathing and inspiratory/expiratory wheezing. Patient also endorses productive cough, sputum culture ordered. ? Pulmicort, every 4 hours DuoNebs, prednisone 40 mg p.o. daily, azithromycin 500 mg daily. ? Patient did receive vancomycin, cefepime, azithromycin in ED. Patient has no leukocytosis, blood cultures are pending. Patient is afebrile. Not tachycardic, normotensive. ? Patient does use Combivent Respimat inhaler every 6 hours as needed at home. ? Pulmonology consulted for further recommendations. ? Patient has been able to wean to room air, O2 saturation 95%. Supplemental O2 ordered as needed, O2 saturation to maintain greater than 90% ? VBG unremarkable, pH 7.32, lactic 0.8 ? I personally interpreted patient's chest x-ray from the ED, no notable pneumonia, effusions. #BPH ? Continue Flomax 0.4 mg and Proscar 5 mg daily. #Tobacco use disorder ?Patient is a current tobacco smoker, nicotine patches ordered as needed. Full code Lovenox for VTE Regular diet Ambulate as tolerated Pulmonology consulted
[2025-06-27 18:03] LABS: Troponin I 0.04 ng/ml (0.00-0.034)
[2025-06-27 21:45] LABS: Adenovirus,PCR Not Detected (NotDetected); Chlamydophila Pneumoniae, PCR Not Detected (NotDetected); Coronavirus 19, PCR Not Detected (NotDetected); Coronovirus HKU1,PCR Not Detected (NotDetected); Influenza A, PCR Not Detected (NotDetected); Influenza AH1, 2009 Not Detected (NotDetected); Influenza AH1, PCR Not Detected (NotDetected); Influenza AH3,PCR Not Detected (NotDetected); Influenza B, PCR Not Detected (NotDetected); Mycoplasma Pneumoniae, PCR Not Detected (NotDetected); Parainfluenza 1, PCR Not Detected (NotDetected); Parainfluenza 2, PCR Not Detected (NotDetected); Parainfluenza 3, PCR Not Detected (NotDetected); Parainfluenza 4, PCR Not Detected (NotDetected)
--- NOTE | 2025-06-28 00:37 | CA_ITS ---
APPROVED REPORT EXAM: Comprehensive 2D, Doppler, and color-flow Echocardiogram Marketing Communication Manager: Kadi Dorsey CRT Ht: 5 ft 8 in Wt: 120lbs BSA: 1.64 BP: 149/85 mmHg Indications: Chest Pain, COPD, Shortness of Breath, Fatigue, Hyperlipidemia, Hypertension/HDD, stents, smoker EF 50-55% 10/02/23 2D Dimensions LA Volume 39.40 mL LA Volume Index 23.50 mL/m2 (M/F) 16-34 M-Mode Dimensions RVDd 2.00 cm (0.9-2.6) LA Diam 2.64 cm (1.9-4.0) LVDd 4.37 cm (3.5-5.7) LVDs 3.20 cm (3.5-5.7) IVSd 0.93 cm (0.6-1.1) PWd 0.93 cm (0.6-1.1) EF (Teich) 52.50% FS 26.80% EDV (Teich) 86.30 mL TAPSE 2.55 (<1.7) ESV (Teich) 41.00 mL LV Diastology E Decel Time 207 (160-240 msec) E/A Ratio 1.37 MED A' 11.90 cm/s LAT A' 12.90 cm/s Aortic Valve AO Peak GR. 7.50 mmHg Mitral Valve MV E Max Los. 62.0 (40-130 cm/s) MV A Velocity 46.0 (40-130 cm/s) E/A Ratio 1.37 MV PHT 61.0 ms Tricuspid Valve TR P. Velocity 315.00 cm/s RAP Estimate 10.00 mmHg RVSP 49.60 mmHg Left Ventricle The left ventricle is normal size. The left ventricular systolic function is normal. The left ventricular ejection fraction is within the normal range. There is increased LV wall thickness. There is normal LV segmental wall motion. The left ventricular diastolic function is normal. LVEF is 55%. Right Ventricle The right ventricle is normal size. The right ventricular systolic function is normal. Atria The left atrium size is normal. The right atrium size is normal. There is no Doppler evidence of interatrial shunt. Aortic Valve The aortic valve is mildly thickened. There is no aortic valvular stenosis. No aortic regurgitation. Mitral Valve The mitral valve is normal in structure. No evidence of mitral valve stenosis. Trace mitral regurgitation. Tricuspid Valve Tricuspid valve is grossly normal in structure and function. Mild tricuspid regurgitation. RVSP is 30-35 mmHg. Pulmonic Valve The pulmonary valve is normal in structure. Trace pulmonic regurgitation. Great Vessels The aortic root is normal in size. IVC is normal in size and collapses >50% with inspiration. Pericardium There is no pericardial effusion. Other Information Study Quality: Fair Conclusion Normal biventricular systolic function. Mild TR. Electronically signed by : Rhonda Moran MD 06/28/2025 08:28:14
[2025-06-28] MEDS: IPRATROPIUM/ALBUTEROL 3 ML NEB IH ×3 (00:42→05:58)
[2025-06-28] MEDS: BUDESONIDE 0.5MG/2ML NEB 0.5 MG IH ×2 (00:43→05:59)
[2025-06-28] MEDS: DOXYCYCLINE HYCL 100 MG TABLET PO ×2 (00:59→08:58)
[2025-06-28] MEDS: BENZONATATE 100MG CAPSULE 200 MG PO ×2 (01:00→13:46)
[2025-06-28 02:45] VITALS: PULSE 84; PULSE 85
[2025-06-28 04:00] VITALS: BP 115/66; PULSE 64; RESP 17; TEMP 36.7; O2SAT 95; BMI 18.8
[2025-06-28 05:59] VITALS: PULSE 71; PULSE 75
[2025-06-28 06:18] LABS: Hematocrit 38.6 % (42.0-52.0); Hemoglobin 12.9 g/dL (14.1-18.0); Immature Granulocytes % 0.3 %; Mean Corpuscular HGB Conc 33.4 g/dL (31.8-35.4); Mean Corpuscular Hemoglobin 29.4 pg (27.0-31.2); Mean Corpuscular Volume 87.9 fl (80-94); Nucleated Red Blood Cells % 0 %; Platelet Count 238 K/mm3 (142-424); Red Blood Count 4.39 M/mm3 (4.60-6.20); Red Cell Distribution Width-SD 45.1 fL; White Blood Count 6.8 K/mm3 (4.8-10.8)
[2025-06-28 06:30] LABS: Alanine Aminotransferase 25 U/L (12-78); Albumin Level 3.8 g/dl (3.5-5.0); Albumin/Globulin Ratio 1.9 (1.1-1.8); Alkaline Phosphatase 73 U/L (38-126); Anion Gap 9.1 mEq/L (5-15); Aspartate Amino Transferase 26 U/L (17-59); Bilirubin,Total 0.2 mg/dl (0.2-1.3); Blood Urea Nitrogen 18 mg/dl (9-20); Calcium 9.0 mg/dl (8.4-10.2); Carbon Dioxide 26 mmol/L (22.0-30.0); Chloride 106 mmol/L (98-107); Creatinine Clearance Estimated 55 mL/min (50-200); Creatinine,Serum 0.80 mg/dl (0.66-1.25); Estimated Glomerular Filt Rate 96 ml/min (>60); GFR (African American) 116 ML/MIN (>60); Globulin 2.0 g/dL (1.3-3.2); Glucose 123 mg/dl (74-100); Magnesium 2.1 mg/dl (1.6-2.3); Potassium 4.1 mmoL/L (3.5-5.1); Sodium 137 mmol/L (136-145); Total Protein,Serum 5.8 g/dl (6.3-8.2)
--- NOTE | 2025-06-28 06:47 | PC.NURSE ---
patient stated he does not drink water so no water pitcher filled in room instead kept patient with coffee/yemeni vanilla creamer as wished
[2025-06-28 08:00] VITALS: BP 117/70; PULSE 83; RESP 20; TEMP 36.8; O2SAT 95
[2025-06-28 08:15] VITALS: O2SAT 95
[2025-06-28] MEDS: FINASTERIDE 5MG TABLET 5 MG PO (08:58)
[2025-06-28] MEDS: CEFTRIAXONE 1 GM 1 GM in 0.9 % SODIUM CHLORIDE 50 ML IV (08:58)
[2025-06-28] MEDS: TAMSULOSIN 0.4MG CAPSULE 0.4 MG PO (08:59)
[2025-06-28] MEDS: NICOTINE 21MG/24HR PATCH 21 MG TD (09:08)
--- NOTE | 2025-06-28 09:52 | P.CONS_ITS ---
History of Present Illness History of present illness: Mr. Arias is a 78-year-old male with a reported history of COPD, chronic hypoxic respiratory failure presented to the hospital with worsening respiratory distress and pulmonary was called for further evaluation and management. Current smoker greater than [id number] smoking history used to smoke 2 to 3 packs a day currently down to 1 pack a day. Using Combivent on as-needed basis at baseline, not using any long-acting inhaler therapy. Admits not having refills frequently [facility] Disclaimer: The information contained in this section may have been updated after the patient was seen, as this information can be updated by other users. Medical History (Updated 06/28/25 @ 13:24 by Michelle Mcclure MD) Endobronchial mass Tracheomegaly Screening for abdominal aortic aneurysm Diarrhea Bloating Upper abdominal pain Abnormal cardiovascular stress test Angina pectoris Abnormal stress test CAD (coronary artery disease) Screening for lung cancer COPD (chronic obstructive pulmonary disease) Tobacco abuse counseling Tobacco abuse Tracheobronchomalacia Smoking greater than 30 pack years COPD mixed type Dyspnea on exertion Insomnia Generalized anxiety disorder Perianal abscess COPD (chronic obstructive pulmonary disease) Lumbar radiculopathy, chronic Lumbar disc herniation with radiculopathy Chronic pain Anxiety and depression Depression Surgical History History of back surgery History of heart artery stent Family History Other COPD (chronic obstructive pulmonary disease) Hypertension Social History Smoking Status: Current every day smoker tobacco type: cigarettes packs per day: 1 second hand exposure: Yes alcohol intake: never substance use type: marijuana current occupational status: retired Travel in the last 8 weeks?: None household members: other housing: house number of children: 3 current occupational exposures/hazards: No caffeine: Yes Have you lived/traveled outside [place] in past 30 days?: No Contact w/someone who lives/traveled outside [place] past 30 days?: No Exposure to someone with infectious disease in past 14 days?: No Do you have a fever (greater than 100.4 F or 38 C)?: No Have you tested positive for COVID-19?: No Exposed to someone with COVID-19 in past 14 days?: No Do you have a sore throat?: No Do you have a cough?: No Do you have any weakness?: No Do you have any diarrhea?: No Are you experiencing any unusual bleeding?: No Do you have any muscle aches/pain?: No Do you have any abdominal pain?: No Are you experiencing loss of taste or smell?: No Review of Systems Constitutional Constitutional: Reports fatigue and Reports weakness Eyes Eyes: Denies eye discharge, Denies dry eyes, Denies irritation and Denies itchy eyes ENT Ears, Nose, Mouth, and Throat: Denies epistaxis, Denies facial pain, Denies lip swelling and Denies throat swelling *Cardiovascular Cardiovascular: Reports dyspnea and Reports dyspnea on exertion *Respiratory Respiratory: Denies change in phlegm color, Reports chest congestion, Reports cough, Reports dyspnea, Reports dyspnea on exertion, Reports excessive phlegm production, Denies hemoptysis, Denies pain on inspiration, Denies pain with cough and Reports wheezing *Gastrointestinal Gastrointestinal: Denies abdominal pain, Denies belching and Denies cramping *Musculoskeletal Musculoskeletal: Reports back pain, Reports myalgias and Reports other (No small joint swelling or Pain) *Neurologic Neurologic: Reports weakness Psychiatric Psychiatric: Denies homicidal ideation and Denies suicidal ideation Endocrine Endocrine: Reports fatigue and Denies heat intolerance Hematologic/Lymphatic Hematologic/Lymphatic: Denies easy bleeding and Denies lymphadenopathy Allergic/Immunologic Allergic/Immunologic: Denies itchy eyes, Denies lip swelling, Denies throat swelling and Reports wheezing Pulmonology Exam Inpatient Vital signs and Labs for Last 24 Hours: Temp Pulse Resp BP Pulse Ox O2 Del Method O2 Flow Rate 98.2 F 83 20 117/70 95 Room Air 4 06/28/25 08:00 06/28/25 08:00 06/28/25 08:00 06/28/25 08:00 06/28/25 08:00 06/28/25 08:00 06/27/25 14:35 FiO2 30 06/27/25 11:43 Laboratory Results - last 24 hr 06/27/25 11:18: VBG pH 7.32, VBG pCO2 48.0, VBG pO2 41.1 H, VBG HCO3 24.0, VBG Total CO2 25.4, VBG O2 Saturation 65.8, VBG Base Excess -2.6 L, VBG Lactic Acid 0.8 06/27/25 11:21: WBC 8.4, RBC 4.82, Hgb 14.0 L, Hct 43.0, MCV 89.2, MCH 29.0, MCHC 32.6, RDW 14.1, Plt Count 261, MPV 9.6, Neut % (Auto) 59.9, Lymph % (Auto) 26.5, [place] % (Auto) 8.5, Eos % (Auto) 4.3, Baso % (Auto) 0.6, Neut # (Auto) 5.0, Lymph # (Auto) 2.2, [place] # (Auto) 0.7, Eos # (Auto) 0.4, Baso # (Auto) 0.1, PT 10.7, INR 0.96, APTT 23.2, D-Dimer 0.77 H, Sodium 138, Potassium 4.0, Chloride 103, Carbon Dioxide 29, Anion Gap 10.0, BUN 20, Creatinine 0.90, Estimated GFR 83, Est GFR ( Amer) 101, Glucose 125 H, Calcium 9.0, Magnesium 1.9, Total Bilirubin 0.4, AST 40, ALT 25, Alkaline Phosphatase 81, Troponin I < 0.01, C- Reactive Protein 1.3, NT-Pro-B Natriuret Pep 21.8, Total Protein 6.4, Albumin 4.1, Globulin 2.3, Albumin/Globulin Ratio 1.8, Procalcitonin 0.036, TSH 1.93, Thyroxine (T4) 8.3 06/27/25 11:39: SARS-CoV-2 (PCR) Not detected, Influenza A Untype (PCR) Not detected, Influenza Type B (PCR) Not detected 06/27/25 14:14: Troponin I 0.03 06/27/25 17:30: Troponin I 0.04 H 06/27/25 21:35: Chlamy pneumoniae PCR Not detected, Adenovirus (PCR) Not detected, B. pertussis DNA (PCR) Not detected, Coronavirus OC43 (PCR) Not detected, Coronavirus HKU1 (PCR) Not detected, Coronavirus 229E (PCR) Not detected, SARS-CoV-2 (PCR) Not detected, Coronavirus NL63 (PCR) Not detected, Human Metapneumovir PCR Not detected, Influenza A (H1) PCR Not detected, Influ A (H1N1/09) PCR Not detected, Influenza A (H3) PCR Not detected, Influenza Type A (PCR) Not detected, Influenza Type B (PCR) Not detected, M. pneumoniae (PCR) Not detected, Parainfluenza 1 (PCR) Not detected, Parainfluenza 2 (PCR) Not detected, Parainfluenza 3 (PCR) Not detected, Parainfluenza 4 (PCR) Not detected, RSV (PCR) Not detected, Entero/Rhino (PCR) Not detected 06/28/25 05:14: WBC 6.8, RBC 4.39 L, Hgb 12.9 L, Hct 38.6 L, MCV 87.9, MCH 29.4, MCHC 33.4, RDW 14.0, Plt Count 238, MPV 10.1, Neut % (Auto) 82.0 H, Lymph % (Auto) 11.6, [place] % (Auto) 6.0, Eos % (Auto) 0.0 L, Baso % (Auto) 0.1, Neut # (Auto) 5.6, Lymph # (Auto) 0.8, [place] # (Auto) 0.4, Eos # (Auto) 0.0, Baso # (Auto) 0.0, Sodium 137, Potassium 4.1, Chloride 106, Carbon Dioxide 26, Anion Gap 9.1, BUN 18, Creatinine 0.80, Estimated Creat Clear 55, Estimated GFR 96, Est GFR ( Amer) 116, Glucose 123 H, Calcium 9.0, Magnesium 2.1 D, Total Bilirubin 0.2, AST 26 D, ALT 25, Alkaline Phosphatase 73, Total Protein 5.8 L, Albumin 3.8, Globulin 2.0, Albumin/Globulin Ratio 1.9 H I & O for Labs for Last 24 Hours: Intake & Output 06/25/25 06/26/25 06/27/25 06/28/25 23:59 23:59 23:59 23:59 Intake Total 360 / 600 600 / 600 Output Total 0 / 0 0 / 0 Balance 360 / 600 600 / 600 Weight 120 lb 124 lb 3.2 oz Microbiology Reports for the Last 24 Hours: Microbiology 06/27/25 21:35 Sputum - Expectorated Sputum Gram Stain - Final Constitutional: Present moderate distress Head: Present normocephalic and atraumatic ENT: Present normal exam, normal oropharynx and mucous membranes moist Neck: Present normal inspection and full ROM Respiratory: Present prolonged expiratory phase, respiratory distress, wheezes and able to speak in complete sentences Cardiac: Present S1/S2, Tachycardia and radial pulses present GI: Present soft and distention; Absent tenderness or guarding Skin: Present intact; Absent cyanosis or jaundice Neuro: Present alert, awake and oriented x 3 Extremities: Present normal inspection; Absent clubbing or cyanosis Psychiatric: Present normal affect and cooperative Meds Home Medications and Allergies Home Medications ?Medication ?Instructions ?Recorded ?Confirmed ?Type finasteride 5 mg tablet (Proscar) 5 mg PO DAILY 90 day s #90 tabs 04/18/25 06/27/25 Rx tamsulosin 0.4 mg capsule (Flomax) 0.4 mg PO DAILY 90 days #90 caps 04/18/25 06/27/25 Rx ipratropium 20 mcg-albuterol 100 1 puff inhalation Q6H P PRN 06/27/25 06/27/25 History mcg/actuation mist for inhalation Shortness Of Breath (Combivent Respimat) tadalafil 5 mg tablet 5 mg PO DAILY 06/27/2506/27 History New Prescriptions to Start Prescriptions: Allergies Allergy/AdvReac Type Severity Reaction Status Date / Time codeine (CODEINE) Allergy Unknown I-HIVES Verified 06/27/25 11:43 Results Laboratory Findings 06/28/25 05:14 06/28/25 05:14 PT/INR, D-dimer PT 10.7 seconds (10.1-12.5) 06/27/25 11:21 INR 0.96 (0.9-1.1) 06/27/25 11:21 D-Dimer 0.77 ug/mL (0.0-0.5) H 06/27/25 11:21 Abnormal lab findings: Abnormal Labs 06/27/25 06/27/25 06/27/25 11:18 11:21 17:30 RBC Hgb 14.0 L Hct Neut % (Auto) Eos % (Auto) D-Dimer 0.77 H VBG pO2 41.1 H VBG Base Excess -2.6 L Glucose 125 H Troponin I 0.04 H Total Protein Albumin/Globulin Ratio 06/28/25 05:14 RBC 4.39 L Hgb 12.9 L Hct 38.6 L Neut % (Auto) 82.0 H Eos % (Auto) 0.0 L D-Dimer VBG pO2 VBG Base Excess Glucose 123 H Troponin I Total Protein 5.8 L Albumin/Globulin Ratio 1.9 H Assessment and Plan *Assessment and plan (1) Emphysema, unspecified: Status: Acute Category: Medical Code(s): J43.9 - Emphysema, unspecified (2) Acute hypoxic respiratory failure: Status: Acute Category: Medical Code(s): J96.01 - Acute respiratory failure with hypoxia (3) COPD exacerbation: Status: Acute Category: Medical Code(s): J44.1 - Chronic obstructive pulmonary disease with (acute) exacerbation (4) Pneumonia: Status: Acute Category: Medical Code(s): J18.9 - Pneumonia, unspecified organism (5) Tracheomegaly: Status: Acute Category: Medical Code(s): J39.8 - Other specified diseases of upper respiratory tract (6) Endobronchial mass: Status: Acute Category: Medical Code(s): R91.8 - Other nonspecific abnormal finding of lung field Plan Mr. Arias is a 78-year-old male with a reported history of COPD, chronic hypoxic respiratory failure presented to the hospital with worsening respiratory distress and pulmonary was called for further evaluation and management. Current smoker greater than [id number] smoking history used to smoke 2 to 3 packs a day currently down to 1 pack a day. Using Combivent on as-needed basis at baseline, not using any long-acting inhaler therapy. Admits not having refills frequently leading to worsening respiratory distress. Admits chronic cough and productive phlegm, denies any acute worsening. Patient recently presented to the ER for worsening respiratory distress discharged home on antibiotics for community-acquired pneumonia/COPD exacerbation. Afebrile. Hemodynamically stable. VBG upon admission did not show any evidence of hypoxic/hypercarbic respiratory failure. No evidence of leukocytosis. Comprehensive respiratory viral PCR panel negative CTA upon admission 06/27/2025, no evidence of pulmonary embolism. No dense consolidative/airspace changes. Diffuse centrilobular emphysematous changes with lower lobe bronchial thickening, left lower lobe likely mucous plugging of the bronchi, cannot completely rule out endobronchial lesion. Reticular nodular opacities right lower lobe. Tracheomegaly noted Patient currently receiving vancomycin and cefepime, along with nebulization therapies and steroids. Blood and sputum cultures pending. Plan: - Trelegy 100 inhaler along with DuoNebs/Combivent inhaler on as-needed basis -Antibiotics can be weaned to levofloxacin to complete a total of 5-day course -Incentive spirometry. Flutter valve along with Mucomyst oral twice daily -Follow-up with sputum bacterial cultures along with sputum AFB stain cultures # Patient can be discharged from pulmonary standpoint after sputum AFB cultures were obtained. Will follow the patient in pulmonary clinic 2 weeks postdischarge. Please call pulmonary with any questions or concerns. # For the concerning possible left lower lobe endobronchial lesion we will pursue sputum clearance techniques and follow with repeat CT chest to further determine the need for bronchoscopy airway examination.
--- NOTE | 2025-06-28 10:08 | SW/DCPLANNER ---
Case management is recommending life alert, Patient has stated he has worked on getting one in the past and says he will get one on his own.
--- NOTE | 2025-06-28 11:32 | P.DS_ITS ---
<Statement entered by Maury Johnson MD - 06/28/25 16:52> Rounded on patient after nurse practitioner. Personally examined and interviewed patient. Agree with exam findings and care plan as documented. General Admission date:: 06/27/25 Discharge date: 06/28/25 HPI HPI HPI: Mr. Arias is a 70-year-old male who presented to the emergency department via EMS today with increasing shortness of breath, hypoxia, and O2 saturation of 80%. Patient was recently seen in the emergency department for a COPD exacerbation and discharged on medication therapy. He states that over the past week he feels like he has gotten significantly worse and has had increased shortness of breath. Patient was treated in the ED with DuoNebs x 3, IV methylprednisolone, IV magnesium, and continuous albuterol nebs. Patient was placed on CPAP in ambulance and route to the hospital, and transition to BiPAP in the ED. Patient began to feel much better, and transitioned easily to 4 L nasal cannula maintaining O2 saturation greater than 90%. He also received vancomycin, cefepime, azithromycin due to infectious workup for cause of COPD flareup. Patient is on azithromycin at home for previous COPD exacerbation. CTA was obtained, not notable for PE. It did show possible bronchopneumonia. Patient continues to require O2 and therefore was admitted to the medical surgical floor for supplemental oxygen and further monitoring. Hospital Course Hospital Course Hospital Course: Mr. Arias is a 70-year-old male who presented yesterday with acute respiratory distress, hypoxia. He has a significant medical history of COPD, tobacco use disorder, hyperlipidemia, anxiety and depression, hypertension, CAD with stents, chronic back pain, BPH, osteoporosis. He arrived to the emergency department via EMS after calling due to extreme shortness of breath and hypoxia. EMS placed patient on CPAP machine after O2 saturation was 80%. Patient arrived to the ED and was then placed on BiPAP. In the ED he was given a sepsis bolus, IV vancomycin, cefepime, azithromycin. He was also given magnesium, IV methylprednisolone, and DuoNebs. CTA was performed and was negative for PE but did show potential bronchopneumonia. He was weaned down to 4 L nasal cannula in the ED and hospital medicine was consulted for further admission and management of his COPD exacerbation and acute hypoxia with new oxygen requirement. I agreed to accept the patient, plan of care as follows: #Acute hypoxic respiratory failure #COPD exacerbation #Emphysema ? Patient admitted to the medical surgical floor, assessment reveals increased work of breathing and inspiratory/expiratory wheezing. Patient also endorses productive cough, sputum culture obtained. ? During admission patient received Pulmicort, every 4 hours DuoNebs, prednisone 40 mg p.o. daily, azithromycin 500 mg daily. Patient will discharge home on Levaquin 750 mg for total of 5 days. ?Patient will also discharge home with incentive spirometer and flutter valve. RT discussed with patient how to use, return demonstration noted. ? Patient has no leukocytosis, blood cultures are pending. Patient is afebrile. Not tachycardic, normotensive. ? Patient does use Combivent Respimat inhaler every 6 hours as needed at home. Continue Combivent inhaler, start Trelegy inhaler daily. Per pulmonology also continue DuoNebs every 4 to 6 hours as needed. Patient states he has nebulizer at home, DuoNeb medication sent into pharmacy at discharge. ? Pulmonology follow-up made at discharge. ? Patient is maintained O2 saturation on room air since admission, O2 saturation greater than 92%. ? VBG unremarkable, pH 7.32, lactic 0.8 ? Patient did have chest CT that showed bronchial wall thickening, bilateral lower lobe possible bronchopneumonia. Patient discharged home on Levaquin for total of 5 days. ? Sputum culture pending, blood cultures show no growth after 24 hours. Will continue to monitor after discharge. #BPH ? Continue Flomax 0.4 mg and Proscar 5 mg daily. #NSTEMI #Elevated troponin ?Patient initial troponin 0.01, trended upward to 0.04. This is likely in the setting of respiratory distress and hypoxia. Patient has had a recent heart cath 06/23 that showed no substantial blockages. His echo from today showed LVEF 55%, normal biventricular systolic function. ?Patient has denied any chest pain. Vital signs have been within normal limits, last BP 117/70, heart rate 80. He remains on room air at 96%. ?Follow-up cardiology appointment for outpatient workup ordered. #Tobacco use disorder ?Patient is a current tobacco smoker, nicotine patches ordered as needed. ?Nicotine patches ordered at discharge. Discussed in length with patient the need for smoking cessation. Total time spent on discharge 38 minutes in counseling, documentation, chart review, and direct care with patient. Exam Data for Last 24 hours Vital signs and Labs for Last 24 Hours: Temp Pulse Resp BP Pulse Ox O2 Del Method O2 Flow Rate 98.2 F 83 20 117/70 95 Room Air 4 06/28/25 08:00 06/28/25 08:00 06/28/25 08:00 06/28/25 08:00 06/28/25 08:15 06/28/25 09:10 06/27/25 14:35 FiO2 30 06/27/25 11:43 Laboratory Results - last 24 hr 06/27/25 11:18: VBG pH 7.32, VBG pCO2 48.0, VBG pO2 41.1 H, VBG HCO3 24.0, VBG Total CO2 25.4, VBG O2 Saturation 65.8, VBG Base Excess -2.6 L, VBG Lactic Acid 0.8 06/27/25 11:21: PT 10.7, INR 0.96, APTT 23.2, D-Dimer 0.77 H, Sodium 138, Potassium 4.0, Chloride 103, Carbon Dioxide 29, Anion Gap 10.0, BUN 20, Creatinine 0.90, Estimated GFR 83, Est GFR ( Amer) 101, Glucose 125 H, Calcium 9.0, Magnesium 1.9, Total Bilirubin 0.4, AST 40, ALT 25, Alkaline Phosphatase 81, Troponin I < 0.01, C-Reactive Protein 1.3, NT-Pro-B Natriuret Pep 21.8, Total Protein 6.4, Albumin 4.1, Globulin 2.3, Albumin/Globulin Ratio 1.8, Procalcitonin 0.036, TSH 1.93, Thyroxine (T4) 8.3 06/27/25 11:39: SARS-CoV-2 (PCR) Not detected, Influenza A Untype (PCR) Not detected, Influenza Type B (PCR) Not detected 06/27/25 14:14: Troponin I 0.03 06/27/25 17:30: Troponin I 0.04 H 06/27/25 21:35: Chlamy pneumoniae PCR Not detected, Adenovirus (PCR) Not detected, B. pertussis DNA (PCR) Not detected, Coronavirus OC43 (PCR) Not detected, Coronavirus HKU1 (PCR) Not detected, Coronavirus 229E (PCR) Not detected, SARS-CoV-2 (PCR) Not detected, Coronavirus NL63 (PCR) Not detected, Human Metapneumovir PCR Not detected, Influenza A (H1) PCR Not detected, Influ A (H1N1/09) PCR Not detected, Influenza A (H3) PCR Not detected, Influenza Type A (PCR) Not detected, Influenza Type B (PCR) Not detected, M. pneumoniae (PCR) Not detected, Parainfluenza 1 (PCR) Not detected, Parainfluenza 2 (PCR) Not detected, Parainfluenza 3 (PCR) Not detected, Parainfluenza 4 (PCR) Not detected, RSV (PCR) Not detected, Entero/Rhino (PCR) Not detected 06/28/25 05:14: WBC 6.8, RBC 4.39 L, Hgb 12.9 L, Hct 38.6 L, MCV 87.9, MCH 29.4, MCHC 33.4, RDW 14.0, Plt Count 238, MPV 10.1, Neut % (Auto) 82.0 H, Lymph % (Auto) 11.6, Kane % (Auto) 6.0, Eos % (Auto) 0.0 L, Baso % (Auto) 0.1, Neut # (Auto) 5.6, Lymph # (Auto) 0.8, Kane # (Auto) 0.4, Eos # (Auto) 0.0, Baso # (Auto) 0.0, Sodium 137, Potassium 4.1, Chloride 106, Carbon Dioxide 26, Anion Gap 9.1, BUN 18, Creatinine 0.80, Estimated Creat Clear 55, Estimated GFR 96, Est GFR ( Amer) 116, Glucose 123 H, Calcium 9.0, Magnesium 2.1 D, Total Bilirubin 0.2, AST 26 D, ALT 25, Alkaline Phosphatase 73, Total Protein 5.8 L, Albumin 3.8, Globulin 2.0, Albumin/Globulin Ratio 1.9 H I & O for Last 24 hours: Intake & Output 06/25/25 06/26/25 06/27/25 06/28/25 23:59 23:59 23:59 23:59 Intake Total 360 / 600 600 / 600 Output Total 0 / 0 0 / 0 Balance 360 / 600 600 / 600 Weight 54.431 kg 56.336 kg Microbiology Reports for the Last 24 Hours: Microbiology 06/27/25 11:21 Blood Blood Culture - Preliminary NO GROWTH AFTER 24 HOURS 06/27/25 21:35 Sputum - Expectorated Sputum Gram Stain - Final *Routine HEENT Exam Head: Present normocephalic Eye: Present EOMI ENT: Present mucous membranes moist; Absent dentition normal Results Data Completed and Pending Labs on day of discharge: Labs from last 24 hours 06/28/25 06/27/25 06/27/25 05:14 21:35 17:30 WBC 6.8 RBC 4.39 L Hgb 12.9 L Hct 38.6 L MCV 87.9 MCH 29.4 MCHC 33.4 RDW 14.0 Plt Count 238 MPV 10.1 Neut % (Auto) 82.0 H Lymph % (Auto) 11.6 Kane % (Auto) 6.0 Eos % (Auto) 0.0 L Baso % (Auto) 0.1 Neut # (Auto) 5.6 Lymph # (Auto) 0.8 Kane # (Auto) 0.4 Eos # (Auto) 0.0 Baso # (Auto) 0.0 PT INR APTT D-Dimer VBG pH VBG pCO2 VBG pO2 VBG HCO3 VBG Total CO2 VBG O2 Saturation VBG Base Excess VBG Lactic Acid Sodium 137 Potassium 4.1 Chloride 106 Carbon Dioxide 26 Anion Gap 9.1 BUN 18 Creatinine 0.80 Estimated Creat Clear 55 Estimated GFR 96 Est GFR ( Amer) 116 Glucose 123 H Calcium 9.0 Magnesium 2.1 D Total Bilirubin 0.2 AST 26 D ALT 25 Alkaline Phosphatase 73 Troponin I 0.04 H C-Reactive Protein NT-Pro-B Natriuret Pep Total Protein 5.8 L Albumin 3.8 Globulin 2.0 Albumin/Globulin Ratio 1.9 H Procalcitonin TSH Thyroxine (T4) Chlamy pneumoniae PCR Not detected Adenovirus (PCR) Not detected B. pertussis DNA (PCR) Not detected Coronavirus OC43 (PCR) Not detected Coronavirus HKU1 (PCR) Not detected Coronavirus 229E (PCR) Not detected SARS-CoV-2 (PCR) Not detected Coronavirus NL63 (PCR) Not detected Human Metapneumovir PCR Not detected Influenza A (H1) PCR Not detected Influ A (H1N1/09) PCR Not detected Influenza A (H3) PCR Not detected Influenza Type A (PCR) Not detected Influenza A Untype (PCR) Influenza Type B (PCR) Not detected M. pneumoniae (PCR) Not detected Parainfluenza 1 (PCR) Not detected Parainfluenza 2 (PCR) Not detected Parainfluenza 3 (PCR) Not detected Parainfluenza 4 (PCR) Not detected RSV (PCR) Not detected Entero/Rhino (PCR) Not detected 06/27/25 06/27/25 06/27/25 14:14 11:39 11:21 WBC RBC Hgb Hct MCV MCH MCHC RDW Plt Count MPV Neut % (Auto) Lymph % (Auto) Kane % (Auto) Eos % (Auto) Baso % (Auto) Neut # (Auto) Lymph # (Auto) Kane # (Auto) Eos # (Auto) Baso # (Auto) PT 10.7 INR 0.96 APTT 23.2 D-Dimer 0.77 H VBG pH VBG pCO2 VBG pO2 VBG HCO3 VBG Total CO2 VBG O2 Saturation VBG Base Excess VBG Lactic Acid Sodium 138 Potassium 4.0 Chloride 103 Carbon Dioxide 29 Anion Gap 10.0 BUN 20 Creatinine 0.90 Estimated Creat Clear Estimated GFR 83 Est GFR ( Amer) 101 Glucose 125 H Calcium 9.0 Magnesium 1.9 Total Bilirubin 0.4 AST 40 ALT 25 Alkaline Phosphatase 81 Troponin I 0.03 < 0.01 C-Reactive Protein 1.3 NT-Pro-B Natriuret Pep 21.8 Total Protein 6.4 Albumin 4.1 Globulin 2.3 Albumin/Globulin Ratio 1.8 Procalcitonin 0.036 TSH 1.93 Thyroxine (T4) 8.3 Chlamy pneumoniae PCR Adenovirus (PCR) B. pertussis DNA (PCR) Coronavirus OC43 (PCR) Coronavirus HKU1 (PCR) Coronavirus 229E (PCR) SARS-CoV-2 (PCR) Not detected Coronavirus NL63 (PCR) Human Metapneumovir PCR Influenza A (H1) PCR Influ A (H1N1/09) PCR Influenza A (H3) PCR Influenza Type A (PCR) Influenza A Untype (PCR) Not detected Influenza Type B (PCR) Not detected M. pneumoniae (PCR) Parainfluenza 1 (PCR) Parainfluenza 2 (PCR) Parainfluenza 3 (PCR) Parainfluenza 4 (PCR) RSV (PCR) Entero/Rhino (PCR) 06/27/25 11:18 WBC RBC Hgb Hct MCV MCH MCHC RDW Plt Count MPV Neut % (Auto) Lymph % (Auto) Kane % (Auto) Eos % (Auto) Baso % (Auto) Neut # (Auto) Lymph # (Auto) Kane # (Auto) Eos # (Auto) Baso # (Auto) PT INR APTT D-Dimer VBG pH 7.32 VBG pCO2 48.0 VBG pO2 41.1 H VBG HCO3 24.0 VBG Total CO2 25.4 VBG O2 Saturation 65.8 VBG Base Excess -2.6 L VBG Lactic Acid 0.8 Sodium Potassium Chloride Carbon Dioxide Anion Gap BUN Creatinine Estimated Creat Clear Estimated GFR Est GFR ( Amer) Glucose Calcium Magnesium Total Bilirubin AST ALT Alkaline Phosphatase Troponin I C-Reactive Protein NT-Pro-B Natriuret Pep Total Protein Albumin Globulin Albumin/Globulin Ratio Procalcitonin TSH Thyroxine (T4) Chlamy pneumoniae PCR Adenovirus (PCR) B. pertussis DNA (PCR) Coronavirus OC43 (PCR) Coronavirus HKU1 (PCR) Coronavirus 229E (PCR) SARS-CoV-2 (PCR) Coronavirus NL63 (PCR) Human Metapneumovir PCR Influenza A (H1) PCR Influ A (H1N1/09) PCR Influenza A (H3) PCR Influenza Type A (PCR) Influenza A Untype (PCR) Influenza Type B (PCR) M. pneumoniae (PCR) Parainfluenza 1 (PCR) Parainfluenza 2 (PCR) Parainfluenza 3 (PCR) Parainfluenza 4 (PCR) RSV (PCR) Entero/Rhino (PCR) Preliminary micro results at discharge 06/27/25 11:21 Blood Culture - Preliminary Blood NO GROWTH AFTER 24 HOURS DS: Diagnosis Discharge Diagnosis (1) Acute hypoxic respiratory failure: Status: Acute Code(s): J96.01 - Acute respiratory failure with hypoxia (2) COPD exacerbation: Status: Acute Code(s): J44.1 - Chronic obstructive pulmonary disease with (acute) exacerbation (3) Emphysema, unspecified: Status: Acute Code(s): J43.9 - Emphysema, unspecified (4) BPH (benign prostatic hyperplasia): Status: Acute Code(s): N40.0 - Benign prostatic hyperplasia without lower urinary tract symptoms (5) Tobacco abuse: Status: Chronic Code(s): Z72.0 - Tobacco use (6) Rhinophyma: Status: Acute Code(s): L71.1 - Rhinophyma (7) Severe protein-calorie malnutrition: Status: Acute Code(s): E43 - Unspecified severe protein-calorie malnutrition (8) NSTEMI (non-ST elevated myocardial infarction): Status: Acute Code(s): I21.4 - Non-ST elevation (NSTEMI) myocardial infarction (9) Elevated troponin: Status: Acute Code(s): R79.89 - Other specified abnormal findings of blood chemistry Meds Home Medications and Allergies Home Medications ?Medication ?Instructions ?Recorded ?Confirmed ?Type finasteride 5 mg tablet (Proscar) 5 mg PO DAILY 90 day s #90 tabs 04/18/25 06/27/25 Rx tamsulosin 0.4 mg capsule (Flomax) 0.4 mg PO DAILY 90 days #90 caps 04/18/25 06/27/25 Rx ipratropium 20 mcg-albuterol 100 1 puff inhalation Q6H P PRN 06/27/25 06/27/25 History mcg/actuation mist for inhalation Shortness Of Breath (Combivent Respimat) tadalafil 5 mg tablet 5 mg PO DAILY 06/27/2506/27 History fluticasone fur. 100 mcg-umeclid 1 inh inhalation HENRY Y 30 days #1 06/28/25 Rx 62.5 mcg-vilant 25 mcg ea inhalat.powder (Trelegy Ellipta) ipratropium 0.5 mg-albuterol 3 mg 3 ml inhalation Q4HP PRN Shortness 06/28/25 Rx (2.5 mg base)/3 mL nebulization Of Breath #0 mL soln levofloxacin 750 mg tablet 750 mg PO DAILY #4 tabs Rx nicotine 21 mg/24 hr daily 21 mg transdermal DAILYP KS N 06/28/25 Rx transdermal patch Nicotine Cravings 28 days #2 8 ea New Prescriptions to Start Prescriptions: [id number] [Trelegy Ellipta] Sabrina Britt levofloxacin Sabrina Britt nicotine Sabrina Britt Allergies Allergy/AdvReac Type Severity Reaction Status Date / Time codeine (CODEINE) Allergy Unknown I-HIVES Verified 06/27/25 11:43 Discharge Plan Disposition Patient Disposition: Home, Self-Care Condition: Fair Follow up Plan Follow up with: Eliana Maldonado APRN [Nurse Practitioner, Cardiology] - 07/12/25 1:30 pm Alexander Monroy APRN [Nurse Practitioner, Family Practice] - 06/29/25 3:20 pm Michelle Mcclure MD [Physician, Pulmonology] - 07/19/25 1:00 pm Prescriptions/Medication Reconciliation: New ipratropium-albuterol 0.5 mg-3 mg(2.5 mg base)/3 mL Solution For Nebulization 3 ml inhalation Q4HP PRN (Reason: Shortness Of Breath) Qty: 0 0RF nicotine 21 mg/24 hr Patch 24 Hour 21 mg transdermal DAILYP PRN (Reason: Nicotine Cravings) 28 Days Qty: 28 0RF Trelegy Ellipta 100-62.5-25 mcg Blister With Device 1 inh inhalation DAILY 30 Days Qty: 1 0RF levofloxacin 750 mg tablet 750 mg PO DAILY Qty: 4 0RF Continued tamsulosin [Flomax] 0.4 mg capsule 0.4 mg PO DAILY 90 Days Qty: 90 1RF finasteride [Proscar] 5 mg tablet 5 mg PO DAILY 90 Days Qty: 90 1RF tadalafil 5 mg tablet 5 mg PO DAILY Patient Comments: TAKE 1 TABLET BY MOUTH DAILY Combivent Respimat 20-100 mcg/actuation mist 1 puff INHALATION Q6HP PRN (Reason: Shortness Of Breath) Problem Reconciliation Problems Reviewed?: Yes Patient Discharge Instructions ACTIVITY: Continue current activity DIET: continue same diet Patient Instructions: Chronic Obstructive Pulmonary Disease, High-Calorie, High-Protein Diet, DI for Chronic Obstructive Pulmonary Disease, Respiratory Failure Print Language: Trinid[place] Providers Primary Care Provider: Provider,Referral Admit Provider: Maury Johnson Attending Provider: Maury Johnson
[2025-06-28 12:00] VITALS: BP 146/81; PULSE 80; RESP 20; TEMP 36.8; O2SAT 96
[2025-06-28] MEDS: FLUTICASONE/UMECLIDIN/VILANTER 100/62.5/25MCG INHALER 1 PUFF IH (13:59)
[2025-06-28] MEDS: COMBIVENT 20MCG/100MCG RESPIMAT INHALER 2 PUFF IH (13:59)
--- NOTE | 2025-06-30 10:23 | SW/DCPLANNER ---
Phoned patient x2. Patient's voicemail is not sat up. Robyn Goode
== END 2025-06-28 15:44 | disposition home or self-care (01) ==
LOC: ER 13:11 → 2ND 14:09
PROVIDERS: Student in an Organized Health Care Education/Training Program; Admitting Provider Internal Medicine Adolescent Medicine; Emergency Provider Emergency Medicine; Visit Provider Internal Medicine Adolescent Medicine
DX: J96.01 Acute respiratory failure with hypoxia (principal); J44.1 Chronic obstructive pulmonary disease with (acute) exacerbation; J43.9 Emphysema, unspecified; N40.0 Benign prostatic hyperplasia without lower urinary tract symptoms; J18.9 Pneumonia, unspecified organism; J39.8 Other specified diseases of upper respiratory tract; L71.1 Rhinophyma; R79.89 Other specified abnormal findings of blood chemistry; E43 Unspecified severe protein-calorie malnutrition; E78.5 Hyperlipidemia, unspecified; I25.10 Atherosclerotic heart disease of native coronary artery without angina pectoris; R91.8 Other nonspecific abnormal finding of lung field; F17.210 Nicotine dependence, cigarettes, uncomplicated; Z83.6 Family history of other diseases of the respiratory system; Z95.5 Presence of coronary angioplasty implant and graft; Z68.1 Body mass index [BMI] 19.9 or less, adult; Z88.6 Allergy status to analgesic agent; Z99.89 Dependence on other enabling machines and devices; Z79.899 Other long term (current) drug therapy
CPT/HCPCS: 0223U; 36415; 71045; 71275; 80053; 82803; 83735; 83880; 84145; 84436; 84443; 84484; 85025; 85378; 85610; 85730; 86140; 87040; 87070; 87205; 87633; 87636; 93005; 93306; 94640; 94667; 96365; 96366; 96367; 96375; 99285; G0378; J0456; J0692; J0696; J1650; J2919; J3373; J3475; J7050; J7120; Q9967

== ENCOUNTER 2025-07-12 13:55 | Outpatient (CLI) | payer MEDICARE, MEDICAID, SELFPAY ==
--- NOTE | 2025-07-12 13:58 | XR_ITS ---
FINAL REPORT CLINICAL HISTORY: COPD,chest congestion COMPARISON: 06/27/2025 FINDINGS: 2 views of the chest were obtained . The heart is normal in size. The mediastinum is within normal limits. There are emphysematous changes. The lungs are otherwise clear. There is no pneumothorax. Osseous structures are unremarkable. IMPRESSION: No acute cardiopulmonary process. Reviewed, Interpreted and Dictated by Aliza Melo MD Transcribed by Mela Tavares Authenticated and [facility]
--- OUTSIDE RECORDS SUMMARY | 2025-07-12 13:59 | XMS_ITS | Clinical Summary ---
Author Organization [facility] Address [address] [place] [address] Care Team Providers Care Medical Office Clerk Name Role Phone Jr Alexander Monroy APRN [...] Completed 03/13/2022 Insurance [employer] MEDICARE ADVANTAGE MEDICAID [place] Care Teams Medical Office Clerk Relationship Specialty Start Date End Date Jr Alexander Monroy APRN [address] [place] [id number] PCP - General Nurse Practitioner 10/25/24
[2025-07-12 15:10] LABS: Hematocrit 42.3 % (42.0-52.0); Hemoglobin 13.9 g/dL (14.1-18.0); Immature Granulocytes % 0.4 %; Mean Corpuscular HGB Conc 32.9 g/dL (31.8-35.4); Mean Corpuscular Hemoglobin 29.3 pg (27.0-31.2); Mean Corpuscular Volume 89.1 fl (80-94); Nucleated Red Blood Cells % 0 %; Platelet Count 245 K/mm3 (142-424); Red Blood Count 4.75 M/mm3 (4.60-6.20); Red Cell Distribution Width-SD 46.5 fL; White Blood Count 8.5 K/mm3 (4.8-10.8)
[2025-07-12 15:45] LABS: Free T4 (Free Thyroxine) 1.32 ng/dl (0.78-2.19)
[2025-07-12 16:30] LABS: Alanine Aminotransferase 37 U/L (12-78); Albumin Level 4.3 g/dl (3.5-5.0); Alkaline Phosphatase 82 U/L (38-126); Anion Gap 7.4 mEq/L (5-15); Aspartate Amino Transferase 38 U/L (17-59); Bilirubin,Direct 0.2 mg/dl (0.0-0.4); Bilirubin,Indirect 0.2 mg/dL (0.0-0.9); Bilirubin,Total 0.4 mg/dl (0.2-1.3); Bilirubin,Unconjugated 0.2 mg/dL (0.0-1.1); Blood Urea Nitrogen 17 mg/dl (9-20); Calcium 9.4 mg/dl (8.4-10.2); Carbon Dioxide 29 mmol/L (22.0-30.0); Chloride 104 mmol/L (98-107); Cholesterol 150 mg/dl (140-200); Creatinine,Serum 0.90 mg/dl (0.66-1.25); Estimated Glomerular Filt Rate 83 ml/min (>60); GFR (African American) 101 ML/MIN (>60); Glucose 94 mg/dl (74-100); HDL Cholesterol 76 mg/dl (40-60); Magnesium 1.9 mg/dl (1.6-2.3); Potassium 4.4 mmoL/L (3.5-5.1); Sodium 136 mmol/L (136-145); Total Protein,Serum 6.5 g/dl (6.3-8.2); Triglycerides 49 mg/dl (30-150)
[2025-07-12 17:03] LABS: Thyroid Stimulating Hormone 1.18 uIU/mL (0.465-4.68)
== END 2025-07-12 23:59 | disposition home or self-care (01) ==
LOC: LAB 13:56
PROVIDERS: PCP Nurse Practitioner Family; Visit Provider Nurse Practitioner
DX: J44.9 Chronic obstructive pulmonary disease, unspecified (principal); I10 Essential (primary) hypertension; E78.5 Hyperlipidemia, unspecified
CPT/HCPCS: 36415; 71046; 80048; 80061; 80076; 83735; 84439; 84443; 85025

== ENCOUNTER 2025-08-30 14:46 | Emergency (ER) | payer MEDICARE, MEDICAID, SELFPAY ==
[2025-08-30 15:02] VITALS: BP 136/81; PULSE 83; RESP 17; TEMP 36.7; O2SAT 95
--- OUTSIDE RECORDS SUMMARY | 2025-08-30 15:12 | XMS_ITS | Clinical Summary ---
Author Organization [facility] Address [address] [place] [address] Care Team Providers Care Production Weigher Name Role Phone Jr Alexander Monroy APRN [...] C SCREENING 03/06/2018 AAA SCREEN ONCE 2020 INFLUENZA VACCINE 07/01/2025 08/02/2017, , 09/02/2011 COVID-19 Vaccine ( season) 08/01/202508/2021, 05/02/2021 TDAP/TD VACCINES (2 - Td or Tdap) 08/02/2027 017 Pneumococcal Vaccine 50+ Completed 03/13/2022 Insurance [employer] MEDICARE ADVANTAGE MEDICAID [place] Care Teams Production Weigher Relationship Specialty Start Date End Date Jr Alexander Monroy APRN [address] [place] [id number] PCP - General Nurse Practitioner 10/25/24
--- NOTE | 2025-08-30 15:35 | ED_ITS ---
Discharge Plan Disposition Patient Disposition: Home, Self-Care Prescriptions Prescriptions: New gabapentin 300 mg capsule See Rx Instructions .ROUTE .COMPLEX Qty: 17 0RF Rx Instructions: 300 mg orally twice a day beginning 08/31/2025 then 3x daily thereafter No Action tamsulosin [Flomax] 0.4 mg capsule 0.4 mg PO DAILY 90 Days Qty: 90 1RF finasteride [Proscar] 5 mg tablet 5 mg PO DAILY 90 Days Qty: 90 1RF atorvastatin [Lipitor] 40 mg tablet 40 mg PO DAILY Qty: 90 3RF aspirin [Adult Low Dose Aspirin] 81 mg tablet,delayed release (DR/EC) 81 mg PO DAILY Qty: 90 3RF Combivent Respimat 20-100 mcg/actuation mist 1 puff IH Q6H PRN (Reason: SOB and Wheezing) 90 Days Qty: 4 3RF Trelegy Ellipta 100-62.5-25 mcg blister with device See Rx Instructions .ROUTE .COMPLEX Qty: 60 11RF Dose Instruction: INHALE 1 PUFF BY MOUTH DAILY Rx Instructions: INHALE 1 PUFF BY MOUTH DAILY tadalafil 5 mg tablet 5 mg PO DAILY Qty: 30 1RF Combivent Respimat 20-100 mcg/actuation mist 1 puff INHALATION Q6HP PRN (Reason: Shortness Of Breath) ipratropium-albuterol 0.5 mg-3 mg(2.5 mg base)/3 mL Solution For Nebulization 3 ml inhalation Q4HP PRN (Reason: Shortness Of Breath) Qty: 0 0RF levofloxacin 750 mg tablet 750 mg PO DAILY Qty: 4 0RF Referrals Follow up/Referrals: Alexander Monroy APRN [Primary Care Provider, Family Practice] - See instructions Activity Restrictions/Add. Instructions Additional Instructions/Restrictions: Please take her medication as prescribed. As discussed I can only give you up to 7 days worth to see if it is effective, please follow-up with your family doctor within 1 week to see if you need to continue this medication. Clinical Impressions Clinical Impression: Sciatica Print Language Print Language: Cambodian Discharge ED Provider: German Mccullough General Adult HPI General Chief complaint: PAIN Stated complaint: Pain in both legs Time Seen by Provider: 08/30/25 15:20 Mode of Arrival: Ambulatory Source of Information: Patient Description of Symptoms (Recalled from ER Triage Doc. by RN): Patient presents to ED with c/o bilateral leg pain, patient states pain has been ongoing for several months. Denies any additional complications or complaints at this time. History of Present Illness HPI narrative: Patient is a 70-year-old male with past medical history of bilateral sciatica previously on gabapentin who presents emergency department for evaluation of pain radiating down his bilateral lower extremities. Onset was chronic, over the last 3 months. It has been getting intermittently worse. Shocklike sensations going down the back and the sides of both of his legs consistent with his previous sciatica. He states that he ran out of his medication and never refilled it because his symptoms were manageable however due to the progressive nature of this he presented for continued evaluation. He has yet to follow-up with his PCP for reevaluation of this. No trauma. No other acute complaints at this time. No abdominal pain no chest pain. Please note that above description of symptoms, in this electronic medical record under categorization of recalled from ER triage doctor by RN are reflective of an initial nursing assessment, however, is not reflective of my full history and physical exam that was personally taken and clarified. Consequentially, this preceding description of symptoms, which may include the patient's categorized chief complaint in the EMR, do not reflect my personal clinical impression, and the ultimate description of history of present illness and patient stated complaints should be deferred to this section of the note. Unless stated otherwise or congruent with this section of the note, additional signs, symptoms, or incongruence should be interpreted as inaccurate with my clinical impression. Related Data Home Medications ?Medication ?Instructions ?Recorded ?Confirmed ipratropium 20 mcg-albuterol 100 1 puff inhalation Q6H P PRN 06/27/25 07/12/25 mcg/actuation mist for inhalation Shortness Of Breath (Combivent Respimat) Previous Rx's ?Medication ?Instructions ?Recorded finasteride 5 mg tablet (Proscar) 5 mg PO DAILY 90 day s #90 tabs 04/18/25 tamsulosin 0.4 mg capsule (Flomax) 0.4 mg PO DAILY 90 days #90 caps 04/18/25 ipratropium 0.5 mg-albuterol 3 mg 3 ml inhalation Q4HP PRN Shortness 06/28/25 (2.5 mg base)/3 mL nebulization Of Breath #0 mL soln levofloxacin 750 mg tablet 750 mg PO DAILY #4 tabs aspirin 81 mg tablet,delayed 81 mg PO DAILY #90 tabs 0 07/12/25 release (Adult Low Dose Aspirin) atorvastatin 40 mg tablet (Lipitor) 40 mg PO DAILY #90 tabs 07/12/25 ipratropium 20 mcg-albuterol 100 1 puff inhalation Q6H PRN SOB and 07/14/25 mcg/actuation mist for inhalation Wheezing 90 days #4 grams (Combivent Respimat) fluticasone fur. 100 mcg-umeclid See Rx Instructions . Route 08/04/25 62.5 mcg-vilant 25 mcg .COMPLEX #60 ea inhalat.powder (Trelegy Ellipta) tadalafil 5 mg tablet 5 mg PO DAILY #30 tabs 08/18 gabapentin 300 mg capsule See Rx Instructions .Route 0 08/30/25 .COMPLEX sciatica #17 caps Allergies Allergy/AdvReac Type Severity Reaction Status Date / Time codeine (CODEINE) Allergy Unknown I-HIVES Verified 07/12/25 13:30 [facility] Disclaimer: The information contained in this section may have been updated after the patient was seen, as this information can be updated by other users. Medical History (Updated 08/30/25 @ 15:35 by German Mccullough MD) Chest congestion Abdominal pain Superficial bacterial infection of skin Skin lesion of left arm Contact dermatitis Pneumonia Perineal abscess Chest pain COPD exacerbation Endobronchial mass Tracheomegaly Screening for abdominal aortic aneurysm Diarrhea Bloating Upper abdominal pain Abnormal cardiovascular stress test Angina pectoris Abnormal stress test CAD (coronary artery disease) Screening for lung cancer COPD (chronic obstructive pulmonary disease) Tobacco abuse counseling Tobacco abuse Tracheobronchomalacia Smoking greater than 30 pack years COPD mixed type Dyspnea on exertion Insomnia Generalized anxiety disorder Perianal abscess COPD (chronic obstructive pulmonary disease) Lumbar radiculopathy, chronic Lumbar disc herniation with radiculopathy Chronic pain Anxiety and depression Depression Surgical History History of back surgery History of heart artery stent Family History Other COPD (chronic obstructive pulmonary disease) Hypertension Social History Smoking Status: Current every day smoker tobacco type: cigarettes packs per day: 1 second hand exposure: Yes alcohol intake: never substance use type: marijuana current occupational status: retired Travel in the last 8 weeks?: None household members: other housing: house number of children: 3 current occupational exposures/hazards: No caffeine: Yes Have you lived/traveled outside [place] in past 30 days?: No Contact w/someone who lives/traveled outside US past 30 days?: No Exposure to someone with infectious disease in past 14 days?: No Do you have a fever (greater than 100.4 F or 38 C)?: No Have you tested positive for COVID-19?: No Exposed to someone with COVID-19 in past 14 days?: No Do you have a sore throat?: No Do you have a cough?: No Do you have any weakness?: No Do you have any diarrhea?: No Are you experiencing any unusual bleeding?: No Do you have any muscle aches/pain?: No Do you have any abdominal pain?: No Are you experiencing loss of taste or smell?: No Other Medical History Have you received the Flu Vaccine for this season: No Have you received the Pneumonia Vaccine: No ROS Obtained: Yes Systems reviewed as appropriate & no additional complaints except as documented Physical Exam General General appearance: alert and in no apparent distress Head Head exam: atraumatic and normocephalic Eye Eye exam: Present PERRL and EOMI ENT ENT exam: Present mucous membranes moist Neck Neck exam: Present normal inspection Chest Chest inspection: Present normal inspection and symmetric chest wall rise Respiratory Respiratory exam: Absent respiratory distress Cardiovascular Cardiovascular exam: Present regular rate and normal rhythm Abdominal Exam Abdominal exam: Present soft; Absent tenderness Extremities Exam Extremities exam: Present normal inspection and other (Easily palpable bilateral dorsal pedal pulses. 5 out of 5 strength at the hip and the knee bilaterally. No discoloration of the lower extremities no asymmetric swelling.) Back Exam Back exam: Present normal inspection and other (No midline tenderness, mild bilateral sacroiliac tenderness.) Neurological Exam Neurological exam: Present alert Psychiatric Psychiatric exam: Present normal affect Skin Skin exam: Present warm and dry Medical Decision Making Medical Records Screening: Per USPSTF and CDC recommendations, given the prevalence of disease in our region, it is our hospital?s policy to screen for HIV and viral Hepatitis for all patients aged 18 and over and those with ongoing risk factors. Jose Inquiry Pt receiving controlled substance: No Vital Signs: 08/30/25 15:02 Temperature 98.1 F Temperature Source Oral Pulse Rate [Left] 83 Respiratory Rate 17 Blood Pressure [Right Arm] 136/81 Blood Pressure Mean [Right Arm] 99 Blood Pressure Source [Right Arm] Automatic Cuff Blood Pressure Position [Right Arm] Supine 02 Sat by Pulse Oximetry 95 Oxygen Delivery Method Room Air Orders (Tests/Meds): ED MEDICATIONS Discontinued Medications Generic Name Dose Route Start Last Admin Trade Name Freq PRN Reason Stop Dose Admin Gabapentin 300 mg 08/30/25 15:29 Gabapentin 300mg Capsule PO 08/30/25 15:30 ONCE ONE Medical Decision Narrative: In summary patient is 7-year-old male with past medical history of scrota above presents emergency department for evaluation of bilateral lower extremity pain. Patient is hemodynamically stable and nontoxic-appearing upon arrival, afebrile. Patient history and physical exam his symptoms are consistent with bilateral sciatica. Straight leg raise positive on both sides. No asymmetric swelling to suggest DVT. Palpable dorsal pedal pulses bilaterally no concern for arterial pathology or limb ischemia. Radicular leg down the back of both of his legs with no midline tenderness workup with labs and imaging was considered but are not indicated at this time will be deferred. Patient was restarted on low-dose gabapentin and will ramp up in the coming days to 900 mg total and will follow- up with PCP to assess efficacy. Patient was given return precautions. Traffic Chief disclaimer Much of this encounter note is an electronic crystallizer operator spoken language to printed text. Electronic crystallizer operator of the spoken language may permit errors. Although I have reviewed the note, some errors may still exist. Critical Care Critical Care Time Critical Care Time: No
[2025-08-30] MEDS: GABAPENTIN 300MG CAPSULE 300 MG PO (15:36)
[2025-08-30 15:40] VITALS: BP 131/78; PULSE 88; RESP 17; TEMP 36.9; O2SAT 99
== END 2025-08-30 15:41 | disposition home or self-care (01) ==
PROVIDERS: Emergency Provider Emergency Medicine; PCP Nurse Practitioner Family
DX: M54.31 Sciatica, right side (principal); M54.32 Sciatica, left side
CPT/HCPCS: 99282; 99283

== ENCOUNTER 2025-09-07 13:40 | Outpatient (CLI) | payer MEDICARE, MEDICAID, SELFPAY | END 2025-09-07 23:59 | disposition home or self-care (01) | LOC: LAB 13:41 | PROVIDERS: PCP Nurse Practitioner Family; Visit Provider Internal Medicine Pulmonary Disease | DX: R06.02 Shortness of breath (principal) | CPT/HCPCS: 87101; 87116; 87186 ==

== ENCOUNTER 2025-10-03 13:00 | Outpatient (CLI) | payer MEDICARE, MEDICAID, SELFPAY ==
--- OUTSIDE RECORDS SUMMARY | 2025-10-03 13:11 | XMS_ITS | Clinical Summary ---
Author Organization [facility] Address [address] [place] [address] Care Team Providers Care Dental Instrument Maker Name Role Phone Jr Alexander Monroy APRN [...] 03/06/2018 AAA SCREEN ONCE 2020 COVID-19 Vaccine (3 - Modern a risk series) 07/06/2021 06/08/2021, 05/02/2021 INFLUENZA VACCINE 07/01/2025 08/02/2017, , 09/02/2011 TDAP/TD VACCINES (2 - Td or Tdap) 08/02/2027 017 Pneumococcal Vaccine 50+ Completed 03/13/2022 Insurance [employer] MEDICARE ADVANTAGE MEDICAID [place] Care Teams Dental Instrument Maker Relationship Specialty Start Date End Date Jr Alexander Monroy APRN [address] [place] [id number] PCP - General Nurse Practitioner 10/25/24
[2025-10-03 14:00] VITALS: PULSE 88; PULSE 92
[2025-10-03] MEDS: ALBUTEROL 0.083% 2.5 MG/3 ML NEB IH (14:00)
== END 2025-10-03 23:59 | disposition home or self-care (01) ==
LOC: RT 13:02
PROVIDERS: PCP Nurse Practitioner Family; Visit Provider Internal Medicine Pulmonary Disease
DX: J44.9 Chronic obstructive pulmonary disease, unspecified (principal); R94.2 Abnormal results of pulmonary function studies
CPT/HCPCS: 94060; 94618; 94640; 94726; 94729

== ENCOUNTER 2025-10-10 13:17 | Outpatient (CLI) | payer MEDICARE, MEDICAID, SELFPAY ==
--- OUTSIDE RECORDS SUMMARY | 2025-10-10 13:24 | XMS_ITS | Clinical Summary ---
Author Organization [facility] Address [address] [place] [address] Care Team Providers Care Plant Tour Guide Name Role Phone Jr Alexander Monroy APRN [...] Completed 03/13/2022 Insurance [employer]ETNA MEDICARE ADVANTAGE MEDICAID [place] Care Teams Plant Tour Guide Relationship Specialty Start Date End Date Jr Alexander Monroy APRN [address] [place] [id number] PCP - General Nurse Practitioner 10/25/24
--- NOTE | 2025-10-10 13:30 | CT_ITS ---
FINAL REPORT TECHNIQUE: Axial imaging of the chest was obtained without contrast. Reformatted images were also obtained and reviewed.This study was performed with techniques to keep radiation doses as low as reasonably achievable, (ALARA). Individualized dose reduction technique using automated exposure control or adjustment of mA and/or kV according to the patient's size were employed. CLINICAL HISTORY: Nodule COMPARISON: 06/27/2025 FINDINGS: There is respiratory motion artifact. There is no axillary adenopathy. There is no hilar or mediastinal mass or adenopathy. Heart size is normal. There is no pericardial or pleural effusion. Limited images of the upper abdomen are unremarkable. Atelectasis or scarring is seen in the posterior medial right lower lobe. The is opacification with bronchial wall thickening of the lower lobe bronchi which has improved. There are moderate emphysematous changes. IMPRESSION: Improved bronchiolitis and bronchopneumonia. Persistent changes of bronchial wall thickening. Reviewed, Interpreted and Dictated by Aliza Melo MD Transcribed by Mela Tavares Authenticated and . [facility]
== END 2025-10-10 23:59 | disposition home or self-care (01) ==
LOC: RAD 13:18
PROVIDERS: PCP Nurse Practitioner Family; Visit Provider Internal Medicine Pulmonary Disease
DX: J18.0 Bronchopneumonia, unspecified organism (principal); J21.9 Acute bronchiolitis, unspecified; R91.1 Solitary pulmonary nodule; R91.8 Other nonspecific abnormal finding of lung field
CPT/HCPCS: 71250

== ENCOUNTER 2025-10-25 09:28 | Outpatient (CLI) | payer MEDICARE, MEDICAID, SELFPAY ==
--- NOTE | 2025-10-25 09:32 | XR_ITS ---
FINAL REPORT CLINICAL HISTORY: left shoulder pain FINDINGS: Three views of the left shoulder were obtained. There is no fracture or dislocation. There is glenohumeral and AC joint degenerative disease. Soft tissues are unremarkable. IMPRESSION: Degenerative disease as above. Reviewed, Interpreted and Dictated by Marianne Garcia MD Transcribed by Elana Costello Authenticated and [facility]
--- OUTSIDE RECORDS SUMMARY | 2025-10-25 09:33 | XMS_ITS | Clinical Summary ---
Author Organization [facility] Address [address] [place] [address] Care Team Providers Care Shipsmith Name Role Phone Jr Alexander Monroy APRN [...] Completed 03/13/2022 Insurance [employer]NA MEDICARE ADVANTAGE MEDICAID [place] Care Teams Shipsmith Relationship Specialty Start Date End Date Jr Alexander Monroy APRN [address] [place] [id number] PCP - General Nurse Practitioner 10/25/24
== END 2025-10-25 23:59 | disposition home or self-care (01) ==
LOC: RAD 09:30
PROVIDERS: PCP Student in an Organized Health Care Education/Training Program; Visit Provider Physician Assistant
DX: M19.012 Primary osteoarthritis, left shoulder (principal)
CPT/HCPCS: 73030